=== PATIENT | male | born 1960 | race Caucasian/White ===

== ENCOUNTER 2017-12-14 14:44 | Emergency (ER) | payer OTHER ==
[2017-12-14 14:50] VITALS: BP 139/99
--- NOTE | 2017-12-14 15:55 | RAD ---
INDICATION: Fall. Left shoulder pain COMPARISON: None TECHNIQUE: AP, lateral, and oblique views were obtained. FINDINGS: There is a displaced distal clavicular fracture. There is comminution. The glenohumeral joint is intact. There is no abnormality of the visualized left upper lobe. IMPRESSION: DISPLACED AND COMMINUTED DISTAL CLAVICULAR FRACTURE.
--- NOTE | 2017-12-14 15:57 | RAD ---
INDICATION: Left clavicular fracture COMPARISON: Left shoulder same date TECHNIQUE: AP views were obtained. FINDINGS: There is a comminuted and displaced distal left clavicular fracture. The distal fracture fragment articulates with the acromion but the proximal clavicle is displaced 2 bone widths cephalad. There are no additional fractures. There is soft tissue swelling with deformity IMPRESSION: DISPLACED DISTAL CLAVICULAR FRACTURE.
--- NOTE | 2017-12-14 16:13 | RAD ---
INDICATION: Fall COMPARISON: CT brain March 18, 2016 TECHNIQUE: Noncontrast axial source images were acquired from the skull base to the vertex. FINDINGS: Ventricles/sulci: There are cortical involutional changes.. Brain parenchyma: There is no focal parenchymal finding, evidence of intracranial mass, or intracranial mass effect. Intracranial hemorrhage:None. Extra-axial spaces: There are bifrontal extra-axial collections which are likely subdural hygromas. These have developed since the 2016 examination. Calvarium: There is no calvarial fracture or other calvarial abnormality. Scalp: There is no evidence of scalp or extracalvarial soft tissue abnormality. Paranasal sinuses/mastoid: The paranasal sinuses and mastoid air cells are clear. Other: None. IMPRESSION: INTERVAL DEVELOPMENT OF BIFRONTAL SUBDURAL HYGROMAS.
--- NOTE | 2017-12-14 16:15 | PN ---
Progress Note - Progress Note Date of Service: 12/14/17 Note: Patient arrives with a left shoulder /clavicle injury. Patient states 10 days ago he kicked a ball and dog jerked pt and he fell and landed on the pavement/ on shoulder and on head 10 days ago and since then pt has been falling frequently. pt c/o left shoulder pain. Patient has a laceration over the left eye. He states to triage nurse he drinks all day every day. He is also requesting a CT of the brain as he is unsure how many times he has fallen, had loss of consciousness or pass out otherwise. To expedite the process as he remains in the waiting room, provider ordered a shoulder and clavicle x-ray as well as a CT brain. This was completed. Patient was sent to a room where he remained for a few minutes before stating he would like to leave and would like to come back tomorrow to obtain his results. Nursing staff assured patient that provider was on the way into the room, however she declines this day and his left without being seen. We will await to see if he returns tomorrow, otherwise will warrant a phone call to the individual.
== END 2017-12-14 16:13 | disposition left against medical advice (07) ==
LOC: ED 14:44
DX: S42.032A Displaced fracture of lateral end of left clavicle, initial encounter for closed fracture (principal); S01.112A Laceration without foreign body of left eyelid and periocular area, initial encounter; W19.XXXA Unspecified fall, initial encounter; Y92.9 Unspecified place or not applicable; D18.1 Lymphangioma, any site; Z53.21 Procedure and treatment not carried out due to patient leaving prior to being seen by health care provider; Z91.81 History of falling
CPT/HCPCS: 70450; 99282

== ENCOUNTER 2017-12-14 17:34 | Emergency (ER) | payer OTHER ==
[2017-12-14 17:45] VITALS: BP 115/83
--- NOTE | 2017-12-14 18:09 | ED ---
Head Injury - HPI Summary HPI Summary: 57 male presents for head injury 2 weeks ago. He states since that injury occurred as his dog pulled his arm and he fell onto his left shoulder and head. He states since then he has fallen 5 times. The last one a week ago resulted to a laceration near left eye. He states he previous broke his left clavicle. He is full range of motion her shoulder with pain. There is step-off noted to the left shoulder. He states he drinks alcohol daily. He did drink today. He denies any neck pain. He admits to dizziness when he walks. He states the dizziness is worse if he drinks alcohol. He denies any other injury. He denies any change in vision. Denies any photophobia. He states he has a pressure in the front of his head. He denies any nausea or vomiting. unsure of LOC. He states placing ice on the area has been helping. He was in the waiting room earlier today and had imaging done. Imaging showed has bifrontal subdural hygromas. Also shows that he has a clavicle fracture. Patient was asked to return. ambulance was sent to his house to pick him up. He has past medical history he seizures. He takes phenytoin and gabapentin. He states his been taking them consistently. He states his last seizure was a month ago. - History Of Current Complaint Chief Complaint: EDHeadInjury Stated Complaint: HEAD INJURY Time Seen by Provider: 12/14/17 17:43 Pain Intensity: 10 - Allergies/Home Medications Allergies/Adverse Reactions: Allergies Allergy/AdvReac Type Severity Reaction Status Date / Time bee venom protein (honey bee) Allergy Unknown Verified 12/14/17 14:46 Reaction Details Home Medications: Home Medications Ascorbic Acid TAB* [Vitamin C TAB*] 500 mg PO DAILY 12/14/17 [History Confirmed 12/14/17] Cholecalciferol TAB* [Vitamin D TAB*] 400 unit PO DAILY 12/14/17 [History Confirmed 12/14/17] Cyanocobalamin TAB* [Vitamin B12 TAB*] 500 mcg PO DAILY 12/14/17 [History Confirmed 12/14/17] Meloxicam(NF) [Mobic(NF)] 15 mg PO DAILY PRN 12/14/17 [History Confirmed ] Phenytoin CAP(*) [Dilantin CAP(*)] 100 mg PO QAM 12/14/17 [History Confirmed ] Phenytoin CAP(*) [Dilantin CAP(*)] 200 mg PO QPM 12/14/17 [History Confirmed ] amLODIPine TAB* [Norvasc 5 mg TAB*] 5 mg PO DAILY 12/14/17 [History Confirmed ] PMH/Surg Hx/FS Hx/Imm Hx Endocrine/Hematology History: Denies: Hx Anticoagulant Therapy, Hx Diabetes Cardiovascular History: Reports: Hx Hypercholesterolemia, Hx Hypertension Denies: Hx Pacemaker/ICD Respiratory History: Denies: Hx Asthma History: Denies: Hx Dialysis, Hx Renal Disease Musculoskeletal History: Reports: Hx Arthritis, Hx Back Problems, Hx Scoliosis, Other Musculoskeletal History - c/o chronic soreness left posterior calf, states he has had " for years" Sensory History: Reports: Hx Contacts or Glasses Denies: Hx Hearing Aid Opthamlomology History: Reports: Hx Contacts or Glasses Neurological History: Reports: Hx Seizures, Other Neuro Impairments/Disorders - tremors r/t ETOH. PAIN CLINIC PT Psychiatric History: Reports: Hx Substance Abuse - alcoholism Denies: Hx Panic Disorder - Surgical History Surgery Procedure, Year, and Place: APPENDIX 1982 - Immunization History Date of Tetanus Vaccine: unknown Infectious Disease History: No Infectious Disease History: Denies: Traveled Outside the [place] in Last 30 Days - Family History Known Family History: Positive: Hypertension - Social History Alcohol Use: Daily Alcohol Amount: alcohol abuse Substance Use Type: Reports: None Substance Use Comment - Amount & Last Used: denies Smoking Status (MU): Current Every Day Smoker Type: Cigarettes Amount Used/How Often: 5-6 cigarettes/day Have You Smoked in the Last Year: No Review of Systems Negative: Fever Negative: Chest Pain Negative: Shortness Of Breath Positive: Myalgia - left shoulder pain Positive: Headache All Other Systems Reviewed And Are Negative: Yes Physical Exam Triage Information Reviewed: Yes Vital Signs On Initial Exam: Initial Vitals Temp Pulse Resp BP Pulse Ox 98 F 77 14 115/83 99 12/14/17 17:41 12/14/17 17:41 12/14/17 17:41 12/14/17 17:41 12/14/17 17:41 Vital Signs Reviewed: Yes Appearance: Positive: Well-Appearing Skin: Positive: Warm, Dry, Other - healing laceration near left eye Head/Face: Positive: Normal Head/Face Inspection, Other - no step off, racoon eyes, león sign Eyes: Positive: Normal, EOMI, ERNESTO, Conjunctiva Clear ENT: Positive: Normal ENT inspection, Pharynx normal, TMs normal Respiratory/Lung Sounds: Positive: Clear to Auscultation, Breath Sounds Present Cardiovascular: Positive: Normal, RRR Musculoskeletal: Positive: Strength/ROM Intact - left shoulder, Other - step off left clavicle, good pulses, capillary refill<2 sec, sensation grossly intact Neurological: Positive: Sensory/Motor Intact, Alert, Oriented to Person Place, Time, CN Intact II-III, Normal Gait Psychiatric: Positive: Normal - [place] Coma Scale Best Eye Response: 4 - Spontaneous Best Motor Response: 6 - Obeys Commands Best Verbal Response: 5 - Oriented Coma Scale Total: 15 Diagnostics - Vital Signs Vital Signs Temp Pulse Resp BP Pulse Ox 12/14/17 17:41 98 F 77 14 115/83 99 - Laboratory Result Diagrams: 12/14/17 19:04 12/14/17 19:04 Lab Statement: Any lab studies that have been ordered have been reviewed, and results considered in the medical decision making process. - CT brain CT Interpretation: Positive (See Comments) - interval development of bifrontal subdural hydromas CT Interpretation Completed By: Radiologist Re-Evaluation - Re-Evaluation First Eval Re-Evaluation Time: 18:59 Comment: patient states does not want to stay overnight. discussed want to get CT neck first, patient able to walk to CT without any tremors and able to walk in straight line. Second Eval Re-Evaluation Time: 19:31 Comment: patient met with carlota and still insists on going home. made sign out AMA patient is clinically sober enough to sign out AMA and understand the potential complications such as cerebral hemmorhage or . patient states needs to go home to take care of dogs. patient called son who does not have time to take care of dogs. patient explained to son that the ED is concerned that the patient could so has an understanding of the severity of the situation. Head Injury Course/Dx Course Of Treatment: 57 male presents for head injury 2 weeks ago. He states since that injury occurred as his dog pulled his arm and he fell onto his left shoulder and head. He states since then he has fallen 5 times. The last one a week ago resulted to a laceration near left eye. He states he previous broke his left clavicle. He is full range of motion her shoulder with pain. There is step-off noted to the left shoulder. He states he drinks alcohol daily. He did drink today. He denies any neck pain. He admits to dizziness when he walks. He states the dizziness is worse if he drinks alcohol. He denies any other injury. He denies any change in vision. Denies any photophobia. He states he has a pressure in the front of his head. He states placing ice on the area has been helping. He was in the waiting room earlier today and had imaging done. Imaging showed has bifrontal subdural hygromas. Also shows that he has a clavicle fracture. Patient was asked to return. ambulance was sent to his house to pick him up. He has past medical history he seizures. He takes phenytoin and gabapentin. He states his been taking them consistently. He states his last seizure was a month ago. On exam patient smells of alcohol. Normal neuro exam. Nontender neck. Step-off note to left shoulder. Neurovascular intact. gave sling for left shoulderas broke clavicle. told needs follow up with ortho about such. spoke with dr coffey states that does not need surgery. would need a repeat CT tomorrow to make sure nothing changes. needs further work up to see why falling. discussed results with patient and patient states needs to call family to get somone to watch dogs. patient is agreeable to CT neck. patient states son will not watch the dogs so he has to come home. patient states that will come back tomorrow for a repeat CT. explained patient needs to be admitted to be observed if anything changes then intervention can be performed. discussed with dr tamez if clinically sober is able to sign out ama. discussed risk of leaving and patient understand that there is a chance of or worsening hemorrhage. patient is clinically sober to be able to sign AMA form. AMA signing was witnessed by Elli Poon. - Diagnoses Differential Diagnosis/HQI/PQRI: Concussion Without LOC, Contusion, Intracranial Bleed Provider Diagnoses: Subdural hygroma, Fracture of left clavicle, Falls - Physician Notifications Discussed Care Of Patient With: erlinda Time Discussed With Above Provider: 18:45 - should admit for obs and get repeat CT tomorrow Discharge - Sign-Out/Discharge Documenting (check all that apply): Discharge/Admit/Transfer - Discharge Plan Condition: Guarded Disposition: AGAINST MEDICAL ADVICE Referrals: Deandra Painter NP [Primary Care Provider] - - Billing Disposition and Condition Condition: GUARDED Disposition: AMA
[2017-12-14 19:15] LABS: ABS Basophils 0.1 10^3/ul (0-0.2); ABS Eosinophils 0.1 10^3/ul (0-0.6); ABS Lymphocytes 1.7 10^3/ul (1.0-4.8); ABS Monocytes 0.4 10^3/ul (0-0.8); ABS Neutrophils 1.5 10^3/ul (1.5-7.7); ABS Nucleated RBC 0 10^3/ul; Hematocrit 31 % (42-52); Hemoglobin 10.7 g/dl (14.0-18.0); Lymphocyte % 43.8 % (25-47); Mean Corpuscular HGB Conc 35 g/dl (31-36); Mean Corpuscular Hemoglobin 37 pg (27-31); Mean Corpuscular Volume 105 fL (80-94); Mean Platelet Volume 6.8 um3 (7.4-10.4); Nucleated Red Blood Cells % 0.1; Platelet Count 138 10^3/ul (150-450); Red Blood Count 2.91 10^6/ul (4.0-5.4); Red Cell Distribution Width 16 % (10.5-15); White Blood Count 3.9 10^3/ul (3.5-10.8)
--- NOTE | 2017-12-14 19:31 | RAD ---
INDICATION: Fall. Neck pain COMPARISON: None TECHNIQUE: Noncontrast axial source images was performed from the skull base to the thoracic inlet. Coronal and and sagittal reformatted images were generated. FINDINGS: Vertebrae: There is no fracture or acute focal bony lesion. There is moderate osteoarthritic change between C3 and C6 consisting of endplate sclerosis with minor posterior spondylitic ridge formation. There is also uncinate process spurring at C5-C6 with resultant moderate bilateral foraminal narrowing. There is facet overgrowth at C3-C4 on the left. Alignment: The craniocervical junction appears normal. The cervical vertebrae are normally aligned. Central Canal: There are no other significant CT abnormalities of the central canal or foramina. MR imaging is a more sensitive method to evaluate the canal and foramina. Intervertebral disc spaces: The remaining disc spaces are maintained. Brain: The visualized brain appears unremarkable. Soft tissues: The visualized soft tissue elements of the neck are unremarkable. The prevertebral soft tissues appear normal. The lung apices are clear. IMPRESSION: MODERATE OSTEOARTHRITIS C4-C6 WITH MODERATE BILATERAL FORAMINAL NARROWING AT C5-C6. NO ACUTE FINDINGS.
[2017-12-14 19:37] LABS: EGFR Non-African American 121.1 (>60)
--- NOTE | 2017-12-14 19:53 | PN ---
Progress Note - Progress Note Date of Service: 12/14/17 Note: Patient left AMA prior to be seen.
== END 2017-12-14 19:47 | disposition left against medical advice (07) ==
LOC: ED 17:34
DX: D18.1 Lymphangioma, any site (principal); S42.002A Fracture of unspecified part of left clavicle, initial encounter for closed fracture; W19.XXXA Unspecified fall, initial encounter; Z91.81 History of falling; Y92.9 Unspecified place or not applicable; E78.00 Pure hypercholesterolemia, unspecified; I10 Essential (primary) hypertension; F17.210 Nicotine dependence, cigarettes, uncomplicated; Z53.21 Procedure and treatment not carried out due to patient leaving prior to being seen by health care provider
CPT/HCPCS: 36415; 72125; 80053; 82140; 83735; 85025; 99283

== ENCOUNTER 2017-12-15 12:18 | Emergency (ER) | payer OTHER ==
[2017-12-15 12:48] LABS: ABS Basophils 0.1 10^3/ul (0-0.2); ABS Eosinophils 0.1 10^3/ul (0-0.6); ABS Lymphocytes 1.4 10^3/ul (1.0-4.8); ABS Monocytes 0.3 10^3/ul (0-0.8); ABS Neutrophils 1.3 10^3/ul (1.5-7.7); ABS Nucleated RBC 0 10^3/ul; Eosinophil % 1.8 % (0-6); Hematocrit 30 % (42-52); Hemoglobin 10.3 g/dl (14.0-18.0); Lymphocyte % 42.8 % (25-47); Mean Corpuscular HGB Conc 34 g/dl (31-36); Mean Corpuscular Hemoglobin 36 pg (27-31); Mean Corpuscular Volume 106 fL (80-94); Mean Platelet Volume 7.1 um3 (7.4-10.4); Nucleated Red Blood Cells % 0.1; Platelet Count 121 10^3/ul (150-450); Red Blood Count 2.82 10^6/ul (4.0-5.4); Red Cell Distribution Width 16 % (10.5-15); White Blood Count 3.2 10^3/ul (3.5-10.8)
[2017-12-15 13:05] LABS: EGFR Non-African American 142.6 (>60)
--- NOTE | 2017-12-15 13:13 | RAD ---
HISTORY: Dizziness COMPARISONS: December 14, 2014 TECHNIQUE: Multiple contiguous axial CT scans were obtained of the head without intravenous contrast. FINDINGS: HEMORRHAGE/INFARCT: There is no hemorrhage or acute infarct. MASSES/SHIFT: There is no mass or shift. EXTRA-AXIAL SPACES: There are bilateral subdural fluid collections along the frontoparietal convexities that follow CSF, stable SULCI AND VENTRICLES: The sulci and ventricles are normal in size and position for the patient's stated age. CEREBRUM: There are no focal parenchymal abnormalities. BRAINSTEM: There are no focal parenchymal abnormalities. CEREBELLUM: There are no focal parenchymal abnormalities. VESSELS: The vessels are grossly normal. PARANASAL SINUSES: The paranasal sinuses are clear. ORBITS: The orbits are unremarkable. BONES AND SOFT TISSUE: No bone or soft tissue abnormalities are noted. OTHER: None IMPRESSION: STABLE BILATERAL FRONTOPARIETAL SUBDURAL HYGROMAS VERSUS CHRONIC SUBDURAL HEMATOMAS. NO ACUTE INTRACRANIAL PATHOLOGY
--- NOTE | 2017-12-15 13:35 | ED ---
Head Injury - HPI Summary HPI Summary: Patient is a 57-year-old male who presents for the third time in 2 days after signing out AMA twice yesterday. He arrives back today with a request for CT scan as he was supposed to receive one yesterday prior to AMA. He also endorses dizziness, but this has been consistent 2 weeks. He states he has been having worsening dizziness since he fell and hit his head 2 weeks ago. While he was here yesterday we obtained a CT scan and x-ray of the shoulder. Fractured clavicle is noted on x-ray. Bilateral hygromas are noted to the CT. He was advised to stay overnight for observation and repeat CT the next day. Neurosurgery was consulted who stated this likely is not a surgical case and recommended an observation. He then left AMA and said he would return the following morning. Family is at bedside. He smells of alcohol on arrival. Please see yesterday course of treatment below which was dictated by Hawa Mcdonough PA-C, his provider upon yesterdays visit. Course Of Treatment: 57 male presents for head injury 2 weeks ago. He states since that injury occurred as his dog pulled his arm and he fell onto his left shoulder and head. He states since then he has fallen 5 times. The last one a week ago resulted to a laceration near left eye. He states he previous broke his left clavicle. He is full range of motion her shoulder with pain. There is step-off noted to the left shoulder. He states he drinks alcohol daily. He did drink today. He denies any neck pain. He admits to dizziness when he walks. He states the dizziness is worse if he drinks alcohol. He denies any other injury. He denies any change in vision. Denies any photophobia. He states he has a pressure in the front of his head. He states placing ice on the area has been helping. He was in the waiting room earlier today and had imaging done. Imaging showed has bifrontal subdural hygromas. Also shows that he has a clavicle fracture. Patient was asked to return. ambulance was sent to his house to pick him up. He has past medical history he seizures. He takes phenytoin and gabapentin. He states his been taking them consistently. He states his last seizure was a month ago. On exam patient smells of alcohol. Normal neuro exam. Nontender neck. Step-off note to left shoulder. Neurovascular intact. gave sling for left shoulderas broke clavicle. told needs follow up with ortho about such. spoke with dr coffey states that does not need surgery. would need a repeat CT tomorrow to make sure nothing changes. needs further work up to see why falling. discussed results with patient and patient states needs to call family to get somone to watch dogs. patient is agreeable to CT neck. patient states son will not watch the dogs so he has to come home. patient states that will come back tomorrow for a repeat CT. explained patient needs to be admitted to be observed if anything changes then intervention can be performed. discussed with dr tamez if clinically sober is able to sign out ama. discussed risk of leaving and patient understand that there is a chance of or worsening hemorrhage. patient is clinically sober to be able to sign AMA form. AMA signing was witnessed by Elli Poon. - History Of Current Complaint Chief Complaint: EDDizziness Stated Complaint: DIZZINESS Time Seen by Provider: 12/15/17 12:22 Hx Obtained From: Patient, Family/Trapeze Artist Hx From Patient Unobtainable Due To: Altered Mental Status - alcohol intoxication Mechanism Of Injury: Fall From Height Of: - standing position x 2-3 weeks ago ( patient is unsure) Onset of Pain: Immediate Severity Currently: Mild Severity Initially: Mild Pain Intensity: 0 Pain Scale Used: 0-10 Numeric Location of Head Injury: Diffuse Alleviating Factor(s): Rest Associated Signs And Symptoms: LOC (Time In Secs./Mins/Hrs), LOC Duration Unknown, Confusion, Memory Loss - Risk Factors SDH Risk Factor: Male, Seizures, Recent Trauma, Alcohol Abuse - Allergies/Home Medications Allergies/Adverse Reactions: Allergies Allergy/AdvReac Type Severity Reaction Status Date / Time bee venom protein (honey bee) Allergy Unknown Verified 12/14/17 14:46 Reaction Details PMH/Surg Hx/FS Hx/Imm Hx Previously Healthy: No - alcoholic - severe/ multiple head trauma Endocrine/Hematology History: Denies: Hx Anticoagulant Therapy, Hx Diabetes Cardiovascular History: Reports: Hx Hypercholesterolemia, Hx Hypertension Denies: Hx Pacemaker/ICD Respiratory History: Denies: Hx Asthma History: Denies: Hx Dialysis, Hx Renal Disease Musculoskeletal History: Reports: Hx Arthritis, Hx Back Problems, Hx Scoliosis, Other Musculoskeletal History - c/o chronic soreness left posterior calf, states he has had " for years" Sensory History: Reports: Hx Contacts or Glasses Denies: Hx Hearing Aid Opthamlomology History: Reports: Hx Contacts or Glasses Neurological History: Reports: Hx Seizures, Other Neuro Impairments/Disorders - tremors r/t ETOH. PAIN CLINIC PT Psychiatric History: Reports: Hx Substance Abuse - alcoholism Denies: Hx Panic Disorder - Surgical History Surgery Procedure, Year, and Place: APPENDIX 1982 - Immunization History Date of Tetanus Vaccine: unknown Hx Pertussis Vaccination: No Immunizations Up to Date: Unable to Obtain/Confirm Infectious Disease History: No Infectious Disease History: Denies: Traveled Outside the [place] in Last 30 Days - Family History Known Family History: Positive: Hypertension - Social History Occupation: Unemployed Lives: With Family Alcohol Use: Daily Alcohol Amount: alcohol abuse Hx Substance Use: No Substance Use Type: Reports: None Substance Use Comment - Amount & Last Used: denies Hx Tobacco Use: Yes Smoking Status (MU): Light Every Day Tobacco Smoker Type: Cigarettes Amount Used/How Often: 5-6 cigarettes/day Have You Smoked in the Last Year: No Review of Systems Constitutional: Negative Negative: Fever, Chills, Fatigue, Skin Diaphoresis Cardiovascular: Negative Respiratory: Negative Genitourinary: Negative Positive: no symptoms reported, see HPI Musculoskeletal: Negative Positive: Other - laceration over left eye Positive: Slurred Speech - dizziness Psychological: Normal All Other Systems Reviewed And Are Negative: Yes Physical Exam Triage Information Reviewed: Yes Vital Signs On Initial Exam: Initial Vitals Pulse Resp BP Pulse Ox 80 16 162/100 96 12/15/17 12:26 12/15/17 12:26 12/15/17 12:26 12/15/17 12:26 Vital Signs Reviewed: Yes Appearance: Positive: Well-Appearing, Well-Nourished Skin: Positive: Warm, Skin Color Reflects Adequate Perfusion Head/Face: Positive: Normal Head/Face Inspection Eyes: Positive: EOMI, ERNESTO Neck: Positive: Supple, No Lymphadenopathy Respiratory/Lung Sounds: Positive: Clear to Auscultation, Breath Sounds Present Cardiovascular: Positive: RRR, Pulses are Symmetrical in both Upper and Lower Extremities Musculoskeletal: Positive: Normal, Strength/ROM Intact Neurological: Positive: Slurred Speech - alcohol Psychiatric: Positive: Normal, Affect/Mood Appropriate AVPU Assessment: Alert Diagnostics - Vital Signs Vital Signs Temp Pulse Resp BP Pulse Ox 05/19/18 13:26 78 15 151/96 98 12/15/17 13:07 73 98 12/15/17 12:57 74 18 122/85 96 12/15/17 12:27 99.0 F 82 18 162/100 97 12/15/17 12:26 80 16 162/100 96 - Laboratory Lab Results: Lab Results 12/15/17 12/15/17 12/15/17 Range/Units 12:40 12:40 12:40 WBC 3.2 L (3.5-10.8) 10^3/ul RBC 2.82 L (4.0-5.4) 10^6/ul Hgb 10.3 L (14.0-18.0) g/dl Hct 30 L (42-52) % MCV 106 H (80-94) fL MCH 36 H (27-31) pg MCHC 34 (31-36) g/dl RDW 16 H (10.5-15) % Plt Count 121 L (150-450) 10^3/ul MPV 7.1 L (7.4-10.4) um3 Neut % (Auto) 42.4 (38-83) % Lymph % (Auto) 42.8 (25-47) % [place] % (Auto) 10.1 H (0-7) % Eos % (Auto) 1.8 (0-6) % Baso % (Auto) 2.9 H (0-2) % Absolute Neuts (auto) 1.3 L (1.5-7.7) 10^3/ul Absolute Lymphs (auto) 1.4 (1.0-4.8) 10^3/ul Absolute Monos (auto) 0.3 (0-0.8) 10^3/ul Absolute Eos (auto) 0.1 (0-0.6) 10^3/ul Absolute Basos (auto) 0.1 (0-0.2) 10^3/ul Absolute Nucleated RBC 0 10^3/ul Nucleated RBC % 0.1 Sodium 138 L (139-145) mmol/L Potassium 3.6 (3.5-5.0) mmol/L Chloride 103 (101-111) mmol/L Carbon Dioxide 24 (22-32) mmol/L Anion Gap 11 (2-11) mmol/L BUN 5 L (6-24) mg/dL Creatinine 0.59 L (0.67-1.17) mg/dL Est GFR ( Amer) 183.4 (>60) Est GFR (Non-Af Amer) 142.6 (>60) BUN/Creatinine Ratio 8.5 (8-20) Glucose 97 (70-100) mg/dL Lactic Acid 2.2 H* (0.5-2.0) mmol/L Calcium 8.9 (8.6-10.3) mg/dL Total Bilirubin 0.50 (0.2-1.0) mg/dL AST 79 H (13-39) U/L ALT 24 (7-52) U/L Alkaline Phosphatase 166 H (34-104) U/L CK-MB (CK-2) 1.6 (0.6-6.3) ng/mL Myoglobin 20.0 (17.4-105.7) ng/mL Troponin I 0.00 (<0.04) ng/mL C-React Prot High Sens 0.86 mg/L Total Protein 7.3 (6.4-8.9) g/dL Albumin 4.1 (3.2-5.2) g/dL Globulin 3.2 (2-4) g/dL Albumin/Globulin Ratio 1.3 (1-3) Serum Alcohol 397 H (<10) mg/dL Result Diagrams: 12/15/17 12:40 12/15/17 12:40 Lab Statement: Any lab studies that have been ordered have been reviewed, and results considered in the medical decision making process. Head Injury Course/Dx Course Of Treatment: Patient is reevaluated based on yesterday's note of request for a repeat CT. CT scan shows: IMPRESSION: STABLE BILATERAL FRONTOPARIETAL SUBDURAL HYGROMAS VERSUS CHRONIC SUBDURAL HEMATOMAS. NO. ACUTE INTRACRANIAL PATHOLOGY. Alcohol level 397. This was obtained in an event where a observation or admission is needed. Other labs are stable, but a low H& H and elevated liver enzymes are noted. There is a deformity to the left shoulder, laceration to the left eye, patient appears intoxicated. Family is at bedside. Attempted to contact neurosurgery 13:28; 13:50 and 14:03. We did not get a hold of neurosurgery during these times. Discussed results with family and they would like to leave at this time. I will not have them sign out AMA as I believe this is stable and based on yesterday's examination of a recommendation to observe with a repeat CT to assess for any changes, as this CT shows no changes from yesterday. Family is willing to return with patient if needed. He is strongly encouraged to follow-up with neurosurgery and the risks of not doing so was discussed in depth. He is also to follow up with ortho, he states he will likely not do this. At this time he is stable enough to be discharged home with the safety of his family at bedside and will call with any differing opinion by neurosurgery when consulted. - Diagnoses Differential Diagnosis/HQI/PQRI: Concussion With LOC, Concussion Without LOC, Other - alcohol Provider Diagnoses: Alcohol intoxication, Hygroma, Clavicle fracture Discharge - Sign-Out/Discharge Documenting (check all that apply): Discharge/Admit/Transfer - Discharge Plan Condition: Stable Disposition: HOME Patient Education Materials: Clavicle Fracture (ED), Subdural Hematoma (ED), Dizziness (ED) Referrals: Paulino Mcneal MD [Medical Doctor] - Deandra Painter NP [Primary Care Provider] - Hannah Her MD [Medical Doctor] - Additional Instructions: Please follow-up with Dr. Encinas in the orthopedic clinic Keep the arm in a sling until follow-up Please follow-up with neurosurgery It is very important that you follow-up with them as you need continuing care If you fall and sustain another head injury, he will need to return to the ED immediately - Billing Disposition and Condition Condition: STABLE Disposition: HOME
[2017-12-15 14:25] VITALS: BP 116/91
== END 2017-12-15 14:23 | disposition home or self-care (01) ==
LOC: ED 12:18
DX: F10.129 Alcohol abuse with intoxication, unspecified (principal); Y90.8 Blood alcohol level of 240 mg/100 ml or more; D18.1 Lymphangioma, any site; S42.002A Fracture of unspecified part of left clavicle, initial encounter for closed fracture; X58.XXXA Exposure to other specified factors, initial encounter; Y92.9 Unspecified place or not applicable; F17.210 Nicotine dependence, cigarettes, uncomplicated
CPT/HCPCS: 36415; 70450; 80053; 80320; 82553; 83605; 83874; 84484; 85025; 86141; 99283; G0480

== ENCOUNTER 2017-12-27 17:44 | Emergency (ER) | payer OTHER ==
--- NOTE | 2017-12-27 19:10 | RAD ---
HISTORY: Syncope COMPARISONS: December 15, 2017 TECHNIQUE: Multiple contiguous axial CT scans were obtained of the head without intravenous contrast. FINDINGS: HEMORRHAGE/INFARCT: There is no hemorrhage or acute infarct. MASSES/SHIFT: There is no mass or shift. EXTRA-AXIAL SPACES: Again noted are bilateral frontoparietal subdural fluid collections that are isointense to CSF. SULCI AND VENTRICLES: The sulci and ventricles are normal in size and position for the patient's stated age. CEREBRUM: There are no focal parenchymal abnormalities. BRAINSTEM: There are no focal parenchymal abnormalities. CEREBELLUM: There are no focal parenchymal abnormalities. VESSELS: The vessels are grossly normal. PARANASAL SINUSES: The paranasal sinuses are clear. ORBITS: The orbits are unremarkable. BONES AND SOFT TISSUE: No bone or soft tissue abnormalities are noted. OTHER: None IMPRESSION: NO ACUTE INTRACRANIAL PATHOLOGY. STABLE BILATERAL FRONTOPARIETAL SUBDURAL HYGROMAS VERSUS CHRONIC HEMATOMAS.
--- NOTE | 2017-12-27 19:22 | RAD ---
HISTORY: Syncope COMPARISONS: March 20, 2015 VIEWS: 2: Frontal and lateral views of the chest. FINDINGS: CARDIOMEDIASTINAL SILHOUETTE: The cardiomediastinal silhouette is normal. DORENE: The dorene are normal. PLEURA: The costophrenic angles are sharp. No pleural abnormalities are noted. LUNG PARENCHYMA: The lungs are clear. ABDOMEN: The upper abdomen is clear. There is no subphrenic gas. BONES AND SOFT TISSUES: No bone or soft tissue abnormalities are noted. OTHER: None. IMPRESSION: NO ACTIVE CARDIOPULMONARY DISEASE.
[2017-12-27 19:32] LABS: EGFR Non-African American 117.1 (>60)
[2017-12-27 19:45] LABS: Hematocrit 29 % (42-52); Hemoglobin 9.9 g/dl (14.0-18.0); Mean Corpuscular HGB Conc 35 g/dl (31-36); Mean Corpuscular Hemoglobin 37 pg (27-31); Mean Corpuscular Volume 106 fL (80-94); Red Blood Count 2.69 10^6/ul (4.0-5.4); Red Cell Distribution Width 15 % (10.5-15); White Blood Count 6.9 10^3/ul (3.5-10.8)
--- NOTE | 2017-12-27 19:55 | ED ---
Kaylee Montemayor Elizabeth, scribed for Norbert Thornton MD on 12/27/17 at 1841 . Syncope/Near Syncope - HPI Summary HPI Summary: This patient is a 57 year old M BIBA to [facility] accompanied by his sister with a chief complaint of a fall from standing position that occurred earlier today. The patients sister reports that the patient just collapsed while waiting for the bus. Patient has hx of seizures but denies feeling his normal aura before he fell. Per EMS, the patient was given 2mg intranasal Narcan. The patient reports that he had 4-5 mixed drinks earlier today. Per EMS the patient has been slurring his speech. The patient rates the pain 0/10 in severity. Symptoms aggravated by nothing. Symptoms alleviated by nothing. Patient denies chest pain , shortness of breath, weakness. - History Of Current Complaint Time Seen by Provider: 12/27/17 18:13 Hx Obtained From: Patient, Family/Catcher Filter Tip - patient's sister Onset/Duration: Sudden Onset, Resolved Timing: Intermittent Episode Lasting Context: Witnessed Activity At Onset: Other - waiting for the bus Aggravating Factor(s): Nothing Alleviating Factor(s): Nothing Associated Signs And Symptoms: Negative - NEGATIVE CHEST PAIN, NEGATIVE SHORTNESS OF BREATH, NEGATIVE WEAKNESS - Allergies/Home Medications Allergies/Adverse Reactions: Allergies Allergy/AdvReac Type Severity Reaction Status Date / Time bee venom protein (honey bee) Allergy Unknown Verified 12/14/17 14:46 Reaction Details PMH/Surg Hx/FS Hx/Imm Hx Endocrine/Hematology History: Denies: Hx Anticoagulant Therapy, Hx Diabetes Cardiovascular History: Reports: Hx Hypercholesterolemia, Hx Hypertension Denies: Hx Pacemaker/ICD Respiratory History: Denies: Hx Asthma History: Denies: Hx Dialysis, Hx Renal Disease Musculoskeletal History: Reports: Hx Arthritis, Hx Back Problems, Hx Scoliosis, Other Musculoskeletal History - c/o chronic soreness left posterior calf, states he has had " for years" Sensory History: Reports: Hx Contacts or Glasses Denies: Hx Hearing Aid Opthamlomology History: Reports: Hx Contacts or Glasses Neurological History: Reports: Hx Seizures, Other Neuro Impairments/Disorders - tremors r/t ETOH. PAIN CLINIC PT Psychiatric History: Reports: Hx Substance Abuse - alcoholism Denies: Hx Panic Disorder - Surgical History Surgery Procedure, Year, and Place: APPENDIX 1982 - Immunization History Date of Tetanus Vaccine: unknown Infectious Disease History: No Infectious Disease History: Denies: Traveled Outside the [place] in Last 30 Days - Family History Known Family History: Positive: Hypertension - Social History Alcohol Use: Daily Alcohol Amount: alcohol abuse Hx Substance Use: No Substance Use Type: Reports: None Substance Use Comment - Amount & Last Used: denies Hx Tobacco Use: Yes Smoking Status (MU): Light Every Day Tobacco Smoker Type: Cigarettes Amount Used/How Often: 5-6 cigarettes/day Have You Smoked in the Last Year: No Review of Systems Negative: Epistaxis Negative: Chest Pain Negative: Shortness Of Breath Neurological: Other - EtOH intoxication Positive: Syncope, Slurred Speech. Negative: Weakness All Other Systems Reviewed And Are Negative: Yes Physical Exam - Summary Physical Exam Summary: VITAL SIGNS: Reviewed. GENERAL: Patient is a well-developed and nourished MALE who is lying comfortable in the stretcher. Patient is not in any acute respiratory distress. Patient is intoxicated with EtOH. HEAD AND FACE: No signs of trauma. No ecchymosis, hematomas or skull depressions. No sinus tenderness. EYES: PERRLA, EOMI x 2, No injected conjunctiva, no nystagmus. EARS: Hearing grossly intact. Ear canals and tympanic membranes are within normal limits. MOUTH: Oropharynx within normal limits. EtOH on his breath NECK: Supple, trachea is midline, no adenopathy, no JVD, no carotid bruit, no c- spine tenderness, neck with full ROM. CHEST: Symmetric, no tenderness at palpation LUNGS: Clear to auscultation bilaterally. No wheezing or crackles. CVS: Regular rate and rhythm, S1 and S2 present, no murmurs or gallops appreciated. ABDOMEN: Soft, non-tender. No signs of distention. No rebound no guarding, and no masses palpated. Bowel sounds are normal. EXTREMITIES: FROM in all major joints, no edema, no cyanosis or clubbing. Abrasion on right hand NEURO: Alert and oriented x 3. No acute neurological deficits. Speech is normal and follows commands. SKIN: Dry and warm. Abrasion on right hand Triage Information Reviewed: Yes Vital Signs On Initial Exam: Initial Vitals Pulse Resp BP Pulse Ox 78 14 142/87 96 12/27/17 18:00 12/27/17 18:00 12/27/17 18:00 12/27/17 18:00 Vital Signs Reviewed: Yes Diagnostics - Vital Signs Vital Signs Temp Pulse Resp BP Pulse Ox 12/27/17 18:20 98.0 F 79 22 142/87 97 12/27/17 18:01 80 17 97 12/27/17 18:00 78 14 142/87 96 - Laboratory Lab Results: Lab Results 12/27/17 12/27/17 12/27/17 Range/Units 18:46 18:46 18:46 WBC 6.9 (3.5-10.8) 10^3/ul RBC 2.69 L (4.0-5.4) 10^6/ul Hgb 9.9 L (14.0-18.0) g/dl Hct 29 L (42-52) % MCV 106 H (80-94) fL MCH 37 H (27-31) pg MCHC 35 (31-36) g/dl RDW 15 (10.5-15) % Plt Count Pending MPV Pending Neut % (Auto) Pending Lymph % (Auto) Pending [place] % (Auto) Pending Eos % (Auto) Pending Baso % (Auto) Pending Absolute Neuts (auto) Pending Absolute Lymphs (auto) Pending Absolute Monos (auto) Pending Absolute Eos (auto) Pending Absolute Basos (auto) Pending Absolute Nucleated RBC Pending Nucleated RBC % Pending Sodium 135 L (139-145) mmol/L Potassium 3.9 (3.5-5.0) mmol/L Chloride 99 L (101-111) mmol/L Carbon Dioxide 23 (22-32) mmol/L Anion Gap 13 H (2-11) mmol/L BUN 9 (6-24) mg/dL Creatinine 0.70 (0.67-1.17) mg/dL Est GFR ( Amer) 150.6 (>60) Est GFR (Non-Af Amer) 117.1 (>60) BUN/Creatinine Ratio 12.9 (8-20) Glucose 93 (70-100) mg/dL Calcium 8.6 (8.6-10.3) mg/dL Magnesium 1.5 L (1.9-2.7) mg/dL Total Bilirubin 0.80 (0.2-1.0) mg/dL AST 99 H (13-39) U/L ALT 26 (7-52) U/L Alkaline Phosphatase 166 H (34-104) U/L Ammonia 62 H (16-53) mcmol/L Total Creatine Kinase 84 (10-223) U/L Troponin I 0.01 (<0.04) ng/mL B-Natriuretic Peptide 44 ( - 100) pg/mL Total Protein 6.8 (6.4-8.9) g/dL Albumin 3.9 (3.2-5.2) g/dL Globulin 2.9 (2-4) g/dL Albumin/Globulin Ratio 1.3 (1-3) TSH 1.13 (0.34-5.60) mcIU/mL Serum Alcohol Pending Result Diagrams: 12/27/17 18:46 12/27/17 18:46 Lab Statement: Any lab studies that have been ordered have been reviewed, and results considered in the medical decision making process. - Radiology CXR Xray Interpretation: No Acute Changes - IMPRESSION: NO ACTIVE CARDIOPULMONARY DISEASE. Dr. Thornton has reviewed this report. Radiology Interpretation Completed By: Radiologist - CT CT Brain CT Interpretation: No Acute Changes - IMPRESSION: NO ACUTE INTRACRANIAL PATHOLOGY. STABLE BILATERAL FRONTOPARIETAL SUBDURAL HYGROMAS VERSUS CHRONIC HEMATOMAS. Dr. Thornton has reviewed this report. CT Interpretation Completed By: Radiologist - EKG 18:20 Cardiac Rate: NL - at 80 BPM EKG Rhythm: Sinus Rhythm ST Segment: Normal EKG Interpretation: NSR, normal axis, no ST elevation Course/Dx Assessment/Plan: This patient is a 66-year-old male with past medical history significant for hypertension presents to the emergency room from the doctors office with a chief complaint that he has abnormal EKG findings. Patient has no complaints. Patient went to the doctor for a routine physical. He also reports that he has not been taking his blood pressure medications. Patient denies any chest pain, shortness of breath, positive occasional dizziness but no syncopal episodes. Denies any nausea vomiting diarrhea constipation. Blood work without any significant abnormality except for total creatinine kinase of 471. Troponin is 0.01. Chest x-ray impression: No acute cardiopulmonary disease. In the ED course the patient was found to be hypertensive therefore the patient was given available. The blood pressure improved therefore the patient will be discharged with follow-up with primary care physician. The patient doesnt want to wait for all the blood test results to return the patient is agreeing to sign AGAINST MEDICAL ADVICE. The patients sister also agrees who is not intoxicated and the patient will be discharged with a sister. The patients sister is alert and oriented 3 and she will be taking care of the patient. I extensively discussed with the patient the benefits and risk of leaving AMA. I also discussed the alternatives to leaving AMA, however, the patient still insist to leave the hospital AMA.. The primary nurse and the charge nurse also strongly recommended that the patient should not leave AMA. Patient understands the risk of leaving AMA, which includes but is not restricted to . Patient is Alert and oriented times three and patient verbalizes understanding. Patient has full capacity and is cognitively intact. Patient signed the AMA form. Patient was also advised to return to ED if he changes his mind or if the symptoms worsen or other symptoms appear. Patient understands and agrees. - Diagnoses Provider Diagnoses: Syncope, Left against medical advice Discharge - Sign-Out/Discharge Documenting (check all that apply): Discharge/Admit/Transfer - Discharge Plan Condition: Stable Disposition: AGAINST MEDICAL ADVICE Patient Education Materials: Syncope (ED) Referrals: Deandra Painter LEAD ESTHETICIAN [Primary Care Provider] - - Billing Disposition and Condition Condition: STABLE Disposition: AMA The documentation as recorded by the Kaylee cevallos Elizabeth accurately reflects the service I personally performed and the decisions made by , Norbert Thornton MD.
[2017-12-27 20:12] LABS: ABS Basophils 0 10^3/ul (0-0.2); ABS Eosinophils 0 10^3/ul (0-0.6); ABS Lymphocytes 1.4 10^3/ul (1.0-4.8); ABS Monocytes 0.7 10^3/ul (0-0.8); ABS Neutrophils 4.8 10^3/ul (1.5-7.7); ABS Nucleated RBC 0 10^3/ul; Eosinophil % 0.4 % (0-6); Lymphocyte % 19.7 % (25-47); Mean Platelet Volume 7.3 um3 (7.4-10.4); Nucleated Red Blood Cells % 0.1; Platelet Count 90 10^3/ul (150-450)
[2017-12-27 20:15] VITALS: BP 114/75
== END 2017-12-27 20:05 | disposition left against medical advice (07) ==
LOC: ED 17:44
DX: R55 Syncope and collapse (principal); R47.81 Slurred speech; F17.210 Nicotine dependence, cigarettes, uncomplicated; Z53.21 Procedure and treatment not carried out due to patient leaving prior to being seen by health care provider
CPT/HCPCS: 36415; 70450; 71046; 80053; 80320; 82140; 82550; 83735; 83880; 84443; 84484; 85025; 93005; 99283; G0480

== ENCOUNTER 2018-02-04 17:43 | Emergency (ER) | payer OTHER ==
--- OUTSIDE RECORDS SUMMARY | 2018-02-04 18:44 | XMS REPORT ---
:1960 External Reference #:[id number] Author Organization [facility] Address [address] [place] [address] [place] [address] Phone [phone] Care Team Providers Name Role Phone Gustavo Mata NP Primary Care Physician Unavailable Payers Type Date Identification Numbers Payment Provider Subscriber Commercial Policy Number: [id number] [employer] Aurelioisaura Edmond PayID: [id number] [address] [address] [place] [address] Problems Date Description Provider Status Onset: 09/02/2015 Seizure Nancy Cortez M.D. Active Note: question etiology: ETOH or alternative Family History Date Family Member(s) Problem(s) Comments General Psoriasis General Arthritis, Osteo General Arthritis Social History Type Date Description Comments Marital Status Single Lives With Alone Cigarette Use currently smokes 1/2 Pack Daily ETOH Use Occasionally consumes alcohol Recreational Drug Use Denies Drug Use Smoking Patient is a current smoker, smokes every day Smoking Light tobacco smoker (10 or fewer cigarettes/day) Exercise Type/Frequency Does not exercise Currently Active Patient is currently sexually active Allergies, Adverse Reactions, Alerts Date Description Reaction Status Severity Comments 05/04/2009 NKDA active Medications Medication Date Status Form Strength Qnty SIG Indications Ordering Provider B12 Fast 05/31/ Active Tablets 5000mcg 90tab sublingual Long Dissolve 2017 Dispers s daily Johana, M.D. Iron Slow 05/31/ Active Tablets ER 143(45Fe) 90tab take one Long Release 2017 mg s capsule/tab Johana, let daily M.D. by mouth Sulfasalazine 05/23/ Active Tablets 500mg 30tab take one L40.50 Long 2017 s tab by Johana, mouth daily M.D. Gabapentin 00/ Active Capsules 300mg 1 by mouth Unknown 0000 twice a day Meloxicam 00/ Active Tablets 15mg once daily Unknown 0000 Vitamin B-12 00/ Active Tablets 2500mcg 1 by mouth Unknown 0000 every day Magnesium 00/00/ Active Capsules 400mg once a day Unknown 0000 Quetiapine 00/ Active Tablets 50mg 1 tab by Unknown Fumarate 0000 mouth every day Amlodipine / Active Tablets 5mg 1 by mouth Unknown Besylate 0000 every day Atenolol 0000/ Active Tablets 50mg 1 by mouth Unknown 0000 every day Folic Acid / Active Tablets 1mg 1 by mouth Unknown 0000 every day Vitamin D3 / Active Capsules 1000Unit 1 by mouth Unknown 0000 every day Vitamin B1 00/ Active Tablets 100mg 1 by mouth Unknown 0000 every day Phenytoin 0000/ Active Capsules 100mg 90cap take 1 by Nancy Sodium Extended 0000 s mouth in in [facility], the morning M.D. and 2 by mouth in at night Triamcinolone / Active Cream 0.5% apply twice Unknown Acetonide 0000 daily to the affected area Robaxin-750 05/21/ Hx Tablets 750mg 120ta 2 po bid 724.2 Norbert Lanier - bs [place] 09/01/ Omari 2016 Ibuprofen 05/21/ Hx Tablets 800mg 90tab 1 tab po Norbert Zuñiga 2008 - s every 8 hrs [place] 09/01/ prisaura Salcido 2016 Thiamine HCL / Hx Tablets 100mg 1 by mouth Unknown 0000 - every day 2016 Vital Signs Date Vital Result Comment 01/31/2018 Height 69 inches 5'9" Heart Rate 87 /min BP Systolic 112 mmHg BP Diastolic 70 mmHg Respiratory Rate 16 /min Body Temperature 98.2 F Pain Level 8 05/23/2017 Height 69 inches 5'9" Weight 144.12 lb Heart Rate 92 /min BP Systolic Sitting 157 mmHg BP Diastolic Sitting 91 mmHg Respiratory Rate 14 /min Pain Level 3 BMI (Body Mass Index) 21.3 kg/m2 03/16/2017 Height 69 inches 5'9" Weight 148.00 lb Heart Rate 78 /min BP Systolic Sitting 140 mmHg BP Diastolic Sitting 88 mmHg Respiratory Rate 14 /min BMI (Body Mass Index) 21.9 kg/m2 01/10/2017 Height 69 inches 5'9" Weight 144.00 lb Heart Rate 76 /min BP Systolic Sitting 152 mmHg BP Diastolic Sitting 80 mmHg Respiratory Rate 14 /min BMI (Body Mass Index) 21.3 kg/m2 11/04/2015 Height 69 inches 5'9" Weight 146.00 lb Heart Rate 80 /min BP Systolic Sitting 140 mmHg BP Diastolic Sitting 90 mmHg Respiratory Rate 17 /min BMI (Body Mass Index) 21.6 kg/m2 09/02/2015 Height 69 inches 5'9" Weight 146.00 lb Patient reported Heart Rate 68 /min BP Systolic Sitting 150 mmHg BP Diastolic Sitting 82 mmHg Respiratory Rate 16 /min BMI (Body Mass Index) 21.6 kg/m2 07/19/2009 Height 69 inches 5'9" Weight 149.00 lb Heart Rate 80 /min BP Systolic Sitting 186 mmHg BP Diastolic Sitting 96 mmHg BMI (Body Mass Index) 22.0 kg/m2 06/07/2009 Weight 149.00 lb Heart Rate 84 /min BP Systolic Sitting 166 mmHg BP Diastolic Sitting 89 mmHg Body Temperature 97.0 F 05/27/2009 Weight 148.00 lb Heart Rate 96 /min BP Systolic Sitting 170 mmHg BP Diastolic Sitting 100 mmHg 05/04/2009 Height 68.5 inches 5'8.50" Weight 144.00 lb Heart Rate 78 /min BP Systolic Sitting 138 mmHg BP Diastolic Sitting 90 mmHg BMI (Body Mass Index) 21.6 kg/m2 Results Test Date Test Result H/L Range Note Laboratory test finding 09/14/2017 Phenytoin (Dilantin) 3.7 g/mL Low 10- 20 Laboratory test finding 08/07/2017 Phenytoin (Dilantin) 11.9 g/mL 10- 20 Laboratory test finding 08/07/2017 Erythrocyte Sed Rate 10 mm/Hr 0-20 1 Iron & Iron Binding 08/07/2017 Iron 155 g/dL 50-212 Capacity Unsaturated Iron Binding 75 g/dL Total Iron Binding Capacity 230 g/dL Low 250-450 % Iron Saturation 67 % High 15-55 Laboratory test finding 08/07/2017 C Reactive Protein < 1.00 mg/L < 5.00 2 TSH (Thyroid Stim Horm) 0.61 mcIU/mL 0.34-5.60 3 Folic Acid (Folate) 5.81 ng/mL >3.99 4 Vitamin B12 > 1450 pg/mL High 180-914 5 Vitamin D Total 25(Oh) 36.8 ng/mL 20-50 6 Rheumatoid Factor <15 IU/mL <15 7 Cyclic Citrullinated Pep Igg <15.6 U 8 Lyme Disease Serology Negative Negative 9 Hla B27 08/07/2017 Hla B27 Negative 10 Hla B27 Interp See Comment 11 Laboratory test finding 08/07/2017 Vitamin D, 1,25 44 pg/mL 18-64 12 Dihydroxy Laboratory test finding 07/20/2017 Phenytoin (Dilantin) 7.9 g/mL Low 10- 20 Laboratory test finding 05/28/2017 Lyme Disease Serology Negative Negative 13 Iron & Iron Binding 05/28/2017 Iron 229 g/dL High 50-212 Capacity Unsaturated Iron Binding 30 g/dL Total Iron Binding Capacity 259 g/dL 250-450 % Iron Saturation 88 % High 15-55 Vitamin B12 And Folate Serum 05/28/2017 Vitamin B12 266 pg/mL 180-914 14 Folic Acid (Folate) > 20.00 ng/mL >3.99 Laboratory test finding 05/28/2017 Rheumatoid Factor <15 IU/mL <15 15 Cyclic Citrullinated Pep Igg <15.6 U 16 TSH (Thyroid Stim Horm) 1.43 mcIU/mL 0.34-5.60 Hla B27 05/28/2017 Hla B27 Negative 17 Hla B27 Interp See Comment 18 Vitamin D 1,25 And Vitamin D,2 05/28/2017 Vitamin D Total 25(Oh) 39.9 ng/mL 20-50 Vitamin D, 1,25 Dihydroxy 52 pg/mL 18-64 19 Laboratory test finding 05/28/2017 Erythrocyte Sed Rate 10 mm/Hr 0-20 C Reactive Protein < 1.00 mg/L < 5.00 20 Laboratory test finding 03/27/2017 Phenytoin (Dilantin) 4.3 g/mL Low 10- 20 Lyme Disease Serology Negative Negative 21 Laboratory test finding 03/27/2017 Phenytoin (Dilantin) 10.5 g/mL 10- 20 Lyme Disease Serology Negative Negative 22 Laboratory test finding 02/12/2017 Phenytoin (Dilantin) 5.8 g/mL Low 10- 20 Laboratory test finding 01/18/2017 Homocysteine 18 mcmol/L 23 Methylmalonic Acid Mma 0.23 nmol/mL <=0.40 24 Vitamin D, 1,25 Dihydroxy 53 pg/mL 18-64 25 Laboratory test finding 01/18/2017 TSH (Thyroid Stimulating 1.53 mcIU/mL 0.34-5.60 Horm) PSA Screening 0.262 ng/mL 0-4.000 26 Lipid Profile (Trig/Chol/HDL) 01/18/2017 Triglycerides 101 mg/dL 27 Cholesterol 211 mg/dL 28 HDL Cholesterol 82.6 mg/dL 29 LDL Cholesterol 108 mg/dL 30 Vitamin B12 And Folate Serum 01/18/2017 Vitamin B12 224 pg/mL 180-914 31 Folic Acid (Folate) > 20.00 ng/mL >3.99 Laboratory test finding 01/18/2017 Phenytoin (Dilantin) < 2.5 g/mL Low 10-20 CBC Auto Diff 01/18/2017 White Blood Count 8.9 10^3/uL 3.5-10.8 Red Blood Count 3.59 10^6/uL Low 4.0-5.4 Hemoglobin 12.0 g/dL Low 14.0-18.0 Hematocrit 35 % Low 42-52 Mean Corpuscular Volume 98 fL High 80-94 Mean Corpuscular Hemoglobin 34 pg High 27-31 Mean Corpuscular HGB Conc 34 g/dL 31-36 Red Cell Distribution Width 15 % 10.5-15 Platelet Count 224 10^3/uL 150-450 Mean Platelet Volume 8 um3 7.4-10.4 Abs Neutrophils 6.6 10^3/uL 1.5-7.7 Abs Lymphocytes 1.5 10^3/uL 1.0-4.8 Abs Monocytes 0.7 10^3/uL 0-0.8 Abs Eosinophils 0.1 10^3/uL 0-0.6 Abs Basophils 0.1 10^3/uL 0-0.2 Abs Nucleated RBC 0 10^3/uL Granulocyte % 74.4 % 38-83 Lymphocyte % 16.5 % Low 25-47 Monocyte % 7.8 % 1-9 Eosinophil % 0.6 % 0-6 Basophil % 0.7 % 0-2 Nucleated Red Blood Cells % 0 Comp Metabolic Panel 01/18/2017 Sodium 132 mmol/L Low 133-145 Potassium 4.5 mmol/L 3.5-5.0 Chloride 99 mmol/L Low 101-111 Co2 Carbon Dioxide 25 mmol/L 22-32 Anion Gap 8 mmol/L 2-11 Glucose 87 mg/dL 70-100 Blood Urea Nitrogen 11 mg/dL 6-24 Creatinine 0.81 mg/dL 0.67-1.17 BUN/Creatinine Ratio 13.6 8-20 Calcium 9.9 mg/dL 8.6-10.3 Total Protein 7.7 g/dL 6.4-8.9 Albumin 4.5 g/dL 3.2-5.2 Globulin 3.2 g/dL 2-4 Albumin/Globulin Ratio 1.4 1-3 Total Bilirubin 0.30 mg/dL 0.2-1.0 Alkaline Phosphatase 119 U/L High 34-104 Alt 31 U/L 7-52 Ast 24 U/L 13-39 Egfr Non- 99.3 >60 Egfr 127.7 >60 32 Anaerobic Culture Bottle 07/09/2009 Anaerobic Culture Bottle NG5 33 Aerobic Culture Bottle 07/09/2009 Aerobic Culture Bottle NG5 34 CBC With Manual Diff 07/09/2009 White Blood Count 9.8 CUMM 4.8-10.8 Red Cell Count 4.16 CUMM Low 4.6-6.2 Hemoglobin 13.8 g/dL Low 14.0-18.0 Hematocrit 40 % Low 42-52 Mean Corpuscular Volume 96 um3 High 80-94 Mean Corpuscular Hemoglob 33 pg High 27-31 Mean Corpuscular HGB Cone 34 g/dL 32-36 Redcell Distribution WDTH 14 % 10.5-15 Platelet Count 132 CUMM Low 150-450 Mean Platelet Volume 7.3 um3 Low 7.4-10.4 Polysegmented Neutrophil 74 % 38-83 Band Neutrophil 5 % 0-8 Lymphocyte 8 % Low 25-47 Monocyte 8 % 0-13 Eosenophil 1 % 0-6 Atypical Lymph 4 % 0-6 Absolute Neutrophil Count 7.7 RBC Morphology NORMAL CMP Panel Stat 07/09/2009 Sodium 138 mmol/L 135-145 Potassium 3.4 mmol/L Low 3.5-5.0 Chloride 101 mmol/L 101-111 Co2 (Carbon Dioxide) 25.0 mmol/L 22-32 Anion Gap 12.0 mmol/L High 2-11 35 Glucose 113 mg/dL High 70-100 36 BUN 5 mg/dL Low 6-24 Creatinine 0.70 mg/dL 0.50-1.40 One Over Creatinine 1.40 BUN/Creatinine Ratio 7.1 Low 8-20 Calcium 9.2 mg/dL 8.1-9.9 37 Total Protein 7.8 GM/DL 6.2-8.1 Albumin 4.6 GM/DL 3.6-5.4 Globulin 3.2 GM/DL 2-4 Albumin/Globulin Ratio 1.4 1-3 Bilirubin Total 0.7 mg/dL 0.4-1.5 38 Alkaline Phosphatase 120 U/L High 39-117 Alt (SGPT) 119 U/L High 17-63 Ast (Sgot) 89 U/L High 12-42 eGFR Non- 128.5 > 60 eGFR 155.5 > 60 39 1 Please check labs today 2 Acute inflammation: >10.00 3 Please check labs today 4 Please check labs today 5 Normal Range 180 to 914 Indeterminate Range 145 to 180 Deficient Range <145 6 Please check labs today 7 Test Performed by: [facility] - [address] [address] 8 REFERENCE VALUE <20.0 (Negative) Test Performed by: [address] [address] 9 Serologic response to B. burgdorferi infection is not detected, but cannot rule out early infection during which low or undetectable antibody levels to B. burgdorferi may be present. If clinically indicated, a new serum specimen should be submitted in 7-14 days. Test Performed by: [facility] - [facility] [address] [place] [address] 10 REFERENCE VALUE Not Applicable 11 RESULT: HLA-B27 antigen was not detected. ADDITIONAL INFORMATION Method: Flow Cytometry Performing Laboratory CLIA# [id number] Test Performed by: [address] [id number] 12 ADDITIONAL INFORMATION This test was developed and its performance characteristics determined by [facility] in a manner consistent with CLIA requirements. This test has not been cleared or approved by the U.S. Food and Drug Administration. Test Performed by: [facility] - [address] [address] 13 Serologic response to B. burgdorferi infection is not detected, but cannot rule out early infection during which low or undetectable antibody levels to B. burgdorferi may be present. If clinically indicated, a new serum specimen should be submitted in 7-14 days. Test Performed by: [facility] - [address] [address] 14 Normal Range 180 to 914 Indeterminate Range 145 to 180 Deficient Range <145 15 Test Performed by: [facility] - [address] [address] 16 REFERENCE VALUE <20.0 (Negative) Test Performed by: [facility] - [facility] [address] [place] [address] 17 REFERENCE VALUE Not Applicable 18 RESULT: HLA-B27 antigen was not detected. ADDITIONAL INFORMATION Method: Flow Cytometry Performing Laboratory CLIA# [id number] Test Performed by: [facility] - [address] [address] 19 ADDITIONAL INFORMATION This test was developed and its performance characteristics determined by [facility] in a manner consistent with CLIA requirements. This test has not been cleared or approved by the U.S. Food and Drug Administration. Test Performed by: [facility] - [address], [place] [address] 20 Acute inflammation: >10.00 21 Serologic response to B. burgdorferi infection is not detected, but cannot rule out early infection during which low or undetectable antibody levels to B. burgdorferi may be present. If clinically indicated, a new serum specimen should be submitted in 7-14 days. Test Performed by: [facility] - [facility] [address] [place] [address] 22 Serologic response to B. burgdorferi infection is not detected, but cannot rule out early infection during which low or undetectable antibody levels to B. burgdorferi may be present. If clinically indicated, a new serum specimen should be submitted in 7-14 days. Test Performed by: [facility] [employer] - [address] [address] 23 The homocysteine concentration is elevated in this sample. Increased homocysteine has been associated with an increased risk of cardiovascular disease, cerebrovascular disease, peripheral arterial disease and thrombosis. Vitamin deficiencies (B6, B12 and folic acid) may also cause an increased homocysteine concentration. Inborn errors of methionine metabolism are a potential, but less likely, possibility for hyperhomocysteinemia. Consider plasma or serum methylmalonic acid analysis to rule out vitamin B12 deficiency. REFERENCE VALUE <=13 (Fasting) ADDITIONAL INFORMATION This test was developed and its performance characteristics determined by [facility] in a manner consistent with CLIA requirements. This test has not been cleared or approved by the U.S. Food and Drug Administration. Test Performed by: [facility] - [facility] [address] [place] [address] 24 ADDITIONAL INFORMATION This test was developed and its performance characteristics determined by [facility] in a manner consistent with CLIA requirements. This test has not been cleared or approved by the U.S. Food and Drug Administration. Test Performed by: [facility] - [address] [address] 25 ADDITIONAL INFORMATION This test was developed and its performance characteristics determined by [facility] in a manner consistent with CLIA requirements. This test has not been cleared or approved by the U.S. Food and Drug Administration. Test Performed by: [facility] - [address] [address] 26 Serum levels of PSA measured using the Melina Zaplox DXI Hybritech immunoassay should not be interpreted as absolute evidence of the presence or absence of disease. The PSA value should be used in conjunction with other pertinent clinical diagnostic procedures. A PSA value in the range of 0.1 to 0.6 ng/ml is indeterminate if being used as an indicator of recurrent or residual disease. The values obtained with different assay methods or kits cannot be used interchangeably. 27 Desirable <150 Borderline high 150-199 High 200-499 Very High >500 28 Desirable <200 Borderline high 200-239 High >239 29 Low <40 Desirable: 40-60 High: >60 30 Desirable: <100 mg/dL Near Optimal: 100-129 mg/dL Borderline High: 130-159 mg/dL High: 160-189 mg/dL Very High: >189 mg/dL 31 Normal Range 180 to 914 Indeterminate Range 145 to 180 Deficient Range <145 32 Because ethnic data is not always readily available, this report includes an eGFR for both -Americans and non- Americans. The National Kidney Disease Education Program (NKDEP) does not endorse the use of the MDRD equation for patients that are not between the ages of 18 and 70, are , have extremes of body size, muscle mass, or nutritional status, or are non- or non-. According to the National Kidney Foundation, irrespective of diagnosis, the stage of the disease is based on the level of kidney function: Stage Description GFR(mL/min/1.73 m(2)) 1 Kidney damage with normal or decreased GFR 90 2 Kidney damage with mild decrease in GFR 60-89 3 Moderate decrease in GFR 30-59 4 Severe decrease in GFR 15-29 5 Kidney failure <15 (or dialysis) 33 NO GROWTH AFTER 5 DAYS 34 NO GROWTH AFTER 5 DAYS 35 Anion gap measurement may be of limited value in the presence of any alkalosis, especially in a combined acid base disorder. . 36 Note change in reference range as of 03/19/08. The change was based on recommendations from the [place] [employer]. 37 Please note change in reference range effective 08 . 38 A metabolite of Naproxen, O-desmethylnaproxen, has been shown to interfere with the Jendrassik-Yariel method for measuring total bilirubin. Samples from patients who have taken Naproxen have shown spurious elevation in total bilirubin levels. 39 Because ethnic data is not always readily available, this report includes an eGFR for both -Americans and non- Americans. The National Kidney Disease Education Program (NKDEP) does not endorse the use of the MDRD equation for patients that are not between the ages of 18 and 70, are , have extremes of body size, muscle mass, or nutritional status, or are non- or non-. According to the National Kidney Foundation, irrespective of diagnosis, the stage of the disease is based on the level of kidney function: Stage Description GFR(mL/min/1.73 m(2)) 1 Kidney damage with normal or decreased GFR 90 2 Kidney damage with mild decrease in GFR 60-89 3 Moderate decrease in GFR 30-59 4 Severe decrease in GFR 15-29 5 Kidney failure <15 (or dialysis) Procedures Date CPT Code Description Status 11/04/2015 29571 Nerve Conduction 03-04 Studies Completed 11/04/2015 49921 Needle Electromyography Complete, Five Or More Muscles Completed Studied 09/09/2015 05474 EEG Recording Awake & Drowsy Completed 06/29/2015 01117 EEG Recording Awake & Drowsy Completed 06/24/2015 02053 ECHO Transthorasic Realtime 2D W Doppler & Color Flow Completed Hosp 06/24/2015 38719 EKG, Interpretation Only Completed 11/20/2014 97805 EEG Recording Awake & Drowsy Completed Encounters Type Date Location Provider CPT E/M Dx Office Visit 01/31/2018 [facility] [address] S42.032K 1:00p Horacio Mcneal MD Office Visit 05/23/2017 [facility] [place], [address] L40.50 2:00p Of Telephone Interviewer Omari Z79.899 G62.9 D64.9 S00.96xA M54.5 F17.210 Office Visit 03/16/2017 1:30p [facility] Nancy Cortez M.D. 65515 R56.9 Services Of Telephone Interviewer F10.20 R21 Z91.14 Office Visit 01/10/2017 11:15a [facility] Nancy Cortez M.D. 69991 R56.9 Services Of Telephone Interviewer F10.20 G62.9 Office Visit 11/04/2015 2:00p [facility] Nancy Cortez M.D. 45852 R56.9 Services Of Telephone Interviewer F10.20 G62.9 Office Visit 09/02/2015 10:00a [facility] Nancy Cortez, [address] R56.9 Omari M79.605 Office Visit 06/30/2015 1:21p [facility], [place] [address] R56.9 Hospitalists F10.10 I10 E83.42 Office Visit 06/29/2015 3:22p [facility] Nancy Cortez, 674[address] F10.230 MIbeth R56.9 E83.42 Office Visit 06/29/2015 1:21p [facility], [place] [address] R56.9 Hospitalists F10.10 I10 E83.42 Office Visit 06/28/2015 9:15a [facility], Tremaine Brasher, 61435 R55 Hospitalists M.D. F10.231 I10 Office Visit 06/27/2015 9:14a [facility], Tigist Sandoval 39585 R55 Hospitalists M.D. F10.231 I10 Office Visit 06/26/2015 9:14a [facility], Tigist Sandoval, 45242 R55 Hospitalists M.D. F10.231 I10 Office Visit 06/25/2015 9:13a [facility], Tigist Sandoval, 49356 R55 Hospitalists M.D. F10.231 I10 Office Visit 06/24/2015 9:13a [facility], Tigist Sandoval, 91360 R55 Hospitalists MIbeth F10.231 I10 Office Visit 06/23/2015 9:12a [facility],pc [place] Roberts, [address] R55 Hospitalists N.P. F10.231 I10 Office Visit 11/26/2014 9:38a [facility] Mary Kate Castano, 57126 291.0 Hospitalists D.O. 305.00 401.9 291.81 Office Visit 11/25/2014 9:37a [facility] Mary Kate Eyad, 62193 291.81 Hospitalists D.O. 305.00 401.9 291.0 Office Visit 11/24/2014 9:37a [facility] Mary Kate Eyad, 60255 291.81 Hospitalists D.O. 291.0 401.9 305.00 Office Visit 11/23/2014 9:36a [facility] Mary Kate Castano, 17226 291.81 Hospitalists D.O. 291.0 305.00 401.9 Office Visit 11/22/2014 9:36a [facility] Damian Franckmaría, 18577 345.90 Assoc,pc Hospitalists MIbeth 291.0 401.9 305.00 Office Visit 11/21/2014 9:35a [facility] Damian Sheikh, 83024 345.90 Assoc,pc Hospitalists MIbeth 287.5 401.9 305.00 Office Visit 11/20/2014 9:35a [facility] Damian Franckmaría, 15578 287.5 Hospitalists MIbeth 345.90 401.9 305.00 Office Visit 11/20/2014 1:57p [facility] Mayo Elise, 72173 291.0 M.DMarcie 781.0 Office Visit 11/19/2014 9:34a [facility] [address] 345.90 Hospitalists 287.5 401.9 305.00 Office Visit 07/19/2009 11:40a DO Not Use Telephone Interviewer AT [facility], 357[address] 303.92 Toño Salcido 272.4 287.5 571.0 281.9 276.8 Office Visit 06/07/2009 8:40a DO Not Use Telephone Interviewer [facility], [address] 724.2 [facility]10 848.3 272.4 V58.66 Office Visit 05/27/2009 9:20a DO Not Use Telephone Interviewer AT [facility], 87414 724.2 [facility].DMarcie 389.10 Office Visit 05/04/2009 2:00p DO Not Use Telephone Interviewer AT [facility], 71029 724.2 [facility] 389.10 Plan of Care Future Appointment(s):03/11/2018 2:00 pm - Paulino Mcneal MD at [facility].01/31/2018 - Paulino Mcneal, MDS42.032K Disp fx of lateral end of l clavicle, subs for fx w nonunionNew Therapy:Physical Therapy
--- NOTE | 2018-02-04 19:27 | RAD ---
INDICATION: Intracranial injury COMPARISON: CT brain December 15, 2017 TECHNIQUE: Noncontrast axial source images were acquired from the skull base to the vertex. FINDINGS: Ventricles/sulci: There is moderate cortical atrophy with compensatory dilatation of the CSF spaces. Brain parenchyma: There is no acute focal parenchymal finding, evidence of intracranial mass, or intracranial mass effect. Intracranial hemorrhage:None. Extra-axial spaces: There is a left frontal subdural hygroma. The right frontal subdural hygroma has resolved. Calvarium: There is no calvarial fracture or other calvarial abnormality. Scalp: There is no evidence of scalp or extracalvarial soft tissue abnormality. Paranasal sinuses/mastoid: The paranasal sinuses and mastoid air cells are clear. Other: None. IMPRESSION: NO ACUTE FINDINGS. PERSISTENT LEFT-SIDED SUBDURAL HYGROMA. RESOLUTION OF RIGHT-SIDED SUBDURAL HYGROMA.
[2018-02-04 19:32] VITALS: BP 0/0
--- NOTE | 2018-02-04 19:44 | ED ---
Head Injury - HPI Summary HPI Summary: Patient is a 57-year-old alcoholic male presenting to the ED after a fall, hitting the back of his head and sustaining a brief LOC. Fall was witnessed. Endorses pain to the back of the head. He has been seen several times in the ED for multiple falls and head injuries as well as chronic subdural hematomas and hygromas. Smells of EtOH on arrival. He is unable to give me a full history due to intoxication. Friend is at bedside. - History Of Current Complaint Chief Complaint: EDHeadInjury Stated Complaint: FALL Time Seen by Provider: 02/04/18 18:07 Hx Obtained From: Patient, Family/Carton Counter Feeder Hx From Patient Unobtainable Due To: Altered Mental Status - LEVEL 5 CAVEAT Onset/Duration: Started Hours Ago Onset of Pain: Hours Severity Currently: Moderate Severity Initially: Moderate Pain Intensity: 0 Pain Scale Used: 0-10 Numeric Location of Head Injury: Occipital - Allergies/Home Medications Allergies/Adverse Reactions: Allergies Allergy/AdvReac Type Severity Reaction Status Date / Time bee venom protein (honey bee) Allergy Unknown Verified 12/14/17 14:46 Reaction Details PMH/Surg Hx/FS Hx/Imm Hx Previously Healthy: Yes Endocrine/Hematology History: Denies: Hx Anticoagulant Therapy, Hx Diabetes Cardiovascular History: Reports: Hx Hypercholesterolemia, Hx Hypertension Denies: Hx Pacemaker/ICD Respiratory History: Denies: Hx Asthma History: Denies: Hx Dialysis, Hx Renal Disease Musculoskeletal History: Reports: Hx Arthritis, Hx Back Problems, Hx Scoliosis, Other Musculoskeletal History - c/o chronic soreness left posterior calf, states he has had " for years" Sensory History: Reports: Hx Contacts or Glasses Denies: Hx Hearing Aid Opthamlomology History: Reports: Hx Contacts or Glasses Neurological History: Reports: Hx Seizures, Other Neuro Impairments/Disorders - tremors r/t ETOH. PAIN CLINIC PT Psychiatric History: Reports: Hx Substance Abuse - alcoholism Denies: Hx Panic Disorder - Surgical History Surgery Procedure, Year, and Place: APPENDIX 1982 - Immunization History Date of Tetanus Vaccine: unknown Hx Pertussis Vaccination: No Immunizations Up to Date: Unable to Obtain/Confirm Infectious Disease History: No Infectious Disease History: Denies: Traveled Outside the [place] in Last 30 Days - Family History Known Family History: Positive: Hypertension - Social History Occupation: Unemployed Lives: Alone Alcohol Use: Daily Alcohol Amount: alcohol abuse Hx Substance Use: No Substance Use Type: Reports: None Substance Use Comment - Amount & Last Used: denies Hx Tobacco Use: Yes Smoking Status (MU): Light Every Day Tobacco Smoker Type: Cigarettes Amount Used/How Often: 5-6 cigarettes/day Have You Smoked in the Last Year: No Review of Systems - ROS Summary Review of Systems Summary: LEVEL 5 CAVEAT D/T ALCOHOL INTOXICATION Negative: Fever, Chills, Fatigue Negative: Photophobia, Blurred Vision, Diplopia Negative: Epistaxis, Dental Pain Negative: Shortness Of Breath, Cough Negative: Abdominal Pain, Vomiting Negative: Arthralgia, Myalgia Positive: Headache Psychological: Normal All Other Systems Reviewed And Are Negative: Yes Physical Exam Triage Information Reviewed: Yes Vital Signs On Initial Exam: Initial Vitals Temp Pulse Resp BP Pulse Ox 98.8 F 79 16 103/81 97 02/04/18 17:45 02/04/18 17:45 02/04/18 17:45 02/04/18 17:45 02/04/18 17:45 Vital Signs Reviewed: Yes Completion Of Physical Exam Limited Due To: Altered Mental Status Appearance: Positive: Ill-Appearing, Thin, Cachectic Skin: Positive: Skin Color Reflects Adequate Perfusion Head/Face: Positive: Other - ABRASION TO THE POSTERIOR SCALP Neck: Positive: Nontender, No Lymphadenopathy Respiratory/Lung Sounds: Positive: Clear to Auscultation, Breath Sounds Present Cardiovascular: Positive: RRR, Pulses are Symmetrical in both Upper and Lower Extremities Musculoskeletal: Positive: Normal, Strength/ROM Intact Neurological: Positive: Slurred Speech - ALCOHOL INTOX, Other AVPU Assessment: Verbal (Reponds To) Diagnostics - Vital Signs Vital Signs Temp Pulse Resp BP Pulse Ox 02/04/18 19:29 0 F 0 0 0/0 0 02/04/18 18:48 116/71 02/04/18 18:00 81 97 02/04/18 17:48 79 103/81 97 02/04/18 17:45 98.8 F 79 16 103/81 97 - Laboratory Lab Statement: Any lab studies that have been ordered have been reviewed, and results considered in the medical decision making process. Head Injury Course/Dx Course Of Treatment: During course of treatment, the patient is evaluated for head injury. Brain CT obtained. While awaiting results of brain CT, patient eloped. Brain CT shows no acute findings, however subdural hygromas which are not worsening. - Diagnoses Differential Diagnosis/HQI/PQRI: Concussion With LOC, Concussion Without LOC Provider Diagnoses: Head injury Discharge - Sign-Out/Discharge Documenting (check all that apply): Discharge/Admit/Transfer - Discharge Plan Condition: Fair Disposition: ELOPEMENT Referrals: Deandra Painter NP [Primary Care Provider] - - Billing Disposition and Condition Condition: FAIR Disposition: Elopement
== END 2018-02-04 19:29 | disposition home or self-care (01) ==
LOC: ED 17:43
DX: S09.90XA Unspecified injury of head, initial encounter (principal); W19.XXXA Unspecified fall, initial encounter; Y92.9 Unspecified place or not applicable; F17.210 Nicotine dependence, cigarettes, uncomplicated; R51 Headache
CPT/HCPCS: 70450; 99282

== ENCOUNTER 2018-02-13 14:14 | Inpatient (IN) | payer OTHER ==
[2018-02-13] MEDS ORDERED: NS 0.9% 1000 ML* 1,000 ML IV ONE (14:37)
--- NOTE | 2018-02-13 14:37 | ED ---
Syncope/Near Syncope - HPI Summary HPI Summary: This patient is a 57 year old M presenting to [facility] with a chief complaint of 2x seizures since 1400. Pt last drank 2 days ago, normally drinks a pint of vodka today. Pt endorses similar sx when he stops drinking. Pt was in parking lot at [employer] when he had seizure. PMHx HTN, sz, alcoholism. - History Of Current Complaint Time Seen by Provider: 02/13/18 14:24 Hx Obtained From: Patient Onset/Duration: Sudden Onset, Resolved Timing: Intermittent Episode Lasting Context: Unwitnessed Activity At Onset: Exertion - walking in parking lot Associated Head Trauma: No Aggravating Factor(s): Other - EtOH withdrawal Alleviating Factor(s): Other - EtOH Associated Signs And Symptoms: Seizure Related History: Similar Episode/Dx as - other EtOH withdrawals Frequency: Episodes x___ - 2 - Allergies/Home Medications Allergies/Adverse Reactions: Allergies Allergy/AdvReac Type Severity Reaction Status Date / Time bee venom protein (honey bee) Allergy Unknown Verified 12/14/17 14:46 Reaction Details PMH/Surg Hx/FS Hx/Imm Hx Endocrine/Hematology History: Denies: Hx Anticoagulant Therapy, Hx Diabetes Cardiovascular History: Reports: Hx Hypercholesterolemia, Hx Hypertension Denies: Hx Pacemaker/ICD Respiratory History: Denies: Hx Asthma History: Denies: Hx Dialysis, Hx Renal Disease Musculoskeletal History: Reports: Hx Arthritis, Hx Back Problems, Hx Scoliosis, Other Musculoskeletal History - c/o chronic soreness left posterior calf, states he has had " for years" Sensory History: Reports: Hx Contacts or Glasses Denies: Hx Hearing Aid Opthamlomology History: Reports: Hx Contacts or Glasses Neurological History: Reports: Hx Seizures, Other Neuro Impairments/Disorders - tremors r/t ETOH. PAIN CLINIC PT Psychiatric History: Reports: Hx Substance Abuse - alcoholism Denies: Hx Panic Disorder - Surgical History Surgery Procedure, Year, and Place: APPENDIX 1982 - Immunization History Date of Tetanus Vaccine: unknown - Family History Known Family History: Positive: Hypertension - Social History Alcohol Use: Daily Alcohol Amount: alcohol abuse, 1 pint of vodka/day Hx Substance Use: No Substance Use Type: Reports: None Substance Use Comment - Amount & Last Used: denies Hx Tobacco Use: Yes Smoking Status (MU): Light Every Day Tobacco Smoker Type: Cigarettes Amount Used/How Often: 5-6 cigarettes/day Have You Smoked in the Last Year: No Review of Systems Negative: Fever Neurological: Other - seizure Positive: Syncope All Other Systems Reviewed And Are Negative: Yes Physical Exam - Summary Physical Exam Summary: Appearance: Well appearing, no pain distress Skin: warm, dry, reflects adequate perfusion Head/face: normal Eyes: EOMI, ERNESTO ENT: normal Neck: supple, non-tender Respiratory: CTA, breath sounds present Cardiovascular: RRR, pulses symmetrical Abdomen: non-tender, soft Bowel: present Musculoskeletal: normal, strength/ROM intact Neuro: normal, sensory motor intact, A&Ox3 Triage Information Reviewed: Yes Vital Signs Reviewed: Yes Diagnostics - Laboratory Result Diagrams: 02/13/18 15:42 02/13/18 15:42 Lab Statement: Any lab studies that have been ordered have been reviewed, and results considered in the medical decision making process. - CT Brain CT Interpretation: Positive (See Comments) CT Interpretation Completed By: Radiologist - THE CHRONIC LEFT FRONTOPARIETAL SUBDURAL COLLECTION APPEARS SLIGHTLY LARGER. Dr. Zuñiga has reviewed this report. - EKG 1501 Cardiac Rate: NL - 72 EKG Rhythm: Sinus Rhythm ST Segment: Non-Specific - non specific ST-T changes Re-Evaluation - Re-Evaluation First Eval Re-Evaluation Time: 15:12 Change: Worse Comment: Pt had sz. Course/Dx Course Of Treatment: A 57-year-old M presents to the ED with a CC of 2x sz for since 1400. (+)sz, fall. PMHx Sz's, HTN, alcoholism. A CTB reveals THE CHRONIC LEFT FRONTOPARIETAL SUBDURAL COLLECTION APPEARS SLIGHTLY LARGER. An EKG reveals nl sinus rythym of [address]-T changes. In the ED course, pt was given phenytoin sodium and nl saline. At 1510, pt experienced a sz in his room in the ED while lying in bed. - Diagnoses Differential Diagnosis/HQI/PQRI: Positive: Hypovolemia, Seizure, Vasovagal Episode Provider Diagnoses: Seizure, Hypomagnesemia, Alcohol abuse - Physician Notifications Discussed Care of Patient With: Violette Villarreal Time Discussed With Above Provider: 18:15 Instructed by Provider To: Other - accepted admission Discharge - Sign-Out/Discharge Documenting (check all that apply): Patient Departure - admit - Discharge Plan Condition: Fair Disposition: ADMITTED TO [facility] Referrals: Deandra Painter BARREL SCRAPER [Primary Care Provider] - - Billing Disposition and Condition Condition: FAIR Disposition: Admitted to [facility]
[2018-02-13] MEDS ORDERED: Phenytoin IV(*) 1,000 MG in NS 0.9% 250 ML* 180 ML IV ONE (15:15)
--- NOTE | 2018-02-13 15:20 | RAD ---
INDICATION: Intracranial injury COMPARISON: CT brain February 04, 2018 TECHNIQUE: Noncontrast axial source images were acquired from the skull base to the vertex. FINDINGS: Ventricles/sulci: The ventricles and cisterns are unchanged in size and configuration for age. The basilar cisterns are widely patent. There is cortical volume loss Brain parenchyma: There is no acute focal parenchymal finding, evidence of intracranial mass, or new intracranial mass effect. Intracranial hemorrhage:None. Extra-axial spaces: There is a chronic subdural collection along the left frontoparietal convexity which appears slightly larger. Calvarium: There is no calvarial fracture or other calvarial abnormality. Scalp: There is no evidence of scalp or extracalvarial soft tissue abnormality. Paranasal sinuses/mastoid: The paranasal sinuses and mastoid air cells are clear. Other: None. IMPRESSION: THE CHRONIC LEFT FRONTOPARIETAL SUBDURAL COLLECTION APPEARS SLIGHTLY LARGER.
[2018-02-13 15:59] LABS: ABS Basophils 0 10^3/ul (0-0.2); ABS Eosinophils 0 10^3/ul (0-0.6); ABS Lymphocytes 0.6 10^3/ul (1.0-4.8); ABS Monocytes 0.3 10^3/ul (0-0.8); ABS Neutrophils 1.6 10^3/ul (1.5-7.7); ABS Nucleated RBC 0 10^3/ul; Eosinophil % 0.2 % (0-6); Hematocrit 33 % (42-52); Hemoglobin 11.4 g/dl (14.0-18.0); Lymphocyte % 24.1 % (25-47); Mean Corpuscular HGB Conc 35 g/dl (31-36); Mean Corpuscular Hemoglobin 36 pg (27-31); Mean Corpuscular Volume 103 fL (80-94); Mean Platelet Volume 8.2 um3 (7.4-10.4); Nucleated Red Blood Cells % 0.1; Platelet Count 50 10^3/ul (150-450); Red Blood Count 3.15 10^6/ul (4.00-5.40); Red Cell Distribution Width 14 % (10.5-15); White Blood Count 2.5 10^3/ul (3.5-10.8)
[2018-02-13 16:03] LABS: INR 1.03 (0.77-1.02)
[2018-02-13 16:13] LABS: EGFR Non-African American 125.3 (>60)
[2018-02-13] MEDS ORDERED: Magnesium Sulfate 2 GM IV* 2 GM/50 ML BAG IVPB ONE ×2 (16:27→17:50)
[2018-02-13] MEDS ORDERED: Acetaminophen TAB* 325 MG PO ONE (16:27)
[2018-02-13] MEDS ORDERED: Potassium Chlor TAB* 20 MEQ TAB.ER PO ONE (16:37)
[2018-02-13] MEDS ORDERED: Magnesium Sulfate IV* 2 GM in NS 0.9% 100 ML* 100 ML IVPB ONE ×2 (17:00→18:30)
[2018-02-13] MEDS ORDERED: CMCS: Meloxicam(NF) 7.5 MG TAB PO PRN (19:24)
[2018-02-13] MEDS ORDERED: Thiamine IV* 100 MG/ML 2 ML VIAL IM ONE ×2 (19:40→19:47)
[2018-02-13] MEDS ORDERED: Magnesium Sulf 4 GM/100 ML IV* 4,000 MG/100 ML BAG IVPB ONE (19:43)
[2018-02-13] MEDS ORDERED: Acetaminophen TAB* 325 MG PO PRN (19:47)
[2018-02-13] MEDS ORDERED: Thiamine IV* 100 MG/ML 2 ML VIAL IV ONE (20:06)
--- NOTE | 2018-02-13 22:24 | HP ---
HISTORY AND PHYSICAL: DATE OF ADMISSION: 02/13/18. TIME OF ADMISSION: 07:20 p.m. CHIEF COMPLAINT: Seizure. HISTORY OF PRESENT ILLNESS: This is a 57-year-old man with history of alcohol abuse and seizure disorder, who presented to the emergency department via EMS with his son after he experienced 2 seizures this morning. He stopped drinking 2 days ago because he had no access to alcohol and then this morning when he woke up, he was feeling fine until he noticed sudden onset of right lower extremity shaking, which progressed to entire body shaking, which he believes lasted approximately 5 minutes. He remained conscious throughout this episode. He went to [facility] in [place] to meet his son and when he was with his son, they were in the parking lot when he had another episode that began with right lower extremity shaking that progressed to full body shaking and he again remained conscious for the entirety of this episode. He currently feels well. His son and his friend are in the room with him and stated that he is about back to his baseline. He has a speech impairment at baseline, which they believe is stable right now. They also think his mental status is baseline. He reports taking all of his medications including his antiepileptics despite not being able to see Neurology because he no show too many appointments. He has been following with [facility], who has been refilling his medications. He currently has no pain, no headache, and feels back to himself. He has no anxiety or hallucinations. PAST MEDICAL HISTORY: Seizure disorder, alcohol abuse, and tobacco abuse. HOME MEDICATIONS: Of note, his son and he reports that he has 5 medications that he takes regularly at home, however, his medication reconciliation in the emergency department shows 11 medications. SOCIAL HISTORY: He lives in [place] in an apartment, alone. His son, Juan, is his emergency contact. Juan's phone number is [phone]. REVIEW OF SYSTEMS: He denies recent illness. He denies cough, cold, runny nose , sore throat, headaches, fevers, chills, nausea, vomiting, constipation, diarrhea. DICTATION ENDS ABRUPTLY HERE. [id number]/[facility] #: [id number] [facility]
--- NOTE | 2018-02-13 22:41 | HP ---
HISTORY AND PHYSICAL: DATE OF ADMISSION: 02/13/18 TIME OF ADMISSION: 07:15 p.m. CHIEF COMPLAINT: Seizures. HISTORY OF PRESENT ILLNESS: This is a 57-year-old man with history of alcohol abuse and seizure disorder, who presented to the emergency department after 2 reported seizures this morning. He stopped drinking 2 days ago because he could not get to the liquor store and this morning when he woke up he was feeling well, but then had sudden onset of right lower extremity tremors, which progressed to full body tremors; however, he maintained consciousness through this and recalls the entire episode. He reports it lasted approximately 5 minutes. He went to [facility] in [place] to meet his son for the morning and when they were in the parking lot, he had another episode of right lower extremity shaking that progressed to entire body shaking that was witnessed by his son, who is in the room. His son reports that this lasted approximately 1.5 minutes and Mr. Edmond remained conscious through the entirety of this episode as well. Currently, in the emergency department, he has no complaints and he feels well. His son and his friend are in the room and reports that he is at his baseline mental status, which includes a speech impediment and occasional confusion. He denies any recent illness. He reports taking all of his medications including his Dilantin. He has been unable to see Neurology due to too many no shows; however, [facility] has been prescribing his Dilantin for him and he reports taking it everyday. He also reports poor p.o. intake with ongoing alcohol use. PAST MEDICAL HISTORY: Seizure disorder, alcohol abuse, and tobacco abuse. HOME MEDICATIONS: Please note that he reports taking 5 medications currently and has 5 pill bottles, but he is unsure what they are and his medication reconciliation in the emergency department includes 10 medications, so a better medication reconciliation is necessary in the morning. ALLERGIES: No known drug allergies. SOCIAL HISTORY: He lives in [place], alone. His son, Juan, is his emergency contact. Juan's phone number is [phone]. REVIEW OF SYSTEMS: He denies fevers, chills, nausea, vomiting, headache, abdominal pain, chest pain, shortness of breath. PHYSICAL EXAMINATION GENERAL: Alert, well-appearing man, in no distress. He speaks slowly, but is oriented to person, place, and time and recalls the events of the day accurately. His son confirms his recollection. VITAL SIGNS: Temperature 98.7, heart rate 96, respiratory rate 17, pulse ox 99 % on room air, blood pressure 179/104. HEENT: Pupils are equal, round, and reactive to light. No nystagmus. Oral mucosa is moist. No fasciculations in his tongue. Posterior pharynx is clear without exudates or erythema. NECK: No JVP. No lymphadenopathy. LUNGS: Clear bilaterally. CHEST: Regular rate and rhythm. No murmurs. PMI nondisplaced. ABDOMEN: Soft, nontender, nondistended. Liver is palpable 1 inch below the right costal margin. Spleen is nonpalpable. EXTREMITIES: No ecchymosis. No ulcers, no lesions. NEUROLOGIC: No asterixis. No tremors. No anxiety. DIAGNOSTIC STUDIES/LAB DATA: White blood cells 2.5, hemoglobin 11.4, platelets 50. INR 1.0. Sodium 137, potassium 3.3, chloride 99, BUN 15, creatinine 0.66, glucose 127, magnesium 0.9. AST 72, ALT 17, alk phos 184. Phenytoin level 13.1. Brain CT: The chronic left frontoparietal subdural collection appears slightly larger. EKG: Normal sinus rhythm, normal axis, normal intervals, no ST or T-wave changes, no chamber hypertrophy. ASSESSMENT AND PLAN: This is a 57-year-old man with history of alcohol abuse and seizure disorder, who presented to the emergency department with 2 seizures today. 1. Provoked seizures. It is unclear if he has underlying epilepsy as it appears that all of his seizures in the past have been related to alcohol withdrawal. I believe this one as well was related to alcohol withdrawal since he quit drinking 2 days ago. I discussed the case with Neurology and he needs no further antiepileptics since his Dilantin level is therapeutic and this was a provoked seizure. I am keeping him on seizure precautions and treating him with the [facility] protocol for alcohol withdrawal. 2. Alcohol dependence. As above, I am treating him with the [facility] protocol and p.r.n. Ativan. I asked him if he would like to remain sober; however, he cannot commit to and answer to that question. I will continue to ask if he wishes to go to rehab and involve social work if so. He does have history of delirium tremens. 3. Pancytopenia. I suspect this is related to alcohol abuse; however, I am also checking an HIV and an HCV antibody. I am also checking a right upper quadrant ultrasound to evaluate for cirrhosis. 4. Hypomagnesemia, likely related to alcohol intake. He has received 2 g IV in the emergency department. I am giving him another 4 g overnight. 5. DVT prophylaxis. Contraindicated given his thrombocytopenia. Encourage ambulation. [id number]/[facility] #: [id number] [place]
[2018-02-13] MEDS: LORazepam INJ* 2 MG/ML 1 ML VIAL IV SCH (23:08)
[2018-02-13] MEDS: LORazepam TAB(*) 1 MG PO SCH (23:09)
[2018-02-13] MEDS: Gabapentin CAP(*) 300 MG PO SCH (23:10)
[2018-02-13] MEDS: Metoprolol Tartrate TAB* 50 mg PO SCH (23:10)
[2018-02-13] MEDS: Magnesium Oxide TAB* 400 MG PO SCH (23:10)
[2018-02-13] MEDS: QUEtiapine TAB* 25 MG PO SCH (23:11)
--- NOTE | 2018-02-13 23:32 | PN ---
Progress Note - Progress Note Date of Service: 02/13/18 Note: Paged - two tonic clonic seizures 15 min apart, lasting about 30 seconds. Patient did not appear to be post ictal per RN. Ativan 2 mg PO given per [facility] protocol. Will place safety monitor on. If seizures recur will transfer to ICU and start antiepileptic.
[2018-02-14] MEDS ORDERED: Mouth Piece, Nicotine* 1 EACH CARTRIDGE INH PRN (00:18)
[2018-02-14] MEDS ORDERED: Mouth Piece, Nicotine* 1 EACH CARTRIDGE INH ONE (00:18)
[2018-02-14] MEDS: LORazepam TAB(*) 1 MG PO SCH ×2 (00:53→21:34)
[2018-02-14] MEDS: Nicotine Inhaler* 10 MG AMP INH PRN ×3 (01:26→21:33)
[2018-02-14] MEDS: LORazepam INJ* 2 MG/ML 1 ML VIAL IV SCH ×2 (04:12→12:31)
[2018-02-14] MEDS ORDERED: Folic Acid TAB* 1 MG PO SCH ×2 (09:00)
[2018-02-14] MEDS ORDERED: Thiamine TAB* 100 MG TAB PO SCH (09:00)
[2018-02-14] MEDS ORDERED: Multivitamins/Minerals TAB PO SCH (09:00)
--- NOTE | 2018-02-14 09:40 | RAD ---
HISTORY: pancytopenia--attention to liver and spleen COMPARISONS: None TECHNIQUE: Multiple transverse and longitudinal ultrasound images were obtained of the abdomen using grayscale and color Doppler imaging. FINDINGS: LIVER: The liver is diffusely echogenic and coarse in echotexture, with decreased acoustic transmission. The liver measures 18.6 cm in long axis.. There is normal hepatopedal flow of the portal vein on Doppler imaging. BILIARY TREE: There is no intrahepatic or extrahepatic biliary dilatation. The common duct measures 0.5 cm. GALLBLADDER: The gallbladder is well-visualized. There is no cholelithiasis, gallbladder wall thickening, pericholecystic fluid, or sonographic Cruz sign. PANCREAS: The head of the pancreas is unremarkable. The tail of the pancreas is not well visualized secondary to overlying bowel gas. SPLEEN: The spleen is normal in shape, size, contour, and echotexture. The spleen measures 9.5 x 4 x 3.9 cm. RIGHT KIDNEY: The right kidney is normal in shape, size, contour, and echogenicity. There is no hydronephrosis or nephrolithiasis. The right kidney measures 9.9 x 5.6 x 5.7 cm. LEFT KIDNEY: The left kidney is normal in shape, size, contour, and echogenicity. There is no hydronephrosis or nephrolithiasis. The left kidney measures 10.5 x 5.2 x 4.9 cm. AORTA AND IVC: The IVC is unremarkable. There is atheromatous plaque of the aorta. FLUID: There are no pleural effusions. There is no free fluid within the hepatorenal recess. OTHER FINDINGS: None. IMPRESSION: 1. FATTY INFILTRATION OF THE LIVER. THE LIVER IS AT THE UPPER LIMITS OF NORMAL IN SIZE. 2. THE SPLEEN IS NORMAL IN SIZE.
[2018-02-14 09:46] LABS: ABS Basophils 0 10^3/ul (0-0.2); ABS Eosinophils 0.1 10^3/ul (0-0.6); ABS Lymphocytes 1.4 10^3/ul (1.0-4.8); ABS Monocytes 0.3 10^3/ul (0-0.8); ABS Neutrophils 1.8 10^3/ul (1.5-7.7); ABS Nucleated RBC 0 10^3/ul; Hematocrit 31 % (42-52); Hemoglobin 10.8 g/dl (14.0-18.0); Lymphocyte % 38.1 % (25-47); Mean Corpuscular HGB Conc 35 g/dl (31-36); Mean Corpuscular Hemoglobin 36 pg (27-31); Mean Corpuscular Volume 103 fL (80-94); Mean Platelet Volume 8.4 um3 (7.4-10.4); Nucleated Red Blood Cells % 0.2; Platelet Count 59 10^3/ul (150-450); Red Cell Distribution Width 14 % (10.5-15); White Blood Count 3.6 10^3/ul (3.5-10.8)
[2018-02-14 09:52] LABS: EGFR Non-African American 148.4 (>60)
[2018-02-14] MEDS: Cholecalciferol TAB* 400 UNIT PO SCH (10:04)
[2018-02-14] MEDS: Magnesium Oxide TAB* 400 MG PO SCH ×2 (10:04→21:00)
[2018-02-14] MEDS: Ascorbic Acid TAB* 500 MG PO SCH (10:04)
[2018-02-14] MEDS: Phenytoin CAP(*) 100 MG CAP.ER PO SCH ×2 (10:05→17:47)
[2018-02-14] MEDS: Cyanocobalamin TAB* 500 MCG PO SCH (10:06)
[2018-02-14] MEDS: Gabapentin CAP(*) 300 MG PO SCH ×2 (10:06→21:01)
[2018-02-14] MEDS: Thiamine TAB* 100 MG TAB PO SCH (10:07)
[2018-02-14] MEDS: Multivitamins/Minerals TAB PO SCH (10:07)
[2018-02-14] MEDS: amLODIPine TAB* 5 MG PO SCH (10:15)
[2018-02-14] MEDS: Folic Acid TAB* 1 MG PO SCH (10:15)
[2018-02-14] MEDS: Metoprolol Tartrate TAB* 50 mg PO SCH ×2 (10:16→21:00)
--- NOTE | 2018-02-14 13:06 | RAD ---
HISTORY: seizures COMPARISONS: Head CT dated February 13, 2018, MRI dated August 30, 2014 TECHNIQUE: The following sequences were obtained of the head: Sagittal T1-weighted images, axial T2-weighted images, axial FLAIR images, axial susceptibility weighted images, axial T1-weighted images, coronal T1, T2 and FLAIR images through the mesial temporal lobes. Additionally, axial diffusion-weighted images were obtained with calculated apparent diffusion coefficients. FINDINGS: The study is limited by patient motion artifact. HEMORRHAGE/INFARCT: There is no parenchymal hemorrhage or acute infarct. MASSES/SHIFT: There is no mass or shift. EXTRA-AXIAL SPACES/MENINGES: There is a crescentic extra axial fluid collection along the left frontoparietal convexities measuring up to 0.4 cm in depth. This is slightly hyperintense to CSF on the FLAIR imaging consistent with a subacute to chronic subdural hematoma. There has been interval development of a small amount of high T2/FLAIR signal within the epidural space along the left frontal convexity and to lesser extent along the right frontal convexity, anteriorly at the falx, with a fluid-fluid level on the left. This is best seen on axial image 17. SULCI AND VENTRICLES: There is mild diffuse and proportional enlargement of the sulci and ventricles. CEREBRUM: There are no focal brain parenchymal abnormalities. The mesial temporal lobes are symmetric in size, architecture, and signal intensity. The collateral white matter bundles are symmetric. The mamillary bodies and temporal horns of the lateral ventricles are symmetric in size. There is no appreciable cortical dysplasia or heterotopia. BRAINSTEM: There is mildly elevated T2/FLAIR signal within the pontine white matter. This is similar to the 2015 examination. CEREBELLUM: There are no focal parenchymal abnormalities. The cerebellar tonsils are normal in size and position. SELLA: The sella is normal. PINEAL: The pineal region is clear. CP ANGLE/TEMPORAL BONES: The labyrinthine structures are grossly normal. VESSELS: Normal flow-voids are noted within the visualized vertebral vasculature. DIFFUSION ABNORMALITIES: There are no diffusion abnormalities. PARANASAL SINUSES/MASTOIDS: The paranasal sinuses are clear. ORBITS: The orbits are unremarkable. BONES AND SOFT TISSUE: No bone or soft tissue abnormalities are noted. OTHER: None IMPRESSION: 1. THE MESIAL TEMPORAL LOBES ARE SYMMETRIC. THERE IS NO APPRECIABLE CORTICAL DYSPLASIA OR HETEROTOPIA. 2. SUBACUTE TO CHRONIC LEFT FRONTOPARIETAL SUBDURAL HEMATOMA MEASURING 0.4 CM IN DEPTH. 3. THERE HAS BEEN INTERVAL DEVELOPMENT OF SMALL EPIDURAL HEMORRHAGE ALONG THE FRONTAL CONVEXITIES BILATERALLY, GREATER ON THE LEFT THAN ON THE RIGHT. 4. ELEVATED T2/FLAIR SIGNAL IN THE PONTINE WHITE MATTER. THIS IS NONSPECIFIC, BUT CAN BE SEEN THE SEQUELA OF CHRONIC SMALL VESSEL ISCHEMIA OR TOXIC/METABOLIC DISTURBANCE. THIS CAN BE IDENTIFIED ON THE 2015 EXAMINATION AND IS STABLE.. PRELIMINARY FINDINGS WERE DISCUSSED WITH DR. VALLEJO AT APPROXIMATELY 1:02 PM ON FEBRUARY 14, 2018.
--- NOTE | 2018-02-14 17:04 | PN ---
Subjective Date of Service: 02/14/18 Interval History: 2 seizures overnight witness by RN. Feels okay this morning. He denies anxiety , visual or auditory hallucinations, nausea, tremulousness, or feeling like he needs a drink. Objective Active Medications: Acetaminophen (Tylenol Tab*) 650 mg PO Q4H PRN PRN Reason: PAIN Amlodipine Besylate (Norvasc Tab*) 5 mg PO DAILY [facility] Last Admin: 02/14/18 10:15 Dose: 5 mg Ascorbic Acid (Vitamin C Tab*) 500 mg PO DAILY [facility] Last Admin: 02/14/18 10:04 Dose: 500 mg Cholecalciferol (Vitamin D Tab*) 400 unit PO DAILY [facility] Last Admin: 02/14/18 10:04 Dose: 400 unit Cyanocobalamin (Vitamin B12 Tab*) 500 mcg PO DAILY [facility] Last Admin: 02/14/18 10:06 Dose: 500 mcg Folic Acid (Folvite Tab*) 1 mg PO DAILY [facility] Last Admin: 02/14/18 10:15 Dose: 1 mg Gabapentin (Neurontin Cap(*)) 300 mg PO BID [facility] Last Admin: 02/14/18 10:06 Dose: 300 mg Lorazepam (Ativan Tab(*)) 0 - 6 mg PO .PER [facility] PROTOCOL [facility]; Protocol Last Admin: 02/14/18 00:53 Dose: 2 mg Lorazepam (Ativan Inj*) 1 mg IV Q12H [facility]; Taper Stop: 02/16/18 15:59 Last Admin: 02/14/18 12:31 Dose: 1 mg Magnesium Oxide (Magox 400 Tab*) 400 mg PO BID [facility] Last Admin: 02/14/18 10:04 Dose: 400 mg Meloxicam (Mobic(Nf)) 15 mg PO DAILY PRN PRN Reason: PAIN Metoprolol Tartrate (Lopressor Tab*) 50 mg PO BID [facility] Last Admin: 02/14/18 10:16 Dose: 50 mg Multivitamins/Minerals (Theragran/Minerals Tab*) 1 tab PO DAILY [facility] Last Admin: 02/14/18 10:07 Dose: 1 tab Nicotine (Nicotine Inhaler*) 10 mg INH Q2H PRN PRN Reason: CRAVING Last Admin: 02/14/18 16:03 Dose: 10 mg Phenytoin Sodium (Dilantin Cap(*)) 100 mg PO QAM [facility] Last Admin: 02/14/18 10:05 Dose: 100 mg Phenytoin Sodium (Dilantin Cap(*)) 200 mg PO QPM [facility] Quetiapine Fumarate (Seroquel Tab*) 50 mg PO BEDTIME [facility] Last Admin: 02/13/18 23:11 Dose: 50 mg Thiamine HCl (Vitamin B-1 Tab*) 100 mg PO DAILY [facility] Last Admin: 02/14/18 10:07 Dose: 100 mg Vital Signs - 8 hr 02/14/18 02/14/18 02/14/18 10:06 12:31 12:35 Temperature 98.2 F 98.2 F Pulse Rate 99 83 Respiratory 16 20 16 Rate Blood Pressure 143/69 119/56 (mmHg) O2 Sat by Pulse 100 100 Oximetry 02/14/18 02/14/18 13:15 13:28 Temperature Pulse Rate Respiratory 18 16 Rate Blood Pressure (mmHg) O2 Sat by Pulse Oximetry Oxygen Devices in Use Now: None Appearance: alert, speaks slowly and quietly, oriented x 3, not anxious Eyes: No Scleral Icterus Ears/Nose/Mouth/Throat: NL Teeth, Lips, Gums Neck: NL Appearance and Movements; NL JVP Respiratory: Symmetrical Chest Expansion and Respiratory Effort Cardiovascular: NL Sounds; No Murmurs; No JVD, RRR Abdominal: NL Sounds; No Tenderness; No Distention Lymphatic: No Cervical Adenopathy Extremities: No Edema Skin: No Rash or Ulcers Neurological: Alert and Oriented x 3, NL Sensation, NL Muscle Strength and Tone Result Diagrams: 02/14/18 09:26 02/14/18 09:26 Assess/Plan/Problems-Billing Assessment: 57 yo man with history of alcohol dependence and seizure disorder admitted yesterday after 2 seizures that occurred 2 days after stopping etoh because he couldn't get to the liquor store. - Patient Problems (1) Seizure Current Visit: Yes Status: Acute Code(s): R56.9 - UNSPECIFIED CONVULSIONS SNOMED Code(s): 66062410 Comment: suspect alcohol withdrawal seizures still had 2 seizures on ativan taper and with a therapeutic dilantin level appreciate neurology input continue seizure precautions, home dilantin dose, and ativan taper (2) Subdural hematoma Current Visit: Yes Status: Acute Code(s): S06.5X9A - TRAUM SUBDR HEM W LOC OF UNSP DURATION, INIT SNOMED Code(s): 83730939 Comment: case discussed with neurosurgery, who recommended transfusing platelets to keep level ~75,[address] head in the morning (3) Pancytopenia Current Visit: Yes Status: Acute Code(s): D61.818 - OTHER PANCYTOPENIA SNOMED Code(s): 363066590 Comment: HIV pending, HCV negative suspect related to etoh abuse (4) Hypomagnesemia Current Visit: No Status: Acute Code(s): E83.42 - HYPOMAGNESEMIA SNOMED Code(s): 084803492 Comment: resolved today
--- NOTE | 2018-02-14 20:18 | CONS ---
CONSULTATION REPORT: DATE OF CONSULT: 02/14/18 PATIENT OF: Dr. Violette Villarreal. HISTORY: This is a 57-year-old man with a history of alcohol abuse and a seizure disorder, who presented with 2 seizures from yesterday morning. He had stopped drinking 2 days ago because he could not get to the liquor store and he has had tremors, but did not lose consciousness. This lasted for 5 minutes. He then had another episode of right-sided shaking and entire body shaking, but remained conscious throughout. He again had 2 seizures yesterday evening, but nothing since then. Of note, he has had recent subdural. He has baseline confusion and speech impediment. He has a history of seizure disorder, alcohol abuse, and tobacco abuse. MEDICATIONS: He was not sure of what medicines he was taking. Medications at home not per the patient, but per chart: 1. Amlodipine 5 mg daily. 2. Seroquel 50 mg at bedtime. 3. Dilantin 100 in the morning, 200 at night. 4. Metoprolol 50 b.i.d. 5. Mag oxide 400 b.i.d. 6. Gabapentin 300 b.i.d. 7. Cyanocobalamin 500 daily. 8. Ascorbic acid 500 daily. Currently he is on thiamine, Multi-Amber, Ativan in addition to his usual medications. ALLERGIES: He has no known drug allergies. SOCIAL HISTORY: He lives alone. REVIEW OF SYSTEMS: Negative in all 14 spheres other than the HPI. PHYSICAL EXAM: Temperature 98.2, pulse 83, respirations 16, blood pressure 119/ 56. He was alert and oriented x3, but mildly confused and slow to respond, but eventually responded easily with a correct answer. He can follow directions, but again there was slowness to his thought. Cranial nerves II through XII were intact. Discs were sharp. Motor exam revealed normal tone and strength. He had coarse intention tremor bilaterally. No clear flap. He had a wide- based stance and was unsteady on his feet. Apparently, this is chronic according to him. Chest: Clear. Cardiovascular: Regular rate and rhythm. Abdomen is soft with positive bowel sounds. DIAGNOSTIC STUDIES/LAB DATA: I reviewed his MRI scan and it does show a subacute chronic left frontoparietal subdural hematoma, which on CT scans comparing his CT from this admission to one in November, there was a clear cut change. There is no midline shift. There was a small epidural hemorrhage along the left frontal convexities bilaterally. There is some mild white matter disease, most likely chronic small vessel disease. Labs include a most recent white count of 3.6, hematocrit 31, platelets 59,000. INR of 1.03, PTT 31.3. CMP showed an AST of 72. Magnesium is 0.9, now 2. Potassium 3.3. Dilantin is 13.1. HIV and hepatitis C were negative. IMPRESSION AND PLAN: I do not think that Aurelio needs change in anticonvulsants right now. I am not even sure that the seizures were seizures, it could have been tremors from alcohol withdrawal since even though it started on one side, it became bilateral, but he did not lose consciousness despite bilateral shaking. Obviously, he is at risk for seizures and has a significant subdural event. Dr. Villarreal did speak to the neurosurgeons about the subdural, which has clearly changed in size. I would defer to them when to repeat scans and when followup should be. He also has low platelets; I would defer to them, and at one point, he would need a platelet transfusion. If he has further seizures, we need to reconsider adding further anticonvulsants. Dr. Elise will be on and see him as needed. Thank you for sharing his case. [id number]/[facility] #: [id number] [place]
[2018-02-14] MEDS: QUEtiapine TAB* 25 MG PO SCH (21:00)
[2018-02-14] MEDS: Mouth Piece, Nicotine* 1 EACH CARTRIDGE ONE ×2 (21:38→22:09)
--- NOTE | 2018-02-14 22:14 | CONS ---
CONSULTATION REPORT: DATE OF CONSULT: 02/14/18 HISTORY OF PRESENT ILLNESS: The patient is a very pleasant 57-year-old male who was recently admitted after having two episodes of seizures. The patient has history of chronic alcohol abuse and seizures. Request to see the patient by Dr. Villarreal because of MRI finding consistent with left frontal chronic subdural hematoma, possibly enlarged compared to the previous imaging and new very small left more than right frontal epidural hematomas. The patient was diagnosed with subdural hematoma/hydromas started bilaterally and recent CT revealed absorption of the right side subdural and persistence on the left. The patient reports that he had a seizure on the driveway. Most recent CT reveals possibly enlargement of the left side chronic subdural hematoma and questionable small areas of epidural hematoma in both frontal lobes left more than right. MRI of the brain was requested by neurology for further investigation for the cause of his seizures and it revealed similar findings. The patient reports that he does not recall any other injuries. PAST MEDICAL HISTORY: 1. Hypertension. 2. Seizures. 3. ETOH abuse. PAST SURGICAL HISTORY: Appendectomy. MEDICATIONS: The list of medication is not available for us at this point. ALLERGIES: BEE VENOM. SOCIAL HISTORY: The patient is retired. 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 Tobacco negative. Alcohol positive for 1 pint of vodka per day. Recreational drug use negative. REVIEW OF SYSTEMS: He denies any neck or back pain. He denies any vision problems. He denies any difficulties with his speech. Denies any headache. He is tolerating p.o. well he reports. He denies any urinary or GI incontinence. He denies any weakness, numbness, or tingling of extremities. PHYSICAL EXAM: The patient is not in acute distress. He is awake, alert. He is oriented x3. His pupils are equal and reactive. Cranial nerves II through XII grossly intact. Motor 4 to 5/5 in all extremities except for weakness in the dorsiflexion of his left foot, 4-/5. The patient reports it is chronic. He has history of neuropathies, he reports related to his seizures. No pronator drift. Sensory grossly intact to light touch. Deep tendon reflexes +1 bilaterally. No clonus. No Babinski. Hernandez's negative. Straight leg raising test negative in the sitting position. No pain on palpation of cervical , thoracic or lumbar spine. He has full range of motion of the cervical spine. DIAGNOSTIC STUDIES/LAB DATA: The patient had CT scan of the brain on 02/13/18 revealing left chronic subdural hematoma slightly enlarged compared to the previous CT. The patient also had MRI of the brain revealing left frontal chronic subdural hematoma and small areas of epidural hematoma in both frontal lobes, left more than right without significant mass effect. The patient has generalized cortical atrophy and has also chronic flair simultaneously in the pontine and white matter, which is chronic similar to the [address] Lagunas. ASSESSMENT: The patient is a very pleasant 57-year-old gentleman with history of ETOH abuse, seizures, and hypertension who has been followed with CT scan findings consistent with subdural hematoma. The patient had an episode of fall and seizures that reveals slightly enlargement of the left chronic subdural hematoma and small acute bilateral left more than right epidural hematomas. PLAN: The patient at this point is doing very well. He has been evaluated by Neurology for his seizure disorder. Based on the characteristics of the imaging , the patient may better be served with conservative treatment at this point. There is no midline shift, there is no mass effect and the patient has no focal deficits. He does not have any change from his reported baseline. Because of his thrombocytopenia, would recommend to keep the platelet count above 90 if possible and repeat the CT scan of the brain in the a.m. Thank you very much for allowing us to participate in the care of this patient. Please do not hesitate to contact our office in case you have any further questions or concerns regarding the care of this patient. [id number]/[facility] #: [id number] [place]
[2018-02-14] MEDS ORDERED: LORazepam INJ* 2 MG/ML 1 ML VIAL IV PUSH ONE (22:44)
--- NOTE | 2018-02-14 22:47 | EEG ---
ELECTROENCEPHALOGRAPHY: DATE OF STUDY: - ROOM #[id number] DATE OF ADICTATION: 02/14/18 PATIENT OF: Violette Villarreal DO CLINICAL PROBLEM: This 57-year-old man being evaluated for recurrent seizures in the setting of alcohol withdrawal, but he had 2 seizures in the hospital last night. Of note, he also has subdural hematomas. MEDICATIONS: Include: 1. Quetiapine. 2. Metoprolol. 3. Magnesium. 4. Dilantin. 5. Folic acid. 6. B12. 7. Amlodipine. 8. Meloxicam. 9. Thiamine. 10. Ativan. 11. Nicotine patch. REPORT: Background cerebral activity consists of moderate amplitude posterior dominant 7 to 8 Hz rhythm. Prominent muscle movement artifact is noted. There is lower amplitude alpha rhythm in the left hemisphere compared to the right. No epileptiform potentials are noted. The patient never falls asleep. CLINICAL IMPRESSION: This awake EEG shows a relative attenuation of alpha activity in the left hemisphere compared to the right. This is of unclear clinical significance, but may be related to the patient's subdural. No epileptiform potentials are noted. [id number]/[facility] #: [id number] MTDD
[2018-02-14] MEDS ORDERED: Haloperidol INJ IV/IM* 5 MG/ML AMP IV SLOW PU PRN (23:11)
[2018-02-14 23:32] LABS: Mean Platelet Volume 8.6 um3 (7.4-10.4); Platelet Count 78 10^3/ul (150-450)
[2018-02-15] MEDS: LORazepam INJ* 2 MG/ML 1 ML VIAL IV SCH ×2 (01:01→12:28)
[2018-02-15 06:45] LABS: ABS Basophils 0 10^3/ul (0-0.2); ABS Eosinophils 0.1 10^3/ul (0-0.6); ABS Lymphocytes 1.2 10^3/ul (1.0-4.8); ABS Monocytes 0.4 10^3/ul (0-0.8); ABS Neutrophils 1.8 10^3/ul (1.5-7.7); ABS Nucleated RBC 0 10^3/ul; Eosinophil % 3.3 % (0-6); Hematocrit 26 % (42-52); Hemoglobin 9.2 g/dl (14.0-18.0); Lymphocyte % 33.2 % (25-47); Mean Corpuscular HGB Conc 36 g/dl (31-36); Mean Corpuscular Hemoglobin 36 pg (27-31); Mean Corpuscular Volume 102 fL (80-94); Mean Platelet Volume 8.3 um3 (7.4-10.4); Nucleated Red Blood Cells % 0.2; Platelet Count 79 10^3/ul (150-450); Red Blood Count 2.54 10^6/ul (4.00-5.40); Red Cell Distribution Width 15 % (10.5-15); White Blood Count 3.5 10^3/ul (3.5-10.8)
[2018-02-15] MEDS ORDERED: Magnesium Sulf 4 GM/100 ML IV* 4,000 MG/100 ML BAG IVPB ONE (08:22)
[2018-02-15] MEDS ORDERED: Potassium Chloride LIQUID* 20 MEQ PACKET PO ONE (08:23)
--- NOTE | 2018-02-15 08:51 | RAD ---
HISTORY: follow up SDH COMPARISONS: MRI dated February 14, 2018, CT dated February 13, 2013 TECHNIQUE: Multiple contiguous axial CT scans were obtained of the head without intravenous contrast. FINDINGS: HEMORRHAGE/INFARCT: There is no parenchymal hemorrhage or acute infarct. MASSES/SHIFT: There is no mass or shift. EXTRA-AXIAL SPACES: There is stable left frontoparietal subacute to chronic subdural hematoma. Small bifrontal epidural component is noted on MRI can be identified on the current examination is stable. SULCI AND VENTRICLES: The sulci and ventricles are normal in size and position for the patient's stated age. CEREBRUM: There are no focal parenchymal abnormalities. BRAINSTEM: There are no focal parenchymal abnormalities. CEREBELLUM: There are no focal parenchymal abnormalities. VESSELS: The vessels are grossly normal. PARANASAL SINUSES: The paranasal sinuses are clear. ORBITS: The orbits are unremarkable. BONES AND SOFT TISSUE: No bone or soft tissue abnormalities are noted. OTHER: None IMPRESSION: STABLE LEFT FRONTOPARIETAL SUBDURAL HEMATOMA WITH SMALL BIFRONTAL EPIDURAL HEMORRHAGE NOTED ON MRI, STABLE
[2018-02-15] MEDS: Cholecalciferol TAB* 400 UNIT PO SCH (09:01)
[2018-02-15] MEDS: Phenytoin CAP(*) 100 MG CAP.ER PO SCH ×2 (09:02→16:27)
[2018-02-15] MEDS: Multivitamins/Minerals TAB PO SCH (09:02)
[2018-02-15] MEDS: Ascorbic Acid TAB* 500 MG PO SCH (09:02)
[2018-02-15] MEDS: Cyanocobalamin TAB* 500 MCG PO SCH (09:02)
[2018-02-15] MEDS: Gabapentin CAP(*) 300 MG PO SCH ×2 (09:02→20:01)
[2018-02-15] MEDS: Magnesium Oxide TAB* 400 MG PO SCH ×2 (09:02→20:02)
[2018-02-15] MEDS: Metoprolol Tartrate TAB* 50 mg PO SCH ×2 (09:02→20:02)
[2018-02-15] MEDS: Thiamine TAB* 100 MG TAB PO SCH (09:02)
[2018-02-15] MEDS: Folic Acid TAB* 1 MG PO SCH (09:02)
[2018-02-15] MEDS: amLODIPine TAB* 5 MG PO SCH (09:02)
[2018-02-15] MEDS: LORazepam TAB(*) 1 MG PO SCH ×3 (09:03→20:03)
--- NOTE | 2018-02-15 11:43 | CONS ---
NEUROLOGY FOLLOWUP NOTE: DATE OF FOLLOWUP: 02/15/18 LOCATION: He is in room 448. CHIEF COMPLAINT: Seizures. INTERVAL HISTORY: Apparently, Mr. Edmond has not had any seizures since the first day he was brought up to the medical floor. He is currently eating and has a pretty ravenous appetite. He last received Ativan for agitation last night at about 11:30 in the evening. He has not had any since then. He currently denies any abdominal pain. He has a dull pressure like headache " like water in my brain." He also notes some pain in the left posterior head and thinks that is where he might have hit his head. He knows that he had 2 seizures before he was brought into the hospital and that he fell and hit his head outside of [facility] in [place]. There was a friend, who was with him. He knows he had a seizure when he came to floor as well. MEDICATIONS: Reviewed and he is on: 1. Amlodipine 5 mg p.o. q. day. 2. Vitamin D 400 units p.o. q. day. 3. Vitamin B12 of 500 mcg p.o. q. day. 4. Folic acid 1 mg p.o. q. day. 5. Gabapentin 300 mg p.o. b.i.d. 6. Lorazepam by [facility] protocol, lorazepam 1 mg IV q.12 hours. 7. Magnesium 400 mg p.o. b.i.d. 8. Metoprolol 50 mg p.o. b.i.d. 9. Phenytoin 100 mg p.o. q.a.m. and 200 mg q.h.s. 10. Quetiapine 50 mg p.o. q.h.s. 11. Thiamine 100 mg p.o. q. day. PHYSICAL EXAM: He has been afebrile. Blood pressure running about 130/80, most recently without any significant spikes or drops over the last 24 hours. Heart rate trending in the 80s and respiratory rate between 14 to 20. Oxygen saturation is 100% on room air. Heart is in a regular rhythm and I do not hear any murmurs. There are no cervical bruits. There is some tenderness in the left posterior cervical region but there is no external head trauma visible. Pupils are equal and about 4 mm. Eye movements are full and I do not see any nystagmus. He does not have any diplopia. Speech is dysarthric but intelligible. He has normal strength in the upper extremities. I did not stand him up. He has a significant dysmetria on [id number] maneuver bilaterally and symmetrically. Language is fluent but attention and concentration are very poor. DIAGNOSTIC STUDIES/LAB DATA: Reviewed from today, CBC is notable for stable white blood cell count up to 3.5, which is an increase, hemoglobin is down a little bit at 9.2 and platelet count is up to 79,000. Chemistries today notable for potassium at 3.2 and, otherwise, unremarkable chemistries. His AST when he came in was 72 and ALT normal at 17. Phenytoin level on 02/13/[address] scan of the brain early this morning, the report is pending. I reviewed the images in comparison to those from 02/13/18 and I do not see any significant change. The epidural and subdural hematomas are not any larger from my review but again the formal report is pending. 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 His phenytoin level is adequate and since his first day here he has had no further seizures. I would continue Dilantin at the current dose. His prognosis is ultimately dependent upon his ability to become abstinent from alcohol. Neurosurgery is following Mr. Edmond as well. I do not anticipate any neurosurgical intervention unless he has recurrent bleeding. Once he is fully detoxified from alcohol and off lorazepam, he should be evaluated by Psychiatry. He should also be evaluated by Physical Therapy in terms of gait and safe ambulation. I suspect based on his action tremor that he is unsteady on his feet, but that remains to be seen. [id number]/[facility] #: [id number] [facility]
--- NOTE | 2018-02-15 12:05 | PN ---
Progress Note - Progress Note Date of Service: 02/15/18 SOAP: Subjective: []No events On. Resting comfortably. One to one. Tolerates po. Ambulated with PT. No SZ. Objective: []VSS AAOx2-3, ERNESTO, CN II-XII grossly intact Motor 4-5/5, no pronator drift. Sensory grossly intact to light touch Assessment: []57 yom ETOH abuse, SZ, Lt chronic SDH, frontal small EDH Plan: []Monitor VS, Neurochecks CT brain stable Follow exam. Appreciate Neurology, IM care. No NS intervention at his point. Monitor PLT, correct thrombocytopenia. Jhonny Her MD
--- NOTE | 2018-02-15 17:16 | PN ---
Subjective Date of Service: 02/15/18 Interval History: No overnight events. No anxiety, no nausea, no hallucinations, feels okay today. Eating his lunch with a 1:1 at the bedside. Objective Active Medications: Acetaminophen (Tylenol Tab*) 650 mg PO Q4H PRN PRN Reason: PAIN Amlodipine Besylate (Norvasc Tab*) 5 mg PO DAILY [facility] Last Admin: 02/15/18 09:02 Dose: 5 mg Ascorbic Acid (Vitamin C Tab*) 500 mg PO DAILY [facility] Last Admin: 02/15/18 09:02 Dose: 500 mg Cholecalciferol (Vitamin D Tab*) 400 unit PO DAILY [facility] Last Admin: 02/15/18 09:01 Dose: 400 unit Cyanocobalamin (Vitamin B12 Tab*) 500 mcg PO DAILY [facility] Last Admin: 02/15/18 09:02 Dose: 500 mcg Folic Acid (Folvite Tab*) 1 mg PO DAILY [facility] Last Admin: 02/15/18 09:02 Dose: 1 mg Gabapentin (Neurontin Cap(*)) 300 mg PO BID [facility] Last Admin: 02/15/18 09:02 Dose: 300 mg Haloperidol Lactate (Haldol Inj Iv/Im*) 5 mg IV SLOW PU Q6H PRN PRN Reason: AGITATION Lorazepam (Ativan Tab(*)) 0 - 6 mg PO .PER [facility] PROTOCOL [facility]; Protocol Last Admin: 02/15/18 13:12 Dose: 2 mg Lorazepam (Ativan Inj*) 1 mg IV Q12H [facility]; Taper Stop: 02/16/18 15:59 Last Admin: 02/15/18 12:28 Dose: 1 mg Magnesium Oxide (Magox 400 Tab*) 400 mg PO BID [facility] Last Admin: 02/15/18 09:02 Dose: 400 mg Meloxicam (Mobic(Nf)) 15 mg PO DAILY PRN PRN Reason: PAIN Metoprolol Tartrate (Lopressor Tab*) 50 mg PO BID [facility] Last Admin: 02/15/18 09:02 Dose: 50 mg Multivitamins/Minerals (Theragran/Minerals Tab*) 1 tab PO DAILY [facility] Last Admin: 02/15/18 09:02 Dose: 1 tab Nicotine (Nicotine Inhaler*) 10 mg INH Q2H PRN PRN Reason: CRAVING Last Admin: 02/14/18 21:33 Dose: 10 mg Phenytoin Sodium (Dilantin Cap(*)) 100 mg PO QAM [facility] Last Admin: 02/15/18 09:02 Dose: 100 mg Phenytoin Sodium (Dilantin Cap(*)) 200 mg PO QPM [facility] Last Admin: 02/15/18 16:27 Dose: 200 mg Quetiapine Fumarate (Seroquel Tab*) 50 mg PO BEDTIME [facility] Last Admin: 02/14/18 21:00 Dose: 50 mg Thiamine HCl (Vitamin B-1 Tab*) 100 mg PO DAILY [facility] Last Admin: 02/15/18 09:02 Dose: 100 mg Vital Signs - 8 hr 02/15/18 02/15/18 02/15/18 10:54 11:30 11:31 Temperature 98.4 F Pulse Rate 82 Respiratory 16 16 16 Rate Blood Pressure 116/79 (mmHg) O2 Sat by Pulse 100 Oximetry 02/15/18 02/15/18 02/15/18 12:28 13:08 13:12 Temperature 98.1 F Pulse Rate 90 Respiratory 16 16 18 Rate Blood Pressure 161/86 (mmHg) O2 Sat by Pulse 100 Oximetry 02/15/18 02/15/18 02/15/18 13:49 15:46 16:03 Temperature 99.4 F Pulse Rate 86 Respiratory 16 16 20 Rate Blood Pressure 122/84 (mmHg) O2 Sat by Pulse 100 Oximetry Oxygen Devices in Use Now: None Appearance: alert, no distress, flat affect, responds slowly but appropriately Eyes: No Scleral Icterus Ears/Nose/Mouth/Throat: NL Teeth, Lips, Gums Neck: NL Appearance and Movements; NL JVP Respiratory: Symmetrical Chest Expansion and Respiratory Effort, Clear to Auscultation Cardiovascular: NL Sounds; No Murmurs; No JVD, RRR Abdominal: NL Sounds; No Tenderness; No Distention Lymphatic: No Cervical Adenopathy Extremities: No Edema Skin: No Rash or Ulcers Neurological: Alert and Oriented x 3, - - no tremors, asterixis Result Diagrams: 02/15/18 06:28 02/15/18 06:28 Assess/Plan/Problems-Billing Assessment: 57 yo man with history of alcohol dependence and seizure disorder admitted yesterday after 2 seizures that occurred 2 days after stopping etoh because he couldn't get to the liquor store. - Patient Problems (1) Seizure Current Visit: Yes Status: Acute Code(s): R56.9 - UNSPECIFIED CONVULSIONS SNOMED Code(s): 12481333 Comment: suspect alcohol withdrawal seizures; it is unclear whether he has had seizures unrelated to etoh withdrawal neurology following continue seizure precautions, home dilantin dose, and ativan taper (2) Subdural hematoma Current Visit: Yes Status: Acute Code(s): S06.5X9A - TRAUM SUBDR HEM W LOC OF UNSP DURATION, INIT SNOMED Code(s): 81119320 Comment: neurosurgery following neurologically at baseline (3) Pancytopenia Current Visit: Yes Status: Acute Code(s): D61.818 - OTHER PANCYTOPENIA SNOMED Code(s): 686445599 Comment: HIV negative, HCV negative suspect related to etoh abuse received one pool of platelets yesterday with good response (4) Hypomagnesemia Current Visit: No Status: Acute Code(s): E83.42 - HYPOMAGNESEMIA SNOMED Code(s): 900470242 Comment: continue repletion today
[2018-02-15] MEDS: QUEtiapine TAB* 25 MG PO SCH (20:02)
[2018-02-16] MEDS: LORazepam INJ* 2 MG/ML 1 ML VIAL IV SCH ×2 (01:10→12:32)
[2018-02-16] MEDS: Folic Acid TAB* 1 MG PO SCH (08:24)
[2018-02-16] MEDS: amLODIPine TAB* 5 MG PO SCH (08:24)
[2018-02-16] MEDS: Ascorbic Acid TAB* 500 MG PO SCH (08:24)
[2018-02-16] MEDS: Cholecalciferol TAB* 400 UNIT PO SCH (08:25)
[2018-02-16] MEDS: Multivitamins/Minerals TAB PO SCH (08:25)
[2018-02-16] MEDS: Magnesium Oxide TAB* 400 MG PO SCH ×2 (08:25→21:14)
[2018-02-16] MEDS: Thiamine TAB* 100 MG TAB PO SCH (08:25)
[2018-02-16] MEDS: Phenytoin CAP(*) 100 MG CAP.ER PO SCH ×2 (08:25→16:39)
[2018-02-16] MEDS: Cyanocobalamin TAB* 500 MCG PO SCH (08:25)
[2018-02-16] MEDS: Gabapentin CAP(*) 300 MG PO SCH ×2 (08:25→21:12)
[2018-02-16] MEDS: Metoprolol Tartrate TAB* 50 mg PO SCH ×2 (08:25→21:14)
[2018-02-16 10:38] LABS: ABS Basophils 0 10^3/ul (0-0.2); ABS Eosinophils 0.1 10^3/ul (0-0.6); ABS Monocytes 0.7 10^3/ul (0-0.8); ABS Nucleated RBC 0 10^3/ul; Eosinophil % 1.8 % (0-6); Hematocrit 29 % (42-52); Hemoglobin 9.9 g/dl (14.0-18.0); Lymphocyte % 21.3 % (25-47); Mean Corpuscular HGB Conc 35 g/dl (31-36); Mean Corpuscular Hemoglobin 36 pg (27-31); Mean Corpuscular Volume 104 fL (80-94); Mean Platelet Volume 7.9 um3 (7.4-10.4); Nucleated Red Blood Cells % 0.1; Platelet Count 119 10^3/ul (150-450); Red Blood Count 2.75 10^6/ul (4.00-5.40); Red Cell Distribution Width 15 % (10.5-15); White Blood Count 4.8 10^3/ul (3.5-10.8)
--- NOTE | 2018-02-16 12:03 | RAD ---
Indication: Seizure. Fell and hit head. Comparison: February 15, 2018 CT and February 14, 2018 MRI. Technique: Noncontrast CT vertex of skull through foramen magnum. Report: No significant change in nonacute-appearing isodense LEFT frontal parietal subdural hematoma and small bifrontal epidural hemorrhage. Negative for appreciable resulting mass effect with atrophy mitigating against mass effect. No new intracranial hemorrhage evident. Moderately severe prominence of the cerebral sulci and moderate prominence of the cerebellar fissures. Unremarkable ventricles and basal cisterns. Decreased density in the periventricular and subcortical white matter while non-specific is most likely due to chronic microangiopathy. Negative negative for colin matter white matter obscuration or mass effect. Unremarkable orbital contents. Negative for calvarial or skull base fracture. Grossly clear visualized paranasal sinuses and mastoid air spaces. Negative for scalp hematoma. IMPRESSION: #. No significant change in nonacute LEFT frontal parietal subdural hematoma and small bifrontal epidural hemorrhage based on correlation with the February 14, 2018 MRI. No new intracranial hemorrhage evident. #. Involutional change and stigmata of chronic small vessel ischemic disease.
--- NOTE | 2018-02-16 17:29 | PN ---
Subjective Date of Service: 02/16/18 Interval History: Mr. Casey had a fall in the bathroom this morning. He recalls the event. He was urinating and spilled some on the floor in the bathroom, and when he bent down to clean it up, he fell backwards and hit his head on the wall. A CT was negative. He feels well now, denies headache, blurry vision, weakness. Objective Active Medications: Acetaminophen (Tylenol Tab*) 650 mg PO Q4H PRN PRN Reason: PAIN Amlodipine Besylate (Norvasc Tab*) 5 mg PO DAILY [facility] Last Admin: 02/16/18 08:24 Dose: 5 mg Ascorbic Acid (Vitamin C Tab*) 500 mg PO DAILY [facility] Last Admin: 02/16/18 08:24 Dose: 500 mg Cholecalciferol (Vitamin D Tab*) 400 unit PO DAILY [facility] Last Admin: 02/16/18 08:25 Dose: 400 unit Cyanocobalamin (Vitamin B12 Tab*) 500 mcg PO DAILY [facility] Last Admin: 02/16/18 08:25 Dose: 500 mcg Folic Acid (Folvite Tab*) 1 mg PO DAILY [facility] Last Admin: 02/16/18 08:24 Dose: 1 mg Gabapentin (Neurontin Cap(*)) 300 mg PO BID [facility] Last Admin: 02/16/18 08:25 Dose: 300 mg Haloperidol Lactate (Haldol Inj Iv/Im*) 5 mg IV SLOW PU Q6H PRN PRN Reason: AGITATION Lorazepam (Ativan Tab(*)) 0 - 6 mg PO .PER [facility] PROTOCOL [facility]; Protocol Last Admin: 02/15/18 20:03 Dose: 2 mg Magnesium Oxide (Magox 400 Tab*) 400 mg PO BID [facility] Last Admin: 02/16/18 08:25 Dose: 400 mg Meloxicam (Mobic(Nf)) 15 mg PO DAILY PRN PRN Reason: PAIN Metoprolol Tartrate (Lopressor Tab*) 50 mg PO BID [facility] Last Admin: 02/16/18 08:25 Dose: 50 mg Multivitamins/Minerals (Theragran/Minerals Tab*) 1 tab PO DAILY [facility] Last Admin: 02/16/18 08:25 Dose: 1 tab Nicotine (Nicotine Inhaler*) 10 mg INH Q2H PRN PRN Reason: CRAVING Last Admin: 02/14/18 21:33 Dose: 10 mg Phenytoin Sodium (Dilantin Cap(*)) 100 mg PO QAM [facility] Last Admin: 02/16/18 08:25 Dose: 100 mg Phenytoin Sodium (Dilantin Cap(*)) 200 mg PO QPM [facility] Last Admin: 02/16/18 16:39 Dose: 200 mg Quetiapine Fumarate (Seroquel Tab*) 50 mg PO BEDTIME [facility] Last Admin: 02/15/18 20:02 Dose: 50 mg Thiamine HCl (Vitamin B-1 Tab*) 100 mg PO DAILY [facility] Last Admin: 02/16/18 08:25 Dose: 100 mg Vital Signs - 8 hr 02/16/18 02/16/18 02/16/18 10:02 10:30 10:33 Temperature 97.2 F 98.6 F Pulse Rate 88 80 82 Respiratory 18 20 Rate Blood Pressure 151/94 145/85 137/87 (mmHg) O2 Sat by Pulse 100 100 Oximetry 02/16/18 02/16/18 02/16/18 11:13 11:30 12:25 Temperature 98.9 F 98.1 F Pulse Rate 81 86 Respiratory 16 16 16 Rate Blood Pressure 151/93 153/92 (mmHg) O2 Sat by Pulse 100 Oximetry 02/16/18 02/16/18 02/16/18 12:32 14:03 14:23 Temperature 97.4 F Pulse Rate 91 Respiratory 16 16 16 Rate Blood Pressure 148/92 (mmHg) O2 Sat by Pulse 100 Oximetry 02/16/18 16:43 Temperature 98.6 F Pulse Rate 95 Respiratory 20 Rate Blood Pressure 143/92 (mmHg) O2 Sat by Pulse 100 Oximetry Oxygen Devices in Use Now: None Appearance: alert, speaking more clearly and coherently today Eyes: No Scleral Icterus Ears/Nose/Mouth/Throat: NL Teeth, Lips, Gums Neck: NL Appearance and Movements; NL JVP Respiratory: Symmetrical Chest Expansion and Respiratory Effort, Clear to Auscultation Cardiovascular: NL Sounds; No Murmurs; No JVD, RRR Abdominal: NL Sounds; No Tenderness; No Distention, - - liver palpable Lymphatic: No Cervical Adenopathy Extremities: No Edema Skin: No Rash or Ulcers Neurological: Alert and Oriented x 3, - - no tremor or asterixis Result Diagrams: 02/16/18 10:24 02/15/18 06:28 Assess/Plan/Problems-Billing Assessment: 57 yo man with history of alcohol dependence and seizure disorder admitted yesterday after 2 seizures that occurred 2 days after stopping etoh because he couldn't get to the liquor store. - Patient Problems (1) Seizure Current Visit: Yes Status: Acute Code(s): R56.9 - UNSPECIFIED CONVULSIONS SNOMED Code(s): 18231350 Comment: suspect alcohol withdrawal seizures; it is unclear whether he has had seizures unrelated to etoh withdrawal neurology following continue seizure precautions, home dilantin dose, and ativan taper (2) Subdural hematoma Current Visit: Yes Status: Acute Code(s): S06.5X9A - TRAUM SUBDR HEM W LOC OF UNSP DURATION, INIT SNOMED Code(s): 53453956 Comment: subacute to chronic was larger than prior at admission; now has been stable through this admission no focal neurologic deficits; should re-image if his neurologic status changes (3) Pancytopenia Current Visit: Yes Status: Acute Code(s): D61.818 - OTHER PANCYTOPENIA SNOMED Code(s): 899922850 Comment: HIV negative, HCV negative suspect related to etoh abuse received one pool of platelets so far recheck tomorrow in light of fall today (4) Hypomagnesemia Current Visit: No Status: Acute Code(s): E83.42 - HYPOMAGNESEMIA SNOMED Code(s): 298073737 Comment: likely related to etoh; recheck tomorrow (5) Alcohol withdrawal Current Visit: Yes Status: Acute Code(s): F10.239 - ALCOHOL DEPENDENCE WITH WITHDRAWAL, UNSPECIFIED SNOMED Code(s): 217583962 Comment: he is MUCH more coherent and improved today from a mental status standpoint he does not want to detox or to stay sober, but he is too unsteady on his feet to be discharged at this time, so he is completing an ativan taper while he awaits disposition plan--I discussed the possibility of STR with him; appreciate PT and case management input
[2018-02-16] MEDS: QUEtiapine TAB* 25 MG PO SCH (21:15)
[2018-02-16] MEDS: Acetaminophen TAB* 325 MG PO PRN (21:27)
[2018-02-17 06:55] LABS: ABS Basophils 0 10^3/ul (0-0.2); ABS Eosinophils 0.1 10^3/ul (0-0.6); ABS Lymphocytes 1.2 10^3/ul (1.0-4.8); ABS Monocytes 0.7 10^3/ul (0-0.8); ABS Neutrophils 2.1 10^3/ul (1.5-7.7); ABS Nucleated RBC 0 10^3/ul; Eosinophil % 2.4 % (0-6); Hematocrit 28 % (42-52); Hemoglobin 9.7 g/dl (14.0-18.0); Lymphocyte % 29.1 % (25-47); Mean Corpuscular HGB Conc 35 g/dl (31-36); Mean Corpuscular Hemoglobin 36 pg (27-31); Mean Corpuscular Volume 104 fL (80-94); Nucleated Red Blood Cells % 0.1; Platelet Count 135 10^3/ul (150-450); Red Blood Count 2.69 10^6/ul (4.00-5.40); Red Cell Distribution Width 15 % (10.5-15); White Blood Count 4.1 10^3/ul (3.5-10.8)
[2018-02-17 07:00] LABS: EGFR Non-African American 154.7 (>60)
[2018-02-17] MEDS: amLODIPine TAB* 5 MG PO SCH (08:39)
[2018-02-17] MEDS: Gabapentin CAP(*) 300 MG PO SCH ×2 (08:39→20:32)
[2018-02-17] MEDS: Metoprolol Tartrate TAB* 50 mg PO SCH ×2 (08:39→20:32)
[2018-02-17] MEDS: Cholecalciferol TAB* 400 UNIT PO SCH (08:39)
[2018-02-17] MEDS: Multivitamins/Minerals TAB PO SCH (08:40)
[2018-02-17] MEDS: Magnesium Oxide TAB* 400 MG PO SCH ×2 (08:40→20:33)
[2018-02-17] MEDS: Folic Acid TAB* 1 MG PO SCH (08:40)
[2018-02-17] MEDS: Cyanocobalamin TAB* 500 MCG PO SCH (08:40)
[2018-02-17] MEDS: Phenytoin CAP(*) 100 MG CAP.ER PO SCH ×2 (08:40→16:29)
[2018-02-17] MEDS: Thiamine TAB* 100 MG TAB PO SCH (08:40)
[2018-02-17] MEDS: Ascorbic Acid TAB* 500 MG PO SCH (08:40)
[2018-02-17] MEDS ORDERED: Polyethylene Glycol 3350* 17 GM PACKET PO PRN (15:55)
[2018-02-17] MEDS: Acetaminophen TAB* 325 MG PO PRN (16:29)
--- NOTE | 2018-02-17 16:48 | PN ---
Subjective Date of Service: 02/17/18 Interval History: Mr. Edmond denies complaint. He is impulsive though is noted to be more steady on his feet. He denies complaint including chest pain, SOB, nausea, or abdominal pain. He now reports interest in stopping alcohol. Objective Active Medications: Acetaminophen (Tylenol Tab*) 650 mg PO Q4H PRN Amlodipine Besylate (Norvasc Tab*) 5 mg PO DAILY [facility] Ascorbic Acid (Vitamin C Tab*) 500 mg PO DAILY J[facility] Cholecalciferol (Vitamin D Tab*) 400 unit PO DAILY [facility] Cyanocobalamin (Vitamin B12 Tab*) 500 mcg PO DAILY J[facility] Folic Acid (Folvite Tab*) 1 mg PO DAILY [facility] Gabapentin (Neurontin Cap(*)) 300 mg PO BID J[facility] Haloperidol Lactate (Haldol Inj Iv/Im*) 5 mg IV SLOW PU Q6H PRN Lorazepam (Ativan Tab(*)) 0 - 6 mg PO .PER [facility] PROTOCOL JW; Protocol Magnesium Oxide (Magox 400 Tab*) 400 mg PO BID [facility] Meloxicam (Mobic(Nf)) 15 mg PO DAILY PRN Metoprolol Tartrate (Lopressor Tab*) 50 mg PO BID [facility] Multivitamins/Minerals (Theragran/Minerals Tab*) 1 tab PO DAILY [facility] Nicotine (Nicotine Inhaler*) 10 mg INH Q2H PRN Phenytoin Sodium (Dilantin Cap(*)) 100 mg PO QAM JW Phenytoin Sodium (Dilantin Cap(*)) 200 mg PO QPM [facility] Polyethylene Glycol/Electrolytes (Miralax*) 17 gm PO DAILY PRN Quetiapine Fumarate (Seroquel Tab*) 50 mg PO BEDTIME [facility] Thiamine HCl (Vitamin B-1 Tab*) 100 mg PO DAILY [facility] Vital Signs: Temp Pulse Resp BP Pulse Ox 98.8 F 92 16 144/82 100 02/17/18 16:09 02/17/18 16:09 02/17/18 16:09 02/17/18 16:09 02/17/18 16:09 Oxygen Devices in Use Now: None Appearance: Male sitting up on edge of bed eating dinner in NAD Eyes: No Scleral Icterus Ears/Nose/Mouth/Throat: Mucous Membranes Moist Neck: Trachea Midline Respiratory: Symmetrical Chest Expansion and Respiratory Effort, Clear to Auscultation Cardiovascular: No Edema Abdominal: NL Sounds; No Tenderness; No Distention Lymphatic: No Cervical Adenopathy Extremities: No Edema Skin: No Rash or Ulcers Neurological: Alert and Oriented x 3, NL Muscle Strength and Tone Nutrition: Taking PO's Result Diagrams: 02/17/18 06:14 02/17/18 06:14 Assess/Plan/Problems-Billing Assessment: Mr. Edmond 57 yo man with history of alcohol dependence and seizure disorder admitted yesterday after 2 seizures that occurred 2 days after stopping ETOH because he couldn't get to the liquor store. - Patient Problems (1) Alcohol withdrawal Comment: - Continued slow improvement. - He is interested in staying sober but not in rehab. - He is too unsteady on his feet and impulsive with ambulationto be discharged at this time, so he is completing an ativan taper while he awaits disposition plan (2) Subdural hematoma Current Visit: Yes Comment: - Subacute to chronic - Was larger than prior at admission; now has been stable through this admission - No focal neurologic deficits; should re-image if his neurologic status changes (3) Seizure Comment: - Suspect alcohol withdrawal seizures; it is unclear whether he has had seizures unrelated to etoh withdrawal - Appreciate neurology consult. - Continue seizure precautions, home dilantin dose, and ativan taper (4) Ambulatory dysfunction Comment: - PT following (5) Pancytopenia Comment: - Improved. - Suspect related to ETOH abuse. HIV negative, HCV negative (6) HTN (hypertension) Comment: - Controlled. - Continue Amlodipine and Atenolol. (7) Hypokalemia Comment: - Repleted. (8) Hypomagnesemia Comment: - Replete, recheck in AM. (9) DVT prophylaxis Comment: - SQ heparin. (10) Full code status Comment: Status and Disposition: Inpatient, may need STR.
[2018-02-17] MEDS ORDERED: Magnesium Sulfate IV* 2 GM in NS 0.9% 100 ML* 100 ML IV ONE (16:51)
[2018-02-17] MEDS: QUEtiapine TAB* 25 MG PO SCH (20:32)
[2018-02-18] MEDS: Phenytoin CAP(*) 100 MG CAP.ER PO SCH (08:15)
[2018-02-18] MEDS: Cyanocobalamin TAB* 500 MCG PO SCH (08:16)
[2018-02-18] MEDS: Magnesium Oxide TAB* 400 MG PO SCH (08:16)
[2018-02-18] MEDS: Folic Acid TAB* 1 MG PO SCH (08:16)
[2018-02-18] MEDS: Cholecalciferol TAB* 400 UNIT PO SCH (08:17)
[2018-02-18] MEDS: Ascorbic Acid TAB* 500 MG PO SCH (08:17)
[2018-02-18] MEDS: Gabapentin CAP(*) 300 MG PO SCH (08:17)
[2018-02-18] MEDS: Thiamine TAB* 100 MG TAB PO SCH (08:17)
[2018-02-18] MEDS: amLODIPine TAB* 5 MG PO SCH (08:17)
[2018-02-18] MEDS: Multivitamins/Minerals TAB PO SCH (08:17)
[2018-02-18] MEDS: Metoprolol Tartrate TAB* 50 mg PO SCH (08:18)
[2018-02-18] MEDS: Acetaminophen TAB* 325 MG PO PRN (08:18)
--- NOTE | 2018-02-18 11:12 | PN ---
Subjective Date of Service: 02/18/18 Interval History: Ms. Edmond denies complaint and is very eager for discharge to home. He feels steady on his feet. He indicates a plan to stop drinking alcohol and to stop smoking. He denies chest pain, SOB, nausea, or abdominal pain. Objective Active Medications: Acetaminophen (Tylenol Tab*) 650 mg PO Q4H PRN Amlodipine Besylate (Norvasc Tab*) 5 mg PO DAILY [facility] Ascorbic Acid (Vitamin C Tab*) 500 mg PO DAILY [facility] Cholecalciferol (Vitamin D Tab*) 400 unit PO DAILY [facility] Cyanocobalamin (Vitamin B12 Tab*) 500 mcg PO DAILY J[facility] Folic Acid (Folvite Tab*) 1 mg PO DAILY [facility] Gabapentin (Neurontin Cap(*)) 300 mg PO BID [facility] Haloperidol Lactate (Haldol Inj Iv/Im*) 5 mg IV SLOW PU Q6H PRN Lorazepam (Ativan Tab(*)) 0 - [address] [facility] PROTOCOL JW; Protocol Magnesium Oxide (Magox 400 Tab*) 400 mg PO BID [facility] Meloxicam (Mobic(Nf)) 15 mg PO DAILY PRN Metoprolol Tartrate (Lopressor Tab*) 100 mg PO BID [facility] Multivitamins/Minerals (Theragran/Minerals Tab*) 1 tab PO DAILY [facility] Nicotine (Nicotine Inhaler*) 10 mg INH Q2H PRN Phenytoin Sodium (Dilantin Cap(*)) 100 mg PO QAM JW Phenytoin Sodium (Dilantin Cap(*)) 200 mg PO QPM [facility] Polyethylene Glycol/Electrolytes (Miralax*) 17 gm PO DAILY PRN Quetiapine Fumarate (Seroquel Tab*) 50 mg PO BEDTIME [facility] Thiamine HCl (Vitamin B-1 Tab*) 100 mg PO DAILY [facility] Vital Signs: Temp Pulse Resp BP Pulse Ox 98.4 F 82 16 142/79 100 02/18/18 07:55 02/18/18 07:55 02/18/18 08:17 02/18/18 07:55 02/18/18 07:55 Oxygen Devices in Use Now: None Appearance: Male sitting up on edge of bed in NAD Eyes: No Scleral Icterus Ears/Nose/Mouth/Throat: Mucous Membranes Moist Neck: Trachea Midline Respiratory: Symmetrical Chest Expansion and Respiratory Effort, Clear to Auscultation Cardiovascular: NL Sounds; No Murmurs; No JVD, No Edema Abdominal: NL Sounds; No Tenderness; No Distention Extremities: No Edema Skin: No Rash or Ulcers Neurological: Alert and Oriented x 3, NL Muscle Strength and Tone Nutrition: Taking PO's Result Diagrams: 02/17/18 06:14 02/17/18 06:14 Assess/Plan/Problems-Billing Assessment: Mr. Edmond 57 yo man with history of alcohol dependence and seizure disorder admitted yesterday after 2 seizures that occurred 2 days after stopping ETOH because he couldn't get to the liquor store. - Patient Problems (1) Alcohol withdrawal Comment: - Resolved. - He is interested in staying sober but not in rehab. - He is now steady on his feet. (2) Subdural hematoma Current Visit: Yes Comment: - Subacute to chronic - Was larger than prior at admission; now has been stable through this admission - No focal neurologic deficits; should re-image if his neurologic status changes (3) Seizure Comment: - Suspect alcohol withdrawal seizures; it is unclear whether he has had seizures unrelated to etoh withdrawal - Appreciate neurology consult. - Continue seizure precautions, home dilantin dose, and ativan taper (4) Ambulatory dysfunction Comment: - PT following (5) Pancytopenia Comment: - Improved. - Suspect related to ETOH abuse. HIV negative, HCV negative (6) HTN (hypertension) Comment: - Controlled. - Continue Amlodipine and Atenolol. (7) Hypokalemia Comment: - Repleted. (8) Hypomagnesemia Comment: - Replete, recheck in AM. (9) DVT prophylaxis Comment: - SQ heparin. (10) Full code status Comment: Status and Disposition: Inpatient, discharge to home.
[2018-02-18 11:37] VITALS: BP 152/93
--- NOTE | 2018-02-18 21:30 | DS ---
CC: Deandra Painter NP * [facility] MEDICINE DISCHARGE SUMMARY: DATE OF ADMISSION: 02/13/18 DATE OF DISCHARGE: 02/18/18 ATTENDING PHYSICIAN: Dr. Teresita Loaiza * (dictation provided by Linda Solomon NP ). PRIMARY DIAGNOSES: 1. Seizure related to alcohol withdrawal. 2. Alcohol withdrawal. 3. Subdural hematoma, chronic. SECONDARY DIAGNOSES: 1. History of seizure disorder. 2. History of alcohol abuse. 3. History of tobacco abuse. 4. Hypertension. 5. Pancytopenia. 6. Hypokalemia. 7. Hypomagnesemia. MEDICATIONS AT THE TIME OF DISCHARGE: 1. Amlodipine 5 mg p.o. daily. 2. Quetiapine 50 mg p.o. at bedtime. 3. Phenytoin 100 mg in the a.m. and 200 mg p.m. 4. Metoprolol tartrate 50 mg p.o. b.i.d. 5. Meloxicam 15 mg p.o. daily p.r.n. 6. Magnesium oxide 400 mg p.o. b.i.d. 7. Gabapentin 300 mg p.o. b.i.d. 8. Folic acid 1 mg p.o. daily. 9. Cyanocobalamin 500 mcg p.o. daily. 10. Cholecalciferol 400 units p.o. daily. 11. Ascorbic acid 500 mg p.o. daily. 12. Thiamine 100 mg p.o. daily. 13. Multivitamin with mineral 1 tab p.o. daily. 14. Tylenol 650 mg p.o. q.4 hours p.r.n. HOSPITAL COURSE: Mr. Edmond is a 57-year-old male with long-term history of alcohol abuse and related seizure disorder, who presented to the hospital on with concern for seizure in the setting of alcohol withdrawal. Please see the dictated H and P from Violette Villarreal DO, for complete details. In brief, the patient had reported that he had developed seizures after being unable to get to the store to get more alcohol for himself. In the ED, he had labs that showed pancytopenia with white blood count 2.5, hemoglobin 11.4, and platelet count 50. His potassium was 3.3, his magnesium was 0.9. AST 72, ALT 17 , alk phos 184. Workup on arrival included a CT of the brain, which showed "chronic left frontotemporal subdural collection appears slightly larger." Mr. Edmond was admitted to the hospital out of concern for seizure-related alcohol withdrawal as well as the finding of apparent worsening chronic subdural hematoma. He had a brain MRI, which showed "the mesial temporal lobes are symmetric. There is no appreciable cortical dysplasia or heterotopia. Subacute to chronic left frontotemporal subdural hematoma measuring 0.4 cm in depth. There has been interval development of small epidural hemorrhage along the frontal convexities bilaterally, greater on the left than the right. Elevated T2/FLAIR signal on the pontine white matter that is nonspecific, there can be seen sequelae of chronic small vessel ischemia or toxic metabolic disturbance. This can be identified in the 2015 examination and is stable. For the seizures and for the subdural hematoma, the patient had consultation with Neurology and Neurosurgery and I refer you to their documentation for complete details. The patient had an EEG, which showed no epileptiform discharges, but did show relative attenuation of the alpha activity in the left hemisphere compared to the right, which is of unclear clinical significance, but could relate to the patient's subdural hematoma. The patient was seen by Dr. Millan, from Neurology, who recommended no change in the anticonvulsants as it seemed that the seizures are related to alcohol withdrawal. The patient was then seen by Dr. Her, from Neurosurgery, on 02/14/18. He recommended that we aim to keep the platelet count above 90 given the subdural hematoma and to repeat the CT brain in the a.m. which was accomplished on 02/15/18. That CT showed stable left frontotemporal subdural hematoma with small bifrontal epidural hemorrhage as noted on the MRI. Again, a repeat CT was done 02/16/18 and showed no significant change in the non-acute left frontoparietal subdural hematoma and small bifrontal epidural hemorrhages. Dr. Her confirmed that no neurosurgical intervention was needed. In terms of the platelet count recommendation, the patient did receive 1 unit of platelets and while here in the hospital, his platelets had risen from 50 up to 135 today. His anemia is stable and his leukopenia has resolved. In terms of his pancytopenia, he did have hep C antibodies, which were nonreactive and HIV, which was nonreactive. He also had an abdomen ultrasound, which showed "fatty infiltration of the liver, the liver is at the upper limits of normal size, the spleen is normal in size." Mr. Edmond was initially very unsteady on his feet and was requiring Ativan for symptoms of alcohol withdrawal. Today, he is much more appropriate and mentating at least at baseline. He is ambulating on the unit independently. He is little impulsive with his mobility but is safe for discharge as deemed by Physical Therapy. Mr. Edmond is medically stable for discharge to home, he will need to follow up with his primary care provider, Deandra Painter NP, regarding ongoing encouragement to stop drinking alcohol and for management of his high blood pressure and seizure disorder. The patient has had been stable throughout the hospitalization neurologically and would require no further followup for subdural hematoma unless he has neurological changes. DISPOSITION: To home. DIET: Low salt, low fat. ACTIVITY: As tolerated. FOLLOWUP PLANS: Please follow up with Deandra Painter NP, within the next week regarding his acute hospitalization. LINDA SOLOMON NP [id number]/CPS #: [id number] [place]
== END 2018-02-18 12:55 | disposition home or self-care (01) | DRG 775 ==
LOC: ED 14:14 → MEDTELE 21:55 → OBSVTOIN 02-14 12:00
PROVIDERS: ADMIT Pediatrics; ATTEND Internal Medicine
PROC: 30233K1 Transfusion of Nonautologous Frozen Plasma into Peripheral Vein, Percutaneous Approach (ICD-10-PCS; principal; 2018-02-14)
DX: F10.239 Alcohol dependence with withdrawal, unspecified (principal); I62.03 Nontraumatic chronic subdural hemorrhage; I62.1 Nontraumatic extradural hemorrhage; G40.802 Other epilepsy, not intractable, without status epilepticus; D61.818 Other pancytopenia; E83.42 Hypomagnesemia; I10 Essential (primary) hypertension; E87.6 Hypokalemia; F17.210 Nicotine dependence, cigarettes, uncomplicated; Z91.030 Bee allergy status; Z82.49 Family history of ischemic heart disease and other diseases of the circulatory system; Z79.899 Other long term (current) drug therapy; S09.90XA Unspecified injury of head, initial encounter; W18.30XA Fall on same level, unspecified, initial encounter; Y92.231 Patient bathroom in hospital as the place of occurrence of the external cause
CPT/HCPCS: 36415; 70450; 70551; 76700; 80048; 80053; 80185; 80307; 83735; 84100; 84484; 85025; 85049; 85610; 85730; 86703; 86803; 86900; 86901; 93005; 95816; 99283; A9270-GY; J1630; J2060; J3411; J3475; P9035

== ENCOUNTER 2018-06-06 07:58 | Observation (INO) | payer OTHER ==
[2018-06-06] MEDS ORDERED: LORazepam INJ* 2 MG/ML 1 ML VIAL IV PUSH ONE (08:24)
[2018-06-06] MEDS ORDERED: Ondansetron INJ* 2 MG/ML VIAL IV ONE (08:24)
[2018-06-06] MEDS ORDERED: Thiamine IV* 100 MG, Folic Acid IV* 1 MG, Multiple Vitamin IV ADULT* 10 ML in NS 0.9% 1... IV ONE (08:24)
--- NOTE | 2018-06-06 08:30 | ED ---
GI/ HPI - HPI Summary HPI Summary: This patient is a 58 year old M brought in by ambulance accompanied by his sister with a chief complaint of persistent vomiting since two days ago. Patient reports dehydration, TRIANA, fatigue, nausea, shakiness, seizures, and difficulty sleeping. Patient denies diarrhea, abd pain, CP, fever, or difficulty breathing. The patient reports that he drinks 5-6 glasses of vodka a day, but has stopped drinking for the last 2 days. Pt has not taken blood pressure medication in 2 days, because he cannot keep it down. Pts sister told him to go to the hospital for the recurrent vomiting. The seizures are due to alcohol, according to the patient. The last seizure was last night. The emesis looks white and foamy, per patient. The patient has a history of leaving AMA. PMHX HTN, seizures. SHX drinks daily. Home Medications Medication Instructions Recorded Confirmed Type QUEtiapine TAB* [Seroquel 25 MG 50 mg PO BEDTIME 11/19/14 02/13/18 History TAB*] Magnesium Oxide TAB* [MagOx 400 400 mg PO BID 06/23/15 02/13/18 History TAB*] Folic Acid TAB* [Folvite TAB*] 1 mg PO DAILY 06/29/15 02/13/18 History Gabapentin CAP(*) [Neurontin 300 300 mg PO BID 09/16/15 02/13/18 History CAP(*)] Metoprolol Tartrate TAB* 50 mg PO BID 05/14/17 02/13/18 History [Lopressor TAB*] Ascorbic Acid TAB* [Vitamin C 500 mg PO DAILY 12/14/17 02/13/18 History TAB*] Cholecalciferol TAB* [Vitamin D 400 unit PO DAILY 12/14/17 02/13/18 History TAB*] Cyanocobalamin TAB* [Vitamin B12 500 mcg PO DAILY 12/14/17 02/13/18 History TAB*] Meloxicam(NF) [Mobic(NF)] 15 mg PO DAILY PRN 12/14/17 02/13/18 History Phenytoin CAP(*) [Dilantin CAP(*)] 100 mg PO QAM 12/14/17 02/13/18 History Phenytoin CAP(*) [Dilantin CAP(*)] 200 mg PO QPM 12/14/17 02/13/18 History amLODIPine TAB* [Norvasc 5 mg TAB*] 5 mg PO DAILY 12/14/17 02/13/18 History Acetaminophen TAB* [Tylenol TAB*] 650 mg PO Q4H PRN tab 02/18/18 Rx Multivitamins/Minerals TAB* 1 tab PO DAILY tab 02/18/18 Rx [Theragran/minerals TAB*] Thiamine TAB* [Vitamin B-1 TAB 100 100 mg PO DAILY #30 tab 02/18/18 Rx MG*] - History of Current Complaint Chief Complaint: EDNauseaVomitDiarrh Time Seen by Provider: 06/06/18 08:11 Stated Complaint: VOMITING Hx Obtained From: Patient Onset/Duration: Started Days Ago - 2 Timing: Constant Severity: Moderate Current Severity: Moderate Pain Intensity: 0 Associated Signs and Symptoms: Positive: Weakness, Nausea, Vomiting. Negative: Diarrhea, Fever, Abdominal Pain, Chest Pain Aggravating Factor(s): Nothing Alleviating Factor(s): Nothing - Additional Pertinent History Primary Care Physician: [id number] - Allergy/Home Medications Allergies/Adverse Reactions: Allergies Allergy/AdvReac Type Severity Reaction Status Date / Time bee venom protein (honey bee) Allergy Unknown Verified 12/14/17 14:46 Reaction Details Home Medications: Home Medications Cholecalciferol (Vitamin D3) [Vitamin D3] 1,000 unit PO DAILY 06/06/18 [History Confirmed 06/06/18] PMH/Surg Hx/FS Hx/Imm Hx Endocrine/Hematology History: Denies: Hx Anticoagulant Therapy, Hx Diabetes Cardiovascular History: Reports: Hx Hypercholesterolemia, Hx Hypertension Denies: Hx Pacemaker/ICD Respiratory History: Denies: Hx Asthma History: Denies: Hx Dialysis, Hx Renal Disease Musculoskeletal History: Reports: Hx Arthritis, Hx Back Problems, Hx Scoliosis, Other Musculoskeletal History - c/o chronic soreness left posterior calf, states he has had " for years" Sensory History: Reports: Hx Contacts or Glasses, Hx Deafness, Hx Hearing Aid - not with patient Opthamlomology History: Reports: Hx Contacts or Glasses Neurological History: Reports: Hx Seizures, Other Neuro Impairments/Disorders - tremors r/t ETOH. PAIN CLINIC PT Psychiatric History: Reports: Hx Substance Abuse - alcoholism Denies: Hx Panic Disorder - Surgical History Surgery Procedure, Year, and Place: APPENDIX 1982 - Immunization History Date of Tetanus Vaccine: unknown Infectious Disease History: No Infectious Disease History: Denies: Hx Hepatitis, Hx Human Immunodeficiency Virus (HIV), Hx of Known/ Suspected MRSA, Hx Shingles, Hx Tuberculosis, Traveled Outside the [place] in Last 30 Days - Family History Known Family History: Positive: Hypertension - Social History Alcohol Use: Daily Alcohol Amount: 5-6 glasses of vodka Hx Substance Use: No Substance Use Type: Reports: Marijuana Substance Use Comment - Amount & Last Used: 2 days prior to admission Hx Tobacco Use: Yes Smoking Status (MU): Heavy Every Day Tobacco Smoker Type: Cigarettes Amount Used/How Often: 5-6 cigarettes/day Have You Smoked in the Last Year: No Review of Systems Positive: Fatigue. Negative: Fever Negative: Chest Pain Negative: Shortness Of Breath Positive: Vomiting, Nausea. Negative: Abdominal Pain, Diarrhea Neurological: Other - seizures, difficulty sleeping Positive: Headache All Other Systems Reviewed And Are Negative: Yes Physical Exam - Summary Physical Exam Summary: Constitutional: Well-developed, Well-nourished, Alert. Tremulous. Skin: Warm, Dry HENT: Normocephalic; Atraumatic. Dry mucous membranes Eyes: Conjunctiva normal Neck: Musculoskeletal ROM normal neck. Cardio: Rhythm regular, rate normal, Heart sounds normal; Intact distal pulses; The pedal pulses are 2+ and symmetric. Radial pulses are 2+ and symmetric. Pulmonary/Chest wall: Effort normal. Abd: Soft Neuro: Alert, Oriented x3 Psych: Mood and affect Normal. Triage Information Reviewed: Yes Vital Signs On Initial Exam: Initial Vitals Temp Pulse Resp BP Pulse Ox 99.3 F 120 16 172/111 99 06/06/18 08:01 06/06/18 08:01 06/06/18 08:01 06/06/18 08:01 06/06/18 08:01 Vital Signs Reviewed: Yes Diagnostics - Vital Signs Vital Signs Temp Pulse Resp BP Pulse Ox 06/06/18 08:01 99.3 F 120 16 172/111 99 - Laboratory Result Diagrams: 06/07/18 06:27 06/07/18 06:27 Lab Statement: Any lab studies that have been ordered have been reviewed, and results considered in the medical decision making process. - EKG 8:33 Cardiac Rate: Tachycardia - 101 bpm EKG Rhythm: Sinus Tachycardia Summary of EKG Findings: no STEMI Re-Evaluation - Re-Evaluation First Eval Re-Evaluation Time: 09:30 Comment: Patient is feeling drowsy. Effective Atavan GIGU Course/Dx - Course Course Of Treatment: This patient is a 58 year old M brought in by ambulance accompanied by his sister with a chief complaint of persistent vomiting since two days ago. Patient reports dehydration, TRIANA, fatigue, nausea, shakiness, seizures, and difficulty sleeping. Patient denies diarrhea, abd pain, CP, fever or difficulty breathing. Suspicion of alcoholic ketoacidosis versus withdrawal. An EKG at 8:33 reveals non-STEMI, 101bpm, sinus tachycardia. In the ED course the patient was given IV fluids, Lorazepam, and Zofran. Patient will be admitted to [facility]. The patient is agreeable with this plan. - Diagnoses Provider Diagnoses: Alcohol withdrawal - Physician Notifications Discussed Care Of Patient With: Mary Kate Castano Time Discussed With Above Provider: 09:30 Instructed by Provider To: Admit As Inpatient Discharge - Sign-Out/Discharge Documenting (check all that apply): Patient Departure - admission - Discharge Plan Condition: Fair Disposition: ADMITTED TO [facility] - Billing Disposition and Condition Condition: FAIR Disposition: Admitted to [facility] - Attestation Statements Document Initiated by Scribe: Yes Documenting Scribe: Rashad Ashton Provider For Whom Scribe is Documenting (Include Credential): Ricardo William MD Scribe Attestation: Rashad Montemayor, scribed for Ricardo William MD on 06/13/18 at 1234. Scribe Documentation Reviewed: Yes Provider Attestation: The documentation as recorded by the scribRashad lopez accurately reflects the service I personally performed and the decisions made by me, Ricardo William MD
[2018-06-06] MEDS ORDERED: NS 0.9% 1000 ML* 1,000 ML IV ONE (08:41)
[2018-06-06 08:42] LABS: Hematocrit 38 % (42-52); Hemoglobin 13.6 g/dl (14.0-18.0); Mean Corpuscular HGB Conc 35 g/dl (31-36); Mean Corpuscular Hemoglobin 35 pg (27-31); Mean Corpuscular Volume 97 fL (80-94); Red Blood Count 3.93 10^6/ul (4.00-5.40); Red Cell Distribution Width 14 % (10.5-15)
[2018-06-06 08:56] LABS: AST 54 U/L (13-39); C Reactive Protein < 1.00 mg/L (<8.01); Sodium 138 mmol/L (135-145); Total Protein 8.4 g/dL (6.4-8.9)
[2018-06-06 09:21] LABS: Calcium 9.5 mg/dL (8.6-10.3); Potassium 3.2 mmol/L (3.5-5.0)
[2018-06-06 09:22] LABS: Chloride 88 mmol/L (101-111)
[2018-06-06 09:23] LABS: Albumin 4.9 g/dL (3.2-5.2); Albumin/Globulin Ratio 1.4 (1-3); Anion Gap 23 mmol/L (2-11); CO2 Carbon Dioxide 27 mmol/L (22-32); Globulin 3.5 g/dL (2-4)
[2018-06-06 09:24] LABS: EGFR Non-African American 78.2 (>60)
[2018-06-06 09:25] LABS: ABS Basophils 0 10^3/ul (0-0.2); ABS Eosinophils 0 10^3/ul (0-0.6); ABS Monocytes 0.7 10^3/ul (0-0.8); ABS Neutrophils 5.3 10^3/ul (1.5-7.7); ABS Nucleated RBC 0 10^3/ul; BUN/Creatinine Ratio 15.2 (8-20); Blood Urea Nitrogen 15 mg/dL (6-24); Eosinophil % 0 % (0-6); Lymphocyte % 14.3 % (25-47); Mean Platelet Volume 8.4 fL (7.4-10.4); Nucleated Red Blood Cells % 0; Platelet Count 75 10^3/ul (150-450)
[2018-06-06 09:26] LABS: ALT 41 U/L (7-52); Alkaline Phosphatase 129 U/L (34-104); Glucose 138 mg/dL (70-100)
[2018-06-06 09:36] LABS: Alcohol < 10 mg/dL (<10)
[2018-06-06] MEDS ORDERED: LORazepam TAB(*) 0.5 MG PO PRN (10:33)
[2018-06-06] MEDS ORDERED: Ondansetron INJ* 2 MG/ML VIAL IV PRN (10:40)
[2018-06-06] MEDS: Diazepam TAB(*) 5 MG PO SCH ×2 (11:54→18:05)
[2018-06-06 13:00] LABS: Hepatitis B Surface AB Not Immune (Immune)
[2018-06-06 13:03] LABS: Hepatitis B Surface Antigen Nonreactive (Nonreactive)
[2018-06-06 13:49] LABS: Rapid HIV 1 Nonreactive (Nonreactive)
[2018-06-06] MEDS: Heparin VIAL(*) 5000 UNITS/ML VIAL (FIVE THOUSAND) SUBCUT SCH ×2 (15:11→21:59)
[2018-06-06] MEDS: NS 0.9% 1000 ML* 1,000 ML IV SCH (15:21)
[2018-06-06 15:27] LABS: Hepatitis C Antibody Nonreactive (Nonreactive)
[2018-06-06] MEDS ORDERED: Nicotine Inhaler* 10 MG AMP INH PRN (17:18)
[2018-06-06] MEDS ORDERED: Acetaminophen TAB* 325 MG PO PRN (17:18)
[2018-06-06] MEDS ORDERED: Phenytoin CAP(*) 100 MG CAP.ER PO SCH (18:00)
--- NOTE | 2018-06-06 21:46 | HP ---
CC: Gustavo Mata NP * HISTORY AND PHYSICAL: DATE OF ADMISSION: 06/06/18 PRIMARY CARE PROVIDER: Gustavo Mata NP CHIEF COMPLAINT: Nausea, vomiting. HISTORY OF PRESENT ILLNESS: Mr. Edmond is a 58-year-old male who has a history of alcoholism who presented to the emergency room on 06/06/18 with complaints of vomiting and shaking. The patient stated that he stopped drinking approximately 2 days prior to admission. He typically drinks 5 to 6 glasses of vodka daily. The patient reports that 2 days ago, he started throwing up and has continued to vomit since then. This is all per the nurses' note, as when I see the patient he has received 4 mg of IV Ativan and is unable to provide any of this history. The patient is only able to tell me that he feels tired and that maybe he had a seizure at home the day prior to admission. PAST MEDICAL HISTORY: 1. Alcoholism. 2. Seizure disorder. 3. Tobacco abuse. PAST SURGICAL HISTORY: Unobtainable. MEDICATIONS: 1. Vitamin D3 1000 units p.o. daily. 2. Folic acid 1 mg p.o. daily. 3. Thiamine 100 mg p.o. daily. 4. Amlodipine 5 mg p.o. daily. 5. Metoprolol tartrate 50 mg p.o. b.i.d. 6. Gabapentin 300 mg p.o. b.i.d. 7. Magnesium oxide 400 mg p.o. t.i.d. 8. Dilantin 100 mg p.o. q.a.m., 200 mg p.o. q.p.m. ALLERGIES: No known drug allergies. FAMILY HISTORY: Unobtainable from the patient. SOCIAL HISTORY: The patient reportedly lives in [place] alone. His son, Juan , is his healthcare proxy. REVIEW OF SYSTEMS: Unobtainable from the patient. PHYSICAL EXAMINATION GENERAL: The patient is a well-developed middle-aged male seen sitting up in the bed with orange Jell-O covering his face and his gown, it is all over his hands, but in no acute distress. VITAL SIGNS: Blood pressure 126/86, pulse 99, respirations 18, temp 99.3, O2 sat 98% on room air. HEENT: Pupils are equal and round. Extraocular muscles are intact. Oropharynx is clear. Oral mucosa is moist. The patient is edentulous. There is no submandibular, cervical, or supraclavicular adenopathy. Thyroid is not enlarged. No thyroid nodules are noted. PULMONARY: Lungs are clear to auscultation bilaterally. CARDIAC: Normal S1, S2. Heart rate is mildly tachycardic. I do not appreciate any murmurs. There is no lower extremity edema. ABDOMEN: Bowel sounds present. Abdomen is soft, nontender, nondistended. MUSCULOSKELETAL: The patient appears to move all 4 extremities symmetrically. NEURO: The patient appears to be grossly intact. There are no focal deficits. PSYCH: The patient is quite confused currently. SKIN: Warm and dry. There are no rashes. LABORATORY DATA: WBC 7.0, hemoglobin 13.6, hematocrit 38, platelets 75,000. Sodium 138, potassium 3.2, chloride 88, CO2 of 27, BUN 15, creatinine 0.99, glucose 138. Lactic acid 1.4. Bilirubin 1.6, AST 54, ALT 41, alk phos 129. Ammonia 47. CRP less than 1. Protein 8.4. Albumin 4.9. Lipase 29. Serum alcohol less than 10. ASSESSMENT AND PLAN: Mr. Edmond is a 58-year-old male with a known history of alcoholism and a seizure disorder who presented to the emergency room with intractable vomiting and alcohol withdrawal. 1. Intractable vomiting. My suspicion is that this is related to probably gastritis from the patient's heavy alcohol use. We will start omeprazole 20 mg daily. He will have Zofran available for nausea. At this point, his vomiting has stopped at the time of my evaluation. 2. Alcohol withdrawal. The patient will be placed on the [facility] protocol. He will also be started on diazepam 2.5 mg p.o. q.8 hours as seizure prophylaxis. The patient did get quite sleepy with 4 mg of IV Ativan he received in the emergency room. We will monitor his mental status to assure that he clears. His speech is somewhat garbled, though reportedly better than immediately post Ativan administration. The patient will continue on thiamine and folic acid. 3. Seizure disorder. We will continue Dilantin. We will check Dilantin level tomorrow. 4. Hypertension. The patient will continue on amlodipine. 5. DVT prophylaxis. According to the Adult Thrombosis Prophylaxis Risk Factor Assessment Guide, the patient has a total risk factor score of 1, making him low risk. Ambulation will be utilized as DVT prophylaxis. 4. Code status is full. TIME SPENT: 55 minutes were spent admitting this patient. [id number]/[facility] #: [id number] MTDD
[2018-06-06] MEDS: Gabapentin CAP(*) 300 MG PO SCH (21:58)
[2018-06-06] MEDS: Magnesium Oxide TAB* 400 MG PO SCH (21:58)
[2018-06-06] MEDS: Metoprolol Tartrate TAB* 50 mg PO SCH (21:59)
[2018-06-07] MEDS: NS 0.9% 1000 ML* 1,000 ML IV SCH (01:46)
[2018-06-07] MEDS: Diazepam TAB(*) 5 MG PO SCH ×2 (02:10→10:13)
[2018-06-07] MEDS: Heparin VIAL(*) 5000 UNITS/ML VIAL (FIVE THOUSAND) SUBCUT SCH (05:37)
[2018-06-07] MEDS ORDERED: Omeprazole CAP (NF) 20 MG CAP.DR PO SCH (06:00)
[2018-06-07 07:04] LABS: Hematocrit 31 % (42-52); Hemoglobin 10.9 g/dl (14.0-18.0); Mean Corpuscular HGB Conc 36 g/dl (31-36); Mean Corpuscular Hemoglobin 34 pg (27-31); Mean Corpuscular Volume 97 fL (80-94); Mean Platelet Volume 9.4 fL (7.4-10.4); Platelet Count 52 10^3/ul (150-450); Red Blood Count 3.16 10^6/ul (4.00-5.40); Red Cell Distribution Width 14 % (10.5-15); White Blood Count 4.4 10^3/ul (3.5-10.8)
[2018-06-07 07:18] LABS: Anion Gap 6 mmol/L (2-11); BUN/Creatinine Ratio 13.8 (8-20); Blood Urea Nitrogen 8 mg/dL (6-24); CO2 Carbon Dioxide 29 mmol/L (22-32); Calcium 8.7 mg/dL (8.6-10.3); Chloride 97 mmol/L (101-111); EGFR Non-African American 144.9 (>60); Glucose 121 mg/dL (70-100); Potassium 2.8 mmol/L (3.5-5.0); Sodium 132 mmol/L (135-145)
[2018-06-07 07:31] LABS: Phenytoin < 2.5 mcg/mL (10-20)
[2018-06-07] MEDS: Gabapentin CAP(*) 300 MG PO SCH (08:36)
[2018-06-07] MEDS: Magnesium Oxide TAB* 400 MG PO SCH ×2 (08:38→12:09)
[2018-06-07] MEDS: Metoprolol Tartrate TAB* 50 mg PO SCH (08:38)
[2018-06-07] MEDS ORDERED: Folic Acid TAB* 1 MG PO SCH (09:00)
[2018-06-07] MEDS ORDERED: Cholecalciferol TAB* 1000 UNITS PO SCH (09:00)
[2018-06-07] MEDS ORDERED: amLODIPine TAB* 5 MG PO SCH (09:00)
[2018-06-07] MEDS ORDERED: Thiamine TAB* 100 MG TAB PO SCH (09:00)
[2018-06-07] MEDS ORDERED: Phenytoin CAP(*) 100 MG CAP.ER PO SCH (09:00)
[2018-06-07] MEDS: Potassium Chlor TAB* 20 MEQ TAB.ER PO SCH ×2 (09:29→12:09)
--- NOTE | 2018-06-07 10:01 | PN ---
Subjective Date of Service: 06/07/18 Interval History: Pt is feeling well this AM. He now is able to tell me that he thinks he may have had the flu as the cause of his vomiting a couple days ago. He does not feel like he is in alcohol withdrawal now. He wants to go home. Last night he was unstable on his feet but today he thinks he will walk fine. He has not had any ativan since 2am. Objective Active Medications: Acetaminophen (Tylenol Tab*) 650 mg PO Q4H PRN PRN Reason: PAIN Amlodipine Besylate (Norvasc Tab*) 5 mg PO DAILY [facility] Last Admin: 06/07/18 08:38 Dose: 5 mg Cholecalciferol (Vitamin D Tab*) 1,000 units PO DAILY [facility] Last Admin: 06/07/18 08:38 Dose: 1,000 units Diazepam (Valium Tab(*)) 2.5 mg PO Q8H [facility] Last Admin: 06/07/18 02:10 Dose: 2.5 mg Folic Acid (Folvite Tab*) 1 mg PO DAILY [facility] Last Admin: 06/07/18 08:38 Dose: 1 mg Gabapentin (Neurontin Cap(*)) 300 mg PO BID [facility] Last Admin: 06/07/18 08:36 Dose: 300 mg Heparin Sodium (Porcine) (Heparin Vial(*)) 5,000 units SUBCUT Q8HR [facility] Last Admin: 06/07/18 05:37 Dose: 5,000 units Sodium Chloride (Ns 0.9% 1000 Ml*) 1,000 mls @ 100 mls/hr IV PER RATE [facility] Last Admin: 06/07/18 01:46 Dose: 100 mls/hr Lorazepam (Ativan Tab(*)) 0 mg PO Q4H PRN; Protocol PRN Reason: alcohol withdrawal Last Admin: 06/07/18 02:10 Dose: 1 mg Magnesium Oxide (Magox 400 Tab*) 400 mg PO TID [facility] Last Admin: 06/07/18 08:38 Dose: 400 mg Metoprolol Tartrate (Lopressor Tab*) 50 mg PO BID [facility] Last Admin: 06/07/18 08:38 Dose: 50 mg Nicotine (Nicotine Inhaler*) 10 mg INH Q2H PRN PRN Reason: CRAVING Omeprazole (Prilosec Cap*) 20 mg PO DAILY@0600 [facility] Last Admin: 06/07/18 05:36 Dose: 20 mg Ondansetron HCl (Zofran Inj*) 4 mg IV Q6H PRN PRN Reason: NAUSEA Phenytoin Sodium (Dilantin Cap(*)) 100 mg PO QAM [facility] Last Admin: 06/07/18 08:36 Dose: 100 mg Phenytoin Sodium (Dilantin Cap(*)) 200 mg PO QPM [facility] Last Admin: 06/06/18 18:05 Dose: 200 mg Potassium Chloride (Klor Con Er Tab*) 40 meq PO Q4H [facility] Stop: 06/07/18 14:01 Last Admin: 06/07/18 09:29 Dose: 40 meq Thiamine HCl (Vitamin B-1 Tab*) 100 mg PO DAILY [facility] Last Admin: 06/07/18 08:38 Dose: 100 mg Vital Signs - 8 hr 06/07/18 06/07/18 06/07/18 01:59 02:10 03:48 Temperature 98.2 F Pulse Rate 85 Respiratory 16 18 Rate Blood Pressure 153/92 (mmHg) O2 Sat by Pulse 97 Oximetry 06/07/18 06/07/18 06/07/18 04:03 05:42 08:00 Temperature 98.0 F 98.6 F Pulse Rate 82 84 Respiratory 18 18 Rate Blood Pressure 145/84 154/98 (mmHg) O2 Sat by Pulse 99 99 Oximetry 06/07/18 06/07/18 08:11 08:36 Temperature 98.8 F Pulse Rate 82 Respiratory 18 20 Rate Blood Pressure 154/94 (mmHg) O2 Sat by Pulse 99 Oximetry Oxygen Devices in Use Now: None Appearance: Middle aged male sitting up in bed, NAD Eyes: No Scleral Icterus Ears/Nose/Mouth/Throat: Mucous Membranes Moist Respiratory: Symmetrical Chest Expansion and Respiratory Effort, Clear to Auscultation - fine bibasilar crackles Cardiovascular: NL Sounds; No Murmurs; No JVD, RRR, No Edema Abdominal: NL Sounds; No Tenderness; No Distention Extremities: No Clubbing, Cyanosis Skin: No Nodules or Sclerosis Neurological: Alert and Oriented x 3 Result Diagrams: 06/07/18 06:27 06/07/18 06:27 Assess/Plan/Problems-Billing Mr Casey is a 58 yo M who has a h/o alcoholism, HTN and seizure disorder who presented to the ER with c/o vomiting and was found to be in alcohol withdrawal. - Patient Problems (1) Vomiting Current Visit: Yes Status: Acute Code(s): R11.10 - VOMITING, UNSPECIFIED SNOMED Code(s): 192259984 Comment: Likely related to his EtOH intake and possibly gastritis. Pt has tolerated a regular breakfast without any vomiting. Continue PPI on d/c. (2) Hypokalemia Current Visit: Yes Status: Acute Code(s): E87.6 - HYPOKALEMIA SNOMED Code( s): 41538044 Comment: Probably secondary to vomiting and EtOH intake. Will replete. (3) Alcohol withdrawal Current Visit: Yes Status: Acute Code(s): F10.239 - ALCOHOL DEPENDENCE WITH WITHDRAWAL, UNSPECIFIED SNOMED Code(s): 589556571 Comment: Pt is now steady on his feet (ambulated with his nurse after my visit). We talked about AA and possibly rehab but he is not inclined to stop drinking at this time. He wants to go home today. He appears quite stable at this time and safe for d/c home this afternoon. (4) Seizure disorder Current Visit: Yes Status: Acute Code(s): G40.909 - EPILEPSY, UNSP, NOT INTRACTABLE, WITHOUT STATUS EPILEPTICUS SNOMED Code(s): 327498236 Comment: Pt states he could not keep down his seizure meds though I suspect he may have not been taking the medication secondary to his drinking. Dilantin resumed at home dose. Son asks that pt possibly get a pill box to help him remember taking his meds. (5) HTN (hypertension) Current Visit: Yes Status: Acute Code(s): I10 - ESSENTIAL (PRIMARY) HYPERTENSION SNOMED Code(s): 81019522 Comment: BP moderately elevated. Continue amlodipine and metoprolol but increase amlodipine dose to 10mg daily. (6) DVT prophylaxis Current Visit: Yes Status: Acute Code(s): MRY2339 - SNOMED Code(s): 840977233 Comment: SQ heparin (7) Full code status Current Visit: Yes Status: Acute Code(s): Z78.9 - OTHER SPECIFIED HEALTH STATUS SNOMED Code(s): 473073439 Comment:
[2018-06-07 13:09] VITALS: BP 148/90
--- NOTE | 2018-06-08 03:10 | DS ---
CC: Gustavo Mata NP * DISCHARGE SUMMARY: DATE OF ADMISSION: 06/06/18 DATE OF DISCHARGE: 06/07/18 PRIMARY CARE PROVIDER: Gustavo Mata NP PRINCIPAL DIAGNOSES: 1. Intractable vomiting likely secondary to alcohol use and probable gastritis. 2. Alcohol withdrawal. SECONDARY DIAGNOSES: 1. Seizure disorder. 2. Hypertension. DISCHARGE MEDICATIONS: 1. Vitamin D3 1000 units p.o. daily. 2. Folic acid 1 mg p.o. daily. 3. Thiamine 100 mg p.o. daily. 4. Amlodipine 10 mg p.o. daily (increased dose). 5. Metoprolol tartrate 50 mg p.o. b.i.d. 6. Gabapentin 300 mg p.o. b.i.d. 7. Magnesium oxide 400 mg p.o. t.i.d. 8. Phenytoin 100 mg p.o. q.a.m., 200 mg p.o. q.p.m. HOSPITAL COURSE: Mr. Edmond is a 58-year-old male who presented to the emergency room on 06/06/18 with complaints of vomiting and was clearly in alcohol withdrawal. The patient received 4 mg of IV Ativan in the emergency room and by the time I got him to admit him, was unable to provide really any history. The patient was placed on the [facility] protocol. He did score lastly at approximately 2 a.m. on the day of discharge. The patient is showing no outward signs of alcohol withdrawal at this time. He has been up and ambulating. He has been steady. The patient has tolerated a regular diet for breakfast and lunch and at this point, is felt to be stable for discharge home. The patient has been instructed to work on cutting back on his drinking. He states that AA did not help in the past. He was open to talking to Social Work about outpatient rehab, though I am not encouraged that the patient is actually wanting to quit drinking at this time. FOLLOWUP CONCERNS: The patient is being discharged home today on 06/07/18. Activity level is as tolerated. Diet is regular. CONDITION ON DISCHARGE: Stable. The patient should follow up with Gustavo Mata NP in the next 5 to 7 days. TIME SPENT: 25 minutes were spent discharging this patient. [id number]/[facility] #: [id number] [facility]
== END 2018-06-07 13:30 | disposition home or self-care (01) | DRG 775 ==
LOC: ED 07:58 → MED 10:33 → OBSVTOIN 10:33 → INTOOBSV 10:33 → MED 23:59 → OBSVTOIN 06-07 13:00 → INTOOBSV 06-07 13:00
PROVIDERS: ADMIT Hospitalist; ATTEND Hospitalist
DX: F10.239 Alcohol dependence with withdrawal, unspecified (principal); K29.20 Alcoholic gastritis without bleeding; Y90.9 Presence of alcohol in blood, level not specified; E87.6 Hypokalemia; G40.909 Epilepsy, unspecified, not intractable, without status epilepticus; I10 Essential (primary) hypertension; E78.00 Pure hypercholesterolemia, unspecified; E86.0 Dehydration; M19.90 Unspecified osteoarthritis, unspecified site; M41.9 Scoliosis, unspecified; F17.210 Nicotine dependence, cigarettes, uncomplicated; Z82.49 Family history of ischemic heart disease and other diseases of the circulatory system; Z90.89 Acquired absence of other organs; Z91.030 Bee allergy status
CPT/HCPCS: 36415; 80048; 80053; 80185; 80320; 82140; 82803; 83605; 83690; 85025; 85027; 86140; 86703; 86706; 86803; 87340; 93005; 99284; A9270-GY; G0378; G0480; J1644; J2060; J2405; J3411

== ENCOUNTER 2018-07-15 14:37 | Emergency (ER) | payer OTHER ==
[2018-07-15] MEDS ORDERED: Thiamine IV* 100 MG, Folic Acid IV* 1 MG, Multiple Vitamin IV ADULT* 10 ML in NS 0.9% 1... IV ONE (15:00)
--- NOTE | 2018-07-15 15:04 | ED ---
Head Injury - HPI Summary HPI Summary: 58-year-old male presents with head injury 2 days ago. The son states that it was believed he passed out when he was urinating two days ago. the patient states that he felt dizzy urinated and passed out. He hit his head. He states he did have alcohol prior to the incident. He also had a fall couple days prior to that. His son said today he seemed very shaky as he has not had alcohol in a while. He had 2 glasses of alcohol prior to coming. Son states she is back at his baseline now. He states he has not had seizures since the last time he was here. He denies any symptoms at the point. He denies any headache or neck pain. no nausea or vomiting. No chest pain or shortness of breath. He has a history of falls due to alcohol. He has a history of hematoma. - History Of Current Complaint Chief Complaint: EDHeadInjury Stated Complaint: FALL HEAD INJURY, SYNCOPE Time Seen by Provider: 07/15/18 14:54 Pain Intensity: 4 - Allergies/Home Medications Allergies/Adverse Reactions: Allergies Allergy/AdvReac Type Severity Reaction Status Date / Time bee venom protein (honey bee) Allergy Unknown Verified 07/15/18 15:18 Reaction Details PMH/Surg Hx/FS Hx/Imm Hx Endocrine/Hematology History: Denies: Hx Anticoagulant Therapy, Hx Diabetes Cardiovascular History: Reports: Hx Hypercholesterolemia, Hx Hypertension Denies: Hx Pacemaker/ICD Respiratory History: Denies: Hx Asthma History: Denies: Hx Dialysis, Hx Renal Disease Musculoskeletal History: Reports: Hx Arthritis, Hx Back Problems, Hx Scoliosis, Other Musculoskeletal History - c/o chronic soreness left posterior calf, states he has had " for years" Sensory History: Reports: Hx Contacts or Glasses, Hx Deafness, Hx Hearing Aid - not with patient Opthamlomology History: Reports: Hx Contacts or Glasses Neurological History: Reports: Hx Seizures, Other Neuro Impairments/Disorders - tremors r/t ETOH. PAIN CLINIC PT Psychiatric History: Reports: Hx Substance Abuse - alcoholism Denies: Hx Anxiety, Hx Attention Deficit Hyperactivity Disorder, Hx Eating Disorder, Hx Depression, Hx Panic Disorder, Hx Post Traumatic Stress Disorder, Hx Inpatient Treatment, Hx Community Mental Health Tx, Hx Schizophrenia, Hx Bipolar Disorder, Hx Suicide Attempt, Hx of Violent Episodes Against Others, Other Psychiatric Issues/Disorders - Surgical History Surgery Procedure, Year, and Place: APPENDIX 1982 - Immunization History Date of Tetanus Vaccine: unknown Infectious Disease History: No Infectious Disease History: Denies: Hx Hepatitis, Hx Human Immunodeficiency Virus (HIV), Hx of Known/ Suspected MRSA, Hx Shingles, Hx Tuberculosis, Traveled Outside the [place] in Last 30 Days - Family History Known Family History: Positive: Hypertension - Social History Alcohol Use: Daily Alcohol Amount: 5-6 glasses of vodka Hx Substance Use: No Substance Use Type: Reports: Marijuana Substance Use Comment - Amount & Last Used: 2 days prior to admission Hx Tobacco Use: Yes Smoking Status (MU): Heavy Every Day Tobacco Smoker Type: Cigarettes Amount Used/How Often: 5-6 cigarettes/day Have You Smoked in the Last Year: No Review of Systems Negative: Fever Negative: Chest Pain Negative: Shortness Of Breath Positive: Syncope. Negative: Headache All Other Systems Reviewed And Are Negative: Yes Physical Exam Triage Information Reviewed: Yes Vital Signs On Initial Exam: Initial Vitals Temp Pulse Resp BP Pulse Ox 97.0 F 81 20 144/92 99 07/15/18 14:39 07/15/18 14:39 07/15/18 14:39 07/15/18 14:39 07/15/18 14:39 Vital Signs Reviewed: Yes Appearance: Positive: Well-Appearing Skin: Positive: Warm, Dry, Other - healing laceration on scalp Head/Face: Positive: Normal Head/Face Inspection Eyes: Positive: Normal, EOMI, ERNESTO, Conjunctiva Clear ENT: Positive: Normal ENT inspection, Pharynx normal, TMs normal Respiratory/Lung Sounds: Positive: Clear to Auscultation, Breath Sounds Present Cardiovascular: Positive: Normal, RRR Abdomen Description: Positive: Nontender, Soft Bowel Sounds: Positive: Present Musculoskeletal: Positive: Normal Neurological: Positive: Sensory/Motor Intact, Alert, Oriented to Person Place, Time, CN Intact II-III Psychiatric: Positive: Normal - [place] Coma Scale Best Eye Response: 4 - Spontaneous Best Motor Response: 6 - Obeys Commands Best Verbal Response: 5 - Oriented Coma Scale Total: 15 Diagnostics - Vital Signs Vital Signs Temp Pulse Resp BP Pulse Ox 07/15/18 14:39 97.0 F 81 20 144/92 99 - Laboratory Result Diagrams: 07/15/18 15:12 07/15/18 15:13 Lab Statement: Any lab studies that have been ordered have been reviewed, and results considered in the medical decision making process. - Radiology head Radiology Interpretation Completed By: Radiologist Summary of Radiographic Findings: IMPRESSION: 1. Chronic intracranial findings described above without CT evidence of calvarial fracture. or acute intracranial hemorrhage. 2. Multilevel degenerative changes of the cervical spine similar in appearance to the most. recent December 14, 2017 CT of the cervical spine. No acute fracture or dislocation is. identified. 3. There is exuberant coarsely calcified atherosclerosis at the bilateral carotid bulbs. On a nonemergent basis further characterization can be made with carotid ultrasound if. there is clinical suspicion for stenosis. - EKG No standard instances Cardiac Rate: NL EKG Rhythm: Sinus Rhythm Summary of EKG Findings: sinus rhythm Re-Evaluation - Re-Evaluation First Eval Re-Evaluation Time: 16:56 Change: Unchanged Comment: no symptoms Head Injury Course/Dx Course Of Treatment: 58 year old male who has a history of chronic alcoholism and frequent falls presents with son for a fall two days. It was believed he passed out while urinating two days ago. no chest pain or SOB. no symptoms at this time. does have a healing laceration that was bleeding at that time. denies any seizure. did have some ETOH prior to coming. on exam patient smells like ETOH. is at his baseline compared to previous times he has been seen here mental status reyna. normal neuro exam. magnesium low so gave supplement. ekg shows sinus rhythm. anemia and platelets similiar to previous likely due to ETOH abuse. lfts similiar to previous. troponin neg. etoh is 354. CT chronic changes and possible stenosis of carotid. discussed results with son and importance of follow up with primary about potential stenosis. syncope did happen two days ago and happened after etoh and micuration and patient refuses to be admitted for further work up. son accepts responsibility for patient as he is sober while patient is still intoxicated. son states that this is his baseline and he was able to ambulate to the bathroom and hold a full conversation. patient son understand and agrees with plan. - Diagnoses Differential Diagnosis/HQI/PQRI: Concussion Without LOC, Contusion, Intracranial Bleed Provider Diagnoses: Syncope, Head injury, Alcohol intoxication Discharge - Sign-Out/Discharge Documenting (check all that apply): Patient Departure - Discharge Plan Condition: Stable Disposition: HOME Patient Education Materials: Head Injury (ED) Referrals: Gustavo Mata NP [Primary Care Provider] - Additional Instructions: Follow up with primary within 5 days about head injury modify activities as tolerated Return to ED if develop any change in mental status, vomiting, or any new or worsening symptoms - Billing Disposition and Condition Condition: STABLE Disposition: Home
[2018-07-15 15:29] LABS: ABS Basophils 0 10^3/ul (0-0.2); ABS Eosinophils 0 10^3/ul (0-0.6); ABS Monocytes 0.5 10^3/ul (0-0.8); ABS Neutrophils 1.2 10^3/ul (1.5-7.7); ABS Nucleated RBC 0 10^3/ul; Eosinophil % 0.9 %; Hematocrit 34 % (42-52); Hemoglobin 11.7 g/dl (14.0-18.0); Lymphocyte % 51.8 %; Mean Corpuscular HGB Conc 35 g/dl (31-36); Mean Corpuscular Hemoglobin 35 pg (27-31); Mean Corpuscular Volume 101 fL (80-94); Mean Platelet Volume 7.8 fL (7.4-10.4); Nucleated Red Blood Cells % 0.1; Platelet Count 63 10^3/ul (150-450); Red Blood Count 3.37 10^6/ul (4.00-5.40); Red Cell Distribution Width 14 % (10.5-15); White Blood Count 3.8 10^3/ul (3.5-10.8)
[2018-07-15 15:37] LABS: Albumin 4.2 g/dL (3.2-5.2); Albumin/Globulin Ratio 1.3 (1-3); BUN/Creatinine Ratio 6.7 (8-20); Calcium 8.7 mg/dL (8.6-10.3); EGFR Non-African American 107.7 (>60); Globulin 3.3 g/dL (2-4); Magnesium 1.1 mg/dL (1.9-2.7); Potassium 3.3 mmol/L (3.5-5.0); Total Bilirubin 0.5 mg/dL (0.2-1.0); Total Protein 7.5 g/dL (6.4-8.9)
[2018-07-15] MEDS ORDERED: Magnesium Chloride EC TAB* 64 MG PO ONE (15:44)
[2018-07-15 16:22] LABS: TSH (Thyroid Stimulating Horm) 1.3 mcIU/mL (0.34-5.60)
[2018-07-15 17:00] LABS: Urine Appearance Clear; Urine Bilirubin Negative (Negative); Urine Blood Negative (Negative); Urine Color Yellow; Urine Glucose Negative (Negative); Urine Ketones Negative (Negative); Urine Nitrite Negative (Negative); Urine Protein Negative (Negative); Urine Specific Gravity 1.005 (1.010-1.030); Urine Urobilinogen Negative (Negative)
[2018-07-15 17:04] VITALS: BP 137/82
[2018-07-15 17:27] LABS: Barbiturates Urine Screen None Detected (None Detect); Benzodiazepine Urine Screen None Detected (None Detect); Urine Cannabinoids Screen Presumptive Positive (None Detect)
== END 2018-07-15 17:04 | disposition home or self-care (01) ==
LOC: ED 14:37
DX: R55 Syncope and collapse (principal); S09.90XA Unspecified injury of head, initial encounter; W22.8XXA Striking against or struck by other objects, initial encounter; Y92.9 Unspecified place or not applicable; F17.210 Nicotine dependence, cigarettes, uncomplicated; F10.129 Alcohol abuse with intoxication, unspecified
CPT/HCPCS: 36415; 70450; 72125; 80053; 80307; 80320; 81003; 82140; 83605; 83735; 84443; 84484; 85025; 93005; 96374; 99283; A9270-GY; G0480; J3411

== ENCOUNTER 2018-08-19 14:36 | Inpatient (IN) | payer OTHER ==
[2018-08-19] MEDS ORDERED: LORazepam INJ* 2 MG/ML 1 ML VIAL IV ONE (15:05)
[2018-08-19] MEDS ORDERED: chlordiazePOXIDE CAP* 25 MG PO ONE (15:07)
--- NOTE | 2018-08-19 15:07 | ED ---
Neurological HPI - HPI Summary HPI Summary: This patient is a 58 y/o female who was brought in by [facility] ambulance to [facility] with a chief complaint of seizure on 08/19/18. Per triage note, Per EMS 2 siezures today, hx EtOH abuse, orientation unclear, states last drink was a couple days ago. He rates his pain as a 0/10. In the ED the patient denies any drinks. He reports that he had his seizure here. When asked about his current location he correctly answers, the [facility], however when asked about the date he is unsure and when asked what year it is he replies 2018 when it is 2019. He also appears to be trembling. He has a Hx of EtOH and marijuana use. - History of Current Complaint Chief Complaint: EDSeizure Stated Complaint: POSS SEISURES Time Seen by Provider: 08/19/18 14:43 Hx Obtained From: Patient, EMS Onset/Duration: Sudden Onset, Started hours ago, Resolved Timing: Intermittent Episodes Lasting: - 2 reported episodes, unsure how long Onset Severity: Moderate Current Severity: Mild Seizure Severity: Moderate Number of Seizures: 2 Neurological Deficit Location: Generalized Pain Intensity: 0 Pain Scale Used: 0-10 Numeric Character: Unable To Describe Aggravating: Nothing Alleviating: Nothing Associated Signs and Symptoms: Negative: Fever - Additional Pertinent History Primary Care Physician: [id number] - Allergy/Home Medications Allergies/Adverse Reactions: Allergies Allergy/AdvReac Type Severity Reaction Status Date / Time bee venom protein (honey bee) Allergy Unknown Verified 07/15/18 15:18 Reaction Details Home Medications: Home Medications Ascorbic Acid TAB* [Vitamin C TAB*] 500 mg PO DAILY 08/19/18 [History Confirmed 08/19/18] PMH/Surg Hx/FS Hx/Imm Hx Endocrine/Hematology History: Denies: Hx Anticoagulant Therapy, Hx Diabetes Cardiovascular History: Reports: Hx Hypercholesterolemia, Hx Hypertension Denies: Hx Pacemaker/ICD Respiratory History: Denies: Hx Asthma History: Denies: Hx Dialysis, Hx Renal Disease Musculoskeletal History: Reports: Hx Arthritis, Hx Back Problems, Hx Scoliosis, Other Musculoskeletal History - c/o chronic soreness left posterior calf, states he has had " for years" Sensory History: Reports: Hx Contacts or Glasses, Hx Deafness, Hx Hearing Aid - not with patient Opthamlomology History: Reports: Hx Contacts or Glasses Neurological History: Reports: Hx Seizures, Other Neuro Impairments/Disorders - tremors r/t ETOH. PAIN CLINIC PT Psychiatric History: Reports: Hx Substance Abuse - alcoholism Denies: Hx Anxiety, Hx Attention Deficit Hyperactivity Disorder, Hx Eating Disorder, Hx Depression, Hx Panic Disorder, Hx Post Traumatic Stress Disorder, Hx Inpatient Treatment, Hx Community Mental Health Tx, Hx Schizophrenia, Hx Bipolar Disorder, Hx Suicide Attempt, Hx of Violent Episodes Against Others, Other Psychiatric Issues/Disorders - Surgical History Surgery Procedure, Year, and Place: APPENDIX 1982 - Immunization History Date of Tetanus Vaccine: unknown Infectious Disease History: No Infectious Disease History: Denies: Hx Hepatitis, Hx Human Immunodeficiency Virus (HIV), Hx of Known/ Suspected MRSA, Hx Shingles, Hx Tuberculosis, Traveled Outside the [place] in Last 30 Days - Family History Known Family History: Positive: Hypertension - Social History Alcohol Use: Daily Alcohol Amount: 5-6 glasses of vodka Hx Substance Use: No Substance Use Type: Reports: Marijuana Substance Use Comment - Amount & Last Used: 2 days prior to admission Hx Tobacco Use: Yes Smoking Status (MU): Heavy Every Day Tobacco Smoker Type: Cigarettes Amount Used/How Often: 5-6 cigarettes/day Have You Smoked in the Last Year: No Review of Systems Negative: Fever Neurological: Other - positive: reported 2 seizures, trembling All Other Systems Reviewed And Are Negative: Yes Physical Exam - Summary Physical Exam Summary: Appearance: Well-appearing, Well-nourished, Patient appears confused lying in bed in no acute distress. Skin: Warm, dry, no obvious rash Eyes: sclera anicteric, no conjunctival pallor ENT: mucous membranes moist, pharynx appears normal Neck: Supple, nontender Respiratory: Clear to auscultation, no signs of respiratory distress Cardiovascular: Is notable for tachycardia. Normal S1, S2. No murmurs. Normal distal pulses in tibial and radial bilaterally. Abdomen: Soft, nontender, normal active bowel sounds present Musculoskeletal: Normal, Strength/ROM Intact Neurological: A&O to person and place, tremulous, awake and alert, mentation is normal, speech is fluent and appropriate Psychiatric: affect is normal, does not appear anxious or depressed Triage Information Reviewed: Yes Vital Signs On Initial Exam: Initial Vitals Temp Pulse Resp BP Pulse Ox 97.7 F 101 17 169/110 98 08/19/18 14:36 08/19/18 14:36 08/19/18 14:36 08/19/18 14:36 08/19/18 14:36 Vital Signs Reviewed: Yes Diagnostics - Vital Signs Vital Signs Temp Pulse Resp BP Pulse Ox 08/19/18 14:36 97.7 F 101 17 169/110 98 - Laboratory Result Diagrams: 08/19/18 15:42 08/19/18 15:42 Lab Statement: Any lab studies that have been ordered have been reviewed, and results considered in the medical decision making process. - Radiology CXR Radiology Interpretation Completed By: Radiologist Summary of Radiographic Findings: No active cardiopulmonary disease. ED physician has reviewed this imaging report. Course/Dx - Course Course Of Treatment: This patient is a 58 y/o female who was brought in by [facility] ambulance to [facility] with a chief complaint of seizure on 08/19/18. The physical exam revealed that the patient appears confused lying in bed in no acute distress, A&O to person and place, tremulous, awake and alert and notable for tachycardia. Lab results obtained. Lactic acid high at 5.2. CXR was negative. In the ED course he was given Librium CAP PO, Ativan IV and Zofran IV. Case discussed with Dr. Loaiza, hospitalist, who accepted the patient for admission. The patient is agreeable to this plan. - Diagnoses Provider Diagnoses: Alcohol withdrawal seizure, Delirium tremens Discharge - Sign-Out/Discharge Documenting (check all that apply): Patient Departure - admit - Discharge Plan Condition: Fair Disposition: ADMITTED TO [facility] Referrals: Gustavo Mata, HOSPITALITY DIRECTOR [Primary Care Provider] - - Billing Disposition and Condition Condition: FAIR Disposition: Admitted to [facility] - Attestation Statements Document Initiated by Darryl: Yes Documenting Scribe: Adrián Kiser Provider For Whom Darryl is Documenting (Include Credential): MD Joshua Estevezibjohn Attestation: I, Adrián Kiser, joshuaibed for German Lozada MD on 08/19/18 at 1733. Scribe Documentation Reviewed: Yes Provider Attestation: The documentation as recorded by the Adrián cevallos accurately reflects the service I personally performed and the decisions made by me, German Lozada MD Status of Scribe Document: Viewed
[2018-08-19 15:57] LABS: ABS Basophils 0 10^3/ul (0-0.2); ABS Eosinophils 0 10^3/ul (0-0.6); ABS Lymphocytes 0.4 10^3/ul (1.0-4.8); ABS Monocytes 0.3 10^3/ul (0-0.8); ABS Neutrophils 3.3 10^3/ul (1.5-7.7); ABS Nucleated RBC 0 10^3/ul; Eosinophil % 0 %; Hematocrit 40 % (42-52); Hemoglobin 13.6 g/dl (14.0-18.0); Lymphocyte % 10.2 %; Mean Corpuscular HGB Conc 34 g/dl (31-36); Mean Corpuscular Hemoglobin 35 pg (27-31); Mean Corpuscular Volume 103 fL (80-94); Mean Platelet Volume 8.2 fL (7.4-10.4); Nucleated Red Blood Cells % 0; Platelet Count 77 10^3/ul (150-450); Red Blood Count 3.92 10^6/ul (4.00-5.40); Red Cell Distribution Width 13 % (10.5-15); White Blood Count 4.1 10^3/ul (3.5-10.8)
[2018-08-19 16:00] LABS: INR 0.98 (0.77-1.02)
[2018-08-19 16:06] LABS: ALT 59 U/L (7-52); AST 130 U/L (13-39); Albumin 4.8 g/dL (3.2-5.2); Albumin/Globulin Ratio 1.3 (1-3); Alkaline Phosphatase 200 U/L (34-104); Anion Gap 18 mmol/L (2-11); BUN/Creatinine Ratio 8.2 (8-20); Blood Urea Nitrogen 7 mg/dL (6-24); CO2 Carbon Dioxide 21 mmol/L (22-32); Calcium 9.5 mg/dL (8.6-10.3); Chloride 99 mmol/L (101-111); EGFR African American 112.8 (>60); EGFR Non-African American 93.2 (>60); Globulin 3.6 g/dL (2-4); Glucose 217 mg/dL (70-100); Potassium 3.6 mmol/L (3.5-5.0); Sodium 138 mmol/L (135-145); Total Protein 8.4 g/dL (6.4-8.9)
[2018-08-19] MEDS ORDERED: NS 0.9% 1000 ML** 2,000 ML IV ONE (16:12)
[2018-08-19] MEDS ORDERED: Ondansetron INJ* 2 MG/ML VIAL IV ONE (16:20)
[2018-08-19 16:44] LABS: Alcohol < 10 mg/dL (<10); Phenytoin < 2.5 mcg/mL (10-20)
[2018-08-19] MEDS ORDERED: LORazepam INJ* 2 MG/ML 1 ML VIAL IV PUSH ONE (16:51)
[2018-08-19] MEDS ORDERED: Acetaminophen TAB* 325 MG PO ONE (16:51)
[2018-08-19 16:59] LABS: TSH (Thyroid Stimulating Horm) 1.15 mcIU/mL (0.34-5.60)
[2018-08-19] MEDS ORDERED: Phenytoin IV(*) 500 MG in NS 0.9% 100 ML* 90 ML IV ONE (17:14)
[2018-08-19] MEDS ORDERED: Acetaminophen TAB* 325 MG PO PRN (17:15)
[2018-08-19] MEDS ORDERED: Magnesium Sulf 4 GM/100 ML IV* 4,000 MG/100 ML BAG IVPB ONE (17:30)
[2018-08-19] MEDS ORDERED: NS 0.9% 1000 ML** 1,000 ML IV SCH (17:30)
[2018-08-19] MEDS ORDERED: hydrALAZINE IV* 20 MG/ML VIAL IV SLOW PU PRN (17:31)
--- NOTE | 2018-08-19 20:18 | HP ---
CC: Gustavo Mata NP * HISTORY AND PHYSICAL: DATE OF ADMISSION: 08/19/18 PRIMARY CARE PROVIDER: Gustavo Mata NP CHIEF COMPLAINT: Seizure. HISTORY OF PRESENT ILLNESS: Aurelio Edmond is a 58-year-old male who presented with complaints of generalized tonic-clonic seizure to the hospital for evaluation. The patient has a history of alcohol abuse and seizure disorder. He is currently postictal and very poor historian. He is going to be admitted to our telemetry monitored bed with a diagnosis of seizure and possible alcohol withdrawal. PAST MEDICAL HISTORY: 1. History of seizure disorder. 2. History of alcohol abuse. 3. History of tobacco abuse. 4. History of hypertension. 5. History of chronic subdural hematoma. MEDICATIONS: At home, included: 1. Vitamin C 500 mg daily. 2. Dilantin 200 mg q.p.m. and 100 mg q.a.m. 3. Metoprolol tartrate 50 mg b.i.d. 4. Mag-Ox 400 mg 3 times a day. 5. Gabapentin 300 mg b.i.d. 6. Folic acid 1 mg daily 7. Amlodipine 10 mg daily. ALLERGIES: BEE VENOM. FAMILY HISTORY: Unobtainable from this person, who is still confused post seizure. SOCIAL HISTORY: The patient stated that he drinks approximately 6 packs a day and he started drinking alcohol when he was in tenth grade. He also started smoking when he was in tenth grade and he cut down from half a pack a day to several cigarettes a day recently. He denies any drug use. He is very nonspecific when he is talking about his home situation and I am unable to get information about his surrogate or healthcare proxy at this point. The patient is most likely postictal. REVIEW OF SYSTEMS: Currently, the patient denies any headache, shortness of breath, or chest pain. He denies any recent fevers. Once again, he is mildly postictal and confused and I am unsure how correct the information the patient is giving me at this point. All other remaining 12 systems were reviewed with the patient and were otherwise negative. PHYSICAL EXAMINATION GENERAL: The patient is a very pleasant 58-year-old male, who is in no acute distress. The patient does not remember the month; he thinks it is 2017. He remembers his date of and his approximate age. He is not aware of his location. VITAL SIGNS: Blood pressure 186/123, heart rate of 107 and regular, respiratory rate 19, oxygen saturation 98% on room air, temperature of 100.1. HEENT: Head: Atraumatic, normocephalic. Eyes: Pupils are equal and reactive to light and accommodation. Oropharynx is clear. Mucosa moist NECK: Supple. No JVD, no bruits bilaterally. RESPIRATORY: Clear to auscultation bilaterally. CARDIOVASCULAR: Regular rate and rhythm. No murmurs. ABDOMEN: Soft, nontender. Bowel sounds are present in all 4 quadrants. EXTREMITIES: There is no edema. Pulses are +2 bilaterally. No clubbing or cyanosis. NEUROLOGIC: On neuro evaluation, speech is clear. Cranial nerves II through XII grossly intact. Motor strength is 5/5 bilaterally. SKIN: On evaluation of the skin, no ecchymotic areas or rashes noted. DIAGNOSTIC STUDIES/LAB DATA: White blood cell count of 4.1, hemoglobin of 13.6 , hematocrit of 40, MCV of 103, and platelets of 77, which is chronic in this patient. Sodium of 138, potassium 2.6, chloride 99, carbon dioxide 21, BUN 7, creatinine 0.85. Liver function tests showed bilirubin 1.2, AST of 130, ALT of 59, alkaline phosphatase of 200, magnesium of 1.0, lactic acid of 5.2. TSH of 1.15. Dilantin level was below detectible. Portable chest x-ray was grossly unremarkable. The patient's EKG is pending at the time of dictation. ASSESSMENT AND PLAN: 1. The patient with seizure disorder, currently postictal after a generalized seizure. At this point, the patient stated that he last drank alcohol yesterday and was 6 packs. The patient likely had alcohol withdrawal seizures and he has a history of underlying chronic seizure disorder. His Dilantin level was below detectible. The patient could not tell me when was the last time he took his medications. At this point, I suspect a combination of medical noncompliance and alcohol abuse/withdrawal. The patient is going to be placed on inpatient admission to telemetry monitored bed. I will treat the patient with IV Dilantin and continue his regular Dilantin dosing. I will place the patient on seizure precautions and CT of the head is going to be obtained. 2. In regards to the patient's alcohol withdrawal, the patient is going to be placed on Ativan withdrawal protocol. Thiamine and folate are going to be continued. 3. In regards to the patient's hypertension, his metoprolol is going to be continued. 4. The patient's thrombocytopenia is chronic and related to alcoholism. Due to that ,the patient is going to be placed on sequential compression devices. 5. The patient's liver function test elevation is likely due to mild alcoholic hepatitis. We will follow up with that. 6. The patient's lactic acidosis is likely related to seizure. We will recheck lactic acid in a few hours. 7. Due to the patient's history of alcohol abuse, Social Work is going to be involved in the patient's admission. TIME SPENT: Approximately 65 minutes was spent on the admission of this patient ; more than half of that time was spent [id number] with the patient during the interview and physical exam. [id number] #: [id number] MTDD
[2018-08-19] MEDS: Folic Acid TAB* 1 MG PO SCH (20:57)
[2018-08-19] MEDS: Gabapentin CAP(*) 300 MG PO SCH (20:57)
[2018-08-19] MEDS: Magnesium Oxide TAB* 400 MG PO SCH (20:57)
[2018-08-19] MEDS: Metoprolol Tartrate TAB* 50 mg PO SCH (20:57)
[2018-08-20 00:42] LABS: Urine Appearance Clear; Urine Bilirubin Negative (Negative); Urine Blood Negative (Negative); Urine Color Yellow; Urine Glucose 1+(50 mg/dL) (Negative); Urine Ketones Negative (Negative); Urine Nitrite Negative (Negative); Urine Protein Negative (Negative); Urine Urobilinogen Negative (Negative)
[2018-08-20 07:53] LABS: ABS Basophils 0 10^3/ul (0-0.2); ABS Eosinophils 0 10^3/ul (0-0.6); ABS Monocytes 0.4 10^3/ul (0-0.8); ABS Nucleated RBC 0 10^3/ul; Eosinophil % 0.9 %; Hematocrit 32 % (42-52); Lymphocyte % 28.4 %; Mean Corpuscular HGB Conc 35 g/dl (31-36); Mean Corpuscular Hemoglobin 35 pg (27-31); Mean Corpuscular Volume 101 fL (80-94); Mean Platelet Volume 8.3 fL (7.4-10.4); Nucleated Red Blood Cells % 0.3; Platelet Count 64 10^3/ul (150-450); Red Blood Count 3.13 10^6/ul (4.00-5.40); Red Cell Distribution Width 13 % (10.5-15); White Blood Count 3.4 10^3/ul (3.5-10.8)
[2018-08-20 08:03] LABS: Albumin 3.6 g/dL (3.2-5.2); Albumin/Globulin Ratio 1.2 (1-3); BUN/Creatinine Ratio 7.4 (8-20); Calcium 8.5 mg/dL (8.6-10.3); EGFR African American 119.3 (>60); EGFR Non-African American 98.6 (>60); Magnesium 1.8 mg/dL (1.9-2.7); Total Bilirubin 0.8 mg/dL (0.2-1.0); Total Protein 6.6 g/dL (6.4-8.9)
[2018-08-20] MEDS ORDERED: Folic Acid TAB* 1 MG PO SCH (09:00)
[2018-08-20] MEDS: amLODIPine TAB* 5 MG PO SCH (09:26)
[2018-08-20] MEDS: Phenytoin CAP(*) 100 MG CAP.ER PO SCH (09:28)
[2018-08-20] MEDS: Ascorbic Acid TAB* 500 MG PO SCH (09:28)
[2018-08-20] MEDS: Multivitamins/Minerals TAB PO SCH (09:28)
[2018-08-20] MEDS: Folic Acid TAB* 1 MG PO SCH (09:29)
[2018-08-20] MEDS: Metoprolol Tartrate TAB* 50 mg PO SCH ×2 (09:29→22:10)
[2018-08-20] MEDS: Gabapentin CAP(*) 300 MG PO SCH ×2 (09:29→22:11)
[2018-08-20] MEDS: Magnesium Oxide TAB* 400 MG PO SCH ×3 (09:30→22:12)
--- NOTE | 2018-08-20 09:54 | PN ---
Subjective Date of Service: 08/20/18 Interval History: Pt states that he feels well today and "ready to go home." He states that he has a seizure every 6months or so, and that this one was "small." He reports to taking his medication daily, but that he had a seizure prior to taking his medication yesterday. He manages his own medications at home. He typically drinks every day, approximately 3-4 beers/day. Pt denies CP, SOB, fever/chills , abd pain, n/v/d, muscle or joint pain, injury from recent seizure, bleeding gums, nose, mouth. Objective Active Medications: Acetaminophen (Tylenol Tab*) 650 mg PO Q4H PRN Amlodipine Besylate (Norvasc Tab*) 10 mg PO DAILY JW Ascorbic Acid (Vitamin C Tab*) 500 mg PO DAILY JW Folic Acid (Folvite Tab*) 1 mg PO DAILY JW Gabapentin (Neurontin Cap(*)) 300 mg PO BID JW Hydralazine HCl (Apresoline Iv*) 5 mg IV SLOW PU Q6H PRN Lorazepam (Ativan Tab(*)) 0 - 6 mg PO .PER [facility] PROTOCOL JW; Protocol Magnesium Oxide (Magox 400 Tab*) 400 mg PO TID JW Metoprolol Tartrate (Lopressor Tab*) 50 mg PO BID JW Multivitamins/Minerals (Theragran/Minerals Tab*) 1 tab PO DAILY JW Phenytoin Sodium (Dilantin Cap(*)) 100 mg PO QAM [facility] Vital Signs: Temp Pulse Resp BP Pulse Ox 99.2 F 83 18 119/72 99 08/20/18 07:15 08/20/18 07:15 08/20/18 09:29 08/20/18 07:15 08/20/18 07:15 Oxygen Devices in Use Now: None Appearance: Pt is resting comfortably in bed; in no acute distress, cooperative and appropriate. Speech somewhat slurred. Eyes: No Scleral Icterus, PERRLA Ears/Nose/Mouth/Throat: NL Teeth, Lips, Gums, Mucous Membranes Moist - Small amount of ecchymosis on tongue Neck: NL Appearance and Movements; NL JVP, Trachea Midline, No Thyroid Enlargement, Masses Respiratory: Symmetrical Chest Expansion and Respiratory Effort, Clear to Auscultation Cardiovascular: NL Sounds; No Murmurs; No JVD, RRR, No Edema Abdominal: NL Sounds; No Tenderness; No Distention, No Hepatosplenomegaly Lymphatic: No Cervical Adenopathy Extremities: No Edema, No Clubbing, Cyanosis Skin: No Rash or Ulcers Neurological: - - Alert and oriented to person, place; pt does not know month, year Result Diagrams: 08/20/18 07:33 08/20/18 07:33 Assess/Plan/Problems-Billing Assessment: Pt is a 58yom with PMHx seizure disorder, alcohol and tobacco abuse, hypertension, and chronic subdural hematoma who presented after generalized seizure. - Patient Problems (1) Seizure disorder Comment: -Pt states he has been taking his pills as directed, although phenytoin level was subtherapeutic. He was bolused with phenytoin 500 in ER and restarted on home dose. -Seizure protocol in place -Continue to monitor (2) Alcohol withdrawal Comment: -Pt has not required Lorazepam since admission -Continue [facility] protocol (3) HTN (hypertension) Comment: -Stable -Continue amlodipine, metoprolol (4) Hypokalemia Comment: -Potassium ordered -Recheck BMP after repletion and in a.m. (5) Hypomagnesemia Comment: -Repleted -Recheck in a.m. (6) Pancytopenia Comment: -Likely partially dilutional, as pt received 3L IVF -Assessed for HIV, HCV at last admission, testing was negative -Continue to monitor CBC (7) DVT prophylaxis Comment: -SCDs ordered (8) Full code status Comment:
[2018-08-20] MEDS ORDERED: KCL 10 MEQ/50 ML IVPREMIX* 10 MEQ/50 ML BAG IV ONE (10:12)
[2018-08-20] MEDS ORDERED: Magnesium Sulfate 2 GM IV* 2 GM/50 ML BAG IVPB ONE (10:14)
[2018-08-20] MEDS: KCL 20 MEQ/100 ML IVPREMIX* 20 MEQ/100 ML BAG IV SCH ×2 (13:05→16:49)
[2018-08-20] MEDS: LORazepam TAB(*) 1 MG PO SCH ×3 (17:30→22:12)
[2018-08-20 18:37] LABS: BUN/Creatinine Ratio 8.8 (8-20); Calcium 8.5 mg/dL (8.6-10.3); EGFR Non-African American 120.6 (>60); Potassium 3.3 mmol/L (3.5-5.0)
[2018-08-21] MEDS: LORazepam TAB(*) 1 MG PO SCH ×3 (00:48→09:42)
[2018-08-21] MEDS: LORazepam INJ* 2 MG/ML 1 ML VIAL IV PUSH PRN ×2 (00:57→06:45)
[2018-08-21 05:48] LABS: ABS Basophils 0 10^3/ul (0-0.2); ABS Eosinophils 0.1 10^3/ul (0-0.6); ABS Monocytes 0.3 10^3/ul (0-0.8); ABS Neutrophils 1.9 10^3/ul (1.5-7.7); ABS Nucleated RBC 0 10^3/ul; Eosinophil % 1.9 %; Hematocrit 31 % (42-52); Hemoglobin 10.8 g/dl (14.0-18.0); Lymphocyte % 30.8 %; Mean Corpuscular HGB Conc 35 g/dl (31-36); Mean Corpuscular Hemoglobin 35 pg (27-31); Mean Corpuscular Volume 100 fL (80-94); Mean Platelet Volume 8.6 fL (7.4-10.4); Nucleated Red Blood Cells % 0.3; Platelet Count 55 10^3/ul (150-450); Red Blood Count 3.06 10^6/ul (4.00-5.40); Red Cell Distribution Width 13 % (10.5-15); White Blood Count 3.4 10^3/ul (3.5-10.8)
[2018-08-21 06:00] LABS: BUN/Creatinine Ratio 11.5 (8-20); EGFR African American 165.5 (>60); EGFR Non-African American 136.7 (>60); Magnesium 1.4 mg/dL (1.9-2.7); Potassium 3.4 mmol/L (3.5-5.0)
[2018-08-21] MEDS ORDERED: Magnesium Sulf 4 GM/100 ML IV* 4,000 MG/100 ML BAG IVPB ONE (08:11)
[2018-08-21] MEDS ORDERED: KCL 20 MEQ/100 ML IVPREMIX* 20 MEQ/100 ML BAG IV ONE (09:34)
[2018-08-21] MEDS: Folic Acid TAB* 1 MG PO SCH (09:42)
[2018-08-21] MEDS: Multivitamins/Minerals TAB PO SCH (09:42)
[2018-08-21] MEDS: amLODIPine TAB* 5 MG PO SCH (09:42)
[2018-08-21] MEDS: Magnesium Oxide TAB* 400 MG PO SCH (09:43)
[2018-08-21] MEDS: Metoprolol Tartrate TAB* 50 mg PO SCH (09:43)
[2018-08-21] MEDS: Gabapentin CAP(*) 300 MG PO SCH (09:43)
[2018-08-21] MEDS: Ascorbic Acid TAB* 500 MG PO SCH (09:43)
[2018-08-21] MEDS: Phenytoin CAP(*) 100 MG CAP.ER PO SCH (09:43)
[2018-08-21 10:09] VITALS: BP 141/101
--- NOTE | 2018-08-21 10:23 | PN ---
Subjective Date of Service: 08/21/18 Interval History: Pt states he feels well today. He is eager to go home, and is anxious to finish his electrolyte repletion so that he can do so. Prior to discharge, we discussed discharge instructions, and he expressed understanding. He also expressed interest in discussing alcohol help programs, such as AA, with social work. His sister is concerned about his well being at home, as he is an alcoholic and has a seizure disorder. Home nursing facility has been contacted and will follow up with pt outpatient. He denies CP, SOB, fever/chills, abd pain, n/v/d, joint or muscle pain, and calf pain. He denies problems with bowel or bladder function. Objective Active Medications: Acetaminophen (Tylenol Tab*) 650 mg PO Q4H PRN Amlodipine Besylate (Norvasc Tab*) 10 mg PO DAILY JW Ascorbic Acid (Vitamin C Tab*) 500 mg PO DAILY JW Folic Acid (Folvite Tab*) 1 mg PO DAILY JW Gabapentin (Neurontin Cap(*)) 300 mg PO BID JW Hydralazine HCl (Apresoline Iv*) 5 mg IV SLOW PU Q6H PRN Magnesium Sulfate (Magnesium Sulf 4 Gm/100 Ml Iv*) 4,000 mg in 100 mls @ 33.333 mls/hr IVPB ONCE ONE Potassium Chloride (Potassium Chloride 20 Meq/100 Ml Ivpremix*) 20 meq in 100 mls @ 50 mls/hr IV ONCE ONE Lorazepam (Ativan Tab(*)) 0 - 6 mg PO .PER [facility] PROTOCOL JW; Protocol Lorazepam (Ativan Inj*) 2 mg IV PUSH Q6H PRN Magnesium Oxide (Magox 400 Tab*) 400 mg PO TID JW Metoprolol Tartrate (Lopressor Tab*) 50 mg PO BID JW Multivitamins/Minerals (Theragran/Minerals Tab*) 1 tab PO DAILY JW Phenytoin Sodium (Dilantin Cap(*)) 100 mg PO QAM [facility] Vital Signs: Temp Pulse Resp BP Pulse Ox 97.6 F 97 21 141/101 99 08/21/18 07:33 08/21/18 09:35 08/21/18 09:43 08/21/18 09:35 08/21/18 09:35 Oxygen Devices in Use Now: None Appearance: Pt is standing in room. He is in no acute distress. He is cooperative, but frustrated. Eyes: No Scleral Icterus, PERRLA Ears/Nose/Mouth/Throat: NL Teeth, Lips, Gums, Mucous Membranes Moist Neck: NL Appearance and Movements; NL JVP, Trachea Midline Respiratory: Symmetrical Chest Expansion and Respiratory Effort, Clear to Auscultation Cardiovascular: NL Sounds; No Murmurs; No JVD, RRR, No Edema Abdominal: NL Sounds; No Tenderness; No Distention, No Hepatosplenomegaly Extremities: No Edema, No Clubbing, Cyanosis Skin: No Rash or Ulcers Neurological: Alert and Oriented x 3, NL Gait Result Diagrams: 08/21/18 05:29 08/21/18 05:29 Assess/Plan/Problems-Billing Assessment: Pt is a 58yom with PMHx seizure disorder, alcohol and tobacco abuse, hypertension, and chronic subdural hematoma who presented after generalized seizure. - Patient Problems (1) Seizure disorder Comment: -Pt states he has been taking his pills as directed, although phenytoin level was subtherapeutic. He was bolused with phenytoin 500 in ER and restarted on home dose. -Seizure protocol in place (2) Alcohol withdrawal Comment: -Pts family is concerned about pt going home and continuing to drink. SW discussed options, such as AA and other support groups; they have also put in referrals for visiting nursing -D/c today (3) Hypokalemia Comment: -Potassium repleted prior to d/c (4) Hypomagnesemia Comment: -Repleted prior to d/c (5) HTN (hypertension) Comment: -Stable -Continue amlodipine, metoprolol (6) Pancytopenia Comment: -Likely due to EtOH abuse -Assessed for HIV, HCV at last admission, testing was negative -Follow-up with PCP (7) DVT prophylaxis Comment: -SCDs ordered (8) Full code status Comment:
--- NOTE | 2018-08-21 15:23 | DS ---
DATE OF ADMISSION: 08/19/2018. DATE OF DISCHARGE: 08/21/2018. PRIMARY CARE PHYSICIAN: Gustavo Mata NP. ATTENDING PHYSICIAN: Dr. Teresita Loaiza * (dictated by MAI Treviño). PRIMARY DIAGNOSIS: Seizure. SECONDARY DIAGNOSES: 1. Seizure disorder. 2. Alcohol abuse. 3. Tobacco abuse. 4. Hypertension. 5. Chronic subdural hematoma. STUDIES WHILE IN THE HOSPITAL: 1. Chest x-ray, 08/19/2018: Impression: No active cardiopulmonary disease. 2. Brain CT, 08/19/2018: Impression: No acute intracranial pathology. DISCHARGE MEDICATIONS: Home medications: 1. Phenytoin 100 mg p.o. q.a.m. 2. Phenytoin 200 mg p.o. q.p.m. 3. Ascorbic acid 500 mg p.o. daily. 4. Metoprolol Tartrate 50 mg p.o. b.i.d. 5. Magnesium Oxide 400 mg p.o. t.i.d. 6. Gabapentin 300 mg p.o. b.i.d. 7. Folic Acid 1 mg p.o. daily. 8. Amlodipine 10 mg p.o. daily. New home medications: Multiple vitamin/minerals one tab p.o. daily. HISTORY OF PRESENT ILLNESS/HOSPITAL COURSE: Mr. Edmond is a 58-year-old male with a past medical history of seizure disorder, alcohol abuse, tobacco abuse, and hypertension who presented to the ER on August 19 post generalized tonic- clonic seizure. He was evaluated in the ER and was found to have no head, brain , or cardiopulmonary injuries. He was then admitted by the Hospitalist group. He was placed on WAM protocol as well as seizure precautions. In the ER, it was noted that his Phenytoin level was subtherapeutic at less than 2.5, alcohol level was undetectable. The patient was bolused with Phenytoin and then started on his regular home dose of the medication. Throughout his hospital stay, his electrolytes were frequently found to be low, particularly potassium and magnesium. Both were repleted during his stay. On the day of his discharge, the patient was very eager to go home, stating he felt well. While awaiting electrolyte repletion, he expressed an interest in discussing potential alcohol support groups. Social Work came down and discussed this with him. His sister arrived at the hospital to transport him home and expressed a concern that her brother may begin drinking again. At this point, Social Work was again consulted to discuss potential programs that may be able to help with this concern. Referrals were made to visiting nursing services who will follow-up with the patient. The patient expressed no interest in inpatient rehabilitation at the time. At the time of discharge, the patient denies chest pain, shortness of breath, fever, chills, abdominal pain, nausea, vomiting, diarrhea, joint or muscle pain , or calf tenderness. He denies any issues with bowel or bladder function. He has no extremity pain. Mr. Edmond is stable for discharge. PHYSICAL EXAMINATION: General: Mr. Edmond is a well-developed, slightly malnourished, underweight, middle-aged white male who is standing in his room. He is in no acute distress, but is anxious to be discharged. Vital Signs: Temperature 97.6, heart rate 97, respiratory rate 22, oxygen saturation 99 percent on room air, blood pressure 140/89. HEENT: Visual adkins grossly intact. Pupils equally round and reactive to light and accommodation. Extraocular movements intact without nystagmus. Sclerae without icterus. Hearing grossly intact. Oral mucus membranes moist and without lesions. Pharynx clear. Neck: Full range of motion. Thyroid not palpable. Trachea midline. No lymphadenopathy. Nontender to palpation. Respiratory: Symmetrical chest expansion. No use of accessory muscles. Lungs are clear to auscultation. No rhonchi, wheezes, or rubs. Cardiovascular: Regular rate and rhythm. S1, S2 present. No murmurs, rubs, or gallops. No JVD. Abdomen: Bowel sounds in all quadrants. Soft and nontender to palpation. No hepatosplenomegaly. Musculoskeletal: Full range of motion. No pain or deformities. Extremities: Skin warm and smooth bilaterally. No edema. No clubbing or cyanosis. Pedal pulses and radial pulses 2+ bilaterally. Neuro: Awake, alert, and oriented times four. Moves all extremities. Motor strength is 5/5 in upper and lower extremities bilaterally. Steady gait with no impairments. DISCHARGE PLAN: Mr. Edmond will be discharged home. Medications as above. ACTIVITY: As tolerated. DIET: Heart-healthy. EDUCATION: -Follow-up with primary care provider in four to seven days. -Recommended referral from primary care provider for chronic pancytopenia. -Continue to monitor electrolytes. Discussed abstaining from alcohol. -Visiting nursing services to follow-up with patient. -Return to the ER or the nearest hospital if you experience any worsening of symptoms, shortness of breath, lightheadedness, dizziness, chest discomfort, high fever, chills, night sweats, loss of consciousness, or any other worrisome signs or symptoms. This is a summarized report of a complex medical history and hospital stay. For further details, please see the entire medical record. TIME SPENT: Approximately 40 minutes were spent on this discharge, greater than half of that time spent [id number] with the patient and family members discussing discharge plans and instructions. MAI DE LA VEGA [id number]/[facility] #: [id number] MTDD
== END 2018-08-21 12:54 | disposition home or self-care (01) | DRG 53 ==
LOC: ED 14:36 → MEDTELE 17:26
PROVIDERS: ADMIT Internal Medicine; ATTEND Internal Medicine
DX: G40.909 Epilepsy, unspecified, not intractable, without status epilepticus (principal); I62.03 Nontraumatic chronic subdural hemorrhage; F10.239 Alcohol dependence with withdrawal, unspecified; E87.2 Acidosis; D61.818 Other pancytopenia; E46 Unspecified protein-calorie malnutrition; Z68.1 Body mass index [BMI] 19.9 or less, adult; M19.90 Unspecified osteoarthritis, unspecified site; E78.00 Pure hypercholesterolemia, unspecified; I10 Essential (primary) hypertension; H91.90 Unspecified hearing loss, unspecified ear; F17.210 Nicotine dependence, cigarettes, uncomplicated; K70.10 Alcoholic hepatitis without ascites; E87.6 Hypokalemia; E83.42 Hypomagnesemia; Y90.9 Presence of alcohol in blood, level not specified; Z97.4 Presence of external hearing-aid; Z91.030 Bee allergy status; Z82.49 Family history of ischemic heart disease and other diseases of the circulatory system
CPT/HCPCS: 36415; 70450; 71045; 80048; 80053; 80185; 80320; 81003; 83605; 83735; 84443; 85025; 85610; 93005; 99284; 99406; A9270-GY; G0480; J1165; J2060; J2405; J3475; J3480

== ENCOUNTER 2018-09-19 14:23 | Inpatient (IN) | payer OTHER ==
--- OUTSIDE RECORDS SUMMARY | 2018-09-19 14:47 | XMS REPORT | Continuity of Care Document ---
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 Unavailable Payers Date Identification Numbers Payment Provider Subscriber Expires: 2016 Policy Number: [id number] [facility] Justin Edmond PayID: [id number] [place] [address] Effective: 2010 Policy Number: [id number] [employer] Justin Edmond Expires: 2011 Group Name: 1 [phone] PayID: [id number] [place] [address] Effective: 2016 Policy Number: [id number] [facility] Justin Mayito PayID: [id number] [place] [address] Advance Directives Description No Information Available Problems Date Description Provider Status Onset: 08/11/2011 Benign essential hypertension Priscila Gomez M.D. Active Onset: 08/11/2011 Nondependent alcohol abuse, Priscila Gomez M.D. Active continuous Onset: 08/11/2011 Proteinuria Priscila Gomez M.D. Active Onset: 08/11/2011 Tobacco user Priscila Gomez M.D. 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 tamethasone /2018 wrist twice Adolfo Dipropionate daily until STEM PROCESSING MACHINE OPERATOR-C resolved Metoprolol 04/18 Active Tablets 50mg 60tab Take 1 Tablet I10 Fadi Tartrate /2016 s In [facility] [place], Morning, And MD 1 Tablet AT Bedtime Triamcinolone 03/30 Active Ointment 0.5% 15gm apply small L40.0 Harleen Acetonide amount to jen Snow twice M.Juan Daniel, R.D. daily as needed Eucerin Plus 03/30 Active Lotion 5-5% 1unit use on skin L40.0 Shawnti R. /2016 s twice daily NORA Mata Gabapentin 07/15 Active Capsules 300mg 30cap take one Shawnti R. /2014 s capsule by Adolfo mouth twice a STEM PROCESSING MACHINE OPERATOR-C day for sciatica nerve pain Meloxicam 07/05 Active Tablets 15mg 30tab take one S39.012A Fadi s tablet by kacy Ortiz every MD day with food for pain Vitamin B-1 05/03 Active Tablets 100mg 90tab Take One Shawnti R. /2014 s Tablet By Adolfo Mouth Every STEM PROCESSING MACHINE OPERATOR-C Day For Deficiency Magnesium Oxide 04/07 Active Tablets 400(241.3 60tab take one Shawnti R. /2014 mg) mg s tablet by Adolfo mouth three STEM PROCESSING MACHINE OPERATOR-C times a day for supplement Quetiapine 11/05 Active Tablets 50mg 30tab Take One F10.10 Shawnti R. Fumarate s Tablet By Adolfo Mouth AT STEM PROCESSING MACHINE OPERATOR-C Bedtime For Sleep Epipen 2-Kali 04/02 Active Solution 0.3mg/0.3 1unit use if needed 724.5 Shawnti R. /2011 Auto-Inje ML s for bee sting Storm, ct STEM PROCESSING MACHINE OPERATOR-C Amlodipine 08/28 Active Tablets 5mg 30tab take one Shawnti R. Besylate s tablet by Storm, mouth every STEM PROCESSING MACHINE OPERATOR-C day Vitamin D3 Active Tablets 400Unit Unknown /0000 Vitamin C Active Tablets 500mg Unknown 0000 ER Phenytoin Active Capsules 100mg 90cap take one Shawnti R. Sodium Extended / s capsule by Storm, mouth every STEM PROCESSING MACHINE OPERATOR-C morning and take two capsules by mouth every evening Folic Acid Active Tablets 1mg 30tab Take One Shawnti R. / s Tablet By Storm, Mouth Every STEM PROCESSING MACHINE OPERATOR-C Day Phenytoin Active Capsules 100mg 90cap Take One Shawnti R. Sodium Extended / s Capsule By Storm, Mouth Every STEM PROCESSING MACHINE OPERATOR-C Morning And Take Two Capsules By Mouth Every Evening Thiamine 02/22 Hx Capsules 50mg 60cap Take 2 F10.239 Fadi s capsules by Diana, - mouth daily 02/22 for alcohol /2017 withdrawal syndrome Econazole 03/20 Hx Cream 1% 15gm apply to B35.4 Chandan Nitrate /2016 affected area Keanu - once daily III, STEM PROCESSING MACHINE OPERATOR-C 02/22 for 2 weeks Nystatin-Triamc 02/09 Hx Ointment 169133-3. 15[facility]GM- affected area Storm, - % three times STEM PROCESSING MACHINE OPERATOR-C 03/30 daily until resolved Vitamin B-12 05/03 Hx Tablets 2500mcg 90tab 1 by mouth Shawnti R. /2014 Sub s every day for Storm, - deficiency STEM PROCESSING MACHINE OPERATOR-C 09/05 Vitamin B-12 04/07 Hx Tablets 500mcg 30tab 1 by mouth Shawnti R. /2014 s every day Storm, Natural - STEM PROCESSING MACHINE OPERATOR-C 05/03 Thiamine HCL 12/03 Hx Tablets 100mg 90tab 1 by mouth Shawnti R. /2014 s daily Storm, - STEM PROCESSING MACHINE OPERATOR-C 09/05 Meloxicam 08/15 Hx Tablets 15mg 30tab 1 po daily 726.32 Shawnti R. /2013 s for pain, Storm, - take with STEM PROCESSING MACHINE OPERATOR-C 12/03 Azithromycin 06/23 Hx Tablets 250mg 6tabs 2 po today 486 Shawnti R. /2012 then 1 po Storm, - daily for 4 STEM PROCESSING MACHINE OPERATOR-C Chantix 06/23 Hx Tablets 0.5mg X 1mont one po bid, 305.1 Shawnti R. Starting 11 & 1 mg h start per Storm, Kali - X 42 package STEM PROCESSING MACHINE OPERATOR-C 08/15 directions Guaifenesin/Cod 06/23 Hx Syrup 100-10mg/ 150ml 1-2 tsp po 486 Shawnti R. eine /2012 5ML q6hrs prn Storm, - cough STEM PROCESSING MACHINE OPERATOR-C 07/03 Senna Plus 01/09 Hx Tablets 8.6-50mg 60tab 1 po bid prn Shawnti R. /2012 s constipation Storm, - STEM PROCESSING MACHINE OPERATOR-C 12/03 Nicoderm CQ 30 Hx Patches 21mg/24HR 14uni apply 1 patch Shawnti R. 24HR ts to skin, Storm, - change daily STEM PROCESSING MACHINE OPERATOR-C 08/15 for days.then go to 14mg dose Nicoderm CQ /30 Hx Patches 14mg/24HR 14uni apply one Shawnti R. 24HR ts patch to Storm, - skin, replace STEM PROCESSING MACHINE OPERATOR-C 08/15 daily for days, start after 21mg patches completed. Nicoderm CQ /30 Hx Patches 7mg/24HR 14uni apply one Shawnti R. 24HR ts patch to Storm, - skin, change STEM PROCESSING MACHINE OPERATOR-C 08/15 daily for three weeks, start after 14mg dose is complete Naproxen 11/25 Hx Tablets 500mg 30tab one tab by 786.59 Shawnti R. s mouth twice Storm, - daily with STEM PROCESSING MACHINE OPERATOR-C 12/03 food pain/inflamat ion Hydrocodone/Chad 03/19 Hx Tablets 7.5-325mg 20twe 1 po q6hr prn 724.5 Shawnti R. taminophen /2011 nty severe pain Storm, - STEM PROCESSING MACHINE OPERATOR-C 11/25 Amoxicillin/Cla 11/09 Hx Tablets 875-125mg 20tab 1 po bid for 682.9 Shawnti R. vulanate /2011 s 10 days for Storm, Potassium - infection [facility] 03/19 Flexeril 11/06 Hx Tablets 10mg 30tab 1/2 to 1 pill 723.1 Shawnti R. /2011 s po qhs prn Storm, - neck STEM PROCESSING MACHINE OPERATOR-C 11/25 pain/tightnes /2012 s Naprosyn 09/08 Hx Tablets 500mg 60tab one tablet po 728.85 Priscila s bid as needed Josse Gomez, - for pain M.DMarcie 11/25 Nicoderm CQ 08/28 Hx Patches 14mg/24HR 30uni Use one patch Priscila 24HR ts to skin daily Josse Gomez, - M.D. 11/25 Seroquel 08/11 Hx Tablets 50mg 30tab Take One 305.01 Shawnti R. /2011 s Tablet By Adolfo, - Mouth AT [facility] 11/05 Bedtime For Sleep Atenolol 08/11 Hx Tablets 50mg 30tab take one I10 Dee s tablet by Maykel Isaac, - mouth every M.D. /2016 Immunizations CPT Code Status Date Vaccine Lot # [id number] Given 03/30/2017 Influenza Virus Vaccine, Quadrivalent, 3 Yr > [id number] Quad, Preserv Free [id number] Given 05/11/2016 Influenza Virus Vaccine, Quadrivalent, 3 Yr > Quad, Preserv Free Vital Signs Date Vital Result Comment 09/05/2018 4:07pm Weight 136.00 lb Weight 61.690 kg BP Systolic 106 mmHg BP Diastolic 58 mmHg Heart Rate 79 /min Body Temperature 97.8 F O2 % BldC Oximetry 98 % 04/12/2018 2:54pm Weight 142.00 lb Weight 64.411 kg BP Systolic 154 mmHg BP Diastolic 88 mmHg Heart Rate 74 /min Body Temperature 99.1 F Respiratory Rate 16 /min O2 % BldC Oximetry 99 % 03/07/2018 2:47pm Weight 138.00 lb Weight 62.597 kg BP Systolic 144 mmHg BP Diastolic 80 mmHg Heart Rate 74 /min Body Temperature 98.3 F Respiratory Rate 16 /min O2 % BldC Oximetry 98 % 02/22/2018 2:21pm Weight 135.00 lb Weight 61.236 kg BP Systolic 144 mmHg BP Diastolic 92 mmHg Heart Rate 100 /min Body Temperature 99.8 F Respiratory Rate 18 /min Height 69 inches 5'9" BMI (Body Mass Index) 19.9 kg/m2 O2 % BldC Oximetry 98 % 03/30/2017 11:57am Weight 146.00 lb Weight 66.226 kg BP Systolic 170 mmHg BP Diastolic 80 mmHg Heart Rate 68 /min Body Temperature 98.2 F 03/20/2017 9:01am Weight 145.00 lb Weight 65.772 kg BP Systolic 136 mmHg BP Diastolic 80 mmHg Heart Rate 88 /min Body Temperature 97.0 F Respiratory Rate 20 /min 01/18/2017 1:19pm Weight 146.00 lb Weight 66.226 kg BP Systolic 144 mmHg BP Diastolic 78 mmHg Heart Rate 80 /min Body Temperature 99.0 F Respiratory Rate 16 /min Height 69 inches 5'9" BMI (Body Mass Index) 21.6 kg/m2 08/28/2016 11:37am Weight 147.00 lb Weight 66.679 kg BP Systolic 130 mmHg BP Diastolic 70 mmHg Heart Rate 56 /min Body Temperature 98.0 F Respiratory Rate 16 /min 03/31/2016 9:51am Weight 131.00 lb Weight 59.422 kg BP Systolic 130 mmHg BP Diastolic 80 mmHg Heart Rate 88 /min Body Temperature 98.7 F Respiratory Rate 16 /min 09/03/2015 11:31am Weight 146.00 lb Weight 66.226 kg BP Systolic 128 mmHg BP Diastolic 70 mmHg Heart Rate 74 /min 07/15/2015 11:43am Weight 143.00 lb Weight 64.865 kg BP Systolic 130 mmHg BP Diastolic 80 mmHg Heart Rate 68 /min 07/05/2015 10:07am Weight 143.00 lb Weight 64.865 kg BP Systolic 130 mmHg BP Diastolic 86 mmHg Heart Rate 84 /min 04/01/2015 3:07pm Weight 136.00 lb Weight 61.690 kg BP Systolic 130 mmHg BP Diastolic 70 mmHg Heart Rate 126 /min O2 % BldC Oximetry 99 % 12/03/2014 11:50am Weight 137.00 lb Weight 62.143 kg BP Systolic 120 mmHg BP Diastolic 80 mmHg Heart Rate 80 /min 08/15/2013 5:03pm Weight 153.00 lb Weight 69.401 kg BP Systolic 96 mmHg BP Diastolic 69 mmHg Heart Rate 60 /min Body Temperature 98.1 F Height 68 inches 5'8" BMI (Body Mass Index) 23.3 kg/m2 07/21/2013 11:38am Weight 152.00 lb Weight 68.947 kg BP Systolic 160 mmHg BP Diastolic 90 mmHg Heart Rate 88 /min 06/23/2013 4:06pm Weight 151.00 lb Weight 68.494 kg BP Systolic 138 mmHg BP Diastolic 78 mmHg Heart Rate 68 /min Body Temperature 98.1 F 11/25/2012 4:21pm Weight 145.00 lb Weight 65.772 kg BP Systolic 152 mmHg BP Diastolic 80 mmHg Heart Rate 72 /min Body Temperature 99.0 F 04/02/2012 12:09pm Weight 131.00 lb Weight 59.422 kg BP Systolic 120 mmHg BP Diastolic 68 mmHg Heart Rate 60 /min Body Temperature 97.2 F 03/19/2012 12:10pm Weight 135.00 lb Weight 61.236 kg BP Systolic 178 mmHg BP Diastolic 92 mmHg Heart Rate 104 /min 11/16/2011 12:08pm Weight 140.00 lb Weight 63.504 kg BP Systolic 128 mmHg BP Diastolic 80 mmHg Heart Rate 82 /min Body Temperature 97.7 F 11/10/2011 2:21pm Weight 144.00 lb Weight 65.318 kg BP Systolic 130 mmHg BP Diastolic 80 mmHg Heart Rate 90 /min Body Temperature 100.7 F Last Menstrual Period 0 O2 % BldC Oximetry 97 % at room air 11/07/2011 2:55pm Weight 140.00 lb Weight 63.504 kg BP Systolic 120 mmHg BP Diastolic 70 mmHg Heart Rate 88 /min Body Temperature 99.7 F 09/29/2011 10:02am Weight 145.00 lb Weight 65.772 kg BP Systolic 130 mmHg BP Diastolic 80 mmHg Heart Rate 88 /min 09/08/2011 10:47am Weight 145.00 lb Weight 65.772 kg BP Systolic 140 mmHg BP Diastolic 80 mmHg Heart Rate 104 /min 08/28/2011 4:08pm Weight 143.00 lb Weight 64.865 kg BP Systolic 148 mmHg BP Diastolic 88 mmHg Heart Rate 98 /min 08/11/2011 10:09am Weight 138.00 lb Weight 62.597 kg BP Systolic 162 mmHg BP Diastolic 88 mmHg Heart Rate 104 /min Body Temperature 97.8 F Height 69 inches 5'9" BMI (Body Mass Index) 20.4 kg/m2 Results Test Date Facility Test Result H/L Range Note Urinalysis Profile 08/19/2018 [facility] Urine Color Yellow [phone] Urine Appearance Clear Urine Specific Baldwin 1.010 N 1.010-1.030 Urine pH 7.0 N 5-9 Urine Urobilinogen Negative Negative Urine Ketones Negative Negative Urine Protein Negative Negative Urine Leukocytes Negative Negative Urine Blood Negative Negative Urine Nitrite Negative Negative Urine Bilirubin Negative Negative Urine Glucose 1+(50 mg/dL) Abnormal Negative Laboratory test 08/19/2018 [facility] Magnesium 1.0 mg/dL Low 1.9-2.7 finding [phone] Phenytoin (Dilantin) < 2.5 g/mL Low 10-20 Alcohol < 10 mg/dL N <10 TSH (Thyroid Stimulating Horm) 1.15 mcIU/mL N 0.34-5.60 Laboratory test 08/19/2018 [facility] Lactic Acid 2.5 mmol/L High 0.5-2.0 1 finding [phone] Laboratory test 08/19/2018 [facility] Lactic Acid 5.2 mmol/L High 0.5-2.0 2 finding [phone] Comp Metabolic 08/19/2018 [facility] Sodium 138 mmol/ L N 135-145 Panel [phone] Potassium 3.6 mmol/L N 3.5-5.0 Chloride 99 mmol/L Low 101-111 Co2 Carbon Dioxide 21 mmol/L Low 22-32 Anion Gap 18 mmol/L High 2-11 Glucose 217 mg/dL High 70-100 Blood Urea Nitrogen 7 mg/dL N 6-24 Creatinine 0.85 mg/dL N 0.67-1.17 BUN/Creatinine Ratio 8.2 N 8-20 Calcium 9.5 mg/dL N 8.6-10.3 Total Protein 8.4 g/dL N 6.4-8.9 Albumin 4.8 g/dL N 3.2-5.2 Globulin 3.6 g/dL N 2-4 Albumin/Globulin Ratio 1.3 N 1-3 Total Bilirubin 1.20 mg/dL High 0.2-1.0 Alkaline Phosphatase 200 U/L High 34-104 Alt 59 U/L High 7-52 Ast 130 U/L High 13-39 Egfr Non- 93.2 >60 Egfr 112.8 >60 3 CBC Auto Diff 08/19/2018 [facility] White Blood 4.1 10^3/uL N 3.5-10.8 [phone] Count Red Blood Count 3.92 10^6/uL Low 4.00-5.40 Hemoglobin 13.6 g/dL Low 14.0-18.0 Hematocrit 40 % Low 42-52 Mean Corpuscular Volume 103 fL High 80-94 Mean Corpuscular Hemoglobin 35 pg High 27-31 Mean Corpuscular HGB Conc 34 g/dL N 31-36 Red Cell Distribution Width 13 % N 10.5-15 Platelet Count 77 10^3/uL Low 150-450 4 Mean Platelet Volume 8.2 fL N 7.4-10.4 Abs Neutrophils 3.3 10^3/uL N 1.5-7.7 Abs Lymphocytes 0.4 10^3/uL Low 1.0-4.8 Abs Monocytes 0.3 10^3/uL N 0-0.8 Abs Eosinophils 0 10^3/uL N 0-0.6 Abs Basophils 0 10^3/uL N 0-0.2 Abs Nucleated RBC 0 10^3/uL Granulocyte % 81.9 % Lymphocyte % 10.2 % Monocyte % 7.1 % Eosinophil % 0 % Basophil % 0.8 % Nucleated Red Blood Cells % 0 Inr/Protime 08/19/2018 [facility] Inr 0.98 N 0.77- 1.02 [phone] Laboratory test 07/15/2018 [facility] Ammonia 57 mcmol/L High 16-53 finding [phone] Lactic Acid 2.0 mmol/L N 0.5-2.0 5 Urine Drug 07/15/2018 [facility] Amphetamine Ur None Detected None Detect SCR ED & [phone] Screen Pain Clinic Barbiturates Urine Screen None Detected None Detect Benzodiazepine Urine Screen None Detected None Detect Urine Cannabinoids Screen Presumptive Posi <SEE NOTE> Abnormal None Detect 6 Urine Cocaine Screen None Detected None Detect Urine Opiates Screen None Detected None Detect Urine Phencyclidine Screen None Detected None Detect 7 Urinalysis Profile 07/15/2018 [facility] Urine Color Yellow [phone] Urine Appearance Clear Urine Specific Baldwin 1.005 Low 1.010-1.030 Urine pH 7.0 N 5-9 Urine Urobilinogen Negative Negative Urine Ketones Negative Negative Urine Protein Negative Negative Urine Leukocytes Negative Negative Urine Blood Negative Negative Urine Nitrite Negative Negative Urine Bilirubin Negative Negative Urine Glucose Negative Negative Laboratory test 07/15/2018 [facility] Magnesium 1.1 mg/dL Low 1.9-2.7 finding [phone] Troponin-I (TnI) 0.01 ng/mL <0.04 8 TSH (Thyroid Stimulating Horm) 1.30 mcIU/mL N 0.34-5.60 Alcohol 354 mg/dL High <10 Comp Metabolic Panel 07/15/2018 [facility] Sodium 137 mmol/L N 135-145 [phone] Potassium 3.3 mmol/L Low 3.5-5.0 Chloride 99 mmol/L Low 101-111 Co2 Carbon Dioxide 28 mmol/L N 22-32 Anion Gap 10 mmol/L N 2-11 Glucose 145 mg/dL High 70-100 Blood Urea Nitrogen 5 mg/dL Low 6-24 Creatinine 0.75 mg/dL N 0.67-1.17 BUN/Creatinine Ratio 6.7 Low 8-20 Calcium 8.7 mg/dL N 8.6-10.3 Total Protein 7.5 g/dL N 6.4-8.9 Albumin 4.2 g/dL N 3.2-5.2 Globulin 3.3 g/dL N 2-4 Albumin/Globulin Ratio 1.3 N 1-3 Total Bilirubin 0.50 mg/dL N 0.2-1.0 Alkaline Phosphatase 146 U/L High 34-104 Alt 33 U/L N 7-52 Ast 76 U/L High 13-39 Egfr Non- 107.7 >60 Egfr 130.4 >60 9 CBC Auto Diff 07/15/2018 [facility] White Blood 3.8 10^3/uL N 3.5-10.8 [phone] Count Red Blood Count 3.37 10^6/uL Low 4.00-5.40 Hemoglobin 11.7 g/dL Low 14.0-18.0 Hematocrit 34 % Low 42-52 Mean Corpuscular Volume 101 fL High 80-94 Mean Corpuscular Hemoglobin 35 pg High 27-31 Mean Corpuscular HGB Conc 35 g/dL N 31-36 Red Cell Distribution Width 14 % N 10.5-15 Platelet Count 63 10^3/uL Low 150-450 10 Mean Platelet Volume 7.8 fL N 7.4-10.4 Abs Neutrophils 1.2 10^3/uL Low 1.5-7.7 Abs Lymphocytes 2.0 10^3/uL N 1.0-4.8 Abs Monocytes 0.5 10^3/uL N 0-0.8 Abs Eosinophils 0 10^3/uL N 0-0.6 Abs Basophils 0 10^3/uL N 0-0.2 Abs Nucleated RBC 0 10^3/uL Granulocyte % 32.4 % Lymphocyte % 51.8 % Monocyte % 13.7 % Eosinophil % 0.9 % Basophil % 1.2 % Nucleated Red Blood Cells % 0.1 Venous Blood 06/06/2018 [facility] Venous Blood 7.50 High 7.33-7.43 Gas [phone] pH Venous Pco2 43 mmHg N 41-51 Venous Po2 32 mmHg Low 35-45 Venous O2 Saturation 64.6 % Low 70-80 Venous Blood Base Excess 9.3 High 0-4 11 Venous Bicarbonate Hco3 31.3 mmol/L High 24-28 Laboratory test 06/06/2018 [facility] Ammonia 47 mcmol/L N 16-53 finding [phone] Laboratory test 06/06/2018 [facility] Point of 121 mg /dL High 70-100 12 finding [phone] Care Glucose Laboratory test 06/06/2018 [facility] Lactic Acid 1.4 mmol/L N 0.5-2.0 13 finding [phone] CBC Auto Diff 06/06/2018 [facility] White Blood 7.0 10^3/uL N 3.5-10.8 [phone] Count Red Blood Count 3.93 10^6/uL Low 4.00-5.40 Hemoglobin 13.6 g/dL Low 14.0-18.0 Hematocrit 38 % Low 42-52 Mean Corpuscular Volume 97 fL High 80-94 Mean Corpuscular Hemoglobin 35 pg High 27-31 Mean Corpuscular HGB Conc 35 g/dL N 31-36 Red Cell Distribution Width 14 % N 10.5-15 Platelet Count 75 10^3/uL Low 150-450 Mean Platelet Volume 8.4 fL N 7.4-10.4 Abs Neutrophils 5.3 10^3/uL N 1.5-7.7 Abs Lymphocytes 1.0 10^3/uL N 1.0-4.8 Abs Monocytes 0.7 10^3/uL N 0-0.8 Abs Eosinophils 0 10^3/uL N 0-0.6 Abs Basophils 0 10^3/uL N 0-0.2 Abs Nucleated RBC 0 10^3/uL Granulocyte % 75.5 % N 38-83 Lymphocyte % 14.3 % Low 25-47 Monocyte % 9.9 % High 0-7 Eosinophil % 0 % N 0-6 Basophil % 0.3 % N 0-2 Nucleated Red Blood Cells % 0 Comp Metabolic Panel 06/06/2018 [facility] Sodium 138 mmol/L N 135-145 [phone] Chloride 88 mmol/L Low 101-111 14 Co2 Carbon Dioxide 27 mmol/L N 22-32 15 Glucose 138 mg/dL High 70-100 16 Blood Urea Nitrogen 15 mg/dL N 6-24 17 Creatinine 0.99 mg/dL N 0.67-1.17 18 BUN/Creatinine Ratio 15.2 N 8-20 19 Total Protein 8.4 g/dL N 6.4-8.9 Albumin 4.9 g/dL N 3.2-5.2 20 Globulin 3.5 g/dL N 2-4 21 Albumin/Globulin Ratio 1.4 N 1-3 22 Total Bilirubin 1.60 mg/dL High 0.2-1.0 23 Alkaline Phosphatase 129 U/L High 34-104 24 Alt 41 U/L N 7-52 25 Ast 54 U/L High 13-39 Egfr Non- 78.2 >60 26 Egfr 88.4 >60 27 Potassium 3.2 mmol/L Low 3.5-5.0 Anion Gap 23 mmol/L High 2-11 28 Calcium 9.5 mg/dL N 8.6-10.3 Laboratory test 06/06/2018 [facility] Lipase 29 U/L N 11.0-82.0 29 finding [phone] C Reactive Protein < 1.00 mg/L N <8.01 Alcohol < 10 mg/dL N <10 CBC Auto Diff 02/22/2018 [facility] White Blood 6.8 10^3/uL N 3.5-10.8 30 [phone] Count Red Blood Count 2.87 10^6/uL Low 4.00-5.40 Hemoglobin 10.1 g/dL Low 14.0-18.0 Hematocrit 30 % Low 42-52 Mean Corpuscular Volume 104 fL High 80-94 Mean Corpuscular Hemoglobin 35 pg High 27-31 Mean Corpuscular HGB Conc 34 g/dL N 31-36 Red Cell Distribution Width 15 % N 10.5-15 Platelet Count 307 10^3/uL N 150-450 Mean Platelet Volume 8.0 um3 N 7.4-10.4 Abs Neutrophils 3.8 10^3/uL N 1.5-7.7 Abs Lymphocytes 1.5 10^3/uL N 1.0-4.8 Abs Monocytes 1.4 10^3/uL High 0-0.8 Abs Eosinophils 0.1 10^3/uL N 0-0.6 Abs Basophils 0.1 10^3/uL N 0-0.2 Abs Nucleated RBC 0 10^3/uL Granulocyte % 55.0 % N 38-83 Lymphocyte % 21.9 % Low 25-47 Monocyte % 21.1 % High 0-7 Eosinophil % 1.0 % N 0-6 Basophil % 1.0 % N 0-2 Nucleated Red Blood Cells % 0.1 Inr/Protime 02/13/2018 [facility] Inr 1.03 High 0.77-1.02 [phone] Laboratory test 02/13/2018 [facility] Partial 31.3 N 26.0-36.3 finding [phone] Thrombo seconds Time PTT CBC Auto Diff 02/13/2018 [facility] White Blood 2.5 10^3/uL Low 3.5-10.8 [phone] Count Red Blood Count 3.15 10^6/uL Low 4.00-5.40 Hemoglobin 11.4 g/dL Low 14.0-18.0 Hematocrit 33 % Low 42-52 Mean Corpuscular Volume 103 fL High 80-94 Mean Corpuscular Hemoglobin 36 pg High 27-31 Mean Corpuscular HGB Conc 35 g/dL N 31-36 Red Cell Distribution Width 14 % N 10.5-15 Platelet Count 50 10^3/uL Low 150-450 31 Mean Platelet Volume 8.2 um3 N 7.4-10.4 Abs Neutrophils 1.6 10^3/uL N 1.5-7.7 Abs Lymphocytes 0.6 10^3/uL Low 1.0-4.8 Abs Monocytes 0.3 10^3/uL N 0-0.8 Abs Eosinophils 0 10^3/uL N 0-0.6 Abs Basophils 0 10^3/uL N 0-0.2 Abs Nucleated RBC 0 10^3/uL Granulocyte % 63.7 % N 38-83 Lymphocyte % 24.1 % Low 25-47 Monocyte % 11.2 % High 0-7 Eosinophil % 0.2 % N 0-6 Basophil % 0.8 % N 0-2 Nucleated Red Blood Cells % 0.1 Laboratory test 02/13/2018 [facility] Phenytoin 13.1 g/mL N 10-20 finding [phone] (Dilantin) Comp Metabolic 02/13/2018 [facility] Sodium 137 mmol/ L N 135-145 Panel [phone] Potassium 3.3 mmol/L Low 3.5-5.0 Chloride 99 mmol/L Low 101-111 Co2 Carbon Dioxide 23 mmol/L N 22-32 Anion Gap 15 mmol/L High 2-11 Glucose 127 mg/dL High 70-100 Blood Urea Nitrogen 5 mg/dL Low 6-24 Creatinine 0.66 mg/dL Low 0.67-1.17 BUN/Creatinine Ratio 7.6 Low 8-20 Calcium 9.2 mg/dL N 8.6-10.3 Total Protein 7.6 g/dL N 6.4-8.9 Albumin 4.4 g/dL N 3.2-5.2 Globulin 3.2 g/dL N 2-4 Albumin/Globulin Ratio 1.4 N 1-3 Total Bilirubin 1.00 mg/dL N 0.2-1.0 Alkaline Phosphatase 184 U/L High 34-104 Alt 17 U/L N 7-52 Ast 72 U/L High 13-39 Egfr Non- 125.3 >60 Egfr 151.6 >60 32 Laboratory test 02/13/2018 [facility] Troponin-I (TnI ) 0.00 ng/mL <0.04 finding [phone] Magnesium 0.9 mg/dL Low 1.9-2.7 33 Hepatitis C Antibody Nonreactive Nonreactive HIV 1/2 AB 02/13/2018 [facility] HIV 1 2 Nonreactive Nonreactive 34 Evaluation [phone] Antibody Comp Metabolic 12/15/2017 [facility] Sodium 138 mmol/ L Low 139-145 Panel [phone] Potassium 3.6 mmol/L N 3.5-5.0 Chloride 103 mmol/L N 101-111 Co2 Carbon Dioxide 24 mmol/L N 22-32 Anion Gap 11 mmol/L N 2-11 Glucose 97 mg/dL N 70-100 Blood Urea Nitrogen 5 mg/dL Low 6-24 Creatinine 0.59 mg/dL Low 0.67-1.17 BUN/Creatinine Ratio 8.5 N 8-20 Calcium 8.9 mg/dL N 8.6-10.3 Total Protein 7.3 g/dL N 6.4-8.9 Albumin 4.1 g/dL N 3.2-5.2 Globulin 3.2 g/dL N 2-4 Albumin/Globulin Ratio 1.3 N 1-3 Total Bilirubin 0.50 mg/dL N 0.2-1.0 Alkaline Phosphatase 166 U/L High 34-104 Alt 24 U/L N 7-52 Ast 79 U/L High 13-39 Egfr Non- 142.6 >60 Egfr 183.4 >60 35 Laboratory test 12/15/2017 [facility] CRP High 0.86 mg/L 36 finding [phone] Sensitivity Troponin-I (TnI) 0.00 ng/mL <0.04 Myoglobin 20.0 ng/mL N 17.4-105.7 CKMB 12/15/2017 [facility] CKMB ng/mL 1.6 ng/mL N 0.6-6.3 [phone] Laboratory test 12/15/2017 [facility] Alcohol 397 mg/ dL High <10 finding [phone] CBC Auto Diff 12/15/2017 [facility] White Blood 3.2 Low 3.5-10.8 [phone] Count 10^3/uL Red Blood Count 2.82 10^6/uL Low 4.0-5.4 Hemoglobin 10.3 g/dL Low 14.0-18.0 Hematocrit 30 % Low 42-52 Mean Corpuscular Volume 106 fL High 80-94 37 Mean Corpuscular Hemoglobin 36 pg High 27-31 Mean Corpuscular HGB Conc 34 g/dL N 31-36 Red Cell Distribution Width 16 % High 10.5-15 Platelet Count 121 10^3/uL Low 150-450 Mean Platelet Volume 7.1 um3 Low 7.4-10.4 Abs Neutrophils 1.3 10^3/uL Low 1.5-7.7 Abs Lymphocytes 1.4 10^3/uL N 1.0-4.8 Abs Monocytes 0.3 10^3/uL N 0-0.8 Abs Eosinophils 0.1 10^3/uL N 0-0.6 Abs Basophils 0.1 10^3/uL N 0-0.2 Abs Nucleated RBC 0 10^3/uL Granulocyte % 42.4 % N 38-83 Lymphocyte % 42.8 % N 25-47 Monocyte % 10.1 % High 0-7 Eosinophil % 1.8 % N 0-6 Basophil % 2.9 % High 0-2 Nucleated Red Blood Cells % 0.1 Laboratory test 12/15/2017 [facility] Lactic Acid 2.2 mmol/L High 0.5-2.0 38 finding [phone] Laboratory test 12/14/2017 [facility] Ammonia 38 mcmol/L N 16-53 finding [phone] CBC Auto Diff 12/14/2017 [facility] White Blood 3.9 10^3/uL N 3.5-10.8 [phone] Count Red Blood Count 2.91 10^6/uL Low 4.0-5.4 Hemoglobin 10.7 g/dL Low 14.0-18.0 Hematocrit 31 % Low 42-52 Mean Corpuscular Volume 105 fL High 80-94 Mean Corpuscular Hemoglobin 37 pg High 27-31 Mean Corpuscular HGB Conc 35 g/dL N 31-36 Red Cell Distribution Width 16 % High 10.5-15 Platelet Count 138 10^3/uL Low 150-450 Mean Platelet Volume 6.8 um3 Low 7.4-10.4 Abs Neutrophils 1.5 10^3/uL N 1.5-7.7 Abs Lymphocytes 1.7 10^3/uL N 1.0-4.8 Abs Monocytes 0.4 10^3/uL N 0-0.8 Abs Eosinophils 0.1 10^3/uL N 0-0.6 Abs Basophils 0.1 10^3/uL N 0-0.2 Abs Nucleated RBC 0 10^3/uL Granulocyte % 39.9 % N 38-83 Lymphocyte % 43.8 % N 25-47 Monocyte % 11.1 % High 0-7 Eosinophil % 2.0 % N 0-6 Basophil % 3.2 % High 0-2 Nucleated Red Blood Cells % 0.1 Comp Metabolic 12/14/2017 [facility] Sodium 136 mmol/ L Low 139-145 Panel [phone] Potassium 4.3 mmol/L N 3.5-5.0 Chloride 99 mmol/L Low 101-111 Co2 Carbon Dioxide 29 mmol/L N 22-32 Anion Gap 8 mmol/L N 2-11 Glucose 105 mg/dL High 70-100 Blood Urea Nitrogen 5 mg/dL Low 6-24 Creatinine 0.68 mg/dL N 0.67-1.17 BUN/Creatinine Ratio 7.4 Low 8-20 Calcium 8.9 mg/dL N 8.6-10.3 Total Protein 7.8 g/dL N 6.4-8.9 Albumin 4.5 g/dL N 3.2-5.2 Globulin 3.3 g/dL N 2-4 Albumin/Globulin Ratio 1.4 N 1-3 Total Bilirubin 0.50 mg/dL N 0.2-1.0 Alkaline Phosphatase 154 U/L High 34-104 Alt 22 U/L N 7-52 Ast 62 U/L High 13-39 Egfr Non- 121.1 >60 Egfr 155.7 >60 39 Laboratory 12/14/2017 [facility] Magnesium 1.4 mg/dL Low 1.9-2.7 test finding [phone] Laboratory 09/14/2017 [facility] Phenytoin 3.7 g/ mL Low 10-20 test finding [phone] (Dilantin) Laboratory 05/14/2017 [facility] Surgical SEE RESULT 40 test finding [phone] Interface BELOW Order Laboratory 03/27/2017 [facility] Hepatitis C Nonreactive N Nonreactive test finding [phone] Antibody Laboratory 03/27/2017 [facility] Phenytoin 10.5 g/ mL N 10-20 test finding [phone] (Dilantin) Lyme Disease Serology Negative N Negative 41 Laboratory test 02/12/2017 [facility] Phenytoin 5.8 g/mL Low 10-20 finding [phone] (Dilantin) Comp Metabolic 01/18/2017 [facility] Sodium 132 mmol/ L Low 133-145 Panel [phone] Potassium 4.5 mmol/L N 3.5-5.0 Chloride 99 mmol/L Low 101-111 Co2 Carbon Dioxide 25 mmol/L N 22-32 Anion Gap 8 mmol/L N 2-11 Glucose 87 mg/dL N 70-100 Blood Urea Nitrogen 11 mg/dL N 6-24 Creatinine 0.81 mg/dL N 0.67-1.17 BUN/Creatinine Ratio 13.6 N 8-20 Calcium 9.9 mg/dL N 8.6-10.3 Total Protein 7.7 g/dL N 6.4-8.9 Albumin 4.5 g/dL N 3.2-5.2 Globulin 3.2 g/dL N 2-4 Albumin/Globulin Ratio 1.4 N 1-3 Total Bilirubin 0.30 mg/dL N 0.2-1.0 Alkaline Phosphatase 119 U/L High 34-104 Alt 31 U/L N 7-52 Ast 24 U/L N 13-39 Egfr Non- 99.3 N >60 Egfr 127.7 N >60 42 Laboratory test 01/18/2017 [facility] Folic Acid > 20.00 N >3.99 finding [phone] (Folate) ng/mL Phenytoin (Dilantin) < 2.5 g/mL Low 10-20 Vitamin B12 224 pg/mL N 180-914 43 Laboratory test 01/18/2017 [facility] Homocysteine 18 mcmol/L Abnormal 44 finding [phone] Vitamin D, 1,25 Dihydroxy 53 pg/mL N 18-64 45 Methylmalonic Acid Mma 0.23 nmol/mL N <=0.40 46 CBC Auto Diff 01/18/2017 [facility] White Blood 8.9 10^3/uL N 3.5-10.8 [phone] Count Red Blood Count 3.59 10^6/uL Low 4.0-5.4 Hemoglobin 12.0 g/dL Low 14.0-18.0 Hematocrit 35 % Low 42-52 Mean Corpuscular Volume 98 fL High 80-94 Mean Corpuscular Hemoglobin 34 pg High 27-31 Mean Corpuscular HGB Conc 34 g/dL N 31-36 Red Cell Distribution Width 15 % N 10.5-15 Platelet Count 224 10^3/uL N 150-450 Mean Platelet Volume 8 um3 N 7.4-10.4 Abs Neutrophils 6.6 10^3/uL N 1.5-7.7 Abs Lymphocytes 1.5 10^3/uL N 1.0-4.8 Abs Monocytes 0.7 10^3/uL N 0-0.8 Abs Eosinophils 0.1 10^3/uL N 0-0.6 Abs Basophils 0.1 10^3/uL N 0-0.2 Abs Nucleated RBC 0 10^3/uL N Granulocyte % 74.4 % N 38-83 Lymphocyte % 16.5 % Low 25-47 Monocyte % 7.8 % N 1-9 Eosinophil % 0.6 % N 0-6 Basophil % 0.7 % N 0-2 Nucleated Red Blood Cells % 0 N Laboratory test 01/18/2017 [facility] TSH (Thyroid 1.53 N 0.34-5.60 finding [phone] Stimulating mcIU/mL Horm) PSA Screening 0.262 ng/mL N 0-4.000 47 Lipid Profile 01/18/2017 [facility] Triglycerides 101 mg/dL N 48 (Trig/Chol/HDL) [phone] Cholesterol 211 mg/dL N 49 HDL Cholesterol 82.6 mg/dL N 50 LDL Cholesterol 108 mg/dL N 51 Laboratory test 03/20/2016 [facility] Lipase 33 U/L N 11.0-82.0 finding [phone] Inr/Protime 03/20/2016 [facility] Inr 0.97 N 0.89- 1.11 [phone] CBC Auto Diff 03/20/2016 [facility] White Blood 3.3 Low 3.5-10.8 [phone] Count 10^3/uL Red Blood Count 3.62 10^6/uL Low 4.0-5.4 Hemoglobin 12.4 g/dL Low 14.0-18.0 Hematocrit 36 % Low 42-52 Mean Corpuscular Volume 99 fL High 80-94 Mean Corpuscular Hemoglobin 34 pg High 27-31 Mean Corpuscular HGB Conc 35 g/dL N 31-36 Red Cell Distribution Width 15 % N 10.5-15 Platelet Count 75 10^3/uL Low 150-450 Mean Platelet Volume 9 um3 N 7.4-10.4 Abs Neutrophils 1.8 10^3/uL N 1.5-7.7 Abs Lymphocytes 1.2 10^3/uL N 1.0-4.8 Abs Monocytes 0.2 10^3/uL N 0-0.8 Abs Eosinophils 0 10^3/uL N 0-0.6 Abs Basophils 0 10^3/uL N 0-0.2 Abs Nucleated RBC 0 10^3/uL N Granulocyte % 55.9 % N 38-83 Lymphocyte % 36.6 % N 25-47 Monocyte % 5.8 % N 1-9 Eosinophil % 0.6 % N 0-6 Basophil % 1.1 % N 0-2 Nucleated Red Blood Cells % 0.1 N Laboratory test 03/20/2016 [facility] Magnesium 1.3 mg/dL Low 1.9-2.7 finding [phone] Comp Metabolic 03/20/2016 [facility] Sodium 138 mmol/ L N 133-145 Panel [phone] Potassium 3.7 mmol/L N 3.5-5.0 Chloride 101 mmol/L N 101-111 Co2 Carbon Dioxide 25 mmol/L N 22-32 Anion Gap 12 mmol/L High 2-11 Glucose 179 mg/dL High 70-100 Blood Urea Nitrogen 11 mg/dL N 6-24 Creatinine 0.85 mg/dL N 0.67-1.17 BUN/Creatinine Ratio 12.9 N 8-20 Calcium 8.9 mg/dL N 8.6-10.3 Total Protein 7.7 g/dL N 6.4-8.9 Albumin 4.2 g/dL N 3.2-5.2 Globulin 3.5 g/dL N 2-4 Albumin/Globulin Ratio 1.2 N 1-3 Total Bilirubin 0.60 mg/dL N 0.2-1.0 Alkaline Phosphatase 203 U/L High 34-104 Alt 128 U/L High 7-52 Ast 276 U/L High 13-39 Egfr Non- 94.3 N >60 Egfr 121.3 N >60 52 Laboratory 03/20/2016 [facility] Lactic Acid 3.0 High 0.5-2.0 53 test finding [phone] mmol/L Laboratory 03/20/2016 [facility] Lactic Acid 2.9 High 0.5-2.0 54 test finding [phone] mmol/L Phenytoin Free 10/28/2015 [facility] Free <0.8 Abnormal 1.0 - 2.0 & Total [phone] Phenytoin g/mL Level Total Phenytoin 4.7 g/mL Abnormal 55 Laboratory test 08/05/2015 [facility] Phenytoin 9.2 g/mL Low 10-20 finding [phone] (Dilantin) Laboratory test 07/15/2015 [facility] Phenytoin 4.1 g/mL Low 10-20 finding [phone] (Dilantin) Comp Metabolic 07/15/2015 [facility] Sodium 135 mmol/ L N 133-145 Panel [phone] Potassium 4.5 mmol/L N 3.5-5.0 Chloride 104 mmol/L N 101-111 Co2 Carbon Dioxide 26 mmol/L N 22-32 Anion Gap 5 mmol/L N 2-11 Glucose 110 mg/dL High 70-100 Blood Urea Nitrogen 7 mg/dL N 6-24 Creatinine 0.85 mg/dL N 0.67-1.17 BUN/Creatinine Ratio 8.2 N 8-20 Calcium 9.8 mg/dL N 8.6-10.3 Total Protein 7.4 g/dL N 6.4-8.9 Albumin 4.5 g/dL N 3.2-5.2 Globulin 2.9 g/dL N 2-4 Albumin/Globulin Ratio 1.6 N 1-3 Total Bilirubin 0.30 mg/dL N 0.2-1.0 Alkaline Phosphatase 74 U/L N 34-104 Alt 12 U/L N 7-52 Ast 15 U/L N 13-39 Egfr Non- 94.3 N >60 Egfr 121.3 N >60 56 CBC Auto Diff 07/15/2015 [facility] White Blood 8.0 10^3/uL N 3.5-10.8 [phone] Count Red Blood Count 3.81 10^6/uL Low 4.0-5.4 Hemoglobin 13.1 g/dL Low 14.0-18.0 Hematocrit 39 % Low 42-52 Mean Corpuscular Volume 103 fL High 80-94 Mean Corpuscular Hemoglobin 34 pg High 27-31 Mean Corpuscular HGB Conc 33 g/dL N 31-36 Red Cell Distribution Width 13 % N 10.5-15 Platelet Count 218 10^3/uL N 150-450 Mean Platelet Volume 8 um3 N 7.4-10.4 Abs Neutrophils 4.7 10^3/uL N 1.5-7.7 Abs Lymphocytes 2.1 10^3/uL N 1.0-4.8 Abs Monocytes 0.8 10^3/uL N 0-0.8 Abs Eosinophils 0.2 10^3/uL N 0-0.6 Abs Basophils 0.1 10^3/uL N 0-0.2 Abs Nucleated RBC 0 10^3/uL N Granulocyte % 58.9 % N 38-83 Lymphocyte % 26.7 % N 25-47 Monocyte % 10.1 % High 1-9 Eosinophil % 3.1 % N 0-6 Basophil % 1.2 % N 0-2 Nucleated Red Blood Cells % 0.1 N Laboratory test 06/29/2015 [facility] Magnesium 1.4 mg/dL Low 1.9-2.7 finding [phone] Creatine Kinase 137 U/L N 10-223 Comp Metabolic 06/29/2015 [facility] Sodium 132 mmol/ L Low 133-145 Panel [phone] Potassium 3.9 mmol/L N 3.5-5.0 Chloride 100 mmol/L Low 101-111 Co2 Carbon Dioxide 21 mmol/L Low 22-32 Anion Gap 11 mmol/L N 2-11 Glucose 97 mg/dL N 70-100 Blood Urea Nitrogen 19 mg/dL N 6-24 Creatinine 1.03 mg/dL N 0.67-1.17 BUN/Creatinine Ratio 18.4 N 8-20 Calcium 9.2 mg/dL N 8.6-10.3 Total Protein 7.0 g/dL N 6.4-8.9 Albumin 4.0 g/dL N 3.2-5.2 Globulin 3.0 g/dL N 2-4 Albumin/Globulin Ratio 1.3 N 1-3 Total Bilirubin 0.30 mg/dL N 0.2-1.0 Alkaline Phosphatase 79 U/L N 34-104 Alt 46 U/L N 7-52 Ast 26 U/L N 13-39 Egfr Non- 75.5 N >60 Egfr 97.2 N >60 57 Laboratory test 06/29/2015 [facility] Alcohol < 10 mg /dL N <10 finding [phone] CBC Auto Diff 06/29/2015 [facility] White Blood 7.7 10^3/uL N 4.8-10.8 [phone] Count Red Blood Count 3.27 10^6/uL Low 4.0-5.4 Hemoglobin 11.2 g/dL Low 14.0-18.0 Hematocrit 33 % Low 42-52 Mean Corpuscular Volume 101 fL High 80-94 Mean Corpuscular Hemoglobin 34 pg High 27-31 Mean Corpuscular HGB Conc 34 g/dL N 31-36 Red Cell Distribution Width 13 % N 10.5-15 Platelet Count 193 10^3/uL N 150-450 Mean Platelet Volume 8 um3 N 7.4-10.4 Abs Neutrophils 5.3 10^3/uL N 1.5-7.7 Abs Lymphocytes 1.1 10^3/uL N 1.0-4.8 Abs Monocytes 1.1 10^3/uL High 0-0.8 Abs Eosinophils 0.1 10^3/uL N 0-0.6 Abs Basophils 0.1 10^3/uL N 0-0.2 Abs Nucleated RBC 0 10^3/uL N Granulocyte % 69.2 % N 38-83 Lymphocyte % 14.7 % Low 25-47 Monocyte % 14.1 % High 1-9 Eosinophil % 1.1 % N 0-6 Basophil % 0.9 % N 0-2 Nucleated Red Blood Cells % 0 N Urine Drug 06/29/2015 [facility] Amphetamine Ur None Detected N None Detect SCR ED & [phone] Screen Pain Clinic Barbiturates Urine Screen None Detected N None Detect Benzodiazepine Urine Screen Presumptive Posi <SEE NOTE> Abnormal None Detect 58 Urine Cannabinoids Screen None Detected N None Detect Urine Cocaine Screen None Detected N None Detect Urine Opiates Screen None Detected N None Detect Urine Phencyclidine Screen None Detected N None Detect 59 CBC Auto Diff 06/23/2015 [facility] White Blood 8.2 10^3/uL N 4.8-10.8 [phone] Count Red Blood Count 3.55 10^6/uL Low 4.0-5.4 Hemoglobin 12.3 g/dL Low 14.0-18.0 Hematocrit 36 % Low 42-52 Mean Corpuscular Volume 101 fL High 80-94 Mean Corpuscular Hemoglobin 35 pg High 27-31 Mean Corpuscular HGB Conc 34 g/dL N 31-36 Red Cell Distribution Width 13 % N 10.5-15 Platelet Count 108 10^3/uL Low 150-450 Mean Platelet Volume 9 um3 N 7.4-10.4 Abs Neutrophils 5.9 10^3/uL N 1.5-7.7 Abs Lymphocytes 1.2 10^3/uL N 1.0-4.8 Abs Monocytes 1.0 10^3/uL High 0-0.8 Abs Eosinophils 0 10^3/uL N 0-0.6 Abs Basophils 0 10^3/uL N 0-0.2 Abs Nucleated RBC 0.01 10^3/uL N Granulocyte % 72.4 % N 38-83 Lymphocyte % 14.6 % Low 25-47 Monocyte % 12.5 % High 1-9 Eosinophil % 0.2 % N 0-6 Basophil % 0.3 % N 0-2 Nucleated Red Blood Cells % 0.1 N Laboratory test 06/23/2015 [facility] Lactic Acid 4.7 mmol/L High 0.5-2.2 60 finding [phone] Comp Metabolic 06/23/2015 [facility] Sodium 131 mmol/ L Low 133-145 Panel [phone] Chloride 93 mmol/L Low 101-111 Co2 Carbon Dioxide 25 mmol/L N 22-32 Glucose 159 mg/dL High 70-100 Blood Urea Nitrogen 22 mg/dL N 6-24 Creatinine 1.03 mg/dL N 0.67-1.17 BUN/Creatinine Ratio 21.4 High 8-20 Calcium 9.8 mg/dL N 8.6-10.3 Total Protein 8.0 g/dL N 6.4-8.9 Albumin 4.1 g/dL N 3.2-5.2 Globulin 3.9 g/dL N 2-4 Albumin/Globulin Ratio 1.1 N 1-3 Total Bilirubin 0.70 mg/dL N 0.2-1.0 Alkaline Phosphatase 107 U/L High 34-104 Alt 21 U/L N 7-52 Egfr Non- 75.5 N >60 Egfr 97.2 N >60 61 Potassium TNP mmol/L N 3.5-5.0 62 Anion Gap TNP mmol/L N 2-11 Ast TNP U/L N 13-39 63 Laboratory test 06/23/2015 [facility] Phosphorus 3.5 mg/dL N 2.5-5.0 finding [phone] Creatine Kinase 82 U/L N 10-223 Magnesium TNP mg/dL N 1.9-2.7 64 Acetaminophen < 15 g/mL N 65 Alcohol < 10 mg/dL N <10 Salicylate < 2.50 mg/dL N <30 TSH (Thyroid Stimulating Horm) 2.44 ?IU/mL N 0.34-5.60 Urinalysis Profile 06/23/2015 [facility] Urine Color Yellow N [phone] Urine Appearance Clear N Urine Specific [place] 1.013 N 1.010-1.030 Urine pH 7.0 N 5-9 Urine Urobilinogen Negative N Negative Urine Ketones Negative N Negative Urine Protein Negative N Negative Urine Leukocytes Negative N Negative Urine Blood Negative N Negative Urine Nitrite Negative N Negative Urine Bilirubin Negative N Negative Urine Glucose 1+(50 mg/dL) Abnormal Negative Urine Drug 06/23/2015 [facility] Amphetamine Ur None Detected N None Detect SCR ED & [phone] Screen Pain Clinic Barbiturates Urine Screen None Detected N None Detect Benzodiazepine Urine Screen None Detected N None Detect Urine Cannabinoids Screen None Detected N None Detect Urine Cocaine Screen None Detected N None Detect Urine Opiates Screen None Detected N None Detect Urine Phencyclidine Screen None Detected N None Detect 66 CBC Auto 04/21/2015 [facility] White Blood 4.4 10^3/ uL Low 4.8-10.8 Diff [phone] Count Red Blood Count 3.42 10^6/uL Low 4.0-5.4 Hemoglobin 12.0 g/dL Low 14.0-18.0 Hematocrit 36 % Low 42-52 Mean Corpuscular Volume 105 fL High 80-94 Mean Corpuscular Hemoglobin 35 pg High 27-31 Mean Corpuscular HGB Conc 34 g/dL N 31-36 Red Cell Distribution Width 13 % N 10.5-15 Platelet Count 224 10^3/uL N 150-450 Mean Platelet Volume 9 um3 N 7.4-10.4 Abs Neutrophils 1.5 10^3/uL N 1.5-7.7 Abs Lymphocytes 2.2 10^3/uL N 1.0-4.8 Abs Monocytes 0.5 10^3/uL N 0-0.8 Abs Eosinophils 0.1 10^3/uL N 0-0.6 Abs Basophils 0.1 10^3/uL N 0-0.2 Abs Nucleated RBC 0.01 10^3/uL N Granulocyte % 34.4 % Low 38-83 Lymphocyte % 49.9 % High 25-47 Monocyte % 11.0 % High 1-9 Eosinophil % 2.4 % N 0-6 Basophil % 2.3 % High 0-2 Nucleated Red Blood Cells % 0.2 N Laboratory test 04/21/2015 [facility] Magnesium 1.5 mg/dL Low 1.9-2.7 finding [phone] CBC Auto Diff 04/01/2015 [facility] White Blood 3.3 Low 4.8-10.8 [phone] Count 10^3/uL Red Blood Count 3.38 10^6/uL Low 4.0-5.4 Hemoglobin 11.6 g/dL Low 14.0-18.0 Hematocrit 34 % Low 42-52 Mean Corpuscular Volume 101 fL High 80-94 Mean Corpuscular Hemoglobin 34 pg High 27-31 Mean Corpuscular HGB Conc 34 g/dL N 31-36 Red Cell Distribution Width 15 % N 10.5-15 Platelet Count 65 10^3/uL Low 150-450 Mean Platelet Volume 9 um3 N 7.4-10.4 Abs Neutrophils 2.3 10^3/uL N 1.5-7.7 Abs Lymphocytes 0.6 10^3/uL Low 1.0-4.8 Abs Monocytes 0.3 10^3/uL N 0-0.8 Abs Eosinophils 0 10^3/uL N 0-0.6 Abs Basophils 0 10^3/uL N 0-0.2 Abs Nucleated RBC 0 10^3/uL N Granulocyte % 70.5 % N 38-83 Lymphocyte % 18.8 % Low 25-47 Monocyte % 8.7 % N 1-9 Eosinophil % 1.3 % N 0-6 Basophil % 0.7 % N 0-2 Nucleated Red Blood Cells % 0 N Laboratory test 04/01/2015 [facility] Alcohol < 10 mg /dL N <10 finding [phone] Magnesium 1.1 mg/dL Low 1.9-2.7 Vitamin B12 289 pg/mL N 180-914 67 Lipid Profile 04/01/2015 [facility] Triglycerides 65 mg/dL N 68 (Trig/Chol/HDL) [phone] Cholesterol 194 mg/dL N 69 HDL Cholesterol 88.5 mg/dL N 70 LDL Cholesterol 93 mg/dL N 71 Laboratory test 04/01/2015 [facility] TSH (Thyroid 1.56 ?IU/mL N 0.34-5.60 finding [phone] Stim Horm) Comp Metabolic 04/01/2015 [facility] Sodium 134 mmol/ L N 133-145 Panel [phone] Potassium 4.0 mmol/L N 3.5-5.0 Chloride 99 mmol/L Low 101-111 Co2 Carbon Dioxide 27 mmol/L N 22-32 Anion Gap 8 mmol/L N 2-11 Glucose 112 mg/dL High 70-100 Blood Urea Nitrogen 7 mg/dL N 6-24 Creatinine 0.76 mg/dL N 0.67-1.17 BUN/Creatinine Ratio 9.2 N 8-20 Calcium 9.4 mg/dL N 8.6-10.3 Total Protein 7.9 g/dL N 6.4-8.9 Albumin 4.7 g/dL N 3.2-5.2 Globulin 3.2 g/dL N 2-4 Albumin/Globulin Ratio 1.5 N 1-3 Total Bilirubin 0.60 mg/dL N 0.2-1.0 Alkaline Phosphatase 114 U/L High 34-104 Alt 41 U/L N 7-52 Ast 61 U/L High 13-39 Egfr Non- 107.7 N >60 Egfr 138.5 N >60 72 CBC Auto 11/19/2014 [facility] White Blood 3.1 10^3/ uL Low 4.8-10.8 Diff [phone] Count Red Blood Count 3.31 10^6/uL Low 4.0-5.4 Hemoglobin 11.8 g/dL Low 14.0-18.0 Hematocrit 34 % Low 42-52 Mean Corpuscular Volume 102 fL High 80-94 Mean Corpuscular Hemoglobin 36 pg High 27-31 Mean Corpuscular HGB Conc 35 g/dL N 31-36 Red Cell Distribution Width 13 % N 10.5-15 Platelet Count 45 10^3/uL Low 150-450 Mean Platelet Volume 10 um3 N 7.4-10.4 Abs Neutrophils 2.1 10^3/uL N 1.5-7.7 Abs Lymphocytes 0.6 10^3/uL Low 1.0-4.8 Abs Monocytes 0.3 10^3/uL N 0-0.8 Abs Eosinophils 0 10^3/uL N 0-0.6 Abs Basophils 0 10^3/uL N 0-0.2 Abs Nucleated RBC 0.01 10^3/uL N Granulocyte % 67.2 % N 38-83 Lymphocyte % 20.1 % Low 25-47 Monocyte % 11.1 % High 1-9 Eosinophil % 0.7 % N 0-6 Basophil % 0.9 % N 0-2 Nucleated Red Blood Cells % 0.3 N Laboratory test 11/19/2014 [facility] Magnesium 1.3 mg/dL Low 1.9-2.7 finding [phone] Troponin I 0.00 ng/mL N <0.03 73 Acetaminophen < 15 g/mL N 74 Alcohol < 10 mg/dL N <10 Salicylate < 2.50 mg/dL N <30 TSH (Thyroid Stimulating Horm) 0.96 IU/mL N 0.34-5.60 Comp Metabolic 11/19/2014 [facility] Sodium 132 mmol/ L Low 133-145 Panel [phone] Potassium 3.5 mmol/L N 3.5-5.0 Chloride 98 mmol/L Low 101-111 Co2 Carbon Dioxide 25 mmol/L N 22-32 Anion Gap 9 mmol/L N 2-11 Glucose 109 mg/dL High 70-100 Blood Urea Nitrogen 13 mg/dL N 6-24 Creatinine 1.03 mg/dL N 0.67-1.17 BUN/Creatinine Ratio 12.6 N 8-20 Calcium 8.8 mg/dL N 8.6-10.3 Total Protein 7.5 g/dL N 6.4-8.9 Albumin 4.5 g/dL N 3.2-5.2 Globulin 3.0 g/dL N 2-4 Albumin/Globulin Ratio 1.5 N 1-3 Total Bilirubin 1.00 mg/dL N 0.2-1.0 Alkaline Phosphatase 94 U/L N 34-104 Alt 45 U/L N 7-52 Ast 67 U/L High 13-39 Egfr Non- 75.8 N >60 Egfr 97.5 N >60 75 Laboratory test 08/13/2013 [facility] Alcohol < 10 mg /dL Less Than 76 finding [phone] Laboratory test 08/04/2013 [facility] Alcohol < 10 mg /dL Less Than 77 finding [phone] 10 Laboratory test 07/31/2013 [facility] Alcohol < 10 mg /dL Less Than 78 finding [phone] 10 Laboratory test 07/28/2013 [facility] Alcohol < 10 mg /dL Less Than 79 finding [phone] Laboratory test 07/24/2013 [facility] Alcohol < 10 mg /dL Less Than 80 finding [phone] 10 Laboratory test 07/21/2013 [facility] Alcohol < 10 mg /dL Less Than 81 finding [phone] Urinalysis 06/29/2012 [facility] Urine Color Yellow [phone] Urine Appearance Clear Urine Specific [place] 1.011 1.010-1.030 Urine Esterase Negative Negative Urine Nitrate Negative Negative Urine Urobilinogen Negative Negative Urine Protein Negative Negative Urine pH 6.5 5-9 Urine Blood Negative Negative Urine Ketones Negative Negative Urine Bilirubin Negative Negative 82 Urine Glucose Negative Negative CBC Auto Diff 06/29/2012 [facility] White Blood 4.9 10^3/uL 4.8-10.8 [phone] Count Red Blood Count 3.34 10^6/uL Low 4.0-5.4 Hemoglobin 11.8 g/dL Low 14.0-18.0 Hematocrit 34 % Low 42-52 Mean Corpuscular Volume 101 fL High 80-94 Mean Corpuscular Hemoglobin 35 pg High 27-31 Mean Corpuscular HGB Conc 35 g/dL 31-36 Red Cell Distribution Width 14 % 10.5-15 Platelet Count 125 10^3/uL Low 150-450 Mean Platelet Volume 8 um3 7.4-10.4 Abs Neutrophils 2.8 10^3/uL 1.5-7.7 Abs Lymphocytes 1.6 10^3/uL 1.0-4.8 Abs Monocytes 0.5 10^3/uL 0-0.8 Abs Eosinophils 0.1 10^3/uL 0-0.6 Abs Basophils 0 10^3/uL 0-0.2 Abs Nucleated RBC 0 10^3/uL Granulocyte % 57.2 % 38-83 Lymphocyte % 31.5 % 25-47 Monocyte % 9.4 % High 1-9 Eosinophil % 1.2 % 0-6 Basophil % 0.7 % 0-2 Nucleated Red Blood Cells % 0.1 Laboratory test 06/29/2012 [facility] Inr 0.91 0.82-1.17 83 finding [phone] Comp Metabolic 06/29/2012 [facility] Sodium 127 mmol/ L Low 133-145 Panel [phone] Potassium 3.0 mmol/L Low 3.5-5.0 Chloride 90 mmol/L Low 101-111 Co2 Carbon Dioxide 27.0 mmol/L 22-32 Anion Gap 10.0 mmol/L 2-11 Glucose 115 mg/dL High 70-100 Blood Urea Nitrogen 8 mg/dL 6-24 Creatinine 1.10 mg/dL 0.50-1.40 BUN/Creatinine Ratio 7.3 Low 8-20 Calcium 8.7 mg/dL 8.1-9.9 Total Protein 7.5 GM/DL 6.2-8.1 Albumin 4.4 GM/DL 3.6-5.4 Globulin 3.1 GM/DL 2-4 Albumin/Globulin Ratio 1.4 1-3 Total Bilirubin 0.9 mg/dL 0.4-1.5 Alkaline Phosphatase 94 U/L 30-110 Alt 48 U/L 14-54 Ast 67 U/L High 12-42 Egfr Non- 70.9 >60 Egfr 91.1 >60 84 [facility] 06/29[facility]2012 [facility] [facility] Creatine Kinase 160 U/L 0-200 finding [phone] Troponin I 0.01 ng/mL 0-0.06 85 Alcohol 254.1 mg/dL High Less Than 1.0 86 Magnesium 1.4 mg/dL Low 1.7-2.6 CBC Auto Diff 11/10/2011 [facility] White Blood 13.8 CUMM High 4.8-10.8 [phone] Count Red Cell Count 4.03 CUMM Low 4.6-6.2 Hemoglobin 14.2 g/dL 14.0-18.0 Hematocrit 40 % Low 42-52 Mean Corpuscular Volume 98 um3 High 80-94 Mean Corpuscular Hemoglob 35 pg High 27-31 Mean Corpuscular HGB Cone 36 g/dL 32-36 Redcell Distribution WDTH 13 % 10.5-15 Platelet Count 222 CUMM 150-450 Mean Platelet Volume 9.0 um3 7.4-10.4 87 Comp Metabolic 11/10/2011 [facility] Sodium 132 mmol/ L Low 135-145 Panel [phone] Potassium 4.1 mmol/L 3.5-5.0 Chloride 96 mmol/L Low 101-111 Co2 (Carbon Dioxide) 29.0 mmol/L 22-32 Anion Gap 7.0 mmol/L 2-11 88 Glucose 107 mg/dL High 70-100 BUN 5 mg/dL Low 6-24 Creatinine 0.9 mg/dL 0.50-1.40 One Over Creatinine 1.11 BUN/Creatinine Ratio 5.6 Low 8-20 Calcium 9.2 mg/dL 8.1-9.9 Total Protein 6.8 GM/DL 6.2-8.1 Albumin 4.0 GM/DL 3.6-5.4 Globulin 2.8 GM/DL 2-4 Albumin/Globulin Ratio 1.4 1-3 Bilirubin Total 0.6 mg/dL 0.4-1.5 89 Alkaline Phosphatase 108 U/L 39-117 Alt (SGPT) 38 U/L 17-63 Ast (Sgot) 27 U/L 12-42 eGFR Non- 89.7 > 60 eGFR 115.3 > 60 90 Laboratory test 11/10/2011 [facility] Erythrocyte Sed 24 MM/HR High 0-15 finding [phone] Rate Manual 11/10/2011 [facility] Polysegmented 72 % 38 -83 Differential [phone] Neutrophil Band Neutrophil 6 % 0-8 Lymphocyte 12 % Low 25-47 Monocyte 9 % 0-13 Atypical Lymph 1 % 0-6 Absolute Neutrophil Count 10.7 RBC Morphology NORMAL Laboratory test 11/07/2011 In House Lab Strep Screen neg Neg finding (607)- - Liver Function 08/11/2011 [facility] Total Protein 8.1 GM/DL 6.2-8.1 Panel [phone] Albumin 5.0 GM/DL 3.6-5.4 Globulin 3.1 GM/DL 2-4 Albumin/Globulin Ratio 1.6 1-3 Bilirubin Total 0.7 mg/dL 0.4-1.5 91 Bilirubin Direct 0.1 mg/dL 0.1-0.5 Indirect Bilirubin 0.6 mg/dL 0.3-1.0 92 Alkaline Phosphatase 120 U/L High 39-117 Alt (SGPT) 81 U/L High 17-63 Ast (Sgot) 146 U/L High 12-42 Laboratory test 08/11/2011 [facility] GGTP 364 U/L High 7-50 finding [phone] Basic Metabolic 08/11/2011 [facility] Sodium 141 mmol /L 135-145 Panel [phone] Potassium 3.9 mmol/L 3.5-5.0 Chloride 103 mmol/L 101-111 Co2 (Carbon Dioxide) 27.0 mmol/L 22-32 Anion Gap 11.0 mmol/L 2-11 93 Glucose 116 mg/dL High 70-100 BUN 9 mg/dL 6-24 Creatinine 0.7 mg/dL 0.50-1.40 One Over Creatinine 1.42 BUN/Creatinine Ratio 12.9 8-20 Calcium 9.2 mg/dL 8.1-9.9 eGFR Non- 119.9 > 60 eGFR 154.1 > 60 94 Laboratory test 08/11/2011 [facility] Magnesium 1.7 mg/dL 1.7-2.6 finding [phone] Vitamin B12 287 pg/mL 180-914 Folic Acid 3.6 NG/ML Low See Below 95 Urine DIP 08/11/2011 In House Lab Leukocytes neg Neg (607)- - Urine Nitrites neg Neg Urine pH 7 High 5-6 Total Protein, Urine ++ Neg Urine Glucose norm Norm Urine Ketones neg Neg Urobilinogen norm Norm Urine Bilirubin neg Neg Urine Blood neg Neg Specific Baldwin n/a Low 1.01-1.02 Laboratory test 08/11/2011 In House Lab Glucose By 118 High 78-110 finding (607)- - Moniter CBC With Manual 08/11/2011 [facility] White Blood 3.8 CUMM Low 4.8-10.8 Diff [phone] Count Red Cell Count 3.75 CUMM Low 4.6-6.2 Hemoglobin 13.1 g/dL Low 14.0-18.0 Hematocrit 38 % Low 42-52 Mean Corpuscular Volume 102 um3 High 80-94 Mean Corpuscular Hemoglob 35 pg High 27-31 Mean Corpuscular HGB Cone 34 g/dL 32-36 Redcell Distribution WDTH 13 % 10.5-15 Platelet Count 88 CUMM Low 150-450 96 Mean Platelet Volume 9.2 um3 7.4-10.4 Polysegmented Neutrophil 58 % 38-83 Band Neutrophil 4 % 0-8 Lymphocyte 25 % 25-47 Monocyte 8 % 0-13 Eosinophil 2 % 0-6 Atypical Lymph 3 % 0-6 Absolute Neutrophil Count 2.3 Macrocytosis 1+ Platelet Evaluation LARGE Manual Diff Comments (SEE NOTE) 97 1 Critical Result LACT:2.5 Called to [id number] at: 18:03:08 by:[id number] Read back by:[id number] [facility] Severe Sepsis and Septic Shock Management Bundle Measure requires all lactic acids initially measuring >2.0 mmol/L be repeated. 2 Critical Result LACT:5.2 Called to [id number] at: 16:04:54 by:[id number] Read back by:[id number] [facility] Severe Sepsis and Septic Shock Management Bundle Measure requires all lactic acids initially measuring >2.0 mmol/L be repeated. Critical Result LACT:5.2 Called to [id number] at: 16:04:54 by:[id number] Read back by:[id number] [facility] Severe Sepsis and Septic Shock Management Bundle Measure requires all lactic acids initially measuring >2.0 mmol/L be repeated. 3 Because ethnic data is not always readily [...] 15-29 5 Kidney failure <15 (or dialysis) 4 Consistent with Previous Results Reported on 07/15/18 5 [facility] Severe Sepsis and Septic Shock Management Bundle Measure requires all lactic acids initially measuring >2.0 mmol/L be repeated. 6 Presumptive Positive Presumptive positive results are unconfirmed. 7 The urine specimen was tested at the listed cutoffs: Drug class test level (ng/mL) Amphetamines 500 Barbiturates 200 Benzodiazepine metabolites 200 Cocaine metabolites 150 Cannabinoids 50 Opiates 300 Pcp 25 Specimen was received without chain of custody. Results should be used for medical purposes only. 8 Troponin-I testing on Plasma Separator Tubes (PST) has a known false positive rate of 0.20-0.40%. All positive troponins reflex immediate secondary confirmatory testing. 9 Because ethnic data is not always readily [...] 15-29 5 Kidney failure <15 (or dialysis) 10 Consistent with Previous Results Reported on 06/06/18. 11 Reference ranges based on room air. 12 Inventory Control Assistant: [id number] [facility] Severe Sepsis and Septic Shock Management Bundle Measure requires all lactic acids initially measuring >2.0 mmol/L be repeated. 14 CORRECTED REPORT --- Corrected on 06/06/18921 --- Chloride previously reported as: 84 L mmol/L 15 CORRECTED REPORT --- Corrected on 06/06/18922 --- CO2 previously reported as: 24 mmol/L 16 CORRECTED REPORT --- Corrected on 06/06/18925 --- Glucose previously reported as: 137 H mg/dL 17 CORRECTED REPORT --- Corrected on 06/06/18924 --- BUN previously reported as: 16 mg/dL 18 CORRECTED REPORT --- Corrected on 06/06/18923 --- Creatinine previously reported as: 1.05 mg/dL 19 CORRECTED REPORT --- Corrected on 06/06/18923 --- BUN/Creat Ratio previously reported as: 15.2 20 CORRECTED REPORT --- Corrected on 06/06/18922 --- Albumin previously reported as: 4.8 g/dL 21 CORRECTED REPORT --- Corrected on 06/06/18922 --- Globulin previously reported as: 3.6 g/dL 22 CORRECTED REPORT --- Corrected on 06/06/18922 --- A/G Ratio previously reported as: 1.3 23 CORRECTED REPORT --- Corrected on 06/06/18923 --- Total Bilirubin previously reported as: 1.50 H mg/dL 24 CORRECTED REPORT --- Corrected on 06/06/18925 --- Alkaline Phosph previously reported as: 52 U/L 25 CORRECTED REPORT --- Corrected on 06/06/18925 --- ALT previously reported as: 42 U/L 26 CORRECTED REPORT --- Corrected on 06/06/18923 --- EGFR Non-Mary previously reported as: 73.1 27 Because ethnic data is not always readily [...] 15-29 5 Kidney failure <15 (or dialysis) 28 CORRECTED REPORT --- Corrected on 06/06/18921 --- Anion Gap previously reported as: 23 H mmol/L 29 CORRECTED REPORT --- Corrected on 06/06/18926 --- Lipase previously reported as: 28 U/L 30 [id number] 31 Consistent with Previous Results Reported on 12/27/17 32 Because ethnic data is not always [...] 5 Kidney failure <15 (or dialysis) 33 Critical Result M.9 Called to [id number] at: 16:20:35 by:[id number] Read back by:[id number] 34 It is recognized that currently available assays for the detection of antibodies to HIV-1 and/or HIV-2 may not detect all infected individuals. HIV antibodies may be undetectable in some stages of the infection and in some clinical conditions. The performance of this assay has not been established for populations of infants or children. Assayed by Chemiluminescence Microparticle Immunoassay on the Siemens Advia Centaur CP. Values obtained with different methods or kits cannot be used interchangeably.The diagnostic specificity of the ADVIA Centaur 1/O/2 Enhanced assay in the low risk population was 99.90% (6052/6058) with a 95% confidence interval of 99.78 to 99.96%. 35 Because ethnic data is not always readily [...] 15-29 5 Kidney failure <15 (or dialysis) 36 Low risk: <1.00 Average risk: 1.00-3.00 High risk: >3.00 37 Consistent with Previous Results Reported on 12/14/17 38 Critical Result LACT:2.2 Called to [id number] at: 13:07:02 by:[id number] Read back by:[id number] [facility] Severe Sepsis and Septic Shock Management Bundle Measure requires all lactic acids initially measuring >2.0 mmol/L be repeated. 39 Because ethnic data is not always [...] 15-29 5 Kidney failure <15 (or dialysis) 40 SEE RESULT BELOW Name: JUSTIN EDMOND : [address]: Donn Curtis MD Acct: [id number] Unit: [id number] AGE: 56 Location: [facility] Re05/14/17 SEX: M Status: DEP REF SPEC: [id number] GABRIEL: 05/14/17- SUBM DR: Donn Curtis MD REQ: [id number] RECD: 05/14/171146 STATUS: JOSY BANKS DR: Gustavo Mata TOOLS ADMINISTRATOR _ ORDERED: LEVEL 4 FINAL DIAGNOSIS Colon, at 15 cm, biopsy: -- Hyperplastic polyp. CLINICAL HISTORY No history given POST-OPERATIVE DIAGNOSIS Colonoscopy to terminal ileum - polyp at 15 cm biopsied; 10 years GROSS DESCRIPTION The specimen is received in formalin labeled, Colon Polyp at 15 cm, and consists of a 0.4 x 0.3 x 0.2 cm arango-pink irregular to polypoid soft tissue fragment which is submitted entirely in one cassette. Signed (signature on file) Laura Johnson MD 1038 END OF REPORT * ML=Testing performed at Main Lab DEPARTMENT OF PATHOLOGY, [address] [place] [address] Adalid Hansen M.D. Director [facility] # [id number] 41 Serologic response to B. burgdorferi infection is not detected, but cannot rule out early infection during which low or undetectable antibody levels to B. burgdorferi may be present. If clinically indicated, a new serum specimen should be submitted in 7-14 days. Test Performed by: [facility] - [address] [address] 42 Because ethnic data is not always readily [...] 15-29 5 Kidney failure <15 (or dialysis) 43 Normal Range 180 to 914 Indeterminate Range 145 to 180 Deficient Range <145 44 The homocysteine concentration is elevated in this [...] developed and its performance characteristics determined by [facility] in a manner consistent with CLIA requirements. This test has not been cleared or approved by the U.S. Food and Drug Administration. Test Performed by: [facility] - [address] [address] 45 ADDITIONAL INFORMATION This test was developed and its performance characteristics determined by [facility] in a manner consistent with CLIA requirements. This test has not been cleared or approved by the U.S. Food and Drug Administration. Test Performed by: [facility] - [facility] [address] [place] [address] 46 ADDITIONAL INFORMATION This test was developed and its performance characteristics determined by [facility] in a manner consistent with CLIA requirements. This test has not been cleared or approved by the U.S. Food and Drug Administration. Test Performed by: [facility] [address] [place] [address] 47 Serum levels of PSA measured using the [employer] DXI Hybritech immunoassay should not be interpreted [...] methods or kits cannot be used interchangeably. 48 Desirable <150 Borderline high 150-199 High 200-499 Very High >500 49 Desirable <200 Borderline high 200-239 High >239 50 Low <40 Desirable: 40-60 High: >60 51 Desirable: <100 mg/dL Near Optimal: 100-129 mg/dL Borderline High: 130-159 mg/dL High: 160-189 mg/dL Very High: >189 mg/dL 52 Because ethnic data is not always readily [...] 15-29 5 Kidney failure <15 (or dialysis) 53 Critical Result LACT:3.0 Called to [id number] at: 18:22:30 by:[id number] Read back by:[id number] [facility] Severe Sepsis and Septic Shock Management Bundle Measure requires all lactic acids initially measuring >2.0 mmol/L be repeated. 54 Critical Result LACT:2.9 Called to PETTY at: 21:28:07 by:[id number] Read back by:[id number] [facility] Severe Sepsis and Septic Shock Management Bundle Measure requires all lactic acids initially measuring >2.0 mmol/L be repeated. 55 REFERENCE VALUE 10.0 - 20.0 Test Performed by: [place] [id number] Health Education Coordinator: Phillip Hope II, M.D., Ph.D. 56 Because ethnic data is not always readily [...] 15-29 5 Kidney failure <15 (or dialysis) 57 Because ethnic data is not always readily [...] 15-29 5 Kidney failure <15 (or dialysis) 58 Presumptive Positive 59 The urine specimen was tested at the listed cutoffs: Drug class test level (ng/mL) Amphetamines 500 Barbituates 200 Benzodiazepine metabolites 200 Cocaine metabolites 150 Cannabinoids 50 Opiates 300 Pcp 25 This is a screening procedure. Positive results are not confirmed. Specimen was received without chain of custody. Results should be used for medical purposes only. 60 Verbal to [id number] by [id number] at 1643 on 06/23/15. Results read back accurately. --- 06/23/15 1643 --- Lactic Acid previously reported as: 4.7 *P mmol/L 61 Because ethnic data is not always readily [...] 15-29 5 Kidney failure <15 (or dialysis) 62 Unable to report test result due to hemolysis. 63 Unable to report test result due to hemolysis. 64 Unable to report test result due to hemolysis. 65 Therapeutic concentration: <50 ug/mL Toxic concentration: >120 ug/mL 66 The urine specimen was tested at the listed cutoffs: Drug class test level (ng/mL) Amphetamines 500 Barbituates 200 Benzodiazepine metabolites 200 Cocaine metabolites 150 Cannabinoids 50 Opiates 300 Pcp 25 This is a screening procedure. Positive results are not confirmed. Specimen was received without chain of custody. Results should be used for medical purposes only. 67 Normal Range 180 to 914 Indeterminate Range 145 to 180 Deficient Range <145 68 Desirable <150 Borderline high 150-199 High 200-499 Very High >500 69 Desirable <200 Borderline high 200-239 High >239 70 Low <40 Desirable: 40-60 High: >60 71 Desirable: <100 mg/dL Near Optimal: 100-129 mg/dL Borderline High: 130-159 mg/dL High: 160-189 mg/dL Very High: >189 mg/dL 72 Because ethnic data is not always readily [...] 15-29 5 Kidney failure <15 (or dialysis) 73 Reference Range and Interpretation: TnI (ng/mL) Interpretation Less Than 0.03 ng/mL Not supportive of diagnosis of AL 0.03 - 0.50 ng/mL Indeterminate: suggest serial studies if clinically indicated. Greater than 0.5 ng/mL Consistent with diagnosis of AL 74 Therapeutic concentration: <50 ug/mL Toxic concentration: >120 ug/mL 75 Because ethnic data is not always readily [...] 15-29 5 Kidney failure <15 (or dialysis) 76 The detection limit for Ethanol is 10.0 mg/dl . Values less than 10.0 mg/dl cannot be accurately measured. 77 The detection limit for Ethanol is 10.0 mg/dl . Values less than 10.0 mg/dl cannot be accurately measured. 78 The detection limit for Ethanol is 10.0 mg/dl . Values less than 10.0 mg/dl cannot be accurately measured. 79 The detection limit for Ethanol is 10.0 mg/dl . Values less than 10.0 mg/dl cannot be accurately measured. 80 The detection limit for Ethanol is 10.0 mg/dl . Values less than 10.0 mg/dl cannot be accurately measured. 81 The detection limit for Ethanol is 10.0 mg/dl . Values less than 10.0 mg/dl cannot be accurately measured. 82 Effective 06/26/12, bilirubin confirmation by ictotest is discontinued. False-positive results for bilirubin may occur due to color interference from large amounts of blood in the urine, very concentrated urine, or drugs that discolor urine such as phenazopyridine(Pyridium). 83 The INR(International Normalized Ratio) was adopted by the World Health Organization (WHO) in 1983 as a standardized system of reporting PT (Prothrombin Time). The Centers for Disease Control (CDC) states that reporting of PT results in INR only is the preferred method. Recommended INR for Patients on Oral Anticoagulants Prophylaxis 2.0 - 3.0 Treatment of thrombosis 2.0 - 3.0 Prevention of embolism 2.0 - 3.0 Prevention of embolism from prosthetic heart valves 2.5 - 3.5 84 Because ethnic data is not always readily [...] 15-29 5 Kidney failure <15 (or dialysis) 85 Reference Range and Interpretation: TnI (ng/ml) Interpretation Less Than 0.06 ng/mL Not supportive of diagnosis of AL 0.06 - 0.50 ng/ml Indeterminate: suggest serial studies if clinically indicated. Greater than 0.5 ng/mL Consistent with diagnosis of AL 86 The detection limit for ETHANOL is 10.0 mg/dl . Values less than 10.0 mg/dl cannot be accurately measured. 87 Lymphopenia % H H Check Failed 88 Anion gap measurement may be of limited value in the presence of any alkalosis, especially in a combined acid base disorder. . 89 A metabolite of Naproxen, O-desmethylnaproxen, has been shown to interfere with the Jendrassik-Yariel method for measuring total bilirubin. Samples from patients who have taken Naproxen have shown spurious elevation in total bilirubin levels. 90 Because ethnic data is not always readily [...] 15-29 5 Kidney failure <15 (or dialysis) 91 A metabolite of Naproxen, O-desmethylnaproxen, has been shown to interfere with the Jendrassik-Yariel method for measuring total bilirubin. Samples from patients who have taken Naproxen have shown spurious elevation in total bilirubin levels. 92 Please note updated reference range, effective 02/17/10 93 Anion gap measurement may be of limited value in the presence of any alkalosis, especially in a combined acid base disorder. . 94 Because ethnic data is not always readily [...] 15-29 5 Kidney failure <15 (or dialysis) 95 Please note: New reference range, effective 07/20/11 NORMAL REFERENCE RANGE: GREATER THAN 4.1 NG/ML 96 NO CLOT DETECTED IN TUBE/NO CLUMPS SEEN ON SMEAR 97 CBC AND SMEAR REVIEWED. PANCYTOPENIA WITH MACROCYTIC ANEMIA NOTED. ADDITIONAL STUDIES MAY BE CONSIDERED. REVIEWED BY ADALID HANSEN MD Procedures Date Code Description Status 04/01/2015 14059 Spirometry Completed 04/01/2015 51006 EKG, at Least 12 Leads w/Interpretation and Report Completed 09/08/2011 76284 EKG, at Least 12 Leads w/Interpretation and Report Completed Encounters Type Date Location Provider Dx Diagnosis Office Visit 04/12/2018 Main Office Gustavo Mata, S96.002A Unsp inj msl/tnd lng 2:45p STEM PROCESSING MACHINE OPERATOR-C flxr msl toe at ank/ft lev, l ft, init Office Visit 03/07/2018 Main Office Gustavo Mata, F10.239 Alcohol dependence 2:30p STEM PROCESSING MACHINE OPERATOR-C with withdrawal, unspecified M25.512 Pain in left shoulder G40.89 Other seizures Office Visit 02/22/2018 2:45p Main Office Fadi Ortiz, F10.239 Alcohol dependence with withdrawal, unspecified I62.00 Nontraumatic subdural hemorrhage, unspecified G40.89 Other seizures D61.818 Other pancytopenia Office Visit 03/30/2017 11:45a Main Office Gustavo Mata, L40.0 Psoriasis vulgaris STEM PROCESSING MACHINE OPERATOR-C Z11.59 Encounter for screening for other viral diseases Z23 Encounter for immunization Office Visit 03/20/2017 9:00a Main Office Chandan Colunga B35.4 Tinea corporis III, STEM PROCESSING MACHINE OPERATOR-C Office Visit 02/09/2017 4:00p Main Office Gustavo Mata, L20.9 Atopic dermatitis, STEM PROCESSING MACHINE OPERATOR-C unspecified B35.4 Tinea corporis Office Visit 01/18/2017 1:30p Main Office Gustavo Mata, Z00.00 Encntr for general STEM PROCESSING MACHINE OPERATOR-C adult medical exam w/o abnormal findings Office Visit 08/28/2016 11:30a Main Office Gustavo Mata, M54.32 Sciatica, left STEM PROCESSING MACHINE OPERATOR-C side M54.5 Low back pain G40.89 Other seizures Office Visit 03/31/2016 9:45a Main Office Chandan Colunga Z48.02 Encounter for III, STEM PROCESSING MACHINE OPERATOR-C removal of sutures Office Visit 09/03/2015 11:30a Main Office Gustavo Villalta 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, STEM PROCESSING MACHINE OPERATOR-C with myelopathy, 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, 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, w stat epi F10.239 Alcohol dependence with withdrawal, unspecified Office Visit 07/15/2015 11:30a Main Office Gustavo Mata, M54.32 Sciatica, left STEM PROCESSING MACHINE OPERATOR-C side 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, 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, w stat epi Office Visit 07/05/2015 10:00a Main Office Gustavo Villalta G40.501 Epileptic seiz rel Storm, STEM PROCESSING MACHINE OPERATOR-C to extrn causes, not ntrct, w stat epi S39.012A Strain of muscle, fascia and tendon of lower back, init F10.239 Alcohol dependence with withdrawal, unspecified Office Visit 04/01/2015 3:00p Main Office Gustavo Mata, 786.50 Pain Chest Unspec STEM PROCESSING MACHINE OPERATOR-C 327.52 Sleep Related Leg Cramps 780.4 Dizziness & Giddiness 305.1 Tobacco Use Disorder 303.92 Alcohol Dependence Episodic Other & Unspec Office Visit 12/03/2014 11:45a Main Office Shawnti R. 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 726.32 Epicondylitis Lateral Storm, STEM PROCESSING MACHINE OPERATOR-C Office Visit 07/21/2013 11:30a Main Office Shawnti R. 303.92 Alcohol Dependence Storm, STEM PROCESSING MACHINE OPERATOR-C Episodic Other & Unspec Office Visit 06/23/2013 4:00p Main Office Shawnti R. 486 Pneumonia Organism Storm, STEM PROCESSING MACHINE OPERATOR-C Unspec 305.1 Tobacco Use Disorder Office Visit 11/25/2012 4:15p Main Office Shawnti R. Storm, 786.59 Pain Chest Other STEM PROCESSING MACHINE OPERATOR-C Office Visit 04/02/2012 12:00p Main Office Shawnti R. Storm, 724.5 Backache Unspec STEM PROCESSING MACHINE OPERATOR-C 401.1 Hypertension Benign Office Visit 03/19/2012 12:00p Main Office Shawnti R. Storm, 724.5 Backache Unspec STEM PROCESSING MACHINE OPERATOR-C 401.1 Hypertension Benign Office Visit 11/16/2011 12:00p Main Office Shawnti R. 682.9 Cellulitis & Abscess Storm, STEM PROCESSING MACHINE OPERATOR-C Unspec Site Office Visit 11/10/2011 2:15p Main Office Shawnti R. 682.9 Cellulitis & Abscess Storm, STEM PROCESSING MACHINE OPERATOR-C Unspec Site Office Visit 11/07/2011 2:45p Main Office Shawnti R. 462 Pharyngitis Acute Storm, STEM PROCESSING MACHINE OPERATOR-C 723.1 Cervicalgia Office Visit 09/29/2011 10:00a Main Office Priscila Loaiza 401.1 Hypertension Maryellen Gomez M.D. 726.69 Bursitis Knee Other 728.85 Spasm Muscle Office Visit 09/08/2011 10:45a Main Office Priscila Loaiza 728.85 Spasm Muscle Omari Gomez Office Visit 08/28/2011 4:00p Main Office Priscila Loaiza 401.1 Hypertension Maryellen Gomez M.D. 305.1 Tobacco Use Disorder 303.92 Alcohol Dependence Episodic Other & Unspec 726.69 Bursitis Knee Other Office Visit 08/11/2011 10:00a Main Office Priscila Loaiza 401.1 Hypertension Benign Omari Gomez 305.01 Alcohol Abuse Continuous 791.0 Proteinuria 726.69 Bursitis Knee Other 305.1 Tobacco Use Disorder Plan of Treatment 09/05/2018 - Gustavo Mata, [facility]-CF10.188 Alcohol abuse with other alcohol- induced disorderComments:discussed importance of abstinence, rehab, likely inpatient for detox and prolonged rehab. He has spent time in snf several times , always returned to drinking after release. He has zero interest in quitting at this time. Will continue to discuss this at future visits. I suspect he will end up in the hospital in the near kijgqbQ82.89 Other seizuresComments: discharged from Dr Garibay due to no shows, will try to get into another neurology officeFollow up:referral to [id number] Dermatitis, unspecifiedNew Medication:Clotrimazole/Betamethasone Dipropionate 1-0.05 % - apply to left wrist twice daily until resolvedComments:will treat wrist with clotrimazole/ betamethasone, lotion to the rest of his skin. Skin changes are alcohol and malnutrition related. discussed importance of avoiding alcohol
[2018-09-19 18:20] LABS: ABS Basophils 0 10^3/ul (0-0.2); ABS Eosinophils 0 10^3/ul (0-0.6); ABS Lymphocytes 1.2 10^3/ul (1.0-4.8); ABS Monocytes 0.2 10^3/ul (0-0.8); ABS Neutrophils 1.9 10^3/ul (1.5-7.7); ABS Nucleated RBC 0 10^3/ul; Eosinophil % 0.6 %; Hematocrit 36 % (42-52); Hemoglobin 12.6 g/dl (14.0-18.0); Mean Corpuscular HGB Conc 35 g/dl (31-36); Mean Corpuscular Hemoglobin 35 pg (27-31); Mean Corpuscular Volume 100 fL (80-94); Mean Platelet Volume 7.9 fL (7.4-10.4); Nucleated Red Blood Cells % 0; Platelet Count 64 10^3/ul (150-450); Red Blood Count 3.63 10^6/ul (4.00-5.40); Red Cell Distribution Width 13 % (10.5-15); White Blood Count 3.4 10^3/ul (3.5-10.8)
[2018-09-19 18:25] LABS: Activated Partial Thrombo Time 32.9 seconds (26.0-36.3); INR 1.02 (0.77-1.02)
[2018-09-19 18:33] LABS: Albumin 4.6 g/dL (3.2-5.2); Albumin/Globulin Ratio 1.4 (1-3); Calcium 9.5 mg/dL (8.6-10.3); EGFR African American 178.9 (>60); EGFR Non-African American 147.9 (>60); Globulin 3.4 g/dL (2-4); Magnesium 1.4 mg/dL (1.9-2.7); Total Bilirubin 0.8 mg/dL (0.2-1.0)
--- NOTE | 2018-09-19 18:56 | ED ---
Neurological HPI - HPI Summary HPI Summary: This patient is a 58 year old male [facility] accompanied by son with a chief complaint of lightheadedness since a week ago. Patients son states that the patient has hit his head multiple times over the past few weeks and has been generally lethargic. Patient has a hx of alcohol abuse and withdrawal abuse. Patients son is concerned that he may be going through similar symptoms and seizures may reoccur. Patient states he last drank alcohol this morning. The pain is rated 7/10 in severity. Symptoms aggravated by nothing. Symptoms alleviated by nothing. Patient additionally reports nausea, vomiting, lack of appetite. Patient denies chest pain, SOB, abd pain. - History of Current Complaint Chief Complaint: EDGeneral Stated Complaint: SYNCOPY/SEIZURE Time Seen by Provider: 09/19/18 18:44 Hx Obtained From: Patient Onset/Duration: Started days ago, Still Present Timing: Constant Current Severity: Mild Neurological Deficit Location: Generalized Pain Intensity: 7 Pain Scale Used: 0-10 Numeric Character: Lightheaded, Dizzy, Other: Aggravating: Nothing Alleviating: Nothing Associated Signs and Symptoms: Positive: Weakness, Lightheadness. Negative: Chest Pain - Additional Pertinent History Primary Care Physician: [id number] - Allergy/Home Medications Allergies/Adverse Reactions: Allergies Allergy/AdvReac Type Severity Reaction Status Date / Time bee venom protein (honey bee) Allergy Unknown Verified 09/24/18 08:12 Reaction Details PMH/Surg Hx/FS Hx/Imm Hx Previously Healthy: No Endocrine/Hematology History: Denies: Hx Anticoagulant Therapy, Hx Diabetes Cardiovascular History: Reports: Hx Hypercholesterolemia, Hx Hypertension Denies: Hx Pacemaker/ICD Respiratory History: Denies: Hx Asthma History: Denies: Hx Dialysis, Hx Renal Disease Musculoskeletal History: Reports: Hx Arthritis, Hx Back Problems, Hx Scoliosis, Other Musculoskeletal History - c/o chronic soreness left posterior calf, states he has had " for years" Sensory History: Reports: Hx Contacts or Glasses - glasses, Hx Deafness Denies: Hx Hearing Aid Opthamlomology History: Reports: Hx Contacts or Glasses - glasses Neurological History: Reports: Hx Seizures, Other Neuro Impairments/Disorders - tremors r/t ETOH. PAIN CLINIC PT Psychiatric History: Reports: Hx Substance Abuse Denies: Hx Anxiety, Hx Attention Deficit Hyperactivity Disorder, Hx Eating Disorder, Hx Depression, Hx Panic Disorder, Hx Post Traumatic Stress Disorder, Hx Inpatient Treatment, Hx Community Mental Health Tx, Hx Schizophrenia, Hx Bipolar Disorder, Hx Suicide Attempt, Hx of Violent Episodes Against Others, Other Psychiatric Issues/Disorders - Surgical History Surgery Procedure, Year, and Place: APPENDIX 1982 - Immunization History Date of Tetanus Vaccine: unknown Infectious Disease History: No Infectious Disease History: Denies: Hx Hepatitis, Hx Human Immunodeficiency Virus (HIV), Hx of Known/ Suspected MRSA, Hx Shingles, Hx Tuberculosis, Traveled Outside the [place] in Last 30 Days - Family History Known Family History: Positive: Hypertension - Social History Alcohol Use: Daily Alcohol Amount: 5-6 glasses of vodka Hx Substance Use: Yes Substance Use Type: Reports: Marijuana Substance Use Comment - Amount & Last Used: 2 days prior to admission Hx Tobacco Use: Yes Smoking Status (MU): Light Every Day Tobacco Smoker Type: Cigarettes Amount Used/How Often: 5-6 cigarettes/day Have You Smoked in the Last Year: No Review of Systems Negative: Fever Negative: Chest Pain Negative: Shortness Of Breath Positive: Vomiting, Nausea. Negative: Abdominal Pain Neurological: Other - lightheadedness Positive: Slurred Speech All Other Systems Reviewed And Are Negative: Yes Physical Exam - Summary Physical Exam Summary: Appearance: Mildly ill-appearing, Well-nourished, lying in bed comfortably Skin: Warm, dry, no obvious rash Eyes: sclera anicteric, no conjunctival pallor ENT: mucous membranes moist, pharynx appears normal Neck: Supple, nontender Respiratory: Clear to auscultation, no signs of respiratory distress Cardiovascular: Normal S1, S2. No murmurs. Normal distal pulses in tibial and radial bilaterally. Abdomen: Soft, nontender, normal active bowel sounds present Musculoskeletal: Normal, Strength/ROM Intact Neurological: A&Ox3, awake and alert, mentation is normal, speech is fluent and appropriate Psychiatric: affect is normal, does not appear anxious or depressed Triage Information Reviewed: Yes Vital Signs On Initial Exam: Initial Vitals Temp Pulse Resp BP Pulse Ox 97.5 F 77 18 179/107 99 09/19/18 14:25 09/19/18 14:25 09/19/18 14:25 09/19/18 14:25 09/19/18 14:25 Vital Signs Reviewed: Yes Diagnostics - Vital Signs Vital Signs Temp Pulse Resp BP Pulse Ox 09/19/18 18:41 90 18 97 09/19/18 18:16 99 F 88 20 145/93 96 09/19/18 16:30 98.4 F 86 20 143/83 97 09/19/18 14:25 97.5 F 77 18 179/107 99 - Laboratory Lab Results: Lab Results 09/19/18 09/19/18 09/19/18 Range/Units 18:03 18:03 18:03 WBC 3.4 L (3.5-10.8) 10^3/ul RBC 3.63 L (4.00-5.40) 10^6/ul Hgb 12.6 L (14.0-18.0) g/dl Hct 36 L (42-52) % MCV 100 H (80-94) fL MCH 35 H (27-31) pg MCHC 35 (31-36) g/dl RDW 13 (10.5-15) % Plt Count 64 L (150-450) 10^3/ul MPV 7.9 (7.4-10.4) fL Neut % (Auto) 55.9 % Lymph % (Auto) 35.0 % Carlisle % (Auto) 7.3 % Eos % (Auto) 0.6 % Baso % (Auto) 1.2 % Absolute Neuts (auto) 1.9 (1.5-7.7) 10^3/ul Absolute Lymphs (auto) 1.2 (1.0-4.8) 10^3/ul Absolute Monos (auto) 0.2 (0-0.8) 10^3/ul Absolute Eos (auto) 0 (0-0.6) 10^3/ul Absolute Basos (auto) 0 (0-0.2) 10^3/ul Absolute Nucleated RBC 0 10^3/ul Nucleated RBC % 0 INR (Anticoag Therapy) 1.02 (0.77-1.02) APTT 32.9 (26.0-36.3) seconds Sodium 139 (135-145) mmol/L Potassium 4.0 (3.5-5.0) mmol/L Chloride 98 L (101-111) mmol/L Carbon Dioxide 27 (22-32) mmol/L Anion Gap 14 H (2-11) mmol/L BUN 8 (6-24) mg/dL Creatinine 0.57 L (0.67-1.17) mg/dL Est GFR ( Amer) 178.9 (>60) Est GFR (Non-Af Amer) 147.9 (>60) BUN/Creatinine Ratio 14.0 (8-20) Glucose 100 (70-100) mg/dL Lactic Acid (0.5-2.0) mmol/L Calcium 9.5 (8.6-10.3) mg/dL Magnesium 1.4 L (1.9-2.7) mg/dL Total Bilirubin 0.80 (0.2-1.0) mg/dL AST 85 H (13-39) U/L ALT 33 (7-52) U/L Alkaline Phosphatase 154 H (34-104) U/L Total Creatine Kinase 83 (10-223) U/L Troponin I 0.00 (<0.04) ng/mL Total Protein 8.0 (6.4-8.9) g/dL Albumin 4.6 (3.2-5.2) g/dL Globulin 3.4 (2-4) g/dL Albumin/Globulin Ratio 1.4 (1-3) TSH Pending Serum Alcohol Pending 09/19/18 Range/Units 18:03 WBC (3.5-10.8) 10^3/ul RBC (4.00-5.40) 10^6/ul Hgb (14.0-18.0) g/dl Hct (42-52) % MCV (80-94) fL MCH (27-31) pg MCHC (31-36) g/dl RDW (10.5-15) % Plt Count (150-450) 10^3/ul MPV (7.4-10.4) fL Neut % (Auto) % Lymph % (Auto) % Carlisle % (Auto) % Eos % (Auto) % Baso % (Auto) % Absolute Neuts (auto) (1.5-7.7) 10^3/ul Absolute Lymphs (auto) (1.0-4.8) 10^3/ul Absolute Monos (auto) (0-0.8) 10^3/ul Absolute Eos (auto) (0-0.6) 10^3/ul Absolute Basos (auto) (0-0.2) 10^3/ul Absolute Nucleated RBC 10^3/ul Nucleated RBC % INR (Anticoag Therapy) (0.77-1.02) APTT (26.0-36.3) seconds Sodium (135-145) mmol/L Potassium (3.5-5.0) mmol/L Chloride (101-111) mmol/L Carbon Dioxide (22-32) mmol/L Anion Gap (2-11) mmol/L BUN (6-24) mg/dL Creatinine (0.67-1.17) mg/dL Est GFR ( Amer) (>60) Est GFR (Non-Af Amer) (>60) BUN/Creatinine Ratio (8-20) Glucose (70-100) mg/dL Lactic Acid 2.8 H* (0.5-2.0) mmol/L Calcium (8.6-10.3) mg/dL Magnesium (1.9-2.7) mg/dL Total Bilirubin (0.2-1.0) mg/dL AST (13-39) U/L ALT (7-52) U/L Alkaline Phosphatase (34-104) U/L Total Creatine Kinase (10-223) U/L Troponin I (<0.04) ng/mL Total Protein (6.4-8.9) g/dL Albumin (3.2-5.2) g/dL Globulin (2-4) g/dL Albumin/Globulin Ratio (1-3) TSH Serum Alcohol Result Diagrams: 09/23/18 06:40 09/23/18 06:40 Lab Statement: Any lab studies that have been ordered have been reviewed, and results considered in the medical decision making process. - Radiology CXR Radiology Interpretation Completed By: Radiologist Summary of Radiographic Findings: CXR reveals, per radiologist, IMPRESSION: NO EVIDENCE FOR ACTIVE CARDIOPULMONARY DISEASE. ED physician has reviewed this radiology report. - CT CT Brain CT Interpretation Completed By: Radiologist Summary of CT Findings: CT Brain reveals, per radiologist, IMPRESSION: NO EVIDENCE FOR ACUTE INTRACRANIAL ABNORMALITY. ED physician has reviewed this radiology report. - EKG 1630 Cardiac Rate: NL EKG Rhythm: Sinus Rhythm - 79 BPM Summary of EKG Findings: An EKG, taken 1630, reveals NSR at 79 BPM, P waves, QRS complex, and T waves are within normal limits, T waves and intervals are normal, no ischemic changes. This is a normal EKG. Course/Dx - Course Course Of Treatment: This patient is a 58 year old male presenting to [facility] accompanied by son with a chief complaint of lightheadedness since a week ago. Patients son states that the patient has hit his head multiple times over the past few weeks and has been generally lethargic. Patient has a hx of alcohol abuse and withdrawal abuse. An EKG, taken 1630, reveals NSR at 79 BPM, P waves, QRS complex, and T waves are within normal limits, T waves and intervals are normal, no ischemic changes. This is a normal EKG. CXR reveals, per radiologist , IMPRESSION: NO EVIDENCE FOR ACTIVE CARDIOPULMONARY DISEASE. ED physician has reviewed this radiology report. CT Brain reveals, per radiologist, IMPRESSION: NO EVIDENCE FOR ACUTE INTRACRANIAL ABNORMALITY. ED physician has reviewed this radiology report. Bloodwork Obtained. Urinalysis Obtained. We discussed patient care with Dr. Castano (Hospitalist) at 1731 and they agreed to accept the patient. Patient will be admitted with a dx of alcohol withdrawal. The patient is agreeable with this plan. - Diagnoses Provider Diagnoses: Alcohol withdrawal - Physician Notifications Discussed Care Of Patient With: Mary Kate Castano - Hospitalist Time Discussed With Above Provider: 17:31 - We discussed patient care with Dr. Castano (Hospitalist) at 1731 and they agreed to accept the patient. Discharge - Sign-Out/Discharge Documenting (check all that apply): Patient Departure Patient Received Moderate/Deep Sedation with Procedure: No - Discharge Plan Condition: Stable Disposition: ADMITTED TO [facility] - Billing Disposition and Condition Condition: STABLE Disposition: Admitted to [facility] - Attestation Statements Document Initiated by Darryl: Yes Documenting Joshuaibjohn: Cory Barnes Provider For Whom Darryl is Documenting (Include Credential): MD Joshua Estevezibjohn Attestation: Cory Montemayor scribed for German Lozada MD on 09/25/18 at 0614. Scribe Documentation Reviewed: Yes Provider Attestation: The documentation as recorded by the Cory cevallos accurately reflects the service I personally performed and the decisions made by German gonzalez MD Status of Scribe Document: Viewed
[2018-09-19 19:22] LABS: Phenytoin 6.3 mcg/mL (10-20)
[2018-09-19 19:51] LABS: TSH (Thyroid Stimulating Horm) 1.05 mcIU/mL (0.34-5.60)
[2018-09-19] MEDS ORDERED: NS 0.9% 1000 ML** 2,000 ML IV ONE (20:01)
[2018-09-19] MEDS ORDERED: Ondansetron INJ* 2 MG/ML VIAL IV PRN (20:08)
[2018-09-19] MEDS ORDERED: Acetaminophen TAB* 325 MG PO PRN ×2 (20:08)
[2018-09-19] MEDS ORDERED: PHENYTOIN IV ONE ×2 (20:19→21:00)
[2018-09-19] MEDS ORDERED: NS 0.9% IV ONE ×2 (20:19→21:00)
[2018-09-19] MEDS ORDERED: Magnesium Sulf 4 GM/100 ML IV* 4,000 MG/100 ML BAG IVPB ONE (20:21)
[2018-09-19] MEDS ORDERED: LORazepam INJ* 2 MG/ML 1 ML VIAL ONE (20:54)
[2018-09-19] MEDS: LORazepam INJ* 2 MG/ML 1 ML VIAL IV PUSH SCH (20:58)
[2018-09-19] MEDS ORDERED: LORazepam TAB(*) 1 MG PO SCH (21:00)
[2018-09-19] MEDS ORDERED: Heparin VIAL(*) 5000 UNITS/ML VIAL (FIVE THOUSAND) SUBCUT SCH (22:00)
[2018-09-19] MEDS ORDERED: Mouth Piece, Nicotine* 1 EACH CARTRIDGE INH ONE (23:00)
[2018-09-19] MEDS ORDERED: NS 0.9% 1000 ML** 1,000 ML IV ONE (23:19)
[2018-09-19] MEDS: Multivitamins/Minerals TAB PO SCH (23:37)
[2018-09-19] MEDS: Gabapentin CAP(*) 300 MG PO SCH (23:37)
[2018-09-19] MEDS: LORazepam TAB(*) 1 MG PO SCH (23:37)
[2018-09-19] MEDS: Magnesium Oxide TAB* 400 MG PO SCH (23:38)
[2018-09-19] MEDS: Thiamine TAB* 100 MG TAB PO SCH (23:38)
[2018-09-19] MEDS: Metoprolol Tartrate TAB* 50 mg PO SCH (23:38)
[2018-09-19] MEDS: Folic Acid TAB* 1 MG PO SCH (23:38)
[2018-09-19] MEDS: Nicotine Inhaler* 10 MG AMP INH PRN (23:44)
--- NOTE | 2018-09-20 00:11 | HP ---
CC: Gustavo Mata NP * HISTORY AND PHYSICAL: DATE OF ADMISSION: 09/19/18 PRIMARY CARE PROVIDER: Gustavo Mata NP MY ATTENDING WHILE IN THE HOSPITAL: Dr. Mary Kate Castano.* (DICTATED BY MAI HUTCHINS) CHIEF COMPLAINT: Fall. HISTORY OF PRESENT ILLNESS: Mr. Edmond is a 58-year-old male with past medical history significant for alcoholism, seizure disorder, and hypertension, who presents to the emergency department after having several times in the last week fallen or been noticed to be unresponsive. The patient had one fall that he remembers 1 week ago where he fell on to his neighbor. The patient states this is consistent with his previous seizures. The patient was not noticed at this time to have clonic-tonic movements. The patient had several other episodes of sudden loss of consciousness, witnessed by his neighbor and his son. The patient drinks alcohol every day but his range varies from a bottle of vodka to a couple of beers. The patient had 2 beers this morning. The patient's most recent episode of witnessed loss of consciousness was 2 days ago. The patient denies fevers, chills, chest pain, shortness of breath, dysuria, abdominal pain, diarrhea. The patient has been nauseous and vomiting this afternoon. The patient has also been tremulous. The patient states he is always unsteady on his feet. The patient denies any loss of sensation in his lower legs. The patient did have one episode of loss of sensation in the entirety of his left arm, which was associated with one of his episodes of loss of consciousness, but this has resolved. The patient has had no sick contacts or recent changes in his medications. The patient takes his medications intermittently. The patient states he is interested in quitting alcohol at this time. The patient will be admitted to the hospital for alcohol withdrawal and adjustment of seizure medications. PAST MEDICAL HISTORY: Seizure disorder; alcohol and tobacco abuse; hypertension ; chronic subdural hematoma, not present on current CT; recent history of clavicular fracture; psoriasis. PAST SURGICAL HISTORY: Appendectomy. MEDICATIONS: 1. Magnesium oxide 400 mg p.o. t.i.d. 2. Folic acid 1 mg p.o. daily. 3. Gabapentin 300 mg p.o. b.i.d. 4. Metoprolol tartrate 25 mg p.o. b.i.d. 5. Phenytoin 200 mg p.o. q.p.m. 6. Phenytoin 100 mg p.o. q.a.m. 7. Amlodipine 10 mg p.o. daily. 8. Ascorbic acid 500 mg p.o. daily. 9. Multivitamin 1 tab p.o. daily. ALLERGIES: BEE VENOM. FAMILY HISTORY: The patient's father of stomach cancer. Patient's father of stroke. The patient has several siblings of diabetes. SOCIAL HISTORY: The patient smokes 2 to 3 cigarettes a day, though his son disputes this amount. Patient drinks 2 beers to a bottle of vodka daily. As above, patient denies any illicit drug use. 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 The patient is not . The patient has one child. The patient's son, Juan Edmond, will be his surrogate decision maker. REVIEW OF SYSTEMS: A 14-review of systems was reviewed and is negative except as above in the HPI. PHYSICAL EXAMINATION GENERAL: The patient is a 58-year-old male who appears older than stated age, sitting comfortably in bed, in no acute distress. VITAL SIGNS: Temperature 97.5, pulse rate 103, respiratory rate 22, oxygen saturation 98% on room air, blood pressure 179/120. HEENT: Head: Normocephalic, atraumatic. Sclerae anicteric. No conjunctival injection. Nasal mucosa moist. Oral mucosa moist. No pharyngeal erythema, discharge, or exudate. NECK: Supple, nontender. No lymphadenopathy. No carotid bruits auscultated. No JVD. RESPIRATORY: Clear to auscultation bilaterally. No wheezes, rales, or rhonchi. Good air exchange bilaterally. CARDIAC: Regular rate and rhythm. No clicks, murmurs, gallops, or rubs. Pulses are 2+ in the bilateral dorsalis pedis, posterior tibialis, and radial areas. ABDOMEN: Soft, nontender, nondistended. Bowel sounds present and normoactive in all 4 quadrants. No hepatosplenomegaly. No abdominal bruits auscultated. No hepatojugular reflux. GENITOURINARY: No suprapubic or CVA tenderness. NEUROLOGIC: Cranial nerves II through XII intact. No focal deficits. Significant tremor. Alert and oriented to self and place but not to time. Patient thinks it is 2018, does not know what month it is, but does know what day of the week it is. SKIN: Clean, dry, and intact. No rash. PSYCHIATRIC: Pleasant and cooperative, but occasionally irritable. DIAGNOSTIC STUDIES/LAB DATA: White blood cell count 3.4, hemoglobin 12.6, MCV 100, MCH 35, platelet count 64. INR 1.02, AST 32.9. Sodium 139, potassium 4, chloride 98, carbon dioxide 27, anion gap 14, BUN 8, creatinine 0.57, glucose 100, lactic acid 2.8. Calcium 9.5, magnesium 1.4, bilirubin 0.8, AST 85, ALT 33 , alkaline phosphatase 154, creatinine kinase 83, troponin I 0.00. Protein 8.8 , albumin 4.6, globulin 3.4, TSH 1.05. Phenytoin 6.3. Serum alcohol 91 drawn at 603. Studies: Brain CT shows no evidence of acute intracranial pathology. Chest x- ray read as no evidence for acute cardiopulmonary disease. Electrocardiogram shows sinus rhythm, rate of 79, QTC of 461. No ST segment abnormalities. Possible epsilon or flutter waves, possible atrial enlargement, normal axis, consistent with previous studies. ASSESSMENT AND PLAN/IMPRESSION: Mr. Edmond is a 58-year-old male with past medical history significant for chronic alcoholism, seizure disorder, and hypertension, who has had numerous hospitalizations at this institution for alcohol withdrawal. The patient at this time appears to be withdrawing from alcohol again and states an interest in quitting alcohol. The patient has also had several episodes over the past week, which were consistent with previous history of seizures and he is subtherapeutic on his phenytoin. The patient will be admitted to the hospital for alcohol withdrawal and optimization of his seizure medications. 1. Alcohol withdrawal: Patient currently still has alcohol in system as he wass a heavy drinker. Patient is interested in alcohol withdrawal. The patient will be started on the WAM protocol. The patient will be continued on his metoprolol. Given the patient's history of seizures, the patient will be started on an Ativan taper. The patient has evidence of mild alcoholic hepatitis with an AST elevated at 85 and ALT normal at 33. The patient has no elevated INR, decreased bilirubin. The patient would not be eligible for steroids for alcoholic hepatitis. The patient does have low magnesium and pancytopenia consistent with alcoholic suppression of his bone marrow. The patient will have vitamin B12 drawn and this was supplemented. The patient will be supplemented with thiamine and folate. The patient might need B12 supplementation. The patient did not show signs of Wernicke's encephalopathy at this time. 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 2. Seizure disorder: The patient has a known seizure disorder. The patient is on phenytoin, but his level is subtherapeutic. His case had been discussed with Dr. Mayo Elise of Neurology, who will see the patient in consultation, who recommended a 300 mg loading dose of phenytoin tonight to supplement his normal phenytoin dosing and a repeat level in the morning. All of which have been ordered. The patient will be treated with Ativan to avoid alcohol withdrawal seizures. 3. Tobacco abuse: Patient will be provided with nicotine replacement therapy. 4. Hypertension: Continue patient's amlodipine and metoprolol. The patient is currently hypertensive. 5. Chronic subdural hematoma: The patient will have only SCDs for DVT prophylaxis due to chronic subdural hematoma and thrombocytopenia with borderline almost below the level where anticoagulation would be contraindicated. 6. DVT prophylaxis: SCDs as above. The patient is a moderate risk. 7. FEN: The patient with fluids at 100 mL an hour due to apparent hypovolemia with elevated lactic acid. Lactic acid will be rechecked. The patient will have heart healthy diet without caffeine. 8. Code status: The patient would like to be a full code. The patient's surrogate decision maker will be his son as above. 9. Disposition: The patient will be admitted inpatient. 10. Length of stay: Greater than 2 days. TIME SPENT: Approximately 60 minutes was spent on the admission of this patient , 30 of which was spent [id number] with the patient obtaining history and physical and discussing treatment plan. Plan was discussed with my attending, Dr. Mary Kate Castano, and she is in agreement. MAI HUTCHINS [id number]/CPS #: [id number]
[2018-09-20] MEDS: LORazepam INJ* 2 MG/ML 1 ML VIAL IV PUSH SCH ×2 (01:09→05:41)
[2018-09-20] MEDS: NS 0.9% 1000 ML** 1,000 ML IV SCH (01:10)
[2018-09-20] MEDS: LORazepam TAB(*) 1 MG PO SCH ×2 (05:43→13:38)
[2018-09-20] MEDS: Multivitamins/Minerals TAB PO SCH (07:32)
[2018-09-20] MEDS: Magnesium Oxide TAB* 400 MG PO SCH ×3 (07:32→22:43)
[2018-09-20] MEDS: Thiamine TAB* 100 MG TAB PO SCH (07:32)
[2018-09-20] MEDS: Metoprolol Tartrate TAB* 50 mg PO SCH ×2 (07:32→22:44)
[2018-09-20] MEDS: amLODIPine TAB* 5 MG PO SCH (07:33)
[2018-09-20] MEDS: Folic Acid TAB* 1 MG PO SCH (07:33)
[2018-09-20] MEDS: Phenytoin CAP(*) 100 MG CAP.ER PO SCH ×2 (07:34→17:49)
[2018-09-20] MEDS: Gabapentin CAP(*) 300 MG PO SCH ×2 (07:35→22:44)
[2018-09-20] MEDS: Ascorbic Acid TAB* 500 MG PO SCH (07:35)
[2018-09-20 07:36] LABS: ABS Basophils 0 10^3/ul (0-0.2); ABS Eosinophils 0.1 10^3/ul (0-0.6); ABS Lymphocytes 1.1 10^3/ul (1.0-4.8); ABS Monocytes 0.4 10^3/ul (0-0.8); ABS Neutrophils 1.1 10^3/ul (1.5-7.7); ABS Nucleated RBC 0 10^3/ul; Hematocrit 34 % (42-52); Hemoglobin 11.8 g/dl (14.0-18.0); Lymphocyte % 40.3 %; Mean Corpuscular HGB Conc 35 g/dl (31-36); Mean Corpuscular Hemoglobin 35 pg (27-31); Mean Corpuscular Volume 100 fL (80-94); Mean Platelet Volume 8.4 fL (7.4-10.4); Nucleated Red Blood Cells % 0.2; Platelet Count 51 10^3/ul (150-450); Red Blood Count 3.39 10^6/ul (4.00-5.40); Red Cell Distribution Width 13 % (10.5-15); White Blood Count 2.7 10^3/ul (3.5-10.8)
[2018-09-20 07:48] LABS: Albumin 4.1 g/dL (3.2-5.2); Albumin/Globulin Ratio 1.3 (1-3); BUN/Creatinine Ratio 9.8 (8-20); Calcium 8.8 mg/dL (8.6-10.3); EGFR African American 203.4 (>60); EGFR Non-African American 168.1 (>60); Globulin 3.1 g/dL (2-4); Magnesium 1.7 mg/dL (1.9-2.7); Potassium 3.3 mmol/L (3.5-5.0); Total Bilirubin 0.9 mg/dL (0.2-1.0); Total Protein 7.2 g/dL (6.4-8.9)
[2018-09-20 08:03] LABS: Phenytoin 6.9 mcg/mL (10-20)
[2018-09-20] MEDS ORDERED: Magnesium Sulfate IV* 3 GM in NS 0.9% 100 ML* 100 ML IVPB ONE (08:17)
[2018-09-20] MEDS ORDERED: Potassium Chlor TAB* 20 MEQ TAB.ER PO STA (08:18)
[2018-09-20] MEDS ORDERED: Multivitamins/Minerals TAB PO SCH (09:00)
[2018-09-20] MEDS ORDERED: Folic Acid TAB* 1 MG PO SCH (09:00)
[2018-09-20 10:35] LABS: Barbiturates Urine Screen None Detected (None Detect); Benzodiazepine Urine Screen None Detected (None Detect); Urine Cannabinoids Screen None Detected (None Detect)
--- NOTE | 2018-09-20 13:27 | PN ---
Subjective Date of Service: 09/20/18 Interval History: Pt seen and examined. Meds and labs reviewed. CC: N/A ROS: Denied TRIANA/dizziness, F/C, N/V, CP, SOB, increased cough, sputum production , abd pain, diarrhea, constipation, dysuria, myalgias, arthralgias, throat pain , and new skin lesions. The rest of the 14 point ROS are unremarkable. PHYSICAL EXAM: GEN APPEARANCE: Awake, not in acute distress, confused, not oriented to person and time HEENT: NC/AT, PERRLA, moist oral mucosa, (-) throat erythema NECK: Soft, supple, (-) cervical LAD, (-)JVD HEART: S1S2 WNL, RRR, No MRG CHEST: CTA, BL, GAE, No W/R/R ABD: Soft, ND/NT, NABS 4x Q EXT: No C/C/E SKIN: Warm to touch PSYCH: Blunt affect, No active psychosis, hallucinations, depression, SI/HI Objective Active Medications: Acetaminophen (Tylenol Tab*) 650 mg PO Q4H PRN PRN Reason: PAIN OR FEVER Amlodipine Besylate (Norvasc Tab*) 10 mg PO DAILY [facility] Last Admin: 09/20/18 07:33 Dose: 10 mg Ascorbic Acid (Vitamin C Tab*) 500 mg PO DAILY [facility] Last Admin: 09/20/18 07:35 Dose: 500 mg Folic Acid (Folvite Tab*) 1 mg PO DAILY [facility] Last Admin: 09/20/18 07:33 Dose: 1 mg Gabapentin (Neurontin Cap(*)) 300 mg PO BID [facility] Last Admin: 09/20/18 07:35 Dose: 300 mg Sodium Chloride (Ns 0.9% 1000 Ml) 1,000 mls @ 100 mls/hr IV PER RATE [facility] Last Admin: 09/20/18 01:10 Dose: 100 mls/hr Lorazepam (Ativan Tab(*)) 2 mg PO Q12H [facility]; Taper Stop: 09/22/18 16:59 Last Admin: 09/20/18 05:43 Dose: 2 mg Lorazepam (Ativan Inj*) 0 - 3 mg IV PUSH .PER [facility] PROTOCOL [facility]; Protocol Last Admin: 09/20/18 05:41 Dose: 2.5 mg Magnesium Oxide (Magox 400 Tab*) 400 mg PO TID [facility] Last Admin: 09/20/18 07:32 Dose: 400 mg Metoprolol Tartrate (Lopressor Tab*) 50 mg PO BID [facility] Last Admin: 09/20/18 07:32 Dose: 50 mg Multivitamins/Minerals (Theragran/Minerals Tab*) 1 tab PO DAILY [facility] Last Admin: 09/20/18 07:32 Dose: 1 tab Nicotine (Nicotine Inhaler*) 10 mg INH Q2H PRN PRN Reason: CRAVING Last Admin: 09/19/18 23:44 Dose: 10 mg Ondansetron HCl (Zofran Inj*) 4 mg IV Q6H PRN PRN Reason: NAUSEA Phenytoin Sodium (Dilantin Cap(*)) 100 mg PO QAM [facility] Last Admin: 09/20/18 07:34 Dose: 100 mg Phenytoin Sodium (Dilantin Cap(*)) 200 mg PO QPM [facility] Thiamine HCl (Vitamin B-1 Tab*) 100 mg PO DAILY [facility] Last Admin: 09/20/18 07:32 Dose: 100 mg Vital Signs - 8 hr 09/20/18 09/20/18 09/20/18 05:41 05:43 06:35 Temperature 98.2 F Pulse Rate 89 Respiratory 18 18 18 Rate Blood Pressure 149/93 (mmHg) O2 Sat by Pulse 98 Oximetry 09/20/18 09/20/18 09/20/18 07:24 07:35 08:00 Temperature Pulse Rate Respiratory 16 18 18 Rate Blood Pressure (mmHg) O2 Sat by Pulse Oximetry 09/20/18 09/20/18 09/20/18 08:20 09:32 10:00 Temperature 98.1 F Pulse Rate 93 Respiratory 17 18 18 Rate Blood Pressure 140/98 (mmHg) O2 Sat by Pulse 100 Oximetry 09/20/18 11:06 Temperature 98.5 F Pulse Rate 82 Respiratory 18 Rate Blood Pressure 132/84 (mmHg) O2 Sat by Pulse 99 Oximetry Oxygen Devices in Use Now: None Result Diagrams: 09/20/18 07:14 09/20/18 07:14 Additional Lab and Data: Lab Results 09/19/18 09/19/18 09/19/18 Range/Units 18:03 18:03 18:03 WBC 3.4 L (3.5-10.8) 10^3/ul RBC 3.63 L (4.00-5.40) 10^6/ul Hgb 12.6 L (14.0-18.0) g/dl Hct 36 L (42-52) % MCV 100 H (80-94) fL MCH 35 H (27-31) pg MCHC 35 (31-36) g/dl RDW 13 (10.5-15) % Plt Count 64 L (150-450) 10^3/ul MPV 7.9 (7.4-10.4) fL Neut % (Auto) 55.9 % Lymph % (Auto) 35.0 % [place] % (Auto) 7.3 % Eos % (Auto) 0.6 % Baso % (Auto) 1.2 % Absolute Neuts (auto) 1.9 (1.5-7.7) 10^3/ul Absolute Lymphs (auto) 1.2 (1.0-4.8) 10^3/ul Absolute Monos (auto) 0.2 (0-0.8) 10^3/ul Absolute Eos (auto) 0 (0-0.6) 10^3/ul Absolute Basos (auto) 0 (0-0.2) 10^3/ul Absolute Nucleated RBC 0 10^3/ul Nucleated RBC % 0 INR (Anticoag Therapy) 1.02 (0.77-1.02) APTT 32.9 (26.0-36.3) seconds Sodium 139 (135-145) mmol/L Potassium 4.0 (3.5-5.0) mmol/L Chloride 98 L (101-111) mmol/L Carbon Dioxide 27 (22-32) mmol/L Anion Gap 14 H (2-11) mmol/L BUN 8 (6-24) mg/dL Creatinine 0.57 L (0.67-1.17) mg/dL Est GFR ( Amer) 178.9 (>60) Est GFR (Non-Af Amer) 147.9 (>60) BUN/Creatinine Ratio 14.0 (8-20) Glucose 100 (70-100) mg/dL Lactic Acid (0.5-2.0) mmol/L Calcium 9.5 (8.6-10.3) mg/dL Magnesium 1.4 L (1.9-2.7) mg/dL Total Bilirubin 0.80 (0.2-1.0) mg/dL AST 85 H (13-39) U/L ALT 33 (7-52) U/L Alkaline Phosphatase 154 H (34-104) U/L Total Creatine Kinase 83 (10-223) U/L Troponin I 0.00 (<0.04) ng/mL Total Protein 8.0 (6.4-8.9) g/dL Albumin 4.6 (3.2-5.2) g/dL Globulin 3.4 (2-4) g/dL Albumin/Globulin Ratio 1.4 (1-3) TSH Pending Serum Alcohol Pending 09/19/18 Range/Units 18:03 WBC (3.5-10.8) 10^3/ul RBC (4.00-5.40) 10^6/ul Hgb (14.0-18.0) g/dl Hct (42-52) % MCV (80-94) fL MCH (27-31) pg MCHC (31-36) g/dl RDW (10.5-15) % Plt Count (150-450) 10^3/ul MPV (7.4-10.4) fL Neut % (Auto) % Lymph % (Auto) % [place] % (Auto) % Eos % (Auto) % Baso % (Auto) % Absolute Neuts (auto) (1.5-7.7) 10^3/ul Absolute Lymphs (auto) (1.0-4.8) 10^3/ul Absolute Monos (auto) (0-0.8) 10^3/ul Absolute Eos (auto) (0-0.6) 10^3/ul Absolute Basos (auto) (0-0.2) 10^3/ul Absolute Nucleated RBC 10^3/ul Nucleated RBC % INR (Anticoag Therapy) (0.77-1.02) APTT (26.0-36.3) seconds Sodium (135-145) mmol/L Potassium (3.5-5.0) mmol/L Chloride (101-111) mmol/L Carbon Dioxide (22-32) mmol/L Anion Gap (2-11) mmol/L BUN (6-24) mg/dL Creatinine (0.67-1.17) mg/dL Est GFR ( Amer) (>60) Est GFR (Non-Af Amer) (>60) BUN/Creatinine Ratio (8-20) Glucose (70-100) mg/dL Lactic Acid 2.8 H* (0.5-2.0) mmol/L Calcium (8.6-10.3) mg/dL Magnesium (1.9-2.7) mg/dL Total Bilirubin (0.2-1.0) mg/dL AST (13-39) U/L ALT (7-52) U/L Alkaline Phosphatase (34-104) U/L Total Creatine Kinase (10-223) U/L Troponin I (<0.04) ng/mL Total Protein (6.4-8.9) g/dL Albumin (3.2-5.2) g/dL Globulin (2-4) g/dL Albumin/Globulin Ratio (1-3) TSH Serum Alcohol Assess/Plan/Problems-Billing Assessment: - Patient Problems (1) Alcohol withdrawal Current Visit: No Status: Acute Code(s): F10.239 - ALCOHOL DEPENDENCE WITH WITHDRAWAL, UNSPECIFIED SNOMED Code(s): 682138981 Comment: -Continue [place] protocol (2) Alcoholic hepatitis Current Visit: Yes Status: Acute Code(s): K70.10 - ALCOHOLIC HEPATITIS WITHOUT ASCITES SNOMED Code(s): 023695948 Comment: -Mild; improving -Advised lifestyle modifications -Continue supportive therapy (3) Pancytopenia Current Visit: No Status: Acute Code(s): D61.818 - OTHER PANCYTOPENIA SNOMED Code(s): 684083108 Comment: -Possibly due to chronic ETOH use vs. early cirrhosis -Will obtain CT of abd w/contrast (4) Seizure disorder Current Visit: No Status: Acute Code(s): G40.909 - EPILEPSY, UNSP, NOT INTRACTABLE, WITHOUT STATUS EPILEPTICUS SNOMED Code(s): 504193523 Comment: -Continue Phenytoin; unclear if compliant w/home meds (5) Tobacco abuse Current Visit: No Status: Acute Code(s): Z72.0 - TOBACCO USE SNOMED Code(s ): 616468593 Comment: -Advised lifestyle modifications -Continue Nicotine replacement therapy (6) HTN (hypertension) Current Visit: No Status: Acute Code(s): I10 - ESSENTIAL (PRIMARY) HYPERTENSION SNOMED Code(s): 39735278 Comment: -Continue Metoprolol and Amlodipine (7) DVT prophylaxis Current Visit: No Status: Acute Code(s): ZZT7131 - SNOMED Code(s): 642338946 Comment: -Continue SCDs given pts thrombocytopenia/pancytopenia Status and Disposition: -For PT eval
[2018-09-20] MEDS ORDERED: Iohexol 300* (CONTRAST) 10 ML SDV IV ONE (13:39)
[2018-09-20] MEDS ORDERED: Folic Acid IV* 1 MG, Multiple Vitamin IV ADULT* 10 ML in D5NS 0.9% 1000 ML BAG* 1,000 ML IV SCH ×4 (16:00)
[2018-09-20] MEDS ORDERED: [UNRECOGNIZED DRUG - OTHER] IV SCH ×2 (16:03→17:00)
[2018-09-20] MEDS ORDERED: MULTIPLE VITAMIN IV SCH ×2 (16:03→17:00)
[2018-09-20] MEDS ORDERED: THIAMINE IV SCH ×2 (16:03→17:00)
[2018-09-20] MEDS ORDERED: FOLIC ACID IV SCH ×2 (16:03→17:00)
[2018-09-21] MEDS: NS 0.9% 1000 ML** 1,000 ML IV SCH (00:53)
[2018-09-21 01:13] LABS: Urine Appearance Clear; Urine Bilirubin Negative (Negative); Urine Blood Negative (Negative); Urine Color Straw; Urine Glucose Negative (Negative); Urine Ketones Negative (Negative); Urine Nitrite Negative (Negative); Urine Protein Negative (Negative); Urine Specific Gravity 1.008 (1.010-1.030); Urine Urobilinogen Negative (Negative)
[2018-09-21] MEDS: LORazepam TAB(*) 1 MG PO SCH ×2 (03:14→13:48)
[2018-09-21 06:50] LABS: Hematocrit 33 % (42-52); Hemoglobin 11.5 g/dl (14.0-18.0); Mean Corpuscular HGB Conc 35 g/dl (31-36); Mean Corpuscular Hemoglobin 35 pg (27-31); Mean Corpuscular Volume 100 fL (80-94); Mean Platelet Volume 9.1 fL (7.4-10.4); Platelet Count 51 10^3/ul (150-450); Red Blood Count 3.29 10^6/ul (4.00-5.40); Red Cell Distribution Width 13 % (10.5-15); White Blood Count 3.9 10^3/ul (3.5-10.8)
[2018-09-21 07:05] LABS: Albumin 3.8 g/dL (3.2-5.2); Albumin/Globulin Ratio 1.4 (1-3); BUN/Creatinine Ratio 8.3 (8-20); Calcium 8.8 mg/dL (8.6-10.3); EGFR African American 218.2 (>60); EGFR Non-African American 180.3 (>60); Globulin 2.8 g/dL (2-4); Magnesium 1.5 mg/dL (1.9-2.7); Phosphorus 2.4 mg/dL (2.5-5.0); Potassium 3.4 mmol/L (3.5-5.0); Total Bilirubin 0.8 mg/dL (0.2-1.0); Total Protein 6.6 g/dL (6.4-8.9)
[2018-09-21] MEDS: Thiamine TAB* 100 MG TAB PO SCH (08:33)
[2018-09-21] MEDS: Multivitamins/Minerals TAB PO SCH (08:33)
[2018-09-21] MEDS: Metoprolol Tartrate TAB* 50 mg PO SCH ×2 (08:33→19:38)
[2018-09-21] MEDS: Folic Acid TAB* 1 MG PO SCH (08:33)
[2018-09-21] MEDS: Ascorbic Acid TAB* 500 MG PO SCH (08:33)
[2018-09-21] MEDS: Phenytoin CAP(*) 100 MG CAP.ER PO SCH ×2 (08:33→17:00)
[2018-09-21] MEDS: Gabapentin CAP(*) 300 MG PO SCH ×2 (08:34→19:38)
[2018-09-21] MEDS: Magnesium Oxide TAB* 400 MG PO SCH ×3 (08:35→19:38)
[2018-09-21] MEDS: amLODIPine TAB* 5 MG PO SCH (08:35)
[2018-09-21] MEDS ORDERED: Potassium Phosphate IV* 15 MMOLE in NS 0.9% 250 ML* 250 ML IVPB ONE (09:00)
[2018-09-21] MEDS ORDERED: Magnesium Sulf 4 GM/100 ML IV* 4,000 MG/100 ML BAG IVPB ONE (09:00)
[2018-09-21] MEDS: Nicotine Inhaler* 10 MG AMP INH PRN (15:48)
--- NOTE | 2018-09-21 16:56 | PN ---
Subjective Date of Service: 09/21/18 Interval History: Pt seen and examined. Meds and labs reviewed. CC: N/A ROS: Denied TRIANA/dizziness, F/C, N/V, CP, SOB, increased cough, sputum production , abd pain, diarrhea, constipation, dysuria, myalgias, arthralgias, throat pain , and new skin lesions. The rest of the 14 point ROS are unremarkable. PHYSICAL EXAM: GEN APPEARANCE: Awake, not in acute distress, oriented to person and place, not oriented to time; pt more interactive today and displays more emotions than yesterday. HEENT: NC/AT, PERRLA, moist oral mucosa, (-) throat erythema NECK: Soft, supple, (-) cervical LAD, (-)JVD HEART: S1S2 WNL, RRR, No MRG CHEST: CTA, BL, GAE, No W/R/R ABD: Soft, ND/NT, NABS 4x Q, (-) caput medussae EXT: No C/C/E SKIN: Warm to touch, (-) spider angiomata, (-) palmar erythema PSYCH: No active psychosis, hallucinations, depression, SI/HI Objective Active Medications: Acetaminophen (Tylenol Tab*) 650 mg PO Q4H PRN PRN Reason: PAIN OR FEVER Amlodipine Besylate (Norvasc Tab*) 10 mg PO DAILY [facility] Last Admin: 09/21/18 08:35 Dose: 10 mg Ascorbic Acid (Vitamin C Tab*) 500 mg PO DAILY [facility] Last Admin: 09/21/18 08:33 Dose: 500 mg Folic Acid (Folvite Tab*) 1 mg PO DAILY [facility] Last Admin: 09/21/18 08:33 Dose: 1 mg Gabapentin (Neurontin Cap(*)) 300 mg PO BID [facility] Last Admin: 09/21/18 08:34 Dose: 300 mg Sodium Chloride (Ns 0.9% 1000 Ml) 1,000 mls @ 100 mls/hr IV PER RATE [facility] Last Admin: 09/21/18 00:53 Dose: 100 mls/hr Lorazepam (Ativan Tab(*)) 2 mg PO Q12H [facility]; Taper Stop: 09/22/18 16:59 Last Admin: 09/21/18 13:48 Dose: 2 mg Lorazepam (Ativan Inj*) 0 - 3 mg IV PUSH .PER [facility] PROTOCOL [facility]; Protocol Last Admin: 09/20/18 05:41 Dose: 2.5 mg Magnesium Oxide (Magox 400 Tab*) 400 mg PO TID [facility] Last Admin: 09/21/18 13:49 Dose: 400 mg Metoprolol Tartrate (Lopressor Tab*) 50 mg PO BID [facility] Last Admin: 09/21/18 08:33 Dose: 50 mg Multivitamins/Minerals (Theragran/Minerals Tab*) 1 tab PO DAILY [facility] Last Admin: 09/21/18 08:33 Dose: 1 tab Nicotine (Nicotine Inhaler*) 10 mg INH Q2H PRN PRN Reason: CRAVING Last Admin: 09/21/18 15:48 Dose: 10 mg Ondansetron HCl (Zofran Inj*) 4 mg IV Q6H PRN PRN Reason: NAUSEA Phenytoin Sodium (Dilantin Cap(*)) 100 mg PO QAM [facility] Last Admin: 09/21/18 08:33 Dose: 100 mg Phenytoin Sodium (Dilantin Cap(*)) 200 mg PO QPM [facility] Last Admin: 09/20/18 17:49 Dose: 200 mg Thiamine HCl (Vitamin B-1 Tab*) 100 mg PO DAILY [facility] Last Admin: 09/21/18 08:33 Dose: 100 mg Vital Signs - 8 hr 09/21/18 09/21/18 09/21/18 10:48 11:21 13:48 Temperature 98.2 F Pulse Rate 77 Respiratory 17 16 19 Rate Blood Pressure 128/85 (mmHg) O2 Sat by Pulse 100 Oximetry 09/21/18 15:48 Temperature Pulse Rate Respiratory 17 Rate Blood Pressure (mmHg) O2 Sat by Pulse Oximetry Oxygen Devices in Use Now: None Result Diagrams: 09/21/18 06:25 09/21/18 06:25 Additional Lab and Data: Lab Results 09/19/18 09/19/18 09/19/18 Range/Units 18:03 18:03 18:03 WBC 3.4 L (3.5-10.8) 10^3/ul RBC 3.63 L (4.00-5.40) 10^6/ul Hgb 12.6 L (14.0-18.0) g/dl Hct 36 L (42-52) % MCV 100 H (80-94) fL MCH 35 H (27-31) pg MCHC 35 (31-36) g/dl RDW 13 (10.5-15) % Plt Count 64 L (150-450) 10^3/ul MPV 7.9 (7.4-10.4) fL Neut % (Auto) 55.9 % Lymph % (Auto) 35.0 % [place] % (Auto) 7.3 % Eos % (Auto) 0.6 % Baso % (Auto) 1.2 % Absolute Neuts (auto) 1.9 (1.5-7.7) 10^3/ul Absolute Lymphs (auto) 1.2 (1.0-4.8) 10^3/ul Absolute Monos (auto) 0.2 (0-0.8) 10^3/ul Absolute Eos (auto) 0 (0-0.6) 10^3/ul Absolute Basos (auto) 0 (0-0.2) 10^3/ul Absolute Nucleated RBC 0 10^3/ul Nucleated RBC % 0 INR (Anticoag Therapy) 1.02 (0.77-1.02) APTT 32.9 (26.0-36.3) seconds Sodium 139 (135-145) mmol/L Potassium 4.0 (3.5-5.0) mmol/L Chloride 98 L (101-111) mmol/L Carbon Dioxide 27 (22-32) mmol/L Anion Gap 14 H (2-11) mmol/L BUN 8 (6-24) mg/dL Creatinine 0.57 L (0.67-1.17) mg/dL Est GFR ( Amer) 178.9 (>60) Est GFR (Non-Af Amer) 147.9 (>60) BUN/Creatinine Ratio 14.0 (8-20) Glucose 100 (70-100) mg/dL Lactic Acid (0.5-2.0) mmol/L Calcium 9.5 (8.6-10.3) mg/dL Magnesium 1.4 L (1.9-2.7) mg/dL Total Bilirubin 0.80 (0.2-1.0) mg/dL AST 85 H (13-39) U/L ALT 33 (7-52) U/L Alkaline Phosphatase 154 H (34-104) U/L Total Creatine Kinase 83 (10-223) U/L Troponin I 0.00 (<0.04) ng/mL Total Protein 8.0 (6.4-8.9) g/dL Albumin 4.6 (3.2-5.2) g/dL Globulin 3.4 (2-4) g/dL Albumin/Globulin Ratio 1.4 (1-3) TSH Pending Serum Alcohol Pending 09/19/18 Range/Units 18:03 WBC (3.5-10.8) 10^3/ul RBC (4.00-5.40) 10^6/ul Hgb (14.0-18.0) g/dl Hct (42-52) % MCV (80-94) fL MCH (27-31) pg MCHC (31-36) g/dl RDW (10.5-15) % Plt Count (150-450) 10^3/ul MPV (7.4-10.4) fL Neut % (Auto) % Lymph % (Auto) % [place] % (Auto) % Eos % (Auto) % Baso % (Auto) % Absolute Neuts (auto) (1.5-7.7) 10^3/ul Absolute Lymphs (auto) (1.0-4.8) 10^3/ul Absolute Monos (auto) (0-0.8) 10^3/ul Absolute Eos (auto) (0-0.6) 10^3/ul Absolute Basos (auto) (0-0.2) 10^3/ul Absolute Nucleated RBC 10^3/ul Nucleated RBC % INR (Anticoag Therapy) (0.77-1.02) APTT (26.0-36.3) seconds Sodium (135-145) mmol/L Potassium (3.5-5.0) mmol/L Chloride (101-111) mmol/L Carbon Dioxide (22-32) mmol/L Anion Gap (2-11) mmol/L BUN (6-24) mg/dL Creatinine (0.67-1.17) mg/dL Est GFR ( Amer) (>60) Est GFR (Non-Af Amer) (>60) BUN/Creatinine Ratio (8-20) Glucose (70-100) mg/dL Lactic Acid 2.8 H* (0.5-2.0) mmol/L Calcium (8.6-10.3) mg/dL Magnesium (1.9-2.7) mg/dL Total Bilirubin (0.2-1.0) mg/dL AST (13-39) U/L ALT (7-52) U/L Alkaline Phosphatase (34-104) U/L Total Creatine Kinase (10-223) U/L Troponin I (<0.04) ng/mL Total Protein (6.4-8.9) g/dL Albumin (3.2-5.2) g/dL Globulin (2-4) g/dL Albumin/Globulin Ratio (1-3) TSH Serum Alcohol Assess/Plan/Problems-Billing Assessment: - Patient Problems (1) Alcohol withdrawal Current Visit: No Status: Acute Code(s): F10.239 - ALCOHOL DEPENDENCE WITH WITHDRAWAL, UNSPECIFIED SNOMED Code(s): 011846901 Comment: -Continue [facility] protocol (2) Alcoholic hepatitis Current Visit: Yes Status: Acute Code(s): K70.10 - ALCOHOLIC HEPATITIS WITHOUT ASCITES SNOMED Code(s): 402527076 Comment: -Mild; stable -Advised lifestyle modifications -Continue supportive therapy (3) Pancytopenia Current Visit: No Status: Acute Code(s): D61.818 - OTHER PANCYTOPENIA SNOMED Code(s): 954112042 Comment: -Likely due to chronic ETOH use -Will obtain CT of abd w/contrast shows fatty liver disease but no evidence of portal HTN/cirrhosis -No S/S consistent w/cirrhosis as described in PE; although possible for pt to have early cirrhosis or advanced fibrosis at this point; defer w/PCP to order Fibrosure to further delineate at the outpatient (4) Seizure disorder Current Visit: No Status: Acute Code(s): G40.909 - EPILEPSY, UNSP, NOT INTRACTABLE, WITHOUT STATUS EPILEPTICUS SNOMED Code(s): 753655418 Comment: -Continue Phenytoin; unclear if compliant w/home meds (5) Tobacco abuse Current Visit: No Status: Acute Code(s): Z72.0 - TOBACCO USE SNOMED Code(s ): 223411680 Comment: -Advised lifestyle modifications -Continue Nicotine replacement therapy (6) HTN (hypertension) Current Visit: No Status: Acute Code(s): I10 - ESSENTIAL (PRIMARY) HYPERTENSION SNOMED Code(s): 13830964 Comment: -Continue Metoprolol and Amlodipine (7) DVT prophylaxis Current Visit: No Status: Acute Code(s): EBF7151 - SNOMED Code(s): 223959787 Comment: -Continue SCDs given pts thrombocytopenia/pancytopenia Status and Disposition: -Pt refused to cooperate w/PT yesterday; will await reassessment -As above
[2018-09-22] MEDS: NS 0.9% 1000 ML** 1,000 ML IV SCH ×2 (00:45→12:16)
[2018-09-22] MEDS: LORazepam TAB(*) 1 MG PO SCH ×2 (00:46→12:15)
[2018-09-22 07:56] LABS: ABS Basophils 0 10^3/ul (0-0.2); ABS Eosinophils 0.1 10^3/ul (0-0.6); ABS Lymphocytes 1.3 10^3/ul (1.0-4.8); ABS Monocytes 0.4 10^3/ul (0-0.8); ABS Nucleated RBC 0 10^3/ul; Eosinophil % 2.3 %; Hematocrit 31 % (42-52); Hemoglobin 10.8 g/dl (14.0-18.0); Mean Corpuscular HGB Conc 35 g/dl (31-36); Mean Corpuscular Hemoglobin 35 pg (27-31); Mean Corpuscular Volume 101 fL (80-94); Mean Platelet Volume 9.6 fL (7.4-10.4); Nucleated Red Blood Cells % 0.1; Platelet Count 56 10^3/ul (150-450); Red Blood Count 3.05 10^6/ul (4.00-5.40); Red Cell Distribution Width 13 % (10.5-15); White Blood Count 3.8 10^3/ul (3.5-10.8)
[2018-09-22 07:58] LABS: BUN/Creatinine Ratio 8.3 (8-20); Calcium 8.8 mg/dL (8.6-10.3); EGFR African American 218.2 (>60); EGFR Non-African American 180.3 (>60); Magnesium 1.4 mg/dL (1.9-2.7); Phosphorus 2.8 mg/dL (2.5-5.0); Potassium 3.5 mmol/L (3.5-5.0)
[2018-09-22] MEDS: amLODIPine TAB* 5 MG PO SCH (08:58)
[2018-09-22] MEDS: Thiamine TAB* 100 MG TAB PO SCH (08:58)
[2018-09-22] MEDS: Ascorbic Acid TAB* 500 MG PO SCH (08:58)
[2018-09-22] MEDS: Folic Acid TAB* 1 MG PO SCH (08:59)
[2018-09-22] MEDS: Multivitamins/Minerals TAB PO SCH (09:00)
[2018-09-22] MEDS: Magnesium Oxide TAB* 400 MG PO SCH ×3 (09:00→20:18)
[2018-09-22] MEDS: Gabapentin CAP(*) 300 MG PO SCH ×2 (09:00→20:18)
[2018-09-22] MEDS: Metoprolol Tartrate TAB* 50 mg PO SCH ×2 (09:01→20:18)
[2018-09-22] MEDS: Phenytoin CAP(*) 100 MG CAP.ER PO SCH ×2 (09:01→17:34)
[2018-09-22] MEDS ORDERED: Magnesium Sulf 4 GM/100 ML IV* 4,000 MG/100 ML BAG IVPB ONE (10:00)
--- NOTE | 2018-09-22 17:20 | PN ---
Subjective Date of Service: 09/22/18 Interval History: Pt seen and examined. Meds and labs reviewed. Pt mentioned he attends AA, however, later admitted that he doesnt. Advised life-style modifications. CC: N/A ROS: Denied TRIANA/dizziness, F/C, N/V, CP, SOB, increased cough, sputum production , abd pain, diarrhea, constipation, dysuria, myalgias, arthralgias, throat pain , and new skin lesions. The rest of the 14 point ROS are unremarkable. PHYSICAL EXAM: GEN APPEARANCE: Awake, not in acute distress, not oriented to time HEENT: NC/AT, PERRLA, moist oral mucosa, (-) throat erythema NECK: Soft, supple, (-) cervical LAD, (-)JVD HEART: S1S2 WNL, RRR, No MRG CHEST: CTA, BL, GAE, No W/R/R ABD: Soft, ND/NT, NABS 4x Q EXT: No C/C/E SKIN: Warm to touch PSYCH: No active psychosis, hallucinations, depression, SI/HI, blunt affect Objective Active Medications: Acetaminophen (Tylenol Tab*) 650 mg PO Q4H PRN PRN Reason: PAIN OR FEVER Amlodipine Besylate (Norvasc Tab*) 10 mg PO DAILY [facility] Last Admin: 09/22/18 08:58 Dose: 10 mg Ascorbic Acid (Vitamin C Tab*) 500 mg PO DAILY [facility] Last Admin: 09/22/18 08:58 Dose: 500 mg Folic Acid (Folvite Tab*) 1 mg PO DAILY [facility] Last Admin: 09/22/18 08:59 Dose: 1 mg Gabapentin (Neurontin Cap(*)) 300 mg PO BID [facility] Last Admin: 09/22/18 09:00 Dose: 300 mg Sodium Chloride (Ns 0.9% 1000 Ml) 1,000 mls @ 100 mls/hr IV PER RATE [facility] Last Admin: 09/22/18 12:16 Dose: 100 mls/hr Lorazepam (Ativan Inj*) 0 - 3 mg IV PUSH .PER [facility] PROTOCOL [facility]; Protocol Last Admin: 09/20/18 05:41 Dose: 2.5 mg Magnesium Oxide (Magox 400 Tab*) 400 mg PO TID [facility] Last Admin: 09/22/18 12:15 Dose: 400 mg Metoprolol Tartrate (Lopressor Tab*) 50 mg PO BID [facility] Last Admin: 09/22/18 09:01 Dose: 50 mg Multivitamins/Minerals (Theragran/Minerals Tab*) 1 tab PO DAILY [facility] Last Admin: 09/22/18 09:00 Dose: 1 tab Nicotine (Nicotine Inhaler*) 10 mg INH Q2H PRN PRN Reason: CRAVING Last Admin: 09/21/18 15:48 Dose: 10 mg Ondansetron HCl (Zofran Inj*) 4 mg IV Q6H PRN PRN Reason: NAUSEA Phenytoin Sodium (Dilantin Cap(*)) 100 mg PO QAM [facility] Last Admin: 09/22/18 09:01 Dose: 100 mg Phenytoin Sodium (Dilantin Cap(*)) 200 mg PO QPM [facility] Last Admin: 09/21/18 17:00 Dose: 200 mg Thiamine HCl (Vitamin B-1 Tab*) 100 mg PO DAILY [facility] Last Admin: 09/22/18 08:58 Dose: 100 mg Vital Signs - 8 hr 09/22/18 09/22/18 12:15 14:02 Respiratory 18 18 Rate Oxygen Devices in Use Now: None Result Diagrams: 09/22/18 07:27 09/22/18 07:27 Additional Lab and Data: Lab Results 09/19/18 09/19/18 09/19/18 Range/Units 18:03 18:03 18:03 WBC 3.4 L (3.5-10.8) 10^3/ul RBC 3.63 L (4.00-5.40) 10^6/ul Hgb 12.6 L (14.0-18.0) g/dl Hct 36 L (42-52) % MCV 100 H (80-94) fL MCH 35 H (27-31) pg MCHC 35 (31-36) g/dl RDW 13 (10.5-15) % Plt Count 64 L (150-450) 10^3/ul MPV 7.9 (7.4-10.4) fL Neut % (Auto) 55.9 % Lymph % (Auto) 35.0 % [place] % (Auto) 7.3 % Eos % (Auto) 0.6 % Baso % (Auto) 1.2 % Absolute Neuts (auto) 1.9 (1.5-7.7) 10^3/ul Absolute Lymphs (auto) 1.2 (1.0-4.8) 10^3/ul Absolute Monos (auto) 0.2 (0-0.8) 10^3/ul Absolute Eos (auto) 0 (0-0.6) 10^3/ul Absolute Basos (auto) 0 (0-0.2) 10^3/ul Absolute Nucleated RBC 0 10^3/ul Nucleated RBC % 0 INR (Anticoag Therapy) 1.02 (0.77-1.02) APTT 32.9 (26.0-36.3) seconds Sodium 139 (135-145) mmol/L Potassium 4.0 (3.5-5.0) mmol/L Chloride 98 L (101-111) mmol/L Carbon Dioxide 27 (22-32) mmol/L Anion Gap 14 H (2-11) mmol/L BUN 8 (6-24) mg/dL Creatinine 0.57 L (0.67-1.17) mg/dL Est GFR ( Amer) 178.9 (>60) Est GFR (Non-Af Amer) 147.9 (>60) BUN/Creatinine Ratio 14.0 (8-20) Glucose 100 (70-100) mg/dL Lactic Acid (0.5-2.0) mmol/L Calcium 9.5 (8.6-10.3) mg/dL Magnesium 1.4 L (1.9-2.7) mg/dL Total Bilirubin 0.80 (0.2-1.0) mg/dL AST 85 H (13-39) U/L ALT 33 (7-52) U/L Alkaline Phosphatase 154 H (34-104) U/L Total Creatine Kinase 83 (10-223) U/L Troponin I 0.00 (<0.04) ng/mL Total Protein 8.0 (6.4-8.9) g/dL Albumin 4.6 (3.2-5.2) g/dL Globulin 3.4 (2-4) g/dL Albumin/Globulin Ratio 1.4 (1-3) TSH Pending Serum Alcohol Pending 09/19/18 Range/Units 18:03 WBC (3.5-10.8) 10^3/ul RBC (4.00-5.40) 10^6/ul Hgb (14.0-18.0) g/dl Hct (42-52) % MCV (80-94) fL MCH (27-31) pg MCHC (31-36) g/dl RDW (10.5-15) % Plt Count (150-450) 10^3/ul MPV (7.4-10.4) fL Neut % (Auto) % Lymph % (Auto) % [place] % (Auto) % Eos % (Auto) % Baso % (Auto) % Absolute Neuts (auto) (1.5-7.7) 10^3/ul Absolute Lymphs (auto) (1.0-4.8) 10^3/ul Absolute Monos (auto) (0-0.8) 10^3/ul Absolute Eos (auto) (0-0.6) 10^3/ul Absolute Basos (auto) (0-0.2) 10^3/ul Absolute Nucleated RBC 10^3/ul Nucleated RBC % INR (Anticoag Therapy) (0.77-1.02) APTT (26.0-36.3) seconds Sodium (135-145) mmol/L Potassium (3.5-5.0) mmol/L Chloride (101-111) mmol/L Carbon Dioxide (22-32) mmol/L Anion Gap (2-11) mmol/L BUN (6-24) mg/dL Creatinine (0.67-1.17) mg/dL Est GFR ( Amer) (>60) Est GFR (Non-Af Amer) (>60) BUN/Creatinine Ratio (8-20) Glucose (70-100) mg/dL Lactic Acid 2.8 H* (0.5-2.0) mmol/L Calcium (8.6-10.3) mg/dL Magnesium (1.9-2.7) mg/dL Total Bilirubin (0.2-1.0) mg/dL AST (13-39) U/L ALT (7-52) U/L Alkaline Phosphatase (34-104) U/L Total Creatine Kinase (10-223) U/L Troponin I (<0.04) ng/mL Total Protein (6.4-8.9) g/dL Albumin (3.2-5.2) g/dL Globulin (2-4) g/dL Albumin/Globulin Ratio (1-3) TSH Serum Alcohol Assess/Plan/Problems-Billing Assessment: - Patient Problems (1) Alcohol withdrawal Current Visit: No Status: Acute Code(s): F10.239 - ALCOHOL DEPENDENCE WITH WITHDRAWAL, UNSPECIFIED SNOMED Code(s): 316825950 Comment: -Continue [facility] protocol (2) Alcoholic hepatitis Current Visit: Yes Status: Acute Code(s): K70.10 - ALCOHOLIC HEPATITIS WITHOUT ASCITES SNOMED Code(s): 359234041 Comment: -Mild; stable -Advised lifestyle modifications -Continue supportive therapy (3) Pancytopenia Current Visit: No Status: Acute Code(s): D61.818 - OTHER PANCYTOPENIA SNOMED Code(s): 988785958 Comment: -Likely due to chronic ETOH use -Will obtain CT of abd w/contrast shows fatty liver disease but no evidence of portal HTN/cirrhosis -No S/S consistent w/cirrhosis as described in PE; although possible for pt to have early cirrhosis or advanced fibrosis at this point; defer w/PCP to order Fibrosure to further delineate at the outpatient (4) Seizure disorder Current Visit: No Status: Acute Code(s): G40.909 - EPILEPSY, UNSP, NOT INTRACTABLE, WITHOUT STATUS EPILEPTICUS SNOMED Code(s): 950120399 Comment: -Continue Phenytoin; unclear if compliant w/home meds (5) Tobacco abuse Current Visit: No Status: Acute Code(s): Z72.0 - TOBACCO USE SNOMED Code(s ): 144352733 Comment: -Advised lifestyle modifications -Continue Nicotine replacement therapy (6) HTN (hypertension) Current Visit: No Status: Acute Code(s): I10 - ESSENTIAL (PRIMARY) HYPERTENSION SNOMED Code(s): 72661089 Comment: -Continue Metoprolol and Amlodipine (7) DVT prophylaxis Current Visit: No Status: Acute Code(s): GRL0155 - SNOMED Code(s): 516694823 Comment: -Continue SCDs given pts thrombocytopenia/pancytopenia Status and Disposition: -No identified needs -Possible D/C in 1-2 days -Refer to outpatient rehab and local AA meetings on D/C; will discuss with Care coordinators in AM
[2018-09-23] MEDS: NS 0.9% 1000 ML** 1,000 ML IV SCH (05:07)
[2018-09-23 07:07] LABS: Hematocrit 31 % (42-52); Hemoglobin 10.7 g/dl (14.0-18.0); Mean Corpuscular HGB Conc 35 g/dl (31-36); Mean Corpuscular Hemoglobin 35 pg (27-31); Mean Corpuscular Volume 100 fL (80-94); Mean Platelet Volume 8.8 fL (7.4-10.4); Platelet Count 69 10^3/ul (150-450); Red Blood Count 3.06 10^6/ul (4.00-5.40); Red Cell Distribution Width 13 % (10.5-15); White Blood Count 4.2 10^3/ul (3.5-10.8)
[2018-09-23 07:23] LABS: Albumin 3.8 g/dL (3.2-5.2); Albumin/Globulin Ratio 1.3 (1-3); BUN/Creatinine Ratio 10.2 (8-20); Calcium 9.3 mg/dL (8.6-10.3); EGFR Non-African American 176.1 (>60); Globulin 2.9 g/dL (2-4); Magnesium 1.3 mg/dL (1.9-2.7); Phosphorus 3.5 mg/dL (2.5-5.0); Potassium 3.6 mmol/L (3.5-5.0); Total Bilirubin 0.6 mg/dL (0.2-1.0); Total Protein 6.7 g/dL (6.4-8.9)
[2018-09-23] MEDS: amLODIPine TAB* 5 MG PO SCH (08:56)
[2018-09-23] MEDS: Ascorbic Acid TAB* 500 MG PO SCH (08:57)
[2018-09-23] MEDS: Gabapentin CAP(*) 300 MG PO SCH (08:58)
[2018-09-23] MEDS: Folic Acid TAB* 1 MG PO SCH (08:58)
[2018-09-23] MEDS: Metoprolol Tartrate TAB* 50 mg PO SCH (09:00)
[2018-09-23] MEDS: Multivitamins/Minerals TAB PO SCH (09:00)
[2018-09-23] MEDS: Magnesium Oxide TAB* 400 MG PO SCH ×2 (09:00→14:10)
[2018-09-23] MEDS: Phenytoin CAP(*) 100 MG CAP.ER PO SCH (09:01)
[2018-09-23] MEDS: Thiamine TAB* 100 MG TAB PO SCH (09:02)
[2018-09-23] MEDS ORDERED: Magnesium Sulf 4 GM/100 ML IV* 4,000 MG/100 ML BAG IVPB ONE (09:12)
[2018-09-23 09:46] LABS: Phenytoin 3.9 mcg/mL (10-20)
[2018-09-23] MEDS ORDERED: Phenytoin IV(*) 500 MG in NS 0.9% 100 ML* 90 ML IV ONE (10:15)
[2018-09-23 12:10] VITALS: BP 131/80
[2018-09-24] MEDS ORDERED: Phenytoin CHEW TAB(*) 50 MG PO SCH (09:00)
== END 2018-09-23 17:00 | disposition home or self-care (01) | DRG 775 ==
LOC: ED 14:23 → MED 20:08
PROVIDERS: ADMIT Hospitalist; ATTEND Student in an Organized Health Care Education/Training Program
DX: F10.239 Alcohol dependence with withdrawal, unspecified (principal); D61.818 Other pancytopenia; K70.10 Alcoholic hepatitis without ascites; Y90.4 Blood alcohol level of 80-99 mg/100 ml; G40.909 Epilepsy, unspecified, not intractable, without status epilepticus; I10 Essential (primary) hypertension; F17.210 Nicotine dependence, cigarettes, uncomplicated; K70.0 Alcoholic fatty liver; L40.9 Psoriasis, unspecified; Z79.899 Other long term (current) drug therapy; Z91.030 Bee allergy status; Z80.0 Family history of malignant neoplasm of digestive organs; Z83.3 Family history of diabetes mellitus; Z82.3 Family history of stroke
CPT/HCPCS: 36415; 70450; 71046; 74160; 80048; 80053; 80185; 80307; 80320; 81003; 82140; 82550; 82607; 83605; 83735; 84100; 84443; 84484; 85025; 85027; 85610; 85730; 93005; 99284; A9270-GY; G0480; J1165; J2060; J3411; J3475; Q9967

== ENCOUNTER 2018-09-23 22:38 | Emergency (ER) | payer OTHER ==
--- NOTE | 2018-09-23 23:02 | ED ---
Altered Mental Status - HPI Summary HPI Summary: This patient is a 58 year old M presenting to [facility] with a chief complaint of witnessed seizures since 22:15 today. He had two episodes lasting about one minute each, during which he had tremors and fell to the floor. The patient recalls most of the incident. Patient reports feeling lightheaded currently. Patient denies LOC and urinary incontinence. He was discharged from the hospital this morning for detox. - History Of Current Complaint Stated Complaint: SEIZURES Hx Obtained From: Patient Onset/Duration: Suddenly Timing: Intermittent, Lasting Minutes - 1 minute - Allergies/Home Medications Allergies/Adverse Reactions: Allergies Allergy/AdvReac Type Severity Reaction Status Date / Time bee venom protein (honey bee) Allergy Unknown Verified 09/24/18 08:12 Reaction Details PMH/Surg Hx/FS Hx/Imm Hx Endocrine/Hematology History: Denies: Hx Anticoagulant Therapy, Hx Diabetes Cardiovascular History: Reports: Hx Hypercholesterolemia, Hx Hypertension Denies: Hx Pacemaker/ICD Respiratory History: Denies: Hx Asthma History: Denies: Hx Dialysis, Hx Renal Disease Musculoskeletal History: Reports: Hx Arthritis, Hx Back Problems, Hx Scoliosis, Other Musculoskeletal History - c/o chronic soreness left posterior calf, states he has had " for years" Sensory History: Reports: Hx Contacts or Glasses - glasses, Hx Deafness Denies: Hx Hearing Aid Opthamlomology History: Reports: Hx Contacts or Glasses - glasses Neurological History: Reports: Hx Seizures, Other Neuro Impairments/Disorders - tremors r/t ETOH. PAIN CLINIC PT Psychiatric History: Reports: Hx Substance Abuse Denies: Hx Anxiety, Hx Attention Deficit Hyperactivity Disorder, Hx Eating Disorder, Hx Depression, Hx Panic Disorder, Hx Post Traumatic Stress Disorder, Hx Inpatient Treatment, Hx Community Mental Health Tx, Hx Schizophrenia, Hx Bipolar Disorder, Hx Suicide Attempt, Hx of Violent Episodes Against Others, Other Psychiatric Issues/Disorders - Surgical History Surgery Procedure, Year, and Place: APPENDIX 1982 - Immunization History Date of Tetanus Vaccine: unknown Infectious Disease History: No Infectious Disease History: Denies: Hx Hepatitis, Hx Human Immunodeficiency Virus (HIV), Hx of Known/ Suspected MRSA, Hx Shingles, Hx Tuberculosis, Traveled Outside the [place] in Last 30 Days - Family History Known Family History: Positive: Hypertension - Social History Alcohol Use: Daily Alcohol Amount: "1/2 BOTTLE" VODKA Hx Substance Use: Yes Substance Use Type: Reports: None Substance Use Comment - Amount & Last Used: 2 days prior to admission Hx Tobacco Use: Yes Smoking Status (MU): Light Every Day Tobacco Smoker Type: Cigarettes Amount Used/How Often: 5-6 cigarettes/day Have You Smoked in the Last Year: Yes Review of Systems Negative: incontinence Neurological: Other - Seizures earlier today. Currently feels lightheaded. Negative: Syncope All Other Systems Reviewed And Are Negative: Yes Physical Exam - Summary Physical Exam Summary: Appearance: Well-appearing, Well-nourished, lying in bed comfortably Skin: Warm, dry, no obvious rash Eyes: sclera anicteric, no conjunctival pallor ENT: mucous membranes moist, pharynx appears normal Neck: Supple, nontender Respiratory: Clear to auscultation, no signs of respiratory distress Cardiovascular: Normal S1, S2. No murmurs. Normal distal pulses in tibial and radial bilaterally. Abdomen: Soft, nontender, normal active bowel sounds present Musculoskeletal: Normal, Strength/ROM Intact Neurological: A&Ox3, awake and alert, mentation is normal, speech is fluent and appropriate Psychiatric: affect is normal, does not appear anxious or depressed Triage Information Reviewed: Yes Vital Signs On Initial Exam: Initial Vitals Temp Pulse Resp BP Pulse Ox 98.6 F 91 18 169/121 98 09/23/18 22:43 09/23/18 22:43 09/23/18 22:43 09/23/18 22:43 09/23/18 22:43 Vital Signs Reviewed: Yes Diagnostics - Vital Signs Vital Signs Temp Pulse Resp BP Pulse Ox 09/23/18 22:43 98.6 F 91 18 169/121 98 - Laboratory Result Diagrams: 09/23/18 23:16 09/23/18 23:16 Lab Statement: Any lab studies that have been ordered have been reviewed, and results considered in the medical decision making process. Altered Mental Statu Course/Dx - Course Course Of Treatment: This patient is a 58 year old M presenting to [facility] with a chief complaint of witnessed seizures since 22:15 today. The workup was unremarkable. Patient will be discharged with dx of alcohol use disorder and tremors. - Diagnoses Provider Diagnoses: Alcohol use disorder, Tremor Discharge - Sign-Out/Discharge Documenting (check all that apply): Patient Departure - D/C Patient Received Moderate/Deep Sedation with Procedure: No - Discharge Plan Condition: Good Disposition: HOME Patient Education Materials: Alcohol Use Disorder (ED), Tremors (ED) Referrals: Gustavo Mata, VISUAL DESIGNER [Primary Care Provider] - Additional Instructions: These do not appear to be epileptic seizures. Your body is still feeling the effects of staying off alcohol and this will likely continue for a few more days. Hang in there and don't resume drinking, you are through with the worst of this. - Billing Disposition and Condition Condition: GOOD Disposition: Home - Attestation Statements Document Initiated by Darryl: Yes Documenting Scribe: Kade Boothe Provider For Whom Darryl is Documenting (Include Credential): German Lozada MD Scribe Attestation: Kade Montemayor scribed for German Lozada MD on 09/25/18 at 0118. Scribe Documentation Reviewed: Yes Provider Attestation: The documentation as recorded by the Kade cevallos accurately reflects the service I personally performed and the decisions made by me, German Lozada MD Status of Scribe Document: Viewed
[2018-09-23 23:27] LABS: ABS Basophils 0 10^3/ul (0-0.2); ABS Eosinophils 0.1 10^3/ul (0-0.6); ABS Lymphocytes 1.1 10^3/ul (1.0-4.8); ABS Monocytes 0.7 10^3/ul (0-0.8); ABS Neutrophils 3.6 10^3/ul (1.5-7.7); ABS Nucleated RBC 0 10^3/ul; Eosinophil % 0.9 %; Hematocrit 32 % (42-52); Hemoglobin 11.4 g/dl (14.0-18.0); Lymphocyte % 19.6 %; Mean Corpuscular HGB Conc 35 g/dl (31-36); Mean Corpuscular Hemoglobin 36 pg (27-31); Mean Corpuscular Volume 101 fL (80-94); Mean Platelet Volume 8.5 fL (7.4-10.4); Nucleated Red Blood Cells % 0; Platelet Count 92 10^3/ul (150-450); Red Blood Count 3.19 10^6/ul (4.00-5.40); Red Cell Distribution Width 13 % (10.5-15); White Blood Count 5.4 10^3/ul (3.5-10.8)
[2018-09-23 23:31] LABS: INR 0.99 (0.77-1.02)
[2018-09-23 23:43] LABS: ALT 148 U/L (7-52); AST 217 U/L (13-39); Albumin 4.6 g/dL (3.2-5.2); Albumin/Globulin Ratio 1.4 (1-3); Alkaline Phosphatase 161 U/L (34-104); Anion Gap 8 mmol/L (2-11); BUN/Creatinine Ratio 11.7 (8-20); Blood Urea Nitrogen 7 mg/dL (6-24); CO2 Carbon Dioxide 26 mmol/L (22-32); Calcium 10.4 mg/dL (8.6-10.3); Chloride 93 mmol/L (101-111); EGFR African American 168.6 (>60); EGFR Non-African American 139.4 (>60); Globulin 3.3 g/dL (2-4); Glucose 118 mg/dL (70-100); Magnesium 1.5 mg/dL (1.9-2.7); Potassium 4.1 mmol/L (3.5-5.0); Sodium 127 mmol/L (135-145); Total Protein 7.9 g/dL (6.4-8.9)
[2018-09-23 23:47] LABS: Alcohol < 10 mg/dL (<10); Phenytoin 10.8 mcg/mL (10-20)
[2018-09-23 23:47] LABS: Urine Appearance Clear; Urine Bilirubin Negative (Negative); Urine Blood Negative (Negative); Urine Color Straw; Urine Glucose Negative (Negative); Urine Ketones Negative (Negative); Urine Nitrite Negative (Negative); Urine Protein Negative (Negative); Urine Specific Gravity 1.005 (1.010-1.030); Urine Urobilinogen Negative (Negative)
[2018-09-24 01:50] VITALS: BP 147/95
== END 2018-09-24 01:56 | disposition home or self-care (01) ==
LOC: ED 22:38
DX: F10.10 Alcohol abuse, uncomplicated (principal); R25.1 Tremor, unspecified; R42 Dizziness and giddiness; Z91.030 Bee allergy status; F17.210 Nicotine dependence, cigarettes, uncomplicated
CPT/HCPCS: 36415; 80053; 80185; 80320; 81003; 83605; 83735; 85025; 85610; 99283; G0480

== ENCOUNTER → 2018-09-24 08:04 | Emergency (ER) | payer OTHER ==
[~2018-09-24 08:04] MED LIST: Magnesium Sulfate 1 GM IV* 1 GM/100 ML BAG IV ONE; Phenytoin CAP(*) 100 MG CAP.ER PO ONE; Phenytoin IV(*) 1,000 MG in NS 0.9% 250 ML* 180 ML IV ONE; Phenytoin IV(*) 500 MG in NS 0.9% 100 ML* 90 ML IV ONE; Thiamine IV* 100 MG, Folic Acid IV* 1 MG, Multiple Vitamin IV ADULT* 10 ML in NS 0.9% 1... IV ONE
--- NOTE | 2018-09-24 08:09 | ED ---
Neurological HPI - HPI Summary HPI Summary: Pt is a 58 y/o male brought in by EMS who presents to the ED s/p seizure. He was discharged from [facility] yesterday for alcohol detox, and subsequently had two witnessed seizures. As per EMS, he had a witnessed seizure this morning, during which he had a hard fall from standing. Pt was locked out of his apartment so has been without his seizure medications recently. He c/o mild right-sided head pain, but denies any other injuries. Pt is currently A&Ox3, but was post-ictal upon EMS arrival. Pts last alcohol use was 5 days ago, and he denies any drug use. PMHx alcohol abuse, epilepsy, HTN. As per medical records he takes Norvasc , Dilantin, Metoprolol, Neurontin, magnesium, and vitamin B. 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 Timing: Intermittent Episodes Lasting: Current Severity: None Neurological Deficit Location: Generalized Aggravating: Medication Change - not taking sz medications recently Alleviating: Nothing Associated Signs and Symptoms: Positive: Seizure Related Hx: Alcohol/Drug Abuse - ETOH, Seizure, Recent Illness - sz yesterday - Additional Pertinent History Primary Care Physician: [id number] - Allergy/Home Medications Allergies/Adverse Reactions: Allergies Allergy/AdvReac Type Severity Reaction Status Date / Time bee venom protein (honey bee) Allergy Unknown Verified 09/24/18 08:12 Reaction Details PMH/Surg Hx/FS Hx/Imm Hx Endocrine/Hematology History: Denies: Hx Anticoagulant Therapy, Hx Diabetes Cardiovascular History: Reports: Hx Hypercholesterolemia, Hx Hypertension Denies: Hx Pacemaker/ICD Respiratory History: Denies: Hx Asthma History: Denies: Hx Dialysis, Hx Renal Disease Musculoskeletal History: Reports: Hx Arthritis, Hx Back Problems, Hx Scoliosis, Other Musculoskeletal History - c/o chronic soreness left posterior calf, states he has had " for years" Sensory History: Reports: Hx Contacts or Glasses - glasses, Hx Deafness Denies: Hx Hearing Aid Opthamlomology History: Reports: Hx Contacts or Glasses - glasses Neurological History: Reports: Hx Seizures, Other Neuro Impairments/Disorders - tremors r/t ETOH. PAIN CLINIC PT Psychiatric History: Reports: Hx Substance Abuse - ETOH Denies: Hx Anxiety, Hx Attention Deficit Hyperactivity Disorder, Hx Eating Disorder, Hx Depression, Hx Panic Disorder, Hx Post Traumatic Stress Disorder, Hx Inpatient Treatment, Hx Community Mental Health Tx, Hx Schizophrenia, Hx Bipolar Disorder, Hx Suicide Attempt, Hx of Violent Episodes Against Others, Other Psychiatric Issues/Disorders - Surgical History Surgery Procedure, Year, and Place: APPENDIX 1982 - Immunization History Date of Tetanus Vaccine: unknown Infectious Disease History: Denies: Hx Hepatitis, Hx Human Immunodeficiency Virus (HIV), Hx of Known/ Suspected MRSA, Hx Shingles, Hx Tuberculosis - Family History Known Family History: Positive: Hypertension - Social History Alcohol Use: Daily Alcohol Amount: "1/2 BOTTLE" VODKA Hx Substance Use: Yes Substance Use Type: Reports: None Substance Use Comment - Amount & Last Used: 2 days prior to admission Hx Tobacco Use: Yes Smoking Status (MU): Light Every Day Tobacco Smoker Type: Cigarettes Amount Used/How Often: 5-6 cigarettes/day Have You Smoked in the Last Year: Yes Review of Systems Positive: Other - right-sided head pain Neurological: Other - seizure All Other Systems Reviewed And Are Negative: Yes Physical Exam - Summary Physical Exam Summary: Appearance: The patient is well-nourished in no acute distress and in no acute pain. Skin: The skin is warm and dry and skin color reflects adequate perfusion. HEENT: The head is normocephalic and atraumatic. The pupils are equal and reactive. The conjunctivae are clear and without drainage. Nares are patent and without drainage. Mouth reveals moist mucous membranes and the throat is without erythema and exudate. The external ears are intact. The ear canals are patent and without drainage. The tympanic membranes are intact. Neck: The neck is supple with full range of motion and non-tender. There are no carotid bruits. There is no neck vein distension. Respiratory: Chest is non-tender. Lungs are clear to auscultation and breath sounds are symmetrical and equal. Cardiovascular: Heart is regular rate and rhythm. There is no murmur or rub auscultated. There is no peripheral edema and pulses are symmetrical and equal. Abdomen: The abdomen is soft and non-tender. There are normal bowel sounds heard in all four quadrants and there is no organomegaly palpated. Musculoskeletal: There is no back tenderness noted. Extremities are non-tender with full range of motion. There is good capillary refill. There is no peripheral edema or calf tenderness elicited. Neurological: Patient is alert and oriented to person, place and time. The patient has symmetrical motor strength in all four extremities. Cranial nerves are grossly intact. Deep tendon reflexes are symmetrical and equal in all four extremities. Psychiatric: The patient has an appropriate affect and does not exhibit any anxiety or depression. Triage Information Reviewed: Yes Vital Signs Reviewed: Yes Diagnostics - Laboratory Result Diagrams: 09/24/18 08:42 09/24/18 08:42 Lab Statement: Any lab studies that have been ordered have been reviewed, and results considered in the medical decision making process. - EKG 8:51 Cardiac Rate: NL - 83 bpm EKG Rhythm: Sinus Rhythm ST Segment: Normal Ectopy: PVCs Summary of EKG Findings: No STEMI Re-Evaluation - Re-Evaluation First Eval Re-Evaluation Time: 09:41 Change: Improved Comment: Pt feels normal and is ready to be discharged. Course/Dx - Course Course Of Treatment: Mr. Casey is a long history of drinking alcohol. He was seen here for detox for several days and discharged on the . While here he received Dilantin as he has an underlying seizure disorder. He apparently had tremors or possibly seizure activity in the evening of the and reported presented. He was evaluated and felt to be stable. He spent the night in the emergency department waiting room because he lost she is to his apartment. He is apparently not taken his seizure medication since his release. He reports that he took a bus to [place] this morning and had a seizure on the bus. He does not really remember it. The ambulance was called and they found him to be postictal and transported him in where he was slowly regaining his senses. Here he had laboratory work and received a banana bag with magnesium. His Dilantin level was low and he was bolused with 500 mg IV. He was observed for multiple hours secondary to the social problems. Social work saw him and will see him tomorrow. Access to his apartment was gained and he will be discharged to go there. - Diagnoses Provider Diagnoses: Seizure, Breakthrough seizure Discharge - Sign-Out/Discharge Documenting (check all that apply): Patient Departure - Discharge Patient Received Moderate/Deep Sedation with Procedure: No - Discharge Plan Condition: Improved Disposition: HOME Meds/Orders/Equipment: Home Care: Skilled Needs Location: None Selected Patient Education Materials: Epilepsy (ED) Referrals: [facility] [Outside] - 09/25/18 2:40 pm [facility] [place] [Outside] Chase Millan MD [Medical Doctor] - (2-3 days) Additional Instructions: Follow up with outpatient neurology. RETURN TO THE ED WITH ANY NEW OR WORSENING SYMPTOMS. - Billing Disposition and Condition Condition: IMPROVED Disposition: Home - Attestation Statements Document Initiated by Scribe: Yes Documenting Scribe: Barbie Klein Provider For Whom Scribe is Documenting (Include Credential): German Jimenez MD Scribe Attestation: Barbie Montemayor, scribed for German Jimenez MD on 09/24/18 at [facility]. Scribe Documentation Reviewed: Yes Provider Attestation: The documentation as recorded by the Barbie cevallos accurately reflects the service I personally performed and the decisions made by me, German Jimenez MD Status of Scribe Document: Viewed
[2018-09-24 08:51] LABS: ABS Basophils 0 10^3/ul (0-0.2); ABS Eosinophils 0 10^3/ul (0-0.6); ABS Lymphocytes 0.8 10^3/ul (1.0-4.8); ABS Monocytes 0.7 10^3/ul (0-0.8); ABS Neutrophils 2.9 10^3/ul (1.5-7.7); ABS Nucleated RBC 0 10^3/ul; Eosinophil % 0.8 %; Hematocrit 29 % (42-52); Lymphocyte % 17.6 %; Mean Corpuscular HGB Conc 34 g/dl (31-36); Mean Corpuscular Hemoglobin 35 pg (27-31); Mean Corpuscular Volume 102 fL (80-94); Mean Platelet Volume 8.3 fL (7.4-10.4); Nucleated Red Blood Cells % 0; Platelet Count 101 10^3/ul (150-450); Red Blood Count 2.86 10^6/ul (4.00-5.40); Red Cell Distribution Width 13 % (10.5-15); White Blood Count 4.5 10^3/ul (3.5-10.8)
[2018-09-24 09:03] LABS: INR 1.06 (0.77-1.02)
[2018-09-24 09:34] LABS: Troponin I 0.01 ng/mL (<0.04)
[2018-09-24 09:35] LABS: ALT 154 U/L (7-52); AST 212 U/L (13-39); Albumin/Globulin Ratio 1.4 (1-3); Alcohol < 10 mg/dL (<10); Alkaline Phosphatase 129 U/L (34-104); Anion Gap 9 mmol/L (2-11); BUN/Creatinine Ratio 10.8 (8-20); Blood Urea Nitrogen 7 mg/dL (6-24); CO2 Carbon Dioxide 24 mmol/L (22-32); Calcium 9.6 mg/dL (8.6-10.3); Chloride 96 mmol/L (101-111); Creatine Kinase 48 U/L (10-223); EGFR African American 153.8 (>60); EGFR Non-African American 127.1 (>60); Globulin 2.8 g/dL (2-4); Glucose 126 mg/dL (70-100); Magnesium 1.3 mg/dL (1.9-2.7); Phenytoin 7.5 mcg/mL (10-20); Potassium 3.5 mmol/L (3.5-5.0); Sodium 129 mmol/L (135-145); Total Protein 6.8 g/dL (6.4-8.9)
[2018-09-24 09:48] LABS: TSH (Thyroid Stimulating Horm) 2.42 mcIU/mL (0.34-5.60)
[2018-09-24 13:39] LABS: Urine Appearance Cloudy; Urine Bilirubin Negative (Negative); Urine Blood Negative (Negative); Urine Color Yellow; Urine Glucose Negative (Negative); Urine Ketones Negative (Negative); Urine Nitrite Negative (Negative); Urine Protein Negative (Negative); Urine Specific Gravity 1.002 (1.010-1.030); Urine Urobilinogen Negative (Negative)
[2018-09-24 15:28] VITALS: BP 114/81
== END | disposition home or self-care (01) ==
LOC: ED 08:04
DX: G40.909 Epilepsy, unspecified, not intractable, without status epilepticus (principal); Z91.030 Bee allergy status; F17.210 Nicotine dependence, cigarettes, uncomplicated
CPT/HCPCS: 36415; 80053; 80185; 80320; 81003; 82550; 83605; 83735; 84443; 84484; 85025; 85610; 93005; 96365; 99284; A9270-GY; G0480; J1165; J3411; J3475

== ENCOUNTER 2019-10-30 13:40 | Inpatient (IN) | payer OTHER ==
--- NOTE | 2019-10-30 13:58 | ED ---
Skin Complaint - HPI Summary HPI Summary: 59 y/o M brought in by EMS to [facility] c/o L hand and L forearm swelling, pain, erythema after he was bit by a spider yesterday afternoon. He put ice on his left hand and forearm but the swelling, pain, and erythema worsened. He is right handed. He has pet dog that did not bite him. He does not have a pet cat. He additionally c/o headache, forehead laceration, LOC after having a fall last night. Symptoms aggravated by nothing. Symptoms alleviated by nothing. Medications reviewed. Not on anticoagulants. Allergies noted. Not up to date on his tetanus vaccination. - History of Current Complaint Chief Complaint: EDRashSkinAbscess Time Seen by Provider: 10/30/19 13:55 Stated Complaint: POSS SPIDER BITE Hx Obtained From: Patient Onset/Duration: Started Days Ago - 1, Still Present Skin Exposure Onset/Duration: Days Ago - 1 Timing: Constant Current Severity: Severe Pain Intensity: 9 Pain Scale Used: 0-10 Numeric Skin Location: Face, Arm - L, Hand - L Aggravating Symptom(s): Nothing Alleviating Symptom(s): Nothing - Additional Pertinent History Primary Care Physician: [id number] - Allergy/Home Medications Allergies/Adverse Reactions: Allergies Allergy/AdvReac Type Severity Reaction Status Date / Time bee venom protein (honey bee) Allergy Unknown Verified 09/24/18 08:12 Reaction Details Home Medications: Home Medications Magnesium Oxide TAB* [MagOx 400 TAB*] 400 mg PO BID 06/23/15 [History Confirmed 10/30/19] Gabapentin CAP(*) [Neurontin 300 CAP(*)] 300 mg PO BID 09/16/15 [History Confirmed 10/30/19] Metoprolol Tartrate TAB* [Lopressor TAB*] 50 mg PO BID 05/14/17 [History Confirmed 10/30/19] Phenytoin CAP(*) [Dilantin CAP(*)] 200 mg PO BID 12/14/17 [History Confirmed 09/18] Ascorbic Acid TAB* [Vitamin C TAB*] 500 mg PO DAILY 08/19/18 [History Confirmed 10/30/19] Folic Acid TAB* [Folvite TAB*] 1 mg PO DAILY tab 09/23/18 [Rx Confirmed ] Multivitamins/Minerals TAB* [Theragran/minerals TAB*] 1 tab PO DAILY tab [Rx Confirmed 10/30/19] Thiamine TAB* [Vitamin B-1 TAB 100 MG*] 100 mg PO DAILY #30 tab 09/23/18 [Rx Confirmed 10/30/19] Amoxicillin PO (*) [Amoxicillin 500 MG CAP*] 500 mg PO TID 10/30/19 [History Confirmed 10/30/19] Betamethasone Darshana 0.1% CM(NF) [Valisone 0.1% CM(NF)] 1 applic TOPICAL TID [History Confirmed 10/30/19] Cetirizine* [ZyrTEC 10 MG TAB*] 10 mg PO DAILY 10/30/19 [History Confirmed 10/29] Cholecalciferol CAP/TAB(NF) [Vitamin D3 CAP/TAB (NF)] 1,000 unit PO DAILY [History Confirmed 10/30/19] Lidocaine 4% GEL* [Topicaine 4% GEL*] 1 applic TOPICAL BID PRN 10/30/19 [ History Confirmed 10/30/19] Nicotine GUM* 4MG FRUIT FLAVOR [Nicotine GUM*] 4 mg PO Q2H PRN 10/30/19 [ History Confirmed 10/30/19] Nicotine PATCH 7 MG/24 HR* 1 patch TRANSDERM DAILY 10/30/19 [History Confirmed 10/30/19] Potassium Gluconate [Potassium] 550 mg PO DAILY 10/30/19 [History Confirmed 09/18] QUEtiapine TAB* [Seroquel 25 MG TAB*] 50 mg PO DAILY 10/30/19 [History Confirmed 10/30/19] Triamcinolone 0.5% CREAM(NF) [Kenalog Cream 0.5%(NF)] 1 applic TOPICAL BID 10/29 [History Confirmed 10/30/19] amLODIPine TAB* [Norvasc 5 mg TAB*] 5 mg PO DAILY 10/30/19 [History Confirmed ] PMH/Surg Hx/FS Hx/Imm Hx Endocrine/Hematology History: Denies: Hx Anticoagulant Therapy, Hx Diabetes Cardiovascular History: Reports: Hx Hypercholesterolemia, Hx Hypertension Denies: Hx Pacemaker/ICD Respiratory History: Denies: Hx Asthma Musculoskeletal History: Reports: Hx Arthritis, Hx Back Problems, Hx Scoliosis, Other Musculoskeletal History - c/o chronic soreness left posterior calf, states he has had " for years" Sensory History: Reports: Hx Contacts or Glasses - glasses, Hx Deafness Opthamlomology History: Reports: Hx Contacts or Glasses - glasses Neurological History: Reports: Hx Seizures, Other Neuro Impairments/Disorders - tremors r/t ETOH. PAIN CLINIC PT Psychiatric History: Reports: Hx Substance Abuse - ETOH Denies: Hx Anxiety, Hx Attention Deficit Hyperactivity Disorder, Hx Eating Disorder, Hx Depression, Hx Panic Disorder, Hx Post Traumatic Stress Disorder, Hx Inpatient Treatment, Hx Community Mental Health Tx, Hx Schizophrenia, Hx Bipolar Disorder, Hx Suicide Attempt, Hx of Violent Episodes Against Others, Other Psychiatric Issues/Disorders - Surgical History Surgery Procedure, Year, and Place: APPENDIX 1982 - Immunization History Date of Tetanus Vaccine: unknown Infectious Disease History: No Infectious Disease History: Denies: Hx Hepatitis, Hx Human Immunodeficiency Virus (HIV), Hx of Known/ Suspected MRSA, Hx Shingles, Hx Tuberculosis, Traveled Outside the in Last 30 Days - Family History Known Family History: Positive: Hypertension - Social History Alcohol Use: Daily Alcohol Amount: "1/2 BOTTLE" VODKA Hx Substance Use: Yes Hx Tobacco Use: Yes Smoking Status (MU): Heavy Every Day Tobacco Smoker Type: Cigarettes Amount Used/How Often: 5-6 cigarettes/day Have You Smoked in the Last Year: Yes Review of Systems Positive: Other - L hand and L forearm swelling and pain Positive: Other - L hand and L forearm erythema, forehead laceration Neurological/Mental Status: Other - LOC Positive: Headache All Other Systems Reviewed And Are Negative: Yes Physical Exam - Summary Physical Exam Summary: Constitutional: Well-developed, Well-nourished, Alert. (-) Distressed Skin: Warm, Dry; healing laceration to the forehead HENT: Normocephalic; Atraumatic Eyes: Conjunctiva normal Neck: Musculoskeletal ROM normal neck. (-) JVD, (-) Stridor, (-) Nuchal rigidity Cardio: Rhythm regular, rate normal, Heart sounds normal; Intact distal pulses; Radial pulses are 2+ and symmetric. (-) Murmur Pulmonary/Chest wall: Effort normal. (-) Respiratory distress, (-) Wheezes, (-) Rales Abd: Soft, (-) tenderness, (-) Distension, (-) Guarding, (-) Rebound Musculoskeletal: Diffuse erythema and swelling to left hand including left thumb , streaking of the ventral aspect of left forearm Lymph: (-) Cervical adenopathy Neuro: Alert, Oriented x3. GCS 15. Psych: Mood and affect Normal Triage Information Reviewed: Yes Vital Signs On Initial Exam: Initial Vitals Temp Pulse Resp BP Pulse Ox 98.2 F 89 16 135/75 98 10/30/19 13:48 10/30/19 13:48 10/30/19 13:48 10/30/19 13:48 10/30/19 13:48 Vital Signs Reviewed: Yes Procedures - Sedation Patient Received Moderate/Deep Sedation with Procedure: No Diagnostics - Vital Signs Vital Signs Temp Pulse Resp BP Pulse Ox 10/30/19 13:48 98.2 F 89 16 135/75 98 - Laboratory Result Diagrams: 10/30/19 14:24 10/30/19 14:24 Lab Statement: Any lab studies that have been ordered have been reviewed, and results considered in the medical decision making process. - CT BRAIN CT Interpretation Completed By: Radiologist - IMPRESSION: #. No acute intracranial process evident. #. Moderately severe involutional change. ED physician has reviewed this imaging report. Course/Dx - Course Course Of Treatment: 59 y/o male p/w L hand swelling and erythema c/w cellulitis. Labs notable for LA 4, given 30 cc/kg IVF, clindamycin. Reports fall w LOC, small head lac already healing. GCS 15, head CT unremarkable. Updated tetanus. Admit to medicine for cellulitis. - Diagnoses Provider Diagnoses: Cellulitis - Physician Notifications Discussed Care Of Patient With: Mary Kate Castano - Agrees to admit Time Discussed With Above Provider: 16:00 Discharge ED - Sign-Out/Discharge Documenting (check all that apply): Patient Departure - Discharge Plan Condition: Stable Disposition: ADMITTED TO [facility] Referrals: Gustavo Mata, MACHINE STRAP BUCKLER [Primary Care Provider] - - Billing Disposition and Condition Condition: STABLE Disposition: Admitted to [facility] - Attestation Statements Document Initiated by Scribe: Yes Documenting Scribe: Angela Montesinos Provider For Whom Scribe is Documenting (Include Credential): Maxx Linares MD Scribe Attestation: Angela Montemayor, scribed for Maxx Linares MD on 10/30/19 at 1624. Scribe Documentation Reviewed: Yes Provider Attestation: The documentation as recorded by the scribe, Angela Montesinos accurately reflects the service I personally performed and the decisions made by me, Maxx Linarse MD Status of Scribe Document: Viewed
[2019-10-30] MEDS ORDERED: Clindamycin 600 MG/D5W BAG(*) 600 MG/50 ML BAG IV ONE (14:27)
[2019-10-30 14:39] LABS: ABS Lymphocytes 0.9 10^3/ul (1.0-4.8); ABS Monocytes 1.5 10^3/ul (0-0.8); ABS Neutrophils 6.7 10^3/ul (1.5-7.7); Hematocrit 33 % (42-52); Hemoglobin 11.9 g/dL (14.0-18.0); Lymphocyte % 9.7 %; Mean Corpuscular HGB Conc 36 g/dL (31-36); Mean Corpuscular Hemoglobin 36 pg (27-31); Mean Corpuscular Volume 100 fL (80-94); Mean Platelet Volume 7.4 fL (7.4-10.4); Platelet Count 154 10^3/uL (150-450); Red Blood Count 3.35 10^6 /uL (4.18-5.48); Red Cell Distribution Width 13 % (10-15); White Blood Count 9.1 10^3/uL (3.5-10.8)
[2019-10-30 14:56] LABS: Albumin/Globulin Ratio 1.2 (1-3); BUN/Creatinine Ratio 15.4 (8-20); Calcium 8.9 mg/dL (8.6-10.3); EGFR African American 153.2 (>60); EGFR Non-African American 126.6 (>60); Globulin 3.3 g/dL (2-4); Potassium 3.7 mmol/L (3.5-5.0); Total Bilirubin 0.7 mg/dL (0.2-1.0); Total Protein 7.3 g/dL (6.4-8.9)
[2019-10-30] MEDS ORDERED: NS 0.9% IV ONE (15:00)
[2019-10-30] MEDS ORDERED: Tetan/Diph/Pertus SYR(Tdap)* 0.5 ML SYR(BOOSTRIX) use SYR contains LATEX IM ONE (16:24)
[2019-10-30] MEDS ORDERED: Al Hydrox/Mg Hydrox/Simet LIQ* 30 ML UDC PO PRN (16:40)
[2019-10-30] MEDS ORDERED: Senna TAB 8.6 mg* TAB PO PRN (16:40)
--- NOTE | 2019-10-30 18:58 | HP ---
CC: Dr. Antonino Mayfield * HISTORY AND PHYSICAL: DATE OF ADMISSION: 10/30/19 ATTENDING PHYSICIAN WHILE IN THE HOSPITAL: Dr. Mary Kate Castano * (dictated by MAI Pablo). PRIMARY CARE PROVIDER: Dr. Antonino Mayfield. CHIEF COMPLAINT: Left hand pain and swelling. HISTORY OF PRESENT ILLNESS: Aurelio Edmond is a 59-year-old white male with past medical history significant for seizure disorder, alcohol use disorder, chronic subdural hematoma, hypertension, and psoriasis, who presents to the emergency department today due to increased reddening and swelling of his left hand and wrist. The patient noticed that his hand was starting to swell yesterday evening and when he woke up this morning, it was worse with significant redness in the hand, wrist, and spreading up the arm. He frequently mentions that he thinks it is a spider bite, but he tells me that he did not witness a spider bite himself. He denies fevers, chills, chest pain, difficulty breathing, numbness and tingling in his extremities, abdominal pain, nausea, vomiting, diarrhea, or cough. Of note, there is a laceration to his forehead and he tells me that this happened yesterday. He stood up from sitting very quickly and then syncopized and he struck his head on the furniture. He did lose consciousness and he is unsure for how long. He denies any head pain or neck pain today. PAST MEDICAL HISTORY: 1. Seizure disorder, the patient tells me he has been without a seizure for multiple years. 2. Alcohol use disorder. 3. Tobacco use. 4. Chronic subdural hematoma. 5. Hypertension. 6. Psoriasis. PAST SURGICAL HISTORY: Appendectomy. HOME MEDICATIONS: 1. Triamcinolone 0.5% cream 1 application topically b.i.d. 2. Cetirizine 10 mg p.o. daily. 3. Betamethasone 0.1% cream 1 application topically t.i.d. 4. Potassium gluconate 550 mg p.o. daily. 5. Multivitamin 1 tab p.o. daily. 6. Thiamine 100 mg p.o. daily. 7. Metoprolol tartrate 50 mg p.o. b.i.d. 8. Vitamin D3 1000 units p.o. daily. 9. Amlodipine 5 mg p.o. daily. 10. Seroquel 50 mg p.o. at bedtime. 11. Magnesium oxide 400 mg p.o. b.i.d. 12. Lidocaine 4% gel 1 application topically b.i.d. p.r.n. pain. 13. Vitamin C 500 mg p.o. daily. 14. Phenytoin 200 mg p.o. b.i.d. 15. Gabapentin 300 mg p.o. b.i.d. 16. Folic acid 1 mg p.o. daily. ALLERGIES: Unknown reaction to BEES. FAMILY HISTORY: The patient's father of cancer at age 85, type of cancer is unknown to the patient. Mother at age 87 due to CVA. 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 He has 1 son. He is . He tells me he drinks 6 beers a day and smokes 2 to 3 cigarettes per day. Prior to this, he has 20-year smoking history of approximately 1 pack per day. He smokes marijuana occasionally and lives alone. The patient's surrogate medical decision maker should he need one is his sister Jamilah Mclean; this perhaps is incorrect spelling of her last name and the patient does not know how to accurately spell her last name. Her phone number is [phone]. REVIEW OF SYSTEMS: An 11-point review of systems was completed and all pertinent positives and negatives are above in the HPI. All other systems are negative. PHYSICAL EXAMINATION GENERAL: A white male who appears slightly older than stated age, lying in hospital bed, appearing comfortable, in no acute distress. VITAL SIGNS: Temperature 98.2, pulse 89, respiratory rate 16, oxygen saturation 98% on room air, and blood pressure 135/75. HEENT: Head: Normocephalic with approximately a 1 inch laceration vertically on the middle of his forehead, which appears to be healing well, and there is no active bleeding and no surrounding hematoma. Eyes: PERRL. Sclerae anicteric. ENT: Mucous membranes moist. LUNGS: Clear to auscultation throughout. CARDIO: Regular rate and rhythm without murmurs, rubs, or gallops. ABDOMEN: Soft, nontender, nondistended. EXTREMITIES: No clubbing or cyanosis. There is no edema of his right upper extremity or bilateral lower extremities. There is +1 pitting edema throughout the patient's thumb and to his digits up to the first MTP and throughout the hand and wrist with associated erythema in these regions. He additionally has streaking up towards the shoulder faintly, and there is erythema extending into his forearm. It is blanchable. There is a small hint of purple coloration to the IP joint of his left thumb with small approximately 4-5 8 mm diameter lumps underlying, which do not feel fluctuant. NEURO: The patient is alert and oriented x3. Able to move all extremities without tremors. Strength is 5/5 in bilateral lower extremities. 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 SKIN: Warm and dry. Two 1-2mm diameter scabs to base of left index finger consistent with recent dog bite. DIAGNOSTIC STUDIES/LAB DATA: White blood cell count 9.1, hemoglobin 11.9, hematocrit 33, platelet count 154. Sodium 129, potassium 3.7, chloride 93, carbon dioxide 20, anion gap 16, BUN 10, creatinine 0.65, glucose 101, lactic acid 4.1, calcium 8.9. Total bili 0.7, AST 40, ALT 32, alk phos 151. CT of the brain, impression: No acute intracranial process evident. Moderately severe involutional change. ASSESSMENT AND PLAN: Aurelio Edmond is a 59-year-old white male with past medical history significant for alcohol use disorder, seizure disorder, hypertension, chronic subdural hematoma, and psoriasis, who presents to the emergency department today due to redness and swelling of his left upper extremity. The patient will be admitted OBV for: 1. Cellulitis. I suspect that this is cellulitis secondary to an animal bite. His dog bit him a week ago and these symptoms started yesterday. Included in my differential is pseudogout and I also would like to rule out an abscess and so I am ordering soft tissue ultrasound as well as left hand and wrist x-rays. If these x- rays are showing joint effusion, we should consult Orthopedics for joint aspiration. I am going to add on a CRP. He received clindamycin in the emergency department. I will be continuing doxycycline and Flagyl to cover for the animal bite. He is afebrile and overall appears stable, but he does have streaking up the extremity, which I did christen with a pen marker. 2. Sepsis secondary to animal bite cellulitis. This patient in fact meets criteria for severe sepsis as his lactic acid is elevated to 4.1. He did receive a fluid bolus in the emergency department. I will repeat lactic acid to watch that this is downtrending. He does not meet criteria for septic shock as he is not hypotensive and does not have any other systemic inflammatory response syndrome criteria as he is not tachypneic, he is not tachycardic, and he has no leukocytosis. 3. Hypertension. I will be continuing the patient's home medications of amlodipine and metoprolol. 4. Alcohol use. I suspect that the patient may start withdrawing from alcohol as he will be in the hospital. He did tell me that his last drink was within hours before coming to the hospital. I am going to order a WAM protocol with p.o. lorazepam. 5. Tobacco use. I will be ordering the patient nicotine gum p.r.n. for cravings. 6. Recent head trauma. The patient is neurologically intact without focal deficits and the CT of his brain shows no acute changes and the laceration to his skull is stable. 7. History of seizure disorder. I will be continuing the patient's home gabapentin and phenytoin. 8. Hyponatremia. I suspect that this is due to hypovolemia considering the patient's illness as well as likely poor p.o. intake as he drinks a significant amount of alcohol. I anticipate this will be improving with the fluids that he is receiving per sepsis protocol, but if this does not improve, then perhaps urine study should be collected. 9. FEN: Hyponatremia as described above. Fluids as described above. The patient will have a regular unrestricted diet. 10. DVT prophylaxis: The patient has a VTE risk score of 1 and he should ambulate. 11. Code status: The patient is full code. TIME SPENT: Approximately 50 minutes was spent on this admission, approximately half this time was spent at bedside evaluating the patient and discussing the plan of care. This case has been reviewed by my attending, Dr. Mary Kate Castano, and she agrees with this plan of care. CRISTELA SALAZAR, MAI [id number]/[facility] #: [id number] CULLEN
[2019-10-30] MEDS ORDERED: Lactated Ringers 1000 ML Bag* 1,000 ML IV ONE (20:00)
[2019-10-30] MEDS: DOXYcycline IV* 100 MG in NS 0.9% 250 ML* 250 ML IVPB SCH (20:05)
[2019-10-30] MEDS: Acetaminophen TAB* 325 MG PO PRN (20:05)
[2019-10-30] MEDS ORDERED: NS 0.9% 250 ML* 250 ML ONE (20:49)
[2019-10-30] MEDS: QUEtiapine TAB* 25 MG PO SCH (21:05)
[2019-10-30] MEDS: Metoprolol Tartrate TAB* 50 mg PO SCH (21:06)
[2019-10-30] MEDS: Magnesium Oxide TAB* 400 MG PO SCH (21:06)
[2019-10-30] MEDS: Gabapentin CAP(*) 300 MG PO SCH (21:06)
[2019-10-30] MEDS: Phenytoin CAP(*) 100 MG CAP.ER PO SCH (21:07)
[2019-10-31] MEDS: metroNIDAZOLE IV 500 MG/100ML* 500 MG/100 ML BAG IVPB SCH ×3 (00:06→16:08)
[2019-10-31] MEDS: Acetaminophen TAB* 325 MG PO PRN ×4 (00:18→17:45)
[2019-10-31 04:54] LABS: ABS Lymphocytes 1.1 10^3/ul (1.0-4.8); ABS Neutrophils 4.6 10^3/ul (1.5-7.7); Eosinophil % 0.2 %; Hematocrit 31 % (42-52); Hemoglobin 10.9 g/dL (14.0-18.0); Lymphocyte % 16.7 %; Mean Corpuscular HGB Conc 35 g/dL (31-36); Mean Corpuscular Hemoglobin 35 pg (27-31); Mean Corpuscular Volume 100 fL (80-94); Mean Platelet Volume 7.5 fL (7.4-10.4); Nucleated Red Blood Cells % 0.1; Platelet Count 148 10^3/uL (150-450); Red Blood Count 3.11 10^6 /uL (4.18-5.48); Red Cell Distribution Width 13 % (10-15); White Blood Count 6.8 10^3/uL (3.5-10.8)
[2019-10-31 05:08] LABS: Albumin 3.4 g/dL (3.2-5.2); Albumin/Globulin Ratio 1.1 (1-3); BUN/Creatinine Ratio 14.5 (8-20); Calcium 8.8 mg/dL (8.6-10.3); EGFR Non-African American 118.2 (>60); Potassium 3.6 mmol/L (3.5-5.0); Total Bilirubin 0.7 mg/dL (0.2-1.0); Total Protein 6.4 g/dL (6.4-8.9)
[2019-10-31] MEDS: DOXYcycline IV* 100 MG in NS 0.9% 250 ML* 250 ML IVPB SCH ×2 (07:33→20:14)
[2019-10-31] MEDS ORDERED: QUEtiapine TAB* 25 MG PO SCH (09:00)
[2019-10-31] MEDS ORDERED: Pneumococcal *Vac Polyvalent 0.5 ML VIAL IM ONE (09:00)
[2019-10-31] MEDS: Gabapentin CAP(*) 300 MG PO SCH ×2 (09:35→20:14)
[2019-10-31] MEDS: Magnesium Oxide TAB* 400 MG PO SCH ×2 (09:35→20:14)
[2019-10-31] MEDS: Metoprolol Tartrate TAB* 50 mg PO SCH ×2 (09:35→20:14)
[2019-10-31] MEDS: Ascorbic Acid TAB* 500 MG PO SCH (09:36)
[2019-10-31] MEDS: Multivitamins/Minerals TAB PO SCH (09:36)
[2019-10-31] MEDS: Cetirizine* 10 MG TAB PO SCH (09:36)
[2019-10-31] MEDS: amLODIPine TAB* 5 MG PO SCH (09:36)
[2019-10-31] MEDS: Thiamine TAB* 100 MG TAB PO SCH (09:36)
[2019-10-31] MEDS: Phenytoin CAP(*) 100 MG CAP.ER PO SCH ×2 (09:36→20:14)
[2019-10-31] MEDS: Folic Acid TAB* 1 MG PO SCH (09:36)
[2019-10-31] MEDS: Nicotine* 2MG (FRUIT FLAVOR) GUM PO PRN ×2 (09:40→13:54)
--- NOTE | 2019-10-31 09:49 | PN ---
Subjective Date of Service: 10/31/19 Interval History: -Alert and oriented x 3. Pt reports that his left hand continues to be very painful and swollen. Reports that his ROM is decreased and painful, does not feel that it has improved since arrival. -Pt denies feeling tremulous, headache, auditory or visual hallucinations, or diaphoresis. Reports that he usually drinks a six pack daily. Denies ever experiencing withdrawal sx. Pt reports last seizure episode was approx. 8 months ago and reports that it was just a mild seizure where he flopped over. Family History: Unchanged from Admission Social History: Unchanged from Admission Past Medical History: Unchanged from Admission Objective Active Medications: Acetaminophen (Tylenol Tab*) 650 mg PO Q4H PRN PRN Reason: MILD PAIN or TEMP > 100.4 Last Admin: 10/31/19 06:19 Dose: 650 mg Al Hydrox/Mg Hydrox/Simethicone (Maalox Plus*) 30 ml PO Q6H PRN PRN Reason: INDIGESTION Amlodipine Besylate (Norvasc Tab*) 5 mg PO DAILY [facility] Last Admin: 10/31/19 09:36 Dose: 5 mg Ascorbic Acid (Vitamin C Tab*) 500 mg PO DAILY [facility] Last Admin: 10/31/19 09:36 Dose: 500 mg Cetirizine HCl (Zyrtec*) 10 mg PO DAILY [facility] Last Admin: 10/31/19 09:36 Dose: 10 mg Folic Acid (Folvite Tab*) 1 mg PO DAILY [facility] Last Admin: 10/31/19 09:36 Dose: 1 mg Gabapentin (Neurontin Cap(*)) 300 mg PO BID [facility] Last Admin: 10/31/19 09:35 Dose: 300 mg Metronidazole/Sodium Chloride (Flagyl 500 Mg Ivpb*) 500 mg in 100 mls @ 100 mls /hr IVPB Q8H [facility] Last Admin: 10/31/19 09:34 Dose: 100 mls/hr Doxycycline Hyclate 100 mg/ (Sodium Chloride) 250 mls @ 250 mls/hr IVPB Q12H [facility] Last Admin: 10/31/19 07:33 Dose: 250 mls/hr Lorazepam (Ativan Tab(*)) 0 - 6 mg PO .PER [facility] PROTOCOL [facility]; Protocol Magnesium Oxide (Magox 400 Tab*) 400 mg PO BID [facility] Last Admin: 10/31/19 09:35 Dose: 400 mg Metoprolol Tartrate (Lopressor Tab*) 50 mg PO BID [facility] Last Admin: 10/31/19 09:35 Dose: 50 mg Multivitamins/Minerals (Theragran/Minerals Tab*) 1 tab PO DAILY [facility] Last Admin: 10/31/19 09:36 Dose: 1 tab Nicotine Polacrilex (Nicotine Gum*) 2 mg PO Q2H PRN PRN Reason: CRAVING Last Admin: 10/31/19 09:40 Dose: 2 mg Phenytoin Sodium (Dilantin Cap(*)) 200 mg PO BID [facility] Last Admin: 10/31/19 09:36 Dose: 200 mg Quetiapine Fumarate (Seroquel Tab*) 50 mg PO BEDTIME [facility] Last Admin: 10/30/19 21:05 Dose: 50 mg Senna (Senokot 8.6 Mg Tab*) 1 tab PO BID PRN PRN Reason: CONSTIPATION Thiamine HCl (Vitamin B-1 Tab*) 100 mg PO DAILY [facility] Last Admin: 10/31/19 09:36 Dose: 100 mg Vital Signs - 8 hr 10/31/19 10/31/19 10/31/19 03:00 05:00 07:30 Temperature 99.4 F 100.2 F 98.7 F Pulse Rate 96 108 101 Respiratory 18 18 16 Rate Blood Pressure 119/65 131/70 155/86 (mmHg) O2 Sat by Pulse 97 97 98 Oximetry 10/31/19 09:35 Temperature Pulse Rate Respiratory 16 Rate Blood Pressure (mmHg) O2 Sat by Pulse Oximetry Oxygen Devices in Use Now: None Appearance: Middle aged gentleman laying in bed watching TV, does not appear to be in any distress presently. Eyes: No Scleral Icterus, PERRLA Ears/Nose/Mouth/Throat: NL Teeth, Lips, Gums, Clear Oropharnyx, Mucous Membranes Moist, - - Edentuous no dentures in hospital Neck: NL Appearance and Movements; NL JVP, Trachea Midline Respiratory: Symmetrical Chest Expansion and Respiratory Effort, - - occasional wheeze heard on ausculation does not clear with cough. Cardiovascular: NL Sounds; No Murmurs; No JVD, RRR, No Edema Abdominal: NL Sounds; No Tenderness; No Distention, No Hepatosplenomegaly Lymphatic: No Cervical Adenopathy Skin: - - Left hand remains swollen and warm, erythema has not spread beyond the boarders outlined in skin marker. Laceration mid forehead is scabbed over, no drainge or erythema noted. does not appear to be infected. Neurological: Alert and Oriented x 3, NL Sensation, NL Gait, NL Muscle Strength and Tone Nutrition: Taking PO's Result Diagrams: 10/31/19 04:18 10/31/19 04:18 Assess/Plan/Problems-Billing Assessment: 59 yo gentleman with history significant for Seizures, Alcohol abuse, Vhroinc subdural hematoma, htn, and psoriasis presented to emergency department with complaints of pain and swelling in the left hand. - Patient Problems (1) Cellulitis of hand, left Current Visit: Yes Comment: -Left wrist xray shows no fractures or erosions -Left wrist soft tissue ultrasound reveals edema without collections of drainable fluid -Suspected insect bite per patient unknown other causes, pt reports pain and swelling began on left thumb. Edema is now present in entire hand and extends into wrist. Erythema is circumferential to hand and wrist with streaking that extends up forearm stopping just before elbow/antecubital area. Has not breached outline traced with skin marker one day ago. -Doxycycline and flagyl IV. (2) Sepsis Current Visit: Yes Comment: -Temp 98.5 HR 86, BP 125/68 -Lactic acid 1.1 -Pt no longer meets sepsis criteria will continue to monitor (3) HTN (hypertension) Current Visit: No Comment: -Well controlled on current treatment regimen -Continue Metoprolol and Amlodipine (4) Seizure disorder Current Visit: Yes Comment: -Continue Dilantin -Last seizure 8 mos ago per patient -Will continue to monitor with [place] protocol (5) Alcohol abuse Current Visit: Yes Comment: -WAM protocol -Pt denies W/D sx -Lorazepam ordered PRN -Reports drinking 6 beers daily (6) Tobacco abuse Current Visit: Yes Comment: -Advised lifestyle modifications -Nicotine gum PRN (7) DVT prophylaxis Current Visit: No Comment: -Low DVT risk score. Pt is ambulatory and will be encouraged to do so. (8) Full code status Current Visit: Yes Comment: Status and Disposition: Guarded observation
[2019-10-31 13:31] LABS: Uric Acid 3.3 mg/dL (4.4-7.6)
[2019-10-31] MEDS: Nicotine PATCH 21 MG/24 HR* PATCH TRANSDERM SCH (13:54)
--- NOTE | 2019-10-31 14:34 | CONSULT ---
Consult Consult: HPI: The pt is a 59 y/o M brought in by EMS to [facility] yesterday with c/o L hand and L forearm swelling, pain, erythema after he was bit by a spider two days ago in the afternoon. He put ice on his left hand and forearm but the swelling, pain, and erythema worsened. He is right handed. He has pet dog that did not bite him. He additionally c/o headache, forehead laceration, LOC after having a fall two nights ago. Symptoms aggravated by nothing. Today he is sitting in bed. Antibiotics were started on the pt when admitted and his areas of erythema on the hand and up the arm were marked with a marker in the ER. He denies any fevers, chills or night sweats, he denies pain only admitting to stiffness in the hand and wrist. Allergies Allergy/AdvReac Type Severity Reaction Status Date / Time bee venom protein (honey bee) Allergy Unknown Verified 09/24/18 08:12 Reaction Details Home Medications Magnesium Oxide TAB* [MagOx 400 TAB*] 400 mg PO BID 06/23/15 [History Confirmed 10/30/19] Gabapentin CAP(*) [Neurontin 300 CAP(*)] 300 mg PO BID 09/16/15 [History Confirmed 10/30/19] Metoprolol Tartrate TAB* [Lopressor TAB*] 50 mg PO BID 05/14/17 [History Confirmed 10/30/19] Phenytoin CAP(*) [Dilantin CAP(*)] 200 mg PO BID 12/14/17 [History Confirmed 09/18] Ascorbic Acid TAB* [Vitamin C TAB*] 500 mg PO DAILY 08/19/18 [History Confirmed 10/30/19] Folic Acid TAB* [Folvite TAB*] 1 mg PO DAILY tab 09/23/18 [Rx Confirmed ] Multivitamins/Minerals TAB* [Theragran/minerals TAB*] 1 tab PO DAILY tab [Rx Confirmed 10/30/19] Thiamine TAB* [Vitamin B-1 TAB 100 MG*] 100 mg PO DAILY #30 tab 09/23/18 [Rx Confirmed 10/30/19] Amoxicillin PO (*) [Amoxicillin 500 MG CAP*] 500 mg PO TID 10/30/19 [History Confirmed 10/30/19] Betamethasone Darshana 0.1% CM(NF) [Valisone 0.1% CM(NF)] 1 applic TOPICAL TID [History Confirmed 10/30/19] Cetirizine* [ZyrTEC 10 MG TAB*] 10 mg PO DAILY 10/30/19 [History Confirmed 10/29] Cholecalciferol CAP/TAB(NF) [Vitamin D3 CAP/TAB (NF)] 1,000 unit PO DAILY [History Confirmed 10/30/19] Lidocaine 4% GEL* [Topicaine 4% GEL*] 1 applic TOPICAL BID PRN 10/30/19 [ History Confirmed 10/30/19] Nicotine GUM* 4MG FRUIT FLAVOR [Nicotine GUM*] 4 mg PO Q2H PRN 10/30/19 [ History Confirmed 10/30/19] Nicotine PATCH 7 MG/24 HR* 1 patch TRANSDERM DAILY 10/30/19 [History Confirmed 10/30/19] Potassium Gluconate [Potassium] 550 mg PO DAILY 10/30/19 [History Confirmed 09/18] QUEtiapine TAB* [Seroquel 25 MG TAB*] 50 mg PO DAILY 10/30/19 [History Confirmed 10/30/19] Triamcinolone 0.5% CREAM(NF) [Kenalog Cream 0.5%(NF)] 1 applic TOPICAL BID 10/29 [History Confirmed 10/30/19] amLODIPine TAB* [Norvasc 5 mg TAB*] 5 mg PO DAILY 10/30/19 [History Confirmed ] PMH Hypercholesterolemia Hypertension Asthma Arthritis Back Problems Scoliosis Seizures Substance Abuse - ETOH SHx: APPENDIX 1983 Family History Known Family History: Positive: Hypertension Social History Alcohol Use: Daily Alcohol Amount: "1/2 BOTTLE" VODKA per ED, 6 beers per day per hospitalists, pt states to me 4 beers per day. Hx Substance Use: Yes Hx Tobacco Use: Yes Smoking Status (MU): Heavy Every Day Tobacco Smoker Type: Cigarettes Amount Used/How Often: 5-6 cigarettes/day Have You Smoked in the Last Year: Yes Review of Systems General: Denies fevers, chills or night sweats. No known anesthesia problems. HEENT: denies TRIANA, lightheadedness or syncopal episodes Cardiothoracic: Negative for chest pain, heart palpitations, or edema Pulmonary: Negative for SOB with exertion, chronic cough, COPD or asthma GI: denies N/V/D/C or GERD : Negative for nocturia, urinary frequency Musculoskeletal: negative for chronic or intermittent back pain or fractures Neuro: Admits to seizures. Denies paresthesias, numbness Integumentary: abrasion of forehead. Swelling and redness of left arm. Physical Exam: Constitutional: Well-developed, Well-nourished, Alert. NAD Skin: Warm, Dry; healing laceration to the forehead HENT: Normocephalic; Atraumatic Eyes: Conjunctiva normal Musculoskeletal: Diffuse erythema and swelling to left hand including left thumb , streaking of the ventral aspect of left forearm. The pt does have markings that show were the erythema was present. With these in place it shows that the erythema has started to receed. He does have a scab at the dorsal wrist crease present. This may be a site of entry. The pt has full ROM of the elbow without pain. He has 40 of extension and 40 of flexion at the wrist without pain. He is able to move his fingers without pain but ROM is slightly restricted due to swelling. He can resist thumb abduction and adduction. He has a 2+ DP pulse and full sensation. Neuro: Alert, Oriented x3. Psych: Mood and affect Normal IMAGING: Xray of the left hand and wrist were obtained today. There is no fracture or erosions present. Left hand ultrasound was reviewed and there was no abnormalities seen. ASSESSMENT: Left wrist and hand cellulitis, extending into the forearm. PLAN: We will continue with the current abx at this point. As the erythema seems to be receding and the pt has painless ROM. We will continue to monitor for improvement. ID has also been consulted and will place their recommendations. He can continue to ice the hand and wrist along with elevation. Continue to move all joints freely.
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
[2019-10-31] MEDS: QUEtiapine TAB* 25 MG PO SCH (20:14)
[2019-11-01] MEDS: DOXYcycline IV* 100 MG in NS 0.9% 250 ML* 250 ML IVPB SCH (07:24)
[2019-11-01] MEDS: LORazepam TAB(*) 1 MG PO SCH ×2 (07:31→09:19)
--- NOTE | 2019-11-01 07:40 | PN ---
Progress Note - Progress Note Date of Service: 11/01/19 SOAP: Subjective: Pt. is alert, reports his left hand/wrist/forearm are much improved today, 3/10 aching pain with activity/motion. He feels the antibiotics are helping and he would like to go home. Objective: Vital Signs: Temp Pulse Resp BP Pulse Ox 98.7 F 106 18 152/78 100 11/01/19 07:24 11/01/19 07:24 11/01/19 07:31 11/01/19 07:24 11/01/19 07:24 Laboratory Results - last 24 hr 10/31/19 04:18 Sodium 132 L Potassium 3.6 Chloride 98 L Carbon Dioxide 27 Anion Gap 7 BUN 10 Creatinine 0.69 Est GFR ( Amer) 143.0 Est GFR (Non-Af Amer) 118.2 BUN/Creatinine Ratio 14.5 Glucose 121 H Uric Acid 3.3 L Calcium 8.8 Total Bilirubin 0.70 AST 30 ALT 24 Alkaline Phosphatase 130 H Total Protein 6.4 Albumin 3.4 Globulin 3.0 Albumin/Globulin Ratio 1.1 LUE - skin with healing dorsal scabs. erythema is receding when compared with lines drawn. Excellent range of motion thumb/wrist/elbow with minimal pain. some edema at hand/wrist. 2 + radial pulse, full sens lt. Assessment: 59 yo M with LUE cellulitis, treated with IV abx Plan: Cellulitis is improving. Range of motion/function is excellent. IV vs PO antibiotics recommended. No surgical intervention planned at this time. Follow up in ortho clinic for recheck in 5-7 days, recommend 11/07/19, call [phone]. Plan discussed with patient.
[2019-11-01] MEDS: Thiamine TAB* 100 MG TAB PO SCH (09:10)
[2019-11-01] MEDS: amLODIPine TAB* 5 MG PO SCH (09:10)
[2019-11-01] MEDS: Magnesium Oxide TAB* 400 MG PO SCH ×2 (09:10→21:41)
[2019-11-01] MEDS: Phenytoin CAP(*) 100 MG CAP.ER PO SCH ×2 (09:11→21:41)
[2019-11-01] MEDS: Metoprolol Tartrate TAB* 50 mg PO SCH ×2 (09:11→21:40)
[2019-11-01] MEDS: Gabapentin CAP(*) 300 MG PO SCH ×2 (09:11→21:40)
[2019-11-01] MEDS: Folic Acid TAB* 1 MG PO SCH (09:11)
[2019-11-01] MEDS: Multivitamins/Minerals TAB PO SCH (09:11)
[2019-11-01] MEDS: Ascorbic Acid TAB* 500 MG PO SCH (09:11)
[2019-11-01] MEDS: Cetirizine* 10 MG TAB PO SCH (09:12)
[2019-11-01] MEDS: Nicotine PATCH 21 MG/24 HR* PATCH TRANSDERM SCH (09:12)
[2019-11-01] MEDS ORDERED: chlordiazePOXIDE CAP* 25 MG PO ONE (09:39)
[2019-11-01] MEDS ORDERED: chlordiazePOXIDE CAP* 25 MG ONE (09:48)
[2019-11-01] MEDS ORDERED: Ziprasidone IM INJ* 20 MG/ML VIAL IM ONE ×2 (10:27→20:00)
[2019-11-01] MEDS ORDERED: LORazepam TAB(*) 1 MG PO SCH (10:42)
--- NOTE | 2019-11-01 10:49 | PN ---
Subjective Date of Service: 11/01/19 Interval History: Pt received 5 mg of Ativan PO for withdrawal symptoms, then 25 mg Librium. Confused, unsteady on his feet, requesting to go home. Lives alone. Family History: Unchanged from Admission Social History: Unchanged from Admission Past Medical History: Unchanged from Admission Objective Active Medications: Acetaminophen (Tylenol Tab*) 650 mg PO Q4H PRN PRN Reason: MILD PAIN or TEMP > 100.4 Last Admin: 10/31/19 17:45 Dose: 650 mg Al Hydrox/Mg Hydrox/Simethicone (Maalox Plus*) 30 ml PO Q6H PRN PRN Reason: INDIGESTION Amlodipine Besylate (Norvasc Tab*) 5 mg PO DAILY [facility] Last Admin: 11/01/19 09:10 Dose: 5 mg Ascorbic Acid (Vitamin C Tab*) 500 mg PO DAILY [facility] Last Admin: 11/01/19 09:11 Dose: 500 mg Cetirizine HCl (Zyrtec*) 10 mg PO DAILY [facility] Last Admin: 11/01/19 09:12 Dose: 10 mg Chlordiazepoxide (Librium Cap*) 25 mg PO TID [facility] Doxycycline Hyclate (Vibramycin Cap(*)) 100 mg PO BID [facility] Folic Acid (Folvite Tab*) 1 mg PO DAILY [facility] Last Admin: 11/01/19 09:11 Dose: 1 mg Gabapentin (Neurontin Cap(*)) 300 mg PO BID [facility] Last Admin: 11/01/19 09:11 Dose: 300 mg Lorazepam (Ativan Tab(*)) 0 - 6 mg PO .PER [facility] PROTOCOL [facility]; Protocol Magnesium Oxide (Magox 400 Tab*) 400 mg PO BID [facility] Last Admin: 11/01/19 09:10 Dose: 400 mg Metoprolol Tartrate (Lopressor Tab*) 50 mg PO BID [facility] Last Admin: 11/01/19 09:11 Dose: 50 mg Multivitamins/Minerals (Theragran/Minerals Tab*) 1 tab PO DAILY [facility] Last Admin: 11/01/19 09:11 Dose: 1 tab Nicotine (Nicotine Patch 21 Mg/24 Hr*) 1 patch TRANSDERM DAILY [facility] Last Admin: 11/01/19 09:12 Dose: 1 patch Nicotine Polacrilex (Nicotine Gum*) 2 mg PO Q2H PRN PRN Reason: CRAVING Last Admin: 10/31/19 13:54 Dose: 2 mg Pharmacy Profile Note (Nicotine Patch Removal Note*) 1 note PATCH OFF 2099 [facility] Phenytoin Sodium (Dilantin Cap(*)) 200 mg PO BID [facility] Last Admin: 11/01/19 09:11 Dose: 200 mg Senna (Senokot 8.6 Mg Tab*) 1 tab PO BID PRN PRN Reason: CONSTIPATION Thiamine HCl (Vitamin B-1 Tab*) 100 mg PO DAILY [facility] Last Admin: 11/01/19 09:10 Dose: 100 mg Vital Signs - 8 hr 11/01/19 11/01/19 11/01/19 04:05 07:24 07:31 Temperature 98.4 F 98.7 F Pulse Rate 103 106 Respiratory 16 18 18 Rate Blood Pressure 159/89 152/78 (mmHg) O2 Sat by Pulse 96 100 Oximetry 11/01/19 11/01/19 11/01/19 09:11 09:19 09:49 Temperature Pulse Rate Respiratory 16 16 16 Rate Blood Pressure (mmHg) O2 Sat by Pulse Oximetry Oxygen Devices in Use Now: None Appearance: 59 yo m in nAD, slurring words, unsteady gait, alert, O x 2 Eyes: No Scleral Icterus, PERRLA Ears/Nose/Mouth/Throat: NL Teeth, Lips, Gums, Mucous Membranes Moist Neck: NL Appearance and Movements; NL JVP, Trachea Midline Respiratory: Symmetrical Chest Expansion and Respiratory Effort, Clear to Auscultation Cardiovascular: NL Sounds; No Murmurs; No JVD, RRR Abdominal: NL Sounds; No Tenderness; No Distention Lymphatic: No Cervical Adenopathy Extremities: - - mild left hand edema Skin: - - left arm cellulitis improving Neurological: - - slurring words, unsteady gait, motor 5/5 b/l, face symmetrical Result Diagrams: 10/31/19 04:18 10/31/19 04:18 Microbiology and Other Data: Microbiology 10/31/19 04:35 Aerobic Blood Culture - Preliminary Blood Venous No Growth Day 1 Anaerobic Blood Culture - Preliminary No Growth Day 1 10/31/19 04:35 Aerobic Blood Culture - Preliminary Blood Venous No Growth Day 1 Anaerobic Blood Culture - Preliminary No Growth Day 1 Assess/Plan/Problems-Billing Assessment: 59 yo gentleman with history significant for Seizures, Alcohol abuse, Chronic subdural hematoma, htn, and psoriasis presented to emergency department with complaints of pain and swelling in the left hand. - Patient Problems (1) Cellulitis of hand, left Comment: -Left wrist xray shows no fractures or erosions -Left wrist soft tissue ultrasound reveals edema without collections of drainable fluid -Suspected insect bite per patient unknown other causes, pt reports pain and swelling began on left thumb. Today cellulitis improving -Doxycycline switched to PO (2) Seizure disorder Comment: -Continue Dilantin -Last seizure 8 mos ago per patient -Will continue to monitor with [facility] protocol (3) Alcohol withdrawal Comment: -started Librium JW -Continue [facility] protocol (4) DVT prophylaxis Comment: -Low DVT risk score. Pt is ambulatory and will be encouraged to do so. Status and Disposition: inpatient, in acute ETOH withdrawal
[2019-11-01] MEDS: chlordiazePOXIDE CAP* 25 MG PO SCH ×2 (13:55→21:41)
[2019-11-01] MEDS ORDERED: Nicotine Patch Removal NOTE PATCH OFF SCH (21:00)
[2019-11-01] MEDS: DOXYcycline CAP(*) 100 MG PO SCH (21:41)
[2019-11-02 05:55] LABS: Hematocrit 30 % (42-52); Hemoglobin 10.3 g/dL (14.0-18.0); Mean Corpuscular HGB Conc 35 g/dL (31-36); Mean Corpuscular Hemoglobin 35 pg (27-31); Mean Corpuscular Volume 100 fL (80-94); Platelet Count 158 10^3/uL (150-450); Red Blood Count 2.94 10^6 /uL (4.18-5.48); Red Cell Distribution Width 13 % (10-15); White Blood Count 7.8 10^3/uL (3.5-10.8)
[2019-11-02 06:10] LABS: BUN/Creatinine Ratio 11.7 (8-20); Calcium 9.4 mg/dL (8.6-10.3); EGFR Non-African American 138.9 (>60); Potassium 3.3 mmol/L (3.5-5.0)
[2019-11-02] MEDS ORDERED: Potassium Chlor TAB* 20 MEQ TAB.ER PO ONE (08:44)
--- NOTE | 2019-11-02 09:58 | PN ---
Progress Note - Progress Note Date of Service: 11/02/19 Note: Patient seen by orthopedics for LUE cellulitis and was cleared for discharge yesterday. Unfortunately prior to discharge patient began having withdrawals from ETOH and was therefore kept for [facility] protocol. Today his left hand has no pain. There is minimal edema without erythema. He forms a full fist, with intact sensation and 2+ radial pulse. Skin is dry and intact. Orthopedics will sign off from this patient. Continue ABX, and ROM. Follow up with ortho in 5-7 days. Call [phone] for appt.
[2019-11-02] MEDS: Magnesium Oxide TAB* 400 MG PO SCH (10:12)
[2019-11-02] MEDS: Gabapentin CAP(*) 300 MG PO SCH (10:12)
[2019-11-02] MEDS: Thiamine TAB* 100 MG TAB PO SCH (10:12)
[2019-11-02] MEDS: chlordiazePOXIDE CAP* 25 MG PO SCH (10:13)
[2019-11-02] MEDS: Cetirizine* 10 MG TAB PO SCH (10:13)
[2019-11-02] MEDS: Metoprolol Tartrate TAB* 50 mg PO SCH (10:13)
[2019-11-02] MEDS: DOXYcycline CAP(*) 100 MG PO SCH (10:13)
[2019-11-02] MEDS: Folic Acid TAB* 1 MG PO SCH (10:13)
[2019-11-02] MEDS: Multivitamins/Minerals TAB PO SCH (10:14)
[2019-11-02] MEDS: amLODIPine TAB* 5 MG PO SCH (10:14)
[2019-11-02] MEDS: Ascorbic Acid TAB* 500 MG PO SCH (10:14)
[2019-11-02] MEDS: Phenytoin CAP(*) 100 MG CAP.ER PO SCH (10:14)
[2019-11-02] MEDS: Nicotine PATCH 21 MG/24 HR* PATCH TRANSDERM SCH (10:17)
[2019-11-02 10:19] VITALS: BP 125/87
--- NOTE | 2019-11-02 12:13 | DS ---
CC: Dr. Pastrana; Catherine Tovar; Dr. Rooney; Gustavo Mata NP * DISCHARGE SUMMARY: DATE OF ADMISSION: 10/30/19 DATE OF DISCHARGE: 11/02/19 PRIMARY CARE PROVIDER: Gustavo Mata NP DISPOSITION AT DISCHARGE: Home. CONDITION AT DISCHARGE: Stable. DISCHARGE DIAGNOSES: 1. Left hand cellulitis. 2. Alcohol withdrawal. SECONDARY DIAGNOSES: 1. Alcoholism. 2. Hypertension. 3. Tobacco use. 4. Chronic subdural hematoma. 5. Seizure disorder. MEDICATIONS AT DISCHARGE: Include: 1. Doxycycline 100 mg twice a day, which is about 5 days more and then stop. 2. Librium taper 25 mg 3 times a day for 2 days, then 25 mg twice a day for 2 days, then 25 mg nightly for 2 days, then stop. The patient was dispensed a total of 11 tablets of Librium 25 mg. I-STOP was checked and he has not gotten any controlled substances in the past 6 months. He was advised to not drive for the next 7 days and to hold Librium if he becomes too lethargic. Remaining medications include: 1. Norvasc 5 mg daily. 2. Vitamin C 500 mg daily. 3. Cetirizine 10 mg daily. 4. Vitamin D 1000 units daily. 5. Neurontin 300 mg b.i.d. 6. Lidocaine topical as previously taken. 7. Mag-Ox 400 mg b.i.d. 8. Lopressor 50 mg b.i.d. 9. Dilantin 200 mg b.i.d. 10. Potassium gluconate 550 mg daily. 11. Seroquel 50 mg at bedtime. 12. Folic acid 1 mg daily. 13. Thiamine 100 mg daily. 14. Multivitamin 1 tablet daily. DISCHARGE INSTRUCTIONS: At discharge, the patient is recommended to follow up with Dr. Rooney and to call her office to schedule an appointment in 5 to 10 days. The patient is also recommended to follow up with his primary care provider and call for an appointment in 4 to 7 days. The patient was strongly advised not to drink alcohol anymore with which he agrees. LABORATORY DATA DURING THE HOSPITAL STAY: Included: On 11/02/19, white blood cell count of 7.8, hemoglobin of 10.3, hematocrit of 30, MCV of 100, and platelets of 158. Sodium of 131, potassium 3.3, chloride 100, carbon dioxide 24 , BUN 7, creatinine 0.6. Alcohol level at admission was 248. CONSULTATIONS DURING THE HOSPITAL STAY: Included Dr. Pastrana and Catherine Tovar, MEHUL, from Infectious Diseases; Dr. Rooney, Orthopedic Surgery. RADIOLOGY STUDIES PERFORMED DURING THE HOSPITAL STAY: Included brain CT obtained at admission, impression: "No acute intracranial process evident. Moderately severe involutional change." Soft tissue ultrasound of the left hand, impression: "Edema is noted without evidence of drainable fluid collection." Hand and wrist x-ray on 10/30/19, impression: "Unremarkable left hand and wrist." HOSPITALIZATION COURSE: Aurelio Edmond is a 59-year-old male who presented to the hospital complaining of left hand cellulitis. Initially, he thought maybe dog bit him but later on he was not really sure. He was intoxicated at admission. He was treated with doxycycline. Both orthopedic service as well as infectious disease service was consulted. With doxycycline, his cellulitis improved greatly but unfortunately when he was ready to be discharged from medical standpoint on 11/01/19, he started withdrawing from alcohol. He was placed on standing dose of Librium and he received one dose of Geodon on . He slept all night on 11/01/19 and on 11/02/19 in the morning he felt much better. He was pleasant and cooperative. He had no gait abnormalities and he was able to go home. I did recommend for him to be picked up by family member and not to drive for the next 7 days when he is on Librium taper for withdrawal. The patient was educated and strongly encouraged not to drink alcohol anymore. PHYSICAL EXAMINATION: At the time of discharge, blood pressure of 125/87, heart rate of 98 and regular, respiratory rate 18, oxygen saturation 99% on room air, temperature of 98.0. General: The patient is a very pleasant 59-year -old male, who is in no acute distress. The patient is alert and oriented x3. The patient has slightly slurred speech, which is his baseline. HEENT: Head: Atraumatic, normocephalic. Eyes: Pupils are equal, reactive to light and accommodation. Oropharynx is clear. Mucosa moist. Neck: Supple. No JVD. No bruits bilaterally. Cardiovascular: Regular rate and rhythm. No murmur. Respiratory: Clear to auscultation bilaterally. Abdomen: Soft, nontender. Bowel sounds present in all 4 quadrants. Extremities: There is mild edema of the dorsum of the left hand and that is markedly improved from prior. There is no pedal edema. There is no clubbing or cyanosis. Pulses are +2 bilaterally. On evaluation of the skin, the patient has cellulitic area overlying the left hand with more erythema surrounding the left thumb and erythema streaking to the medial aspect of the left forearm and has improved from prior. The increased warmth is resolved. The redness is improving. There is no fluctuation noted on evaluation. On neuro evaluation, the patient does have fine tremor. He has mild baseline dysarthria. Cranial nerves II through XII grossly intact. Motor strength is 5/5 bilaterally. Gait is steady. He is ambulating without any support. Please note that this is a short summary of the patient's hospital stay. Please refer to further medical records for details. TIME SPENT: Approximately 45 minutes was spent on the patient's discharge. [id number]/[facility] #: [id number] MTDD
== END 2019-11-02 11:25 | disposition home or self-care (01) | DRG 720 ==
LOC: ED 13:40 → SSU 16:40 → UNDOADMOB 16:40 → INTOOBSV 10-31 11:55 → OBSVTOIN 10-31 11:55 → SSU 11-01 09:25
PROVIDERS: ADMIT Hospitalist; ATTEND Internal Medicine
DX: A41.9 Sepsis, unspecified organism (principal); I62.03 Nontraumatic chronic subdural hemorrhage; E87.1 Hypo-osmolality and hyponatremia; L03.114 Cellulitis of left upper limb; F10.239 Alcohol dependence with withdrawal, unspecified; Y90.8 Blood alcohol level of 240 mg/100 ml or more; I10 Essential (primary) hypertension; F17.210 Nicotine dependence, cigarettes, uncomplicated; E86.1 Hypovolemia; G40.909 Epilepsy, unspecified, not intractable, without status epilepticus; R55 Syncope and collapse; R25.1 Tremor, unspecified; R47.1 Dysarthria and anarthria; L40.9 Psoriasis, unspecified; M1A.9XX1 Chronic gout, unspecified, with tophus (tophi); M19.90 Unspecified osteoarthritis, unspecified site; E78.5 Hyperlipidemia, unspecified; S01.81XA Laceration without foreign body of other part of head, initial encounter; W18.30XA Fall on same level, unspecified, initial encounter; Y92.9 Unspecified place or not applicable; Z79.899 Other long term (current) drug therapy; Z91.030 Bee allergy status; Z82.3 Family history of stroke; Z80.9 Family history of malignant neoplasm, unspecified; W54.0XXA Bitten by dog, initial encounter
CPT/HCPCS: 36415; 70450; 80048; 80053; 80320; 83605; 84550; 85025; 85027; 86140; 87040; 90715; 90732; 96374; 99284; A9270-GY; G0378; G0480; J3486

== ENCOUNTER 2020-08-04 16:39 | Inpatient (IN) ==
[2020-08-04] MEDS ORDERED: Ondansetron 4 mg VIAL 2 MG/ML 2 ml VIAL IV ONE (16:59)
[2020-08-04] MEDS ORDERED: LORazepam 2 mg VIAL 1 ml IV PUSH ONE ×2 (16:59→17:26)
[2020-08-04] MEDS ORDERED: NS 0.9% 1000 ml BAG 1,000 ML IV ONE ×2 (16:59→18:48)
[2020-08-04] MEDS ORDERED: Lorazepam PYXIS KEY PRN ×2 (16:59→17:26)
[2020-08-04] MEDS ORDERED: Thiamine 100 MG/ML 2 ml VIAL 100 MG, Folic Acid 1 MG, Multiple Vitamin IV ADULT 10 ML i... IV ONE ×2 (17:08→19:06)
[2020-08-04] MEDS ORDERED: Lorazepam PYXIS KEY ONE (17:27)
[2020-08-04 17:51] LABS: ALT 45 U/L (7-52); AST 99 U/L (13-39); Albumin 4.6 g/dL (3.2-5.2); Albumin/Globulin Ratio 1.6 (1-3); Alkaline Phosphatase 132 U/L (34-104); Anion Gap 23 mmol/L (2-11); Blood Urea Nitrogen 9 mg/dL (6-24); C Reactive Protein < 1.00 mg/L (<8.01); CO2 Carbon Dioxide 18 mmol/L (22-32); Chloride 101 mmol/L (101-111); EGFR African American 142.5 (>60); EGFR Non-African American 117.8 (>60); Globulin 2.8 g/dL (2-4); Glucose 128 mg/dL (70-100); Lipase 16 U/L (11.0-82.0); Potassium 3.6 mmol/L (3.5-5.0); Sodium 142 mmol/L (135-145); Total Protein 7.4 g/dL (6.4-8.9)
[2020-08-04 17:56] LABS: Magnesium 0.9 mg/dL (1.9-2.7)
[2020-08-04 17:57] LABS: ABS Lymphocytes 1.1 10^3/ul (1.0-4.8); ABS Monocytes 0.2 10^3/ul (0-0.8); ABS Neutrophils 4.3 10^3/ul (1.5-7.7); Hematocrit 36 % (42-52); Hemoglobin 12.5 g/dL (14.0-18.0); Lymphocyte % 19.1 %; Mean Corpuscular HGB Conc 35 g/dL (31-36); Mean Corpuscular Hemoglobin 35 pg (27-31); Mean Corpuscular Volume 100 fL (80-94); Mean Platelet Volume 7.9 fL (7.4-10.4); Platelet Count 84 10^3/uL (150-450); Red Blood Count 3.59 10^6 /uL (4.18-5.48); Red Cell Distribution Width 13 % (10-15); White Blood Count 5.6 10^3/uL (3.5-10.8)
[2020-08-04] MEDS ORDERED: Magnesium Sulf 4 GM/100 ML IV 4,000 MG/100 ML BAG IVPB ONE (17:57)
[2020-08-04 18:14] LABS: Alcohol, S 66 mg/dL (<10); Phenytoin < 2.5 mcg/mL (10-20)
[2020-08-04] MEDS ORDERED: Thiamine 100 MG/ML 2 ml VIAL (200 mg) IM ONE (19:07)
[2020-08-04] MEDS ORDERED: Phenytoin IV 1,000 MG in NS 0.9% 250 ml 180 ML IV ONE (19:16)
[2020-08-04] MEDS ORDERED: Fosphenytoin 1000 MG PE in 50 ml NS IVPB ONE (21:00)
[2020-08-04] MEDS: Phenytoin 100 mg ER CAP PO SCH (22:14)
[2020-08-04] MEDS: Heparin 5000 UNITS/ML 1 mL VIAL SUBCUT SCH (22:14)
[2020-08-04] MEDS: Triamcinolone 0.5% OINT 1 TUBE TOPICAL SCH (22:17)
[2020-08-04] MEDS: NS 0.9% 1000 ml BAG 1,000 ML IV SCH (22:24)
[2020-08-05] MEDS ORDERED: Nicotine Lozenge mini 4 MG LOZNG.MINI MT PRN (01:15)
[2020-08-05] MEDS: Nicotine PATCH 21 MG/24 HR PATCH TRANSDERM SCH ×3 (02:12→10:07)
[2020-08-05] MEDS: LORazepam 2 mg VIAL 1 ml IV PUSH SCH ×6 (03:30→23:47)
[2020-08-05 05:17] LABS: ABS Lymphocytes 1.6 10^3/ul (1.0-4.8); ABS Monocytes 0.4 10^3/ul (0-0.8); ABS Neutrophils 2.2 10^3/ul (1.5-7.7); Eosinophil % 0.4 %; Hematocrit 32 % (42-52); Hemoglobin 11.2 g/dL (14.0-18.0); Mean Corpuscular HGB Conc 36 g/dL (31-36); Mean Corpuscular Hemoglobin 35 pg (27-31); Mean Corpuscular Volume 100 fL (80-94); Mean Platelet Volume 8.1 fL (7.4-10.4); Nucleated Red Blood Cells % 0.1; Platelet Count 63 10^3/uL (150-450); Red Blood Count 3.17 10^6 /uL (4.18-5.48); Red Cell Distribution Width 14 % (10-15); White Blood Count 4.2 10^3/uL (3.5-10.8)
[2020-08-05] MEDS ORDERED: Haloperidol 5 mg/ml SDV IV/IM 5 MG/ML AMP IV SLOW PU ONE (05:17)
[2020-08-05 05:27] LABS: BUN/Creatinine Ratio 11.5 (8-20); Calcium 7.6 mg/dL (8.6-10.3); EGFR African American 164.3 (>60); EGFR Non-African American 135.8 (>60); Potassium 3.3 mmol/L (3.5-5.0)
[2020-08-05] MEDS ORDERED: Haloperidol 5 mg/ml SDV IV/IM 5 MG/ML AMP IM ONE (05:27)
[2020-08-05] MEDS: Heparin 5000 UNITS/ML 1 mL VIAL SUBCUT SCH ×3 (05:59→20:10)
[2020-08-05] MEDS: NS 0.9% 1000 ml BAG 1,000 ML IV SCH ×3 (05:59→21:06)
[2020-08-05 06:09] LABS: Urine Appearance Clear; Urine Bilirubin Negative (Negative); Urine Blood Negative (Negative); Urine Color Straw; Urine Glucose Negative (Negative); Urine Ketones Trace (Negative); Urine Nitrite Negative (Negative); Urine Protein Negative (Negative); Urine Specific Gravity 1.006 (1.010-1.030); Urine Urobilinogen Negative (Negative)
[2020-08-05] MEDS: KCL 20 MEQ/100 ML IVPREMIX 20 MEQ/100 ML BAG IV SCH ×2 (07:39→09:31)
[2020-08-05 07:49] LABS: Magnesium 1.4 mg/dL (1.9-2.7)
[2020-08-05] MEDS: Multivitamins/Minerals TAB PO SCH ×2 (09:31→10:07)
[2020-08-05] MEDS: Phenytoin 100 mg ER CAP PO SCH ×3 (09:31→20:09)
[2020-08-05] MEDS: Triamcinolone 0.5% OINT 1 TUBE TOPICAL SCH ×3 (09:31→22:32)
[2020-08-05] MEDS ORDERED: Magnesium Sulf 4 GM/100 ML IV 4,000 MG/100 ML BAG IVPB ONE (09:41)
[2020-08-05] MEDS: Calcium Carb (TUMS) 500 mg CHEW TAB PO SCH ×2 (12:54→20:09)
[2020-08-05] MEDS ORDERED: Lorazepam PYXIS KEY PRN (17:43)
[2020-08-05] MEDS: LORazepam 2 mg VIAL 1 ml IV PUSH PRN ×2 (18:08→22:17)
[2020-08-05] MEDS ORDERED: Haloperidol 5 mg/ml SDV IV/IM 5 MG/ML AMP IV SLOW PU PRN (19:00)
[2020-08-06] MEDS ORDERED: LORazepam 2 mg VIAL 1 ml ONE (00:11)
[2020-08-06] MEDS ORDERED: Lorazepam PYXIS KEY PRN (00:14)
[2020-08-06] MEDS ORDERED: LORazepam 2 mg VIAL 1 ml IV PUSH ONE (00:14)
[2020-08-06] MEDS ORDERED: Dexmedetomidine 1,000 MCG in NS 0.9% 250 ml 240 ML IV SCH (01:00)
[2020-08-06] MEDS: Dexmedetomidine 1,000 MCG in NS 0.9% 250 ml 240 ML IV SCH ×2 (01:26→16:19)
[2020-08-06] MEDS: NS 0.9% 1000 ml BAG 1,000 ML IV SCH ×2 (01:26→15:13)
[2020-08-06 04:48] LABS: ABS Eosinophils 0.1 10^3/ul (0-0.6); ABS Lymphocytes 1.2 10^3/ul (1.0-4.8); ABS Monocytes 0.2 10^3/ul (0-0.8); ABS Neutrophils 1.5 10^3/ul (1.5-7.7); Eosinophil % 1.8 %; Hematocrit 30 % (42-52); Hemoglobin 10.5 g/dL (14.0-18.0); Lymphocyte % 39.5 %; Mean Corpuscular HGB Conc 35 g/dL (31-36); Mean Corpuscular Hemoglobin 35 pg (27-31); Mean Corpuscular Volume 99 fL (80-94); Mean Platelet Volume 8.4 fL (7.4-10.4); Platelet Count 51 10^3/uL (150-450); Red Blood Count 2.99 10^6 /uL (4.18-5.48); Red Cell Distribution Width 13 % (10-15); White Blood Count 2.9 10^3/uL (3.5-10.8)
[2020-08-06 05:03] LABS: BUN/Creatinine Ratio 7.1 (8-20); Calcium 7.9 mg/dL (8.6-10.3); EGFR African American 252.7 (>60); EGFR Non-African American 208.9 (>60); Magnesium 1.2 mg/dL (1.9-2.7); Potassium 2.9 mmol/L (3.5-5.0)
[2020-08-06] MEDS: Heparin 5000 UNITS/ML 1 mL VIAL SUBCUT SCH ×3 (06:34→19:59)
[2020-08-06] MEDS ORDERED: Magnesium Sulfate 2 gm BAG 2 GM/50 ML BAG IVPB ONE (06:48)
[2020-08-06] MEDS: KCL 10 MEQ/50 ML IVPREMIX 10 MEQ/50 ML BAG IV SCH ×3 (07:34→11:37)
[2020-08-06] MEDS: LORazepam 2 mg VIAL 1 ml IV PUSH SCH (09:16)
[2020-08-06] MEDS: LORazepam 2 mg VIAL 1 ml IV PUSH PRN ×2 (12:47→12:50)
[2020-08-06] MEDS: Phenytoin 100 mg ER CAP PO SCH ×2 (14:38→20:36)
[2020-08-06] MEDS: Calcium Carb (TUMS) 500 mg CHEW TAB PO SCH ×3 (14:39→20:36)
[2020-08-06] MEDS: Multivitamins/Minerals TAB PO SCH (14:40)
[2020-08-06] MEDS: Nicotine PATCH 21 MG/24 HR PATCH TRANSDERM SCH (15:14)
[2020-08-06] MEDS ORDERED: Thiamine 100 MG/ML 2 ml VIAL 100 MG in NS 0.9% 50 ML 50 ML IV SCH (16:00)
[2020-08-06] MEDS: Triamcinolone 0.5% OINT 1 TUBE TOPICAL SCH ×3 (16:12→21:02)
[2020-08-07] MEDS: NS 0.9% 1000 ml BAG 1,000 ML IV SCH (04:16)
[2020-08-07] MEDS: Dexmedetomidine 1,000 MCG in NS 0.9% 250 ml 240 ML IV SCH (04:16)
[2020-08-07] MEDS ORDERED: KCL 10 MEQ/50 ML IVPREMIX 10 MEQ/50 ML BAG IV SCH (08:00)
[2020-08-07 08:50] LABS: BUN/Creatinine Ratio 7.3 (8-20); Calcium 8.1 mg/dL (8.6-10.3); EGFR African American 185.1 (>60); Potassium 3.5 mmol/L (3.5-5.0)
[2020-08-07 09:01] LABS: ABS Eosinophils 0.1 10^3/ul (0-0.6); ABS Lymphocytes 1.2 10^3/ul (1.0-4.8); ABS Monocytes 0.3 10^3/ul (0-0.8); ABS Neutrophils 3.6 10^3/ul (1.5-7.7); Eosinophil % 2.1 %; Hematocrit 32 % (42-52); Hemoglobin 11.5 g/dL (14.0-18.0); Lymphocyte % 22.8 %; Mean Corpuscular HGB Conc 36 g/dL (31-36); Mean Corpuscular Hemoglobin 35 pg (27-31); Mean Corpuscular Volume 99 fL (80-94); Mean Platelet Volume 9.7 fL (7.4-10.4); Platelet Count 59 10^3/uL (150-450); Red Blood Count 3.25 10^6 /uL (4.18-5.48); Red Cell Distribution Width 13 % (10-15); White Blood Count 5.2 10^3/uL (3.5-10.8)
[2020-08-07] MEDS: Heparin 5000 UNITS/ML 1 mL VIAL SUBCUT SCH ×3 (10:33→21:09)
[2020-08-07] MEDS: Calcium Carb (TUMS) 500 mg CHEW TAB PO SCH ×3 (10:33→20:56)
[2020-08-07] MEDS: Multivitamins/Minerals TAB PO SCH (10:34)
[2020-08-07] MEDS: Nicotine PATCH 21 MG/24 HR PATCH TRANSDERM SCH (10:34)
[2020-08-07] MEDS: Triamcinolone 0.5% OINT 1 TUBE TOPICAL SCH ×3 (10:41→20:57)
[2020-08-07] MEDS: Phenytoin 100 mg ER CAP PO SCH ×2 (10:41→20:56)
[2020-08-07] MEDS: LORazepam 2 mg VIAL 1 ml IV PUSH PRN (17:00)
[2020-08-07] MEDS: LORazepam 2 mg VIAL 1 ml IV PUSH SCH (21:17)
[2020-08-08] MEDS: LORazepam 2 mg VIAL 1 ml IV PUSH SCH (00:56)
[2020-08-08 05:03] LABS: ABS Eosinophils 0.1 10^3/ul (0-0.6); ABS Lymphocytes 1.7 10^3/ul (1.0-4.8); ABS Monocytes 0.7 10^3/ul (0-0.8); Hematocrit 32 % (42-52); Hemoglobin 11.4 g/dL (14.0-18.0); Lymphocyte % 30.5 %; Mean Corpuscular HGB Conc 36 g/dL (31-36); Mean Corpuscular Hemoglobin 35 pg (27-31); Mean Corpuscular Volume 99 fL (80-94); Mean Platelet Volume 9.2 fL (7.4-10.4); Platelet Count 74 10^3/uL (150-450); Red Blood Count 3.24 10^6 /uL (4.18-5.48); Red Cell Distribution Width 13 % (10-15); White Blood Count 5.4 10^3/uL (3.5-10.8)
[2020-08-08 05:19] LABS: BUN/Creatinine Ratio 6.3 (8-20); Calcium 9.1 mg/dL (8.6-10.3); EGFR African American 158.3 (>60); EGFR Non-African American 130.8 (>60); Potassium 3.3 mmol/L (3.5-5.0)
[2020-08-08] MEDS ORDERED: Potassium Chlor 20 meq TAB.ER PO ONE ×2 (06:30→08:23)
[2020-08-08] MEDS ORDERED: Magnesium Sulfate 2 gm BAG 2 GM/50 ML BAG IVPB ONE ×2 (06:30→08:22)
[2020-08-08] MEDS: Heparin 5000 UNITS/ML 1 mL VIAL SUBCUT SCH ×3 (06:49→21:25)
[2020-08-08] MEDS: Phenytoin 100 mg ER CAP PO SCH ×2 (07:51→21:07)
[2020-08-08] MEDS: Multivitamins/Minerals TAB PO SCH (07:51)
[2020-08-08] MEDS: Calcium Carb (TUMS) 500 mg CHEW TAB PO SCH ×3 (07:51→21:07)
[2020-08-08] MEDS: Nicotine PATCH 21 MG/24 HR PATCH TRANSDERM SCH (07:52)
[2020-08-08] MEDS: Triamcinolone 0.5% OINT 1 TUBE TOPICAL SCH ×3 (09:44→21:26)
[2020-08-09] MEDS: LORazepam 2 mg VIAL 1 ml IV PUSH PRN (01:18)
[2020-08-09] MEDS ORDERED: hydrALAZINE 20 mg/ml 1 ML Vial IV IV SLOW PU PRN (04:43)
[2020-08-09 04:48] LABS: ABS Eosinophils 0.1 10^3/ul (0-0.6); ABS Lymphocytes 2.1 10^3/ul (1.0-4.8); ABS Monocytes 0.9 10^3/ul (0-0.8); ABS Neutrophils 2.3 10^3/ul (1.5-7.7); Eosinophil % 1.3 %; Hematocrit 32 % (42-52); Hemoglobin 11.2 g/dL (14.0-18.0); Lymphocyte % 38.9 %; Mean Corpuscular HGB Conc 35 g/dL (31-36); Mean Corpuscular Hemoglobin 35 pg (27-31); Mean Corpuscular Volume 101 fL (80-94); Nucleated Red Blood Cells % 0.1; Platelet Count 102 10^3/uL (150-450); Red Cell Distribution Width 13 % (10-15); White Blood Count 5.4 10^3/uL (3.5-10.8)
[2020-08-09 05:04] LABS: BUN/Creatinine Ratio 8.3 (8-20); Calcium 9.8 mg/dL (8.6-10.3); EGFR African American 135.7 (>60); EGFR Non-African American 112.1 (>60); Potassium 3.8 mmol/L (3.5-5.0)
[2020-08-09] MEDS: Heparin 5000 UNITS/ML 1 mL VIAL SUBCUT SCH (05:15)
[2020-08-09 06:06] VITALS: BP 156/93
[2020-08-09] MEDS: Calcium Carb (TUMS) 500 mg CHEW TAB PO SCH (07:21)
[2020-08-09] MEDS: Multivitamins/Minerals TAB PO SCH (07:22)
[2020-08-09] MEDS: Nicotine PATCH 21 MG/24 HR PATCH TRANSDERM SCH (07:22)
[2020-08-09] MEDS: Triamcinolone 0.5% OINT 1 TUBE TOPICAL SCH (07:42)
[2020-08-09] MEDS: Phenytoin 100 mg ER CAP PO SCH (07:48)
[2020-08-09 08:18] LABS: Phenytoin 11.6 mcg/mL (10-20)
[2020-08-09] MEDS ORDERED: Multivitamins/Minerals TAB PO SCH (09:00)
== END 2020-08-09 12:30 | disposition home or self-care (01) | DRG 53 ==
LOC: ED 16:39 → MEDTELE 18:58 → MED 08-05 17:11 → ICU 08-06 00:32
PROVIDERS: ADMIT Internal Medicine; ATTEND Internal Medicine

== ENCOUNTER 2021-06-13 18:19 | Inpatient (IN) ==
[2021-06-13] MEDS ORDERED: LORazepam 2 mg VIAL 1 ml IV PUSH ONE (18:52)
[2021-06-13] MEDS ORDERED: Lorazepam PYXIS KEY PRN (18:52)
[2021-06-13] MEDS ORDERED: Lactated Ringers 1000 ml BAG 1,000 ML IV ONE ×2 (18:53→20:32)
[2021-06-13 19:15] LABS: INR 1.08 (0.86-1.15)
[2021-06-13 19:23] LABS: Troponin I 0.01 ng/mL (<0.03)
[2021-06-13 19:38] LABS: ABS Lymphocytes 2.8 10^3/ul (1.0-4.8); ABS Monocytes 0.5 10^3/ul (0-0.8); ABS Neutrophils 2.4 10^3/ul (1.5-7.7); Eosinophil % 0.2 %; Hematocrit 40 % (42-52); Hemoglobin 13.7 g/dL (14.0-18.0); Lymphocyte % 48.1 %; Mean Corpuscular HGB Conc 34 g/dL (31-36); Mean Corpuscular Hemoglobin 36 pg (27-31); Mean Corpuscular Volume 107 fL (80-94); Mean Platelet Volume 9.3 fL (7.4-10.4); Nucleated Red Blood Cells % 0.1; Platelet Count 58 10^3/uL (150-450); Red Blood Count 3.76 10^6 /uL (4.18-5.48); Red Cell Distribution Width 13 % (10-15); White Blood Count 5.8 10^3/uL (3.5-10.8)
[2021-06-13] MEDS ORDERED: Ondansetron 4 mg VIAL 2 MG/ML 2 ml VIAL ONE (19:44)
[2021-06-13] MEDS ORDERED: Ondansetron 4 mg VIAL 2 MG/ML 2 ml VIAL IV ONE (19:50)
[2021-06-13 19:51] LABS: ALT 92 U/L (7-52); AST 163 U/L (13-39); Albumin 5.1 g/dL (3.2-5.2); Albumin/Globulin Ratio 1.4 (1-3); Alkaline Phosphatase 172 U/L (35-149); Blood Urea Nitrogen 10 mg/dL (6-24); Chloride 96 mmol/L (101-111); Creatine Kinase 60 U/L (10-223); Globulin 3.6 g/dL (2-4); Glucose 170 mg/dL (70-100); Magnesium 1.2 mg/dL (1.9-2.7); Potassium 3.3 mmol/L (3.5-5.0); Sodium 144 mmol/L (135-145); Total Protein 8.7 g/dL (6.4-8.9)
[2021-06-13 20:05] LABS: Alcohol, S 60 mg/dL (<13)
[2021-06-13] MEDS ORDERED: Magnesium Sulfate IV 1GM/100ML 1 GM/100 ML BAG IV ONE (20:05)
[2021-06-13 20:30] LABS: Anion Gap 36 mmol/L (2-11); CO2 Carbon Dioxide 12 mmol/L (22-32)
[2021-06-13] MEDS ORDERED: levETIRAcetam 1000MG IVPREMIX 1,000 MG/100 ML BAG IVPB ONE (20:32)
[2021-06-13] MEDS ORDERED: Magnesium Sulfate 2 gm BAG 2 GM/50 ML BAG IVPB ONE (21:09)
[2021-06-13 21:30] LABS: Phenytoin < 2.5 mcg/mL (10-20)
[2021-06-13] MEDS ORDERED: Thiamine 100 MG/ML 2 ml VIAL (200 mg) IM ONE (21:41)
[2021-06-13] MEDS ORDERED: Al Hydrox/Mg Hydrox/Simet LIQ 30 ML UDC PO PRN (21:44)
[2021-06-13] MEDS ORDERED: NS 0.9% 1000 ml BAG 1,000 ML IV SCH (21:45)
[2021-06-13] MEDS ORDERED: PHENYTOIN IV SCH (22:00)
[2021-06-13] MEDS ORDERED: Potassium Chlor 10 meq TAB PO ONE (22:03)
[2021-06-13] MEDS ORDERED: FOSPHENYTOIN IVPB SCH (22:30)
[2021-06-13] MEDS ORDERED: NS 0.9% IVPB SCH (22:30)
[2021-06-13] MEDS: LORazepam 2 mg VIAL 1 ml IV SCH (23:31)
[2021-06-14 00:22] LABS: Rapid COVID-19 Molecular Undetected (Undetected)
[2021-06-14] MEDS: Multivitamins/Minerals TAB PO SCH ×2 (02:31→08:58)
[2021-06-14] MEDS: LORazepam 2 mg VIAL 1 ml IV SCH (06:31)
[2021-06-14 08:18] LABS: ABS Monocytes 0.3 10^3/ul (0-0.8); ABS Neutrophils 2.7 10^3/ul (1.5-7.7); Eosinophil % 0.6 %; Hematocrit 31 % (42-52); Hemoglobin 11.2 g/dL (14.0-18.0); Lymphocyte % 24.9 %; Mean Corpuscular HGB Conc 36 g/dL (31-36); Mean Corpuscular Hemoglobin 36 pg (27-31); Mean Corpuscular Volume 101 fL (80-94); Mean Platelet Volume 8.8 fL (7.4-10.4); Platelet Count 35 10^3/uL (150-450); Red Cell Distribution Width 13 % (10-15)
[2021-06-14 08:28] LABS: Albumin/Globulin Ratio 1.4 (1-3); Calcium 8.8 mg/dL (8.6-10.3); Globulin 2.8 g/dL (2-4); Magnesium 1.4 mg/dL (1.9-2.7); Potassium 3.4 mmol/L (3.5-5.0); Total Bilirubin 1.3 mg/dL (0.2-1.0); Total Protein 6.8 g/dL (6.4-8.9)
[2021-06-14] MEDS ORDERED: FOSPHENYTOIN IVPB SCH (08:30)
[2021-06-14] MEDS ORDERED: NS 0.9% IVPB SCH (08:30)
[2021-06-14] MEDS ORDERED: Magnesium Sulf 4 GM/100 ML IV 4,000 MG/100 ML BAG IVPB ONE (11:52)
[2021-06-14] MEDS: LORazepam 2 mg VIAL 1 ml IV PUSH SCH ×2 (12:05→22:44)
[2021-06-14] MEDS ORDERED: Lorazepam PYXIS KEY PRN ×2 (13:15→23:12)
[2021-06-14] MEDS ORDERED: LORazepam 2 mg VIAL 1 ml IV PUSH ONE ×2 (13:16→23:12)
[2021-06-14] MEDS ORDERED: Diazepam INJ CARPUJECT 5 MG/ML IV ONE (13:57)
[2021-06-14] MEDS: Nicotine PATCH 7 MG/24 HR PATCH TRANSDERM SCH (14:11)
[2021-06-14] MEDS: Phenytoin 100 mg ER CAP PO SCH (20:11)
[2021-06-14] MEDS ORDERED: LORazepam 2 mg VIAL 1 ml ONE (23:18)
[2021-06-14] MEDS: Ondansetron 4 mg VIAL 2 MG/ML 2 ml VIAL IV PRN (23:55)
[2021-06-15] MEDS ORDERED: Prochlorperazine 5 mg/ml 2 ml VIAL (10 mg) IV STA (00:46)
[2021-06-15] MEDS: LORazepam 2 mg VIAL 1 ml IV PUSH SCH ×2 (02:02→12:19)
[2021-06-15 02:40] LABS: Hematocrit 33 % (42-52); Hemoglobin 11.6 g/dL (14.0-18.0); Mean Corpuscular HGB Conc 36 g/dL (31-36); Mean Corpuscular Hemoglobin 36 pg (27-31); Mean Corpuscular Volume 101 fL (80-94); Mean Platelet Volume 10.2 fL (7.4-10.4); Platelet Count 44 10^3/uL (150-450); Red Cell Distribution Width 13 % (10-15); White Blood Count 7.3 10^3/uL (3.5-10.8)
[2021-06-15] MEDS ORDERED: Lactated Ringers 1000 ml BAG 1,000 ML IV ONE ×2 (04:29→10:54)
[2021-06-15 05:45] LABS: Albumin/Globulin Ratio 1.6 (1-3); Calcium 9.3 mg/dL (8.6-10.3); Globulin 2.5 g/dL (2-4); Magnesium 1.6 mg/dL (1.9-2.7); Potassium 3.5 mmol/L (3.5-5.0); Total Bilirubin 1.2 mg/dL (0.2-1.0); Total Protein 6.5 g/dL (6.4-8.9)
[2021-06-15 08:36] LABS: Hematocrit 29 % (42-52); Hemoglobin 10.1 g/dL (14.0-18.0)
[2021-06-15] MEDS ORDERED: Pantoprazole VIAL 40 MG VIAL IV SCH (09:00)
[2021-06-15] MEDS ORDERED: Octreotide Acetate 50 MCG in NS 0.9% 50 ML 50 ML IV ONE (11:00)
[2021-06-15] MEDS: Phenytoin 100 mg ER CAP PO SCH (11:04)
[2021-06-15] MEDS: Pantoprazole 80 mg in NS BAG 80 MG/250 ML BAG IV SCH ×2 (11:38→21:34)
[2021-06-15] MEDS: Dexmedetomidine 1,000 MCG in NS 0.9% 250 ml 240 ML IV SCH (11:51)
[2021-06-15] MEDS: Ondansetron 4 mg VIAL 2 MG/ML 2 ml VIAL IV PRN (11:54)
[2021-06-15] MEDS: Multivitamins/Minerals TAB PO SCH (12:07)
[2021-06-15] MEDS: Thiamine 100 MG/ML 2 ml VIAL 250 MG in NS 0.9% 100 ml BAG 100 ML IV SCH (12:09)
[2021-06-15] MEDS: Octreotide Acetate 500 MCG in NS 0.9% 100 ml BAG 100 ML IV SCH ×2 (12:16→20:10)
[2021-06-15] MEDS: Nicotine PATCH 7 MG/24 HR PATCH TRANSDERM SCH (12:36)
[2021-06-15] MEDS: Lactated Ringers 1000 ml BAG 500 ML IV SCH (14:37)
[2021-06-15 15:16] LABS: Hematocrit 23 % (42-52); Hemoglobin 8.1 g/dL (14.0-18.0)
[2021-06-15 15:29] LABS: Urine Appearance Cloudy; Urine Bilirubin Negative (Negative); Urine Blood Negative (Negative); Urine Color Amber; Urine Glucose Negative (Negative); Urine Ketones Negative (Negative); Urine Nitrite Negative (Negative); Urine Protein Negative (Negative); Urine Specific Gravity 1.021 (1.002-1.030); Urine Urobilinogen Negative (Negative)
[2021-06-15 15:49] LABS: ABS Lymphocytes 1.7 10^3/ul (1.0-4.8); ABS Monocytes 0.8 10^3/ul (0-0.8); ABS Neutrophils 4.4 10^3/ul (1.5-7.7); Eosinophil % 0.1 %; Lymphocyte % 24.5 %; Mean Corpuscular HGB Conc 35 g/dL (31-36); Mean Corpuscular Hemoglobin 36 pg (27-31); Mean Corpuscular Volume 104 fL (80-94); Mean Platelet Volume 10.7 fL (7.4-10.4); Nucleated Red Blood Cells % 0.1; Platelet Count 36 10^3/uL (150-450); Red Blood Count 2.23 10^6 /uL (4.18-5.48); Red Cell Distribution Width 13 % (10-15); White Blood Count 6.9 10^3/uL (3.5-10.8)
[2021-06-15 15:49] LABS: Urine Benzodiazepine Screen Presumptive Positive (None Detect); Urine Cannabinoids Screen Presumptive Positive (None Detect); Urine Opiates Screen None Detected (None Detect)
[2021-06-15 16:11] LABS: Macrocytosis 2+
[2021-06-15 18:32] LABS: ABS Lymphocytes 1.8 10^3/ul (1.0-4.8); ABS Monocytes 0.6 10^3/ul (0-0.8); ABS Neutrophils 3.5 10^3/ul (1.5-7.7); Eosinophil % 0.5 %; Hematocrit 24 % (42-52); Hemoglobin 8.5 g/dL (14.0-18.0); Lymphocyte % 29.9 %; Mean Corpuscular HGB Conc 35 g/dL (31-36); Mean Corpuscular Hemoglobin 36 pg (27-31); Mean Corpuscular Volume 102 fL (80-94); Mean Platelet Volume 10.5 fL (7.4-10.4); Platelet Count 38 10^3/uL (150-450); Red Blood Count 2.38 10^6 /uL (4.18-5.48); Red Cell Distribution Width 13 % (10-15); White Blood Count 5.9 10^3/uL (3.5-10.8)
[2021-06-15] MEDS: cefTRIAXone 2 GM ADDV.VIAL 2 GM in NS 0.9% 100 ml BAG 100 ML IV SCH (20:10)
[2021-06-15] MEDS ORDERED: Phenytoin IV 50 MG/ML 2 ML VIAL (100 MG) IVPB SCH (21:00)
[2021-06-15] MEDS: NS 0.9% IVPB SCH (21:34)
[2021-06-15] MEDS: FOSPHENYTOIN IVPB SCH (21:34)
[2021-06-15] MEDS ORDERED: Lactated Ringers 500 ml BAG 500 ML IV ONE (22:32)
[2021-06-16] MEDS ORDERED: Lactated Ringers 500 ml BAG 500 ML IV ONE (04:23)
[2021-06-16] MEDS: Dexmedetomidine 1,000 MCG in NS 0.9% 250 ml 240 ML IV SCH (04:23)
[2021-06-16] MEDS: Lactated Ringers 1000 ml BAG 500 ML IV SCH (05:17)
[2021-06-16] MEDS: NS 0.9% IVPB SCH ×3 (05:20→20:27)
[2021-06-16] MEDS: FOSPHENYTOIN IVPB SCH ×3 (05:20→20:27)
[2021-06-16 05:31] LABS: ABS Eosinophils 0.1 10^3/ul (0-0.6); ABS Monocytes 0.4 10^3/ul (0-0.8); ABS Neutrophils 2.7 10^3/ul (1.5-7.7); Eosinophil % 2.7 %; Hematocrit 21 % (42-52); Hemoglobin 7.3 g/dL (14.0-18.0); Lymphocyte % 23.1 %; Mean Corpuscular HGB Conc 35 g/dL (31-36); Mean Corpuscular Hemoglobin 36 pg (27-31); Mean Corpuscular Volume 103 fL (80-94); Nucleated Red Blood Cells % 0.1; Platelet Count 39 10^3/uL (150-450); Red Blood Count 2.06 10^6 /uL (4.18-5.48); Red Cell Distribution Width 13 % (10-15); White Blood Count 4.1 10^3/uL (3.5-10.8)
[2021-06-16 05:36] LABS: Calcium 7.9 mg/dL (8.6-10.3); Magnesium 1.2 mg/dL (1.9-2.7); Potassium 3.8 mmol/L (3.5-5.0)
[2021-06-16] MEDS ORDERED: Magnesium Sulf 4 GM/100 ML IV 4,000 MG/100 ML BAG IVPB ONE (05:53)
[2021-06-16] MEDS: Octreotide Acetate 500 MCG in NS 0.9% 100 ml BAG 100 ML IV SCH ×3 (06:01→20:27)
[2021-06-16] MEDS: Pantoprazole 80 mg in NS BAG 80 MG/250 ML BAG IV SCH ×3 (06:01→20:27)
[2021-06-16] MEDS: KCL 20 MEQ/100 ML IVPREMIX 20 MEQ/100 ML BAG IV SCH ×2 (09:25→12:06)
[2021-06-16] MEDS ORDERED: Potassium Chlor 20 meq TAB.ER PO ONE (10:43)
[2021-06-16] MEDS: Multivitamins/Minerals TAB PO SCH (10:54)
[2021-06-16] MEDS: Thiamine 100 MG/ML 2 ml VIAL 250 MG in NS 0.9% 100 ml BAG 100 ML IV SCH (10:54)
[2021-06-16] MEDS: Nicotine PATCH 7 MG/24 HR PATCH TRANSDERM SCH (11:01)
[2021-06-16] MEDS ORDERED: Midazolam 10 mg/10 ml VIAL 1 mg/ml 10 ml VIAL (10 mg) ONE (13:27)
[2021-06-16] MEDS ORDERED: fentaNYL 100 mcg/2 ml 50 MCG/ML VIAL ONE (13:27)
[2021-06-16] MEDS: cefTRIAXone 2 GM ADDV.VIAL 2 GM in NS 0.9% 100 ml BAG 100 ML IV SCH (20:28)
[2021-06-16 20:35] LABS: Hematocrit 20 % (42-52); Hemoglobin 7.3 g/dL (14.0-18.0); Mean Corpuscular HGB Conc 36 g/dL (31-36); Mean Corpuscular Hemoglobin 37 pg (27-31); Mean Corpuscular Volume 103 fL (80-94); Mean Platelet Volume 8.6 fL (7.4-10.4); Platelet Count 54 10^3/uL (150-450); Red Blood Count 1.97 10^6 /uL (4.18-5.48); Red Cell Distribution Width 13 % (10-15); White Blood Count 3.9 10^3/uL (3.5-10.8)
[2021-06-17] MEDS: NS 0.9% IVPB SCH ×3 (04:23→21:02)
[2021-06-17] MEDS: FOSPHENYTOIN IVPB SCH ×3 (04:23→21:02)
[2021-06-17] MEDS: Octreotide Acetate 500 MCG in NS 0.9% 100 ml BAG 100 ML IV SCH ×2 (04:29→15:56)
[2021-06-17 04:39] LABS: ABS Eosinophils 0.1 10^3/ul (0-0.6); ABS Lymphocytes 1.4 10^3/ul (1.0-4.8); ABS Monocytes 0.3 10^3/ul (0-0.8); ABS Neutrophils 1.7 10^3/ul (1.5-7.7); Eosinophil % 2.4 %; Hematocrit 20 % (42-52); Lymphocyte % 39.7 %; Mean Corpuscular HGB Conc 35 g/dL (31-36); Mean Corpuscular Hemoglobin 36 pg (27-31); Mean Corpuscular Volume 103 fL (80-94); Mean Platelet Volume 8.9 fL (7.4-10.4); Nucleated Red Blood Cells % 0.1; Platelet Count 70 10^3/uL (150-450); Red Blood Count 1.95 10^6 /uL (4.18-5.48); Red Cell Distribution Width 13 % (10-15); White Blood Count 3.5 10^3/uL (3.5-10.8)
[2021-06-17 04:50] LABS: Calcium 8.1 mg/dL (8.6-10.3); Magnesium 1.3 mg/dL (1.9-2.7); Phosphorus 2.9 mg/dL (2.5-5.0); Potassium 3.5 mmol/L (3.5-5.0)
[2021-06-17] MEDS ORDERED: Magnesium Sulfate 2 gm BAG 2 GM/50 ML BAG IVPB ONE ×2 (05:13→09:10)
[2021-06-17] MEDS: Pantoprazole 80 mg in NS BAG 80 MG/250 ML BAG IV SCH ×2 (05:32→15:37)
[2021-06-17] MEDS: Nicotine PATCH 7 MG/24 HR PATCH TRANSDERM SCH (08:15)
[2021-06-17] MEDS: Multivitamins/Minerals TAB PO SCH (08:16)
[2021-06-17] MEDS ORDERED: Potassium Chloride LIQUID 20 MEQ/15 ML LIQUID PO ONE (09:11)
[2021-06-17] MEDS: Thiamine 100 MG/ML 2 ml VIAL 250 MG in NS 0.9% 100 ml BAG 100 ML IV SCH (10:21)
[2021-06-17] MEDS ORDERED: LORazepam 2 mg VIAL 1 ml IV PUSH PRN (11:23)
[2021-06-17] MEDS: cefTRIAXone 2 GM ADDV.VIAL 2 GM in NS 0.9% 100 ml BAG 100 ML IV SCH (21:03)
[2021-06-18] MEDS: Octreotide Acetate 500 MCG in NS 0.9% 100 ml BAG 100 ML IV SCH (01:30)
[2021-06-18] MEDS: Pantoprazole 80 mg in NS BAG 80 MG/250 ML BAG IV SCH (02:25)
[2021-06-18 03:31] LABS: Rapid COVID-19 Molecular Undetected (Undetected)
[2021-06-18] MEDS: NS 0.9% IVPB SCH (04:53)
[2021-06-18] MEDS: FOSPHENYTOIN IVPB SCH (04:53)
[2021-06-18 05:04] LABS: ABS Eosinophils 0.1 10^3/ul (0-0.6); ABS Lymphocytes 1.2 10^3/ul (1.0-4.8); ABS Monocytes 0.5 10^3/ul (0-0.8); ABS Neutrophils 1.5 10^3/ul (1.5-7.7); Eosinophil % 2.5 %; Hematocrit 20 % (42-52); Hemoglobin 6.9 g/dL (14.0-18.0); Lymphocyte % 36.1 %; Mean Corpuscular HGB Conc 35 g/dL (31-36); Mean Corpuscular Hemoglobin 36 pg (27-31); Mean Corpuscular Volume 104 fL (80-94); Mean Platelet Volume 8.3 fL (7.4-10.4); Platelet Count 100 10^3/uL (150-450); Red Cell Distribution Width 13 % (10-15); White Blood Count 3.4 10^3/uL (3.5-10.8)
[2021-06-18 05:17] LABS: Calcium 8.1 mg/dL (8.6-10.3); Magnesium 1.3 mg/dL (1.9-2.7); Phosphorus 2.6 mg/dL (2.5-5.0); Potassium 3.6 mmol/L (3.5-5.0)
[2021-06-18 07:42] VITALS: BP 158/91
[2021-06-18] MEDS: Nicotine PATCH 7 MG/24 HR PATCH TRANSDERM SCH (09:11)
[2021-06-18] MEDS: Multivitamins/Minerals TAB PO SCH (09:11)
== END 2021-06-18 09:23 | disposition short-term general hospital (02) | DRG 775 ==
LOC: ED 18:19 → MED 22:47 → SUATTDRO 22:47 → MED 22:51 → ICU 06-15 11:45
PROVIDERS: ADMIT Hospitalist; ATTEND Internal Medicine

== ENCOUNTER 2023-06-14 11:07 | Inpatient (IN) ==
[2023-06-14] MEDS ORDERED: Ondansetron 4 mg VIAL 2 MG/ML 2 ml VIAL IV ONE (11:40)
[2023-06-14] MEDS ORDERED: Lactated Ringers 1000 ml BAG 1,000 ML IV ONE (11:40)
[2023-06-14] MEDS ORDERED: LORazepam 2 mg VIAL 1 ml IV PUSH ONE ×2 (11:45→14:31)
[2023-06-14] MEDS ORDERED: Lorazepam PYXIS KEY PRN ×3 (11:45→15:35)
[2023-06-14] MEDS ORDERED: Pantoprazole VIAL 40 MG VIAL IV ONE (12:00)
[2023-06-14] MEDS ORDERED: Pantoprazole 80 mg in NS BAG 80 MG/250 ML BAG IV ONE (12:00)
[2023-06-14 13:24] LABS: INR 1.25 (0.83-1.13)
[2023-06-14 13:28] LABS: ABS Lymphocytes 0.4 10^3/uL (1.0-4.8); ABS Monocytes 1.1 10^3/uL (0.0-1.1); ABS Nucleated RBC 0.01 10^3/ul; Hematocrit 31.5 % (38-53); Hemoglobin 11.1 g/dL (13.2-16.3); Lymphocyte % 2.9 %; Mean Corpuscular Hemoglobin 36.3 pg (27-33); Mean Corpuscular Hgb Conc 35.4 g/dL (31-36); Mean Corpuscular Volume 102.6 fL (80-97); Mean Platelet Volume 8.6 fL (7.5-11.2); Nucleated Red Blood Cells % 0.1 %/100WBC (0.0-0.8); Platelet Count 88 10^3/uL (150-450); Red Blood Count 3.06 10^6/uL (4.06-5.63); Red Cell Distribution Width 13.6 % (12-17); White Blood Count 14.6 10^3/uL (3.6-10.2)
[2023-06-14] MEDS ORDERED: Magnesium Sulfate 2 gm BAG 2 GM/50 ML BAG IVPB ONE (13:42)
[2023-06-14 13:43] LABS: Magnesium 0.6 mg/dL (1.9-2.7)
[2023-06-14 13:47] LABS: ALT 18 U/L (7-52); AST 30 U/L (13-39); Albumin 3.9 g/dL (3.2-5.2); Albumin/Globulin Ratio 1.3 (1-3); Alkaline Phosphatase 122 U/L (35-149); Anion Gap 14 mmol/L (2-16); Blood Urea Nitrogen 23 mg/dL (6-24); CO2 Carbon Dioxide 33 mmol/L (22-32); Calcium 8.3 mg/dL (8.6-10.3); Chloride 80 mmol/L (101-111); Creatinine, Serum 1.02 mg/dL (0.67-1.17); Globulin 3.1 g/dL (2-4); Glucose 137 mg/dL (70-100); Lipase < 10 U/L (11.0-82.0); Potassium 2.5 mmol/L (3.5-5.0); Sodium 127 mmol/L (135-145); Total Bilirubin 1.2 mg/dL (0.2-1.0); eGFR CKD-EPI 83.6 (>60)
[2023-06-14 14:20] LABS: Alcohol, S 37 mg/dL (<13)
[2023-06-14] MEDS ORDERED: Nicotine PATCH 21 MG/24 HR PATCH TRANSDERM ONE (14:47)
[2023-06-14] MEDS ORDERED: Magnesium Sulf 4 GM/100 ML IV 4,000 MG/100 ML BAG IVPB ONE (14:54)
[2023-06-14] MEDS ORDERED: KCL 20 MEQ/100 ML IVPREMIX 20 MEQ/100 ML BAG IV SCH (15:00)
[2023-06-14 15:19] LABS: Phosphorus 3.8 mg/dL (2.5-5.0)
[2023-06-14] MEDS: KCL 20 MEQ/100 ML IVPREMIX 20 MEQ/100 ML BAG IV SCH ×3 (15:53→23:27)
[2023-06-14 16:11] LABS: % Iron Saturation 24 % (15-55); .Transferrin 129 mg/dL (203-362); Iron 43 ug/dL (50-212); Total Iron Binding Capacity 181 mcg/dL (250-450); Unsaturated Iron Binding 138 ug/dL
[2023-06-14] MEDS ORDERED: Ferric Gluconate IV 125 MG in NS 0.9% 100 ml BAG 100 ML IVPB ONE (16:19)
[2023-06-14 16:37] LABS: Folate 19.14 ng/mL (5.90-24.80)
[2023-06-14] MEDS ORDERED: Ondansetron 4 mg VIAL 2 MG/ML 2 ml VIAL IV PRN (17:07)
[2023-06-14 17:11] LABS: Phenytoin 5.2 mcg/mL (10-20)
[2023-06-14 17:46] LABS: Vitamin B12 717 pg/mL (180-914)
[2023-06-14] MEDS ORDERED: Fosphenytoin 1000 MG PE in 50 ml NS IVPB ONE (18:00)
[2023-06-14] MEDS ORDERED: Pantoprazole 80 mg in NS BAG 80 MG/250 ML BAG IV SCH (18:00)
[2023-06-14] MEDS: LORazepam 2 mg VIAL 1 ml IV PUSH PRN ×3 (18:42→22:30)
[2023-06-14] MEDS: NS 0.9% 1000 ml BAG 1,000 ML IV SCH (18:42)
[2023-06-14 20:03] LABS: Ferritin 2270.3 ng/mL (24-336)
[2023-06-14 20:30] LABS: Calcium 7.9 mg/dL (8.6-10.3); Creatinine, Serum 0.74 mg/dL (0.67-1.17); Magnesium 2.5 mg/dL (1.9-2.7); Potassium 2.7 mmol/L (3.5-5.0); eGFR CKD-EPI 103.1 (>60)
[2023-06-15] MEDS: LORazepam 2 mg VIAL 1 ml IV PUSH PRN ×8 (00:36→22:40)
[2023-06-15] MEDS: Pantoprazole 80 mg in NS BAG 80 MG/250 ML BAG IV SCH ×2 (01:09→11:23)
[2023-06-15] MEDS: Fosphenytoin 100 MG in NS 0.9% 50 ML 50 ML IVPB SCH ×2 (06:29→17:51)
[2023-06-15 07:00] LABS: Albumin 3.3 g/dL (3.2-5.2); Albumin/Globulin Ratio 1.1 (1-3); Calcium 7.6 mg/dL (8.6-10.3); Creatinine, Serum 0.57 mg/dL (0.67-1.17); Globulin 2.9 g/dL (2-4); Potassium 2.8 mmol/L (3.5-5.0); Total Protein 6.2 g/dL (6.4-8.9); eGFR CKD-EPI 111.5 (>60)
[2023-06-15 07:34] LABS: ABS Lymphocytes 0.5 10^3/uL (1.0-4.8); ABS Monocytes 0.8 10^3/uL (0.0-1.1); ABS Neutrophils 7.4 10^3/uL (1.5-7.6); ABS Nucleated RBC 0.01 10^3/ul; Eosinophil % 0.1 %; Hematocrit 26.1 % (38-53); Hemoglobin 9.4 g/dL (13.2-16.3); Lymphocyte % 6.1 %; Mean Corpuscular Hgb Conc 35.9 g/dL (31-36); Mean Corpuscular Volume 103.1 fL (80-97); Mean Platelet Volume 9.3 fL (7.5-11.2); Nucleated Red Blood Cells % 0.1 %/100WBC (0.0-0.8); Platelet Count 71 10^3/uL (150-450); Red Blood Count 2.54 10^6/uL (4.06-5.63); Red Cell Distribution Width 13.5 % (12-17); White Blood Count 8.8 10^3/uL (3.6-10.2)
[2023-06-15] MEDS ORDERED: Thiamine 100 MG/ML 2 ml VIAL 100 MG, Folic Acid IV 1 MG, Multiple Vitamin IV ADULT 10 M... IV ONE (09:20)
[2023-06-15 09:43] LABS: Urine Osmo 486 mOsm/kg (150-1150)
[2023-06-15] MEDS: KCL 20 MEQ/100 ML IVPREMIX 20 MEQ/100 ML BAG IV SCH ×4 (10:30→16:54)
[2023-06-15] MEDS ORDERED: Nicotine GUM 4MG FRUIT FLAVOR PO PRN (12:53)
[2023-06-15 20:11] LABS: Calcium 7.5 mg/dL (8.6-10.3); Creatinine, Serum 0.49 mg/dL (0.67-1.17); Potassium 3.9 mmol/L (3.5-5.0); eGFR CKD-EPI 116.8 (>60)
[2023-06-16] MEDS: LORazepam 2 mg VIAL 1 ml IV PUSH PRN ×5 (00:46→14:58)
[2023-06-16] MEDS: Pantoprazole 80 mg in NS BAG 80 MG/250 ML BAG IV SCH ×3 (00:52→20:14)
[2023-06-16] MEDS: Fosphenytoin 100 MG in NS 0.9% 50 ML 50 ML IVPB SCH ×2 (06:00→18:11)
[2023-06-16] MEDS ORDERED: LORazepam 2 mg VIAL 1 ml IV PUSH ONE (06:18)
[2023-06-16] MEDS ORDERED: Lorazepam PYXIS KEY PRN (06:18)
[2023-06-16] MEDS: NS 0.9% 1000 ml BAG 1,000 ML IV SCH ×2 (10:26→19:11)
[2023-06-16 13:58] LABS: Hematocrit 30.8 % (38-53); Hemoglobin 10.7 g/dL (13.2-16.3); Mean Corpuscular Hgb Conc 34.8 g/dL (31-36); Mean Corpuscular Volume 106.2 fL (80-97); Mean Platelet Volume 8.1 fL (7.5-11.2); Platelet Count 70 10^3/uL (150-450); Red Cell Distribution Width 13.4 % (12-17); White Blood Count 4.9 10^3/uL (3.6-10.2)
[2023-06-16 14:27] LABS: Blood Urea Nitrogen 6 mg/dL (6-24); CO2 Carbon Dioxide 18 mmol/L (22-32); Calcium 7.8 mg/dL (8.6-10.3); Chloride 99 mmol/L (101-111); Glucose 88 mg/dL (70-100); Sodium 127 mmol/L (135-145)
[2023-06-16 14:35] LABS: Urine Potassium Concentration 41.4 mmol/L
[2023-06-16 14:54] LABS: Urine Benzodiazepine Screen None Detected (None Detect); Urine Cannabinoids Screen Presumptive Positive (None Detect); Urine Opiates Screen None Detected (None Detect)
[2023-06-16 14:57] LABS: Anion Gap 10 mmol/L (2-16)
[2023-06-16 17:03] LABS: Potassium, Whole Blood 3.2 mmol/L (3.4-4.5)
[2023-06-16 18:57] LABS: ABS Eosinophils 0.1 10^3/uL (0.0-0.5); ABS Lymphocytes 0.4 10^3/uL (1.0-4.8); ABS Neutrophils 3.5 10^3/uL (1.5-7.6); ABS Nucleated RBC 0.01 10^3/ul; Eosinophil % 1.7 %; Lymphocyte % 7.3 %; Macrocytosis 2+; Nucleated Red Blood Cells % 0.1 %/100WBC (0.0-0.8); Toxic Granulation 1+
[2023-06-17] MEDS: Pantoprazole 80 mg in NS BAG 80 MG/250 ML BAG IV SCH ×3 (00:01→21:18)
[2023-06-17] MEDS: NS 0.9% 1000 ml BAG 1,000 ML IV SCH ×4 (02:30→22:54)
[2023-06-17] MEDS: Fosphenytoin 100 MG in NS 0.9% 50 ML 50 ML IVPB SCH ×2 (06:05→21:32)
[2023-06-17 09:20] LABS: Albumin 3.1 g/dL (3.2-5.2); Albumin/Globulin Ratio 1.1 (1-3); Calcium 7.4 mg/dL (8.6-10.3); Creatinine, Serum 0.51 mg/dL (0.67-1.17); Globulin 2.8 g/dL (2-4); Potassium 2.7 mmol/L (3.5-5.0); Total Bilirubin 0.6 mg/dL (0.2-1.0); Total Protein 5.9 g/dL (6.4-8.9); eGFR CKD-EPI 115.4 (>60)
[2023-06-17] MEDS: KCL 20 MEQ/100 ML IVPREMIX 20 MEQ/100 ML BAG IV SCH ×4 (10:38→18:03)
[2023-06-17 11:12] LABS: Magnesium 0.7 mg/dL (1.9-2.7)
[2023-06-17] MEDS ORDERED: Magnesium Sulf 4 GM/100 ML IV 4,000 MG/100 ML BAG IVPB ONE (11:14)
[2023-06-17 20:57] LABS: Magnesium 1.2 mg/dL (1.9-2.7); Potassium 3.6 mmol/L (3.5-5.0)
[2023-06-17] MEDS ORDERED: Magnesium Sulfate 2 gm BAG 2 GM/50 ML BAG IVPB ONE (22:05)
[2023-06-18] MEDS ORDERED: Magnesium Sulfate IV 1GM/100ML 1 GM/100 ML BAG IV ONE (00:05)
[2023-06-18 01:18] LABS: Urine Appearance Clear; Urine Bilirubin Negative (Negative); Urine Blood Negative (Negative); Urine Color Straw; Urine Glucose Negative (Negative); Urine Ketones Negative (Negative); Urine Nitrite Negative (Negative); Urine Protein Negative (Negative); Urine Specific Gravity 1.003 (1.002-1.030); Urine Urobilinogen Negative (Negative)
[2023-06-18] MEDS: Fosphenytoin 100 MG in NS 0.9% 50 ML 50 ML IVPB SCH ×2 (05:38→18:10)
[2023-06-18] MEDS: NS 0.9% 1000 ml BAG 1,000 ML IV SCH ×3 (05:44→19:47)
[2023-06-18] MEDS: Pantoprazole 80 mg in NS BAG 80 MG/250 ML BAG IV SCH ×2 (05:47→05:50)
[2023-06-18 07:43] LABS: Anion Gap 8 mmol/L (2-16); Blood Urea Nitrogen 4 mg/dL (6-24); CO2 Carbon Dioxide 20 mmol/L (22-32); Calcium 7.6 mg/dL (8.6-10.3); Chloride 101 mmol/L (101-111); Creatinine, Serum 0.47 mg/dL (0.67-1.17); Glucose 95 mg/dL (70-100); Magnesium 1.4 mg/dL (1.9-2.7); Sodium 129 mmol/L (135-145); eGFR CKD-EPI 118.2 (>60)
[2023-06-18 08:27] LABS: Hematocrit 25.8 % (38-53); Hemoglobin 9.3 g/dL (13.2-16.3); Mean Corpuscular Hemoglobin 37.3 pg (27-33); Mean Corpuscular Hgb Conc 35.9 g/dL (31-36); Red Blood Count 2.49 10^6/uL (4.06-5.63); Red Cell Distribution Width 13.4 % (12-17); White Blood Count 2.7 10^3/uL (3.6-10.2)
[2023-06-18 09:27] LABS: Mean Platelet Volume 8.1 fL (7.5-11.2); Platelet Count 98 10^3/uL (150-450)
[2023-06-18 09:31] LABS: ABS Eosinophils 0.1 10^3/uL (0.0-0.5); ABS Lymphocytes 0.4 10^3/uL (1.0-4.8); ABS Neutrophils 1.3 10^3/uL (1.5-7.6); ABS Nucleated RBC 0.01 10^3/ul; Eosinophil % 2.8 %; Lymphocyte % 13.9 %; Macrocytosis 1+; Nucleated Red Blood Cells % 0.2 %/100WBC (0.0-0.8)
[2023-06-18] MEDS ORDERED: Potassium Chlor 20 meq TAB.ER PO ONE ×2 (10:32→17:12)
[2023-06-18] MEDS ORDERED: Magnesium Sulf 4 GM/100 ML IV 4,000 MG/100 ML BAG IVPB ONE (10:34)
[2023-06-18] MEDS ORDERED: Thiamine 100 MG/ML 2 ml VIAL 100 MG, Folic Acid IV 1 MG, Multiple Vitamin IV ADULT 10 M... IV ONE (12:00)
[2023-06-18] MEDS ORDERED: Magnesium Hydroxide LIQ 30 ML UDC ONE (23:33)
[2023-06-18] MEDS: Magnesium Hydroxide LIQ 30 ML UDC PO PRN (23:34)
[2023-06-19] MEDS: NS 0.9% 1000 ml BAG 1,000 ML IV SCH ×4 (01:58→23:15)
[2023-06-19 05:57] LABS: Hemoglobin 9.7 g/dL (13.2-16.3); Mean Corpuscular Hemoglobin 37.2 pg (27-33); Mean Corpuscular Hgb Conc 35.9 g/dL (31-36); Mean Corpuscular Volume 103.6 fL (80-97); Mean Platelet Volume 7.9 fL (7.5-11.2); Platelet Count 124 10^3/uL (150-450); Red Blood Count 2.61 10^6/uL (4.06-5.63); Red Cell Distribution Width 13.3 % (12-17); White Blood Count 3.8 10^3/uL (3.6-10.2)
[2023-06-19] MEDS: Fosphenytoin 100 MG in NS 0.9% 50 ML 50 ML IVPB SCH ×2 (06:03→18:13)
[2023-06-19 06:13] LABS: Creatinine, Serum 0.46 mg/dL (0.67-1.17); Magnesium 1.3 mg/dL (1.9-2.7); Potassium 3.2 mmol/L (3.5-5.0)
[2023-06-19 06:55] LABS: ABS Eosinophils 0.1 10^3/uL (0.0-0.5); ABS Lymphocytes 0.5 10^3/uL (1.0-4.8); ABS Monocytes 1.2 10^3/uL (0.0-1.1); ABS Neutrophils 1.9 10^3/uL (1.5-7.6); ABS Nucleated RBC 0.01 10^3/ul; Anisocytosis 1+; Lymphocyte % 12.1 %; Macrocytosis 1+; Nucleated Red Blood Cells % 0.2 %/100WBC (0.0-0.8)
[2023-06-19] MEDS ORDERED: Magnesium Sulf 4 GM/100 ML IV 4,000 MG/100 ML BAG IVPB ONE (07:53)
[2023-06-19] MEDS: Potassium & Sodium Phos 250 mg = 1 PACKET PO SCH ×2 (10:29→15:19)
[2023-06-19] MEDS: KCL 20 MEQ/100 ML IVPREMIX 20 MEQ/100 ML BAG IV SCH ×2 (12:20→15:19)
[2023-06-19 12:40] LABS: High Sensitivity Troponin 1 Hr 8 pg/mL (<20)
[2023-06-19 16:58] LABS: Creatinine, Serum 0.49 mg/dL (0.67-1.17); Phosphorus 1.8 mg/dL (2.5-5.0); Potassium 4.2 mmol/L (3.5-5.0); eGFR CKD-EPI 116.8 (>60)
[2023-06-19] MEDS ORDERED: Potassium & Sodium Phos 250 mg = 1 PACKET PO ONE ×2 (17:00→21:00)
[2023-06-19] MEDS: Magnesium Hydroxide LIQ 30 ML UDC PO PRN (20:56)
[2023-06-20 06:01] LABS: Hematocrit 24.3 % (38-53); Hemoglobin 8.8 g/dL (13.2-16.3); Mean Corpuscular Hemoglobin 37.4 pg (27-33); Mean Corpuscular Hgb Conc 36.4 g/dL (31-36); Mean Corpuscular Volume 102.7 fL (80-97); Mean Platelet Volume 7.8 fL (7.5-11.2); Platelet Count 144 10^3/uL (150-450); Red Blood Count 2.36 10^6/uL (4.06-5.63); Red Cell Distribution Width 13.4 % (12-17); White Blood Count 3.8 10^3/uL (3.6-10.2)
[2023-06-20] MEDS: Fosphenytoin 100 MG in NS 0.9% 50 ML 50 ML IVPB SCH (06:08)
[2023-06-20] MEDS: NS 0.9% 1000 ml BAG 1,000 ML IV SCH (06:09)
[2023-06-20 06:20] LABS: Calcium 8.2 mg/dL (8.6-10.3); Creatinine, Serum 0.44 mg/dL (0.67-1.17); Magnesium 1.2 mg/dL (1.9-2.7); Phosphorus 2.7 mg/dL (2.5-5.0); Potassium 3.5 mmol/L (3.5-5.0); eGFR CKD-EPI 120.6 (>60)
[2023-06-20] MEDS ORDERED: Magnesium Sulf 4 GM/100 ML IV 4,000 MG/100 ML BAG IVPB ONE (07:03)
[2023-06-20 07:23] LABS: ABS Eosinophils 0.1 10^3/uL (0.0-0.5); ABS Lymphocytes 0.5 10^3/uL (1.0-4.8); ABS Monocytes 1.2 10^3/uL (0.0-1.1); ABS Neutrophils 2.1 10^3/uL (1.5-7.6); ABS Nucleated RBC 0.01 10^3/ul; Lymphocyte % 12.8 %; Macrocytosis 1+; Nucleated Red Blood Cells % 0.1 %/100WBC (0.0-0.8)
[2023-06-20] MEDS ORDERED: Multivitamins/Minerals TAB PO SCH (09:00)
[2023-06-20] MEDS ORDERED: NON FORMULARY MED (Potassium Gluconate 550 mg (90 mg) Tablet) PO SCH (09:00)
[2023-06-20 13:00] LABS: Hematocrit 25.1 % (38-53); Mean Corpuscular Hemoglobin 36.7 pg (27-33); Mean Corpuscular Hgb Conc 35.7 g/dL (31-36); Platelet Count 168 10^3/uL (150-450); Red Blood Count 2.44 10^6/uL (4.06-5.63); Red Cell Distribution Width 13.2 % (12-17); White Blood Count 4.9 10^3/uL (3.6-10.2)
[2023-06-20 13:10] LABS: Calcium 7.9 mg/dL (8.6-10.3); Creatinine, Serum 0.43 mg/dL (0.67-1.17); Potassium 3.6 mmol/L (3.5-5.0); eGFR CKD-EPI 121.5 (>60)
[2023-06-20 13:27] LABS: ABS Eosinophils 0.1 10^3/uL (0.0-0.5); ABS Lymphocytes 0.4 10^3/uL (1.0-4.8); ABS Monocytes 1.2 10^3/uL (0.0-1.1); ABS Neutrophils 3.2 10^3/uL (1.5-7.6); Eosinophil % 1.7 %; Lymphocyte % 8.7 %; Macrocytosis 1+; Nucleated Red Blood Cells % 0.1 %/100WBC (0.0-0.8)
[2023-06-20 13:36] VITALS: BP 144/78
== END 2023-06-20 14:45 | disposition home or self-care (01) | DRG 243 ==
LOC: ED 11:07 → SUATTDRO 14:43 → EDHOLD 14:43 → MED 16:22
PROVIDERS: ADMIT Hospitalist; ATTEND Hospitalist